=== PATIENT | male | born 1945 | race Caucasian/White ===

== ENCOUNTER 2023-09-15 21:49 | Inpatient (IN) | payer MEDICARE ==
[~2023-09-15] VITALS: Ht 182 cm; Wt 115.2 kg
[~2023-09-15 21:49] MED LIST: AMLO10TA PO; AMOX500C2 PO; BP MED; CEPH500C PO; CHRO1000 PO; LOSA100T7 PO; MTF500T PO; MULT1CAP27 PO; VICODIN 5/325 PO
--- NOTE | 2023-09-15 21:58 | ED General ---
General Stated Complaint: WEAKNESS/VOMITING Source of Information: Patient, Old Records History of Present Illness Date Seen by Provider: Sep 15, 2023 Time Seen by Provider: 21:50 Initial Comments PT ARRIVES VIA EMS FROM HOME--LIVES ALONE WITH HIS DOG C/O GENERALIZED WEAKNESS C/O NAUSEA / VOMITING SYMPTOMS BEGAN FAIRLY SUDDENLY AROUND 1700, WHILE EATING SOUP AT [employer], THEN WENT HOME AND MADE A SALAD AND ATE THAT. HE GOT UP AND HE "FELT DRUNK" AND WAS DIZZY, AND FELT WEAK ALL OVER AND THEN STARTED HAVING NAUSEA/VOMITING--VOMITED X 2 PRIOR TO ARRIVAL HE NO LONGER FEELS "DRUNK" OR DIZZY HE IS STILL NAUSEATED AND STILL FEELS WEAK ALL OVER NO HEADACHE NO VISION CHANGES NO PARESTHESIAS OR MOTOR DEFICITS NO CHEST PAIN NO SHORTNESS OF BREATH NO PALPITATIONS NO PAIN ANYWHERE NO DIARRHEA NO FEVER/SWEATS/CHILLS NO COUGH OR URI SYMPTOMS NO URINARY SYMPTOMS NO HISTORY OF SIMILAR NO KNOWN SICK CONTACTS. PT HAS HAD BILATERAL CATARACT SURGERY IN THE LAST 2 MONTHS. 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 PANIAGUA, BUT QUIT SEEING HER WHEN SHE BECAME A [facility] EARLIER THIS YEAR. HE NOW GOES TO [facility] FOR MEDICAL CARE. Allergies and Home Medications Allergies Coded Allergies: No Known Drug Allergies (Unverified , 03/08/14) Patient Home Medication List Home Medication List Reviewed: Yes Amlodipine Besylate (Amlodipine Besylate) 10 Mg Tablet, 10 MG PO DAILY, (Reported) Entered as Reported by: EDMUND CORBIN on 05/21/14 1056 Amoxicillin (Amoxicillin) 500 Mg Capsule, 1 EACH PO TID Prescribed by: SLAVA MOCK on 01/02/15 0133 Losartan Potassium (Losartan Potassium) 100 Mg Tablet, 100 MG PO DAILY, (Reported) Entered as Reported by: EDMUND CORBIN on 05/21/14 1056 Metformin Hcl (Metformin 500 Mg) 500 Mg Tablet, 500 MG PO BID WITH MEALS, (Reported) Entered as Reported by: EDMUND CORBIN on 05/21/14 1056 Review of Systems Review of Systems Constitutional: see HPI; No chills, No diaphoresis; dizziness; No fever; malaise, weakness EENTM: no symptoms reported Respiratory: no symptoms reported Cardiovascular: no symptoms reported Gastrointestinal: see HPI; No abdominal pain, No diarrhea; nausea Genitourinary: no symptoms reported Musculoskeletal: no symptoms reported Skin: no symptoms reported Psychiatric/Neurological: No Symptoms Reported; Denies Headache, Denies Numbness, Denies Paresthesia, Denies Tingling, Denies Tremors Hematologic/Lymphatic: No Symptoms Reported Immunological/Allergic: no symptoms reported Past Bgbcjeh-Skqpzj-Kteuyh Hx Patient Social History Tobacco Use?: No Smoking Status: Never a Smoker Smokeless Tobacco Frequency: Never a User Use of E-Cig and/or Vaping Ray: Never a User Substance use?: No Alcohol Use?: No Immunizations Up To Date Tetanus Booster (TDap): Less than 5yrs Past Medical History Surgeries: Yes (BILATERAL CATARACTS) Eye Surgery, Prostatectomy Respiratory: No Cardiac: Yes (RBBB) Hypertension Neurological: No Reproductive Disorders: No Sexually Transmitted Disease: No HIV/AIDS: No Genitourinary: Yes (PROSTATE CANCER MANY YEARS AGO) Prostate Problems Gastrointestinal: No Musculoskeletal: No Endocrine: Yes Diabetes, Non-Insulin dep HEENT: Yes Cataract Cancer: Yes Prostate, Skin Did You Recieve Any Treatments: Yes What Type of Treatment Did You: Surgical Intervention Psychosocial: No Integumentary: No Blood Disorders: No Adverse Reaction/Blood Tranf: No Physical Exam Vital Signs Vital Signs - First Documented 09/15/23 21:55 Temp 35.6 Pulse 93 Resp 20 B/P (MAP) 164/92 (116) Pulse Ox 97 O2 Delivery Room Air Capillary Refill : Height, Weight, BMI Height: 5'10" Weight: 302lbs. oz. 136.298889ik; BMI Method: General Appearance: No Apparent Distress, WD/WN HEENT: PERRL/EOMI, Normal ENT Inspection, Other (NO NYSTAGMUS) Neck: Full Range of Motion, Normal Inspection, Non Tender, Supple; No Carotid Bruit, No JVD Respiratory: Normal Breath Sounds, No Accessory Muscle Use, No Respiratory Distress Cardiovascular: Regular Rate, Rhythm, No Edema, No JVD, No Murmur, Normal Peripheral Pulses Gastrointestinal: Normal Bowel Sounds, No Organomegaly, No Pulsatile Mass, Non Tender, Soft Back: No CVA Tenderness Extremity: Normal Capillary Refill, Normal Inspection, Normal Range of Motion, Non Tender, No Calf Tenderness, No Pedal Edema Neurologic/Psychiatric: Alert, Oriented x3, No Motor/Sensory Deficits, 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 II- XII Norm as Tested, Abnormal Cerebellar Tests, Other (UNABLE TO STAND DUE TO SEVERE DIZZINESS WITH NAUSEA/VOMITING) Skin: Normal Color, Warm/Dry Progress/Results/Core Measures Suspected Sepsis SIRS Temperature: Pulse: Respiratory Rate: Laboratory Tests 09/15/23 21:58: White Blood Count 8.5 Blood Pressure / Mean: Laboratory Tests 09/15/23 21:58: Creatinine 1.18, Platelet Count 156, Total Bilirubin 0.9 Results/Orders Lab Results Laboratory Tests Test 09/15/23 21:56 09/15/23 21:58 09/16/23 00:40 09/16/23 00:44 Range/Units Glucometer 246 H 70-110 MG/DL White Blood Count 8.5 4.3-11.0 10^3/uL Red Blood Count 5.09 4.30-5.52 10^6/uL Hemoglobin 15.9 13.3-17.7 g/dL Hematocrit 48 40-54 % Mean Corpuscular Volume 95 80-99 fL Mean Corpuscular Hemoglobin 31 25-34 pg Mean Corpuscular Hemoglobin Concent 33 32-36 g/dL Red Cell Distribution Width 14.0 10.0-14.5 % Platelet Count 156 130-400 10^3/uL Mean Platelet Volume 11.5 9.0-12.2 fL Immature Granulocyte % (Auto) 0 % Neutrophils (%) (Auto) 82 H 42-75 % Lymphocytes (%) (Auto) 9 L 12-44 % Monocytes (%) (Auto) 7 0-12 % Eosinophils (%) (Auto) 2 0-10 % Basophils (%) (Auto) 1 0-10 % Neutrophils # (Auto) 7.0 1.8-7.8 10^3/uL Lymphocytes # (Auto) 0.7 L 1.0-4.0 10^3/uL Monocytes # (Auto) 0.6 0.0-1.0 10^3/uL Eosinophils # (Auto) 0.2 0.0-0.3 10^3/uL Basophils # (Auto) 0.0 0.0-0.1 10^3/uL Immature Granulocyte # (Auto) 0.0 0.0-0.1 10^3/uL Sodium Level 137 135-145 MMOL/L Potassium Level 3.9 3.6-5.0 MMOL/L Chloride Level 102 98-107 MMOL/L Carbon Dioxide Level 17 L 21-32 MMOL/L Anion Gap 18 H 5-14 MMOL/L Blood Urea Nitrogen 17 7-18 MG/DL Creatinine 1.18 0.60-1.30 MG/DL Estimat Glomerular Filtration Rate 64 BUN/Creatinine Ratio 14 Glucose Level 248 H 70-105 MG/DL Calcium Level 9.4 8.5-10.1 MG/DL Corrected Calcium 9.2 8.5-10.1 MG/DL Magnesium Level 1.7 1.6-2.4 MG/DL Total Bilirubin 0.9 0.1-1.0 MG/DL Aspartate Amino Transf (AST/SGOT) 22 5-34 U/L Alanine Aminotransferase (ALT/SGPT) 11 0-55 U/L Alkaline Phosphatase 83 40-136 U/L Troponin I < 0.028 < 0.028 <0.028 NG/ML Total Protein 7.7 6.4-8.2 GM/DL Albumin 4.3 3.2-4.5 GM/DL Amylase Level 57 25-125 U/L Lipase 25 8-78 U/L Influenza Type A (RT-PCR) Not Detected Not Detecte Influenza Type B (RT-PCR) Not Detected Not Detecte SARS-CoV-2 RNA (RT-PCR) Not Detected Not Detecte Urine Color YELLOW Urine Clarity CLEAR Urine pH 6.0 5-9 Urine Specific [place] 1.015 L 1.016-1.022 Urine Protein 1+ H NEGATIVE Urine Glucose (UA) 2+ H NEGATIVE Urine Ketones 1+ H NEGATIVE Urine Nitrite NEGATIVE NEGATIVE Urine Bilirubin NEGATIVE NEGATIVE Urine Urobilinogen 1.0 < = 1.0 MG/DL Urine Leukocyte Esterase NEGATIVE NEGATIVE Urine RBC (Auto) NEGATIVE NEGATIVE Urine RBC RARE /HPF Urine WBC RARE /HPF Urine Crystals NONE /LPF Urine Bacteria NEGATIVE /HPF Urine Casts NONE /LPF Urine Mucus NEGATIVE /LPF Urine Culture Indicated NO My Orders Orders - MARY MENDOZA DO Accucheck Stat ONCE (09/15/23 21:51) Ed Iv/Invasive Line Start (09/15/23 21:51) Ekg Tracing (09/15/23 21:51) O2 (09/15/23 21:51) Monitor-Rhythm Ecg Trace Only (09/15/23 21:51) Amylase (09/15/23 21:51) Cbc And Automated Diff (09/15/23 21:51) Comprehensive Metabolic Panel (09/15/23 21:51) Lipase (09/15/23 21:51) Magnesium (09/15/23 21:51) Ua Culture If Indicated (09/15/23:51) Troponin I Reynolds (09/15/23 21:51) Covid 19 Inhouse Test (09/15/23 21:51) Influenza A And B By Pcr (09/15/23 21:51) Ed Iv/Invasive Line Start (09/15/23 21:56) Lactated Ringers 1,000 Ml (Lactated Ring (09/15/23 22:00) Ondansetron Injection (Ondansetron Inj (09/15/23 22:00) Ct Head Wo-R/O Stroke (09/15/23 22:13) Chest 1 View, Ap/Pa Only (09/15/23 ) Ed Iv/Invasive Line Start (09/15/23 22:17) Ns Iv 1000 Ml (Ns Iv 1000 Ml) (09/15/23 22:30) Ns Iv 1000 Ml (Ns Iv 1000 Ml) (09/15/23 22:18) Ed Iv/Invasive Line Start (09/15/23 23:40) Ns Iv 1000 Ml (Ns Iv 1000 Ml) (09/15/23 23:45) Scopolamine Patch (Scopolamine Patch) (09/16/23 00:00) Meclizine Tablet (Meclizine Tablet) (09/16/23 00:00) Ct Angio Head/Neck (09/16/23 00:01) Hydralazine Injection (Hydralazine Injec (09/16/23 00:00) Ondansetron Injection (Ondansetron Inj (09/16/23 00:30) Ondansetron Injection (Ondansetron Inj (09/16/23 00:20) Iohexol Injection (Omnipaque 350 Mg/Ml 1 (09/16/23 01:15) Received Contrast (Hold Metformin- Contr (09/16/23 01:15) Ns (Ivpb) 100 Ml (Sodium Chloride 0.9% 1 (09/16/23 01:15) Troponin I Maddie (09/16/23 01:06) Aspirin Chewable Tablet (Aspirin Chewabl (09/16/23 01:45) Clopidogrel Tablet (Clopidogrel Tablet) (09/16/23 01:45) Nitroglycerin Ointment (Nitroglycerin (09/16/23 01:45) Medications Given in ED Current Medications Medications Dose Ordered Sig/Senia Route Start Time Stop Time Status Last Admin Dose Admin Aspirin 324 mg ONCE ONCE PO 09/16/23 01:45 09/16/23 01:46 DC 09/16/23 02:10 324 MG Clopidogrel Bisulfate 300 mg ONCE ONCE PO 09/16/23 01:45 09/16/23 01:46 DC 09/16/23 02:10 300 MG Hydralazine HCl 10 mg ONCE ONCE IV 09/16/23 00:00 09/16/23 00:01 DC 09/16/23 00:11 10 MG Iohexol 100 ml ONCE ONCE IV 09/16/23 01:15 09/16/23 01:16 DC 09/16/23 01:04 75 ML Lactated Ringer's 1,000 ml @ 0 mls/hr Q0M ONCE IV 09/15/23 22:00 09/15/23 22:01 DC 09/15/23 22:11 0 MLS/HR Meclizine HCl 50 mg ONCE ONCE PO 09/16/23 00:00 09/16/23 00:01 DC 09/16/23 00:11 50 MG Nitroglycerin 1 inch ONCE ONCE TOP 09/16/23 01:45 09/16/23 01:46 DC 09/16/23 01:48 1 INCH Ondansetron HCl 4 mg ONCE ONCE IVP 09/15/23 22:00 09/15/23 22:01 DC 09/15/23 22:11 4 MG Ondansetron HCl 8 mg ONCE ONCE IVP 09/16/23 00:30 09/16/23 00:31 DC 09/16/23 00:24 8 MG Scopolamine 1.5 mg ONCE ONCE TD 09/16/23 00:00 09/16/23 00:01 DC 09/16/23 00:11 1.5 MG Sodium Chloride 100 ml ONCE ONCE IV 09/16/23 01:15 09/16/23 01:16 DC 09/16/23 01:04 80 ML Vital Signs/I&O 09/15/23 21:55 Temp 35.6 Pulse 93 Resp 20 B/P (MAP) 164/92 (116) Pulse Ox 97 O2 Delivery Room Air 09/16/23 00:00 Intake Total 1100 ml Balance 1100 ml Capillary Refill : Progress Note : Progress Note VITALS ON ARRIVAL: TEMP 35.6, HR 93, RR 20, BP 164/92, O2 SAT 97% ON ROOM AIR GIVEN: -IV FLUIDS -ZOFRAN -SCOPOLAMINE PATCH -ANTIVERT -HYDRALAZINE -ASPIRIN -PLAVIX -REGLAN -NITROPASTE LABS: -CBC NORMAL -CMP GLUCOSE 248, OTHERWISE NORMAL -MG NORMAL -AMYLASE/LIPASE NORMAL -TROPONIN NEGATIVE X 2 -UA WITH 1+ PROTEIN, 2+ GLUCOSE, 1+ KETONES -COVID/FLU NEGATIVE EKG WITH CHRONIC RBBB, UNCHANGED FROM 2013 CXR UNREMARKABLE, PENDING RADIOLOGIST REVIEW CT HEAD UNREMARKABLE, PER RADIOLOGIST REPORT CT ANGIOGRAM HEAD/NECK--RIGHT VERTEBRAL ARTERY OCCLUSION SYMPTOMS RESOLVED SHORTLY AFTER ARRIVAL NO SYMPTOMS OF ANY KIND WHILE LAYING STILL ON ER CART 2345--PT ASSISTED TO STAND AT BEDSIDE TO ATTEMPT TO URINATE, AND PT BECAME VERY DIZZY AND SHAKEY AND NAUSEATED. UNABLE TO VOID AT THIS TIME BP UP TO 214/111 SCOPOLAMINE, ANTIVERT AND HYDRALAZINE ORDERED WILL ALSO OBTAIN CT ANGIOGRAM HEAD/NECK AT THIS TIME 0019--PT IN CT AND IS NOW NAUSEATED AND VOMITING AFTER MOVING ONTO CT TABLE--ADDITIONAL ZOFRAN ORDERED PT HAS NO SYMPTOMS WHILE LAYING STILL HAS SIGNIFICANT DIZZINESS WITH NAUSEA/VOMITING WITH ANY POSITION CHANGES 0145--ATTEMPTING TO GIVE ASPIRIN AND PLAVIX AND PT BEGAN HAVING DIZZINESS AND NAUSEA/VOMITING AGAIN WHEN HE TRIED TO SIT UP TO TAKE MEDICATION. REGLAN ORDERED BP REMAINS ELEVATED 180-190 SYSTOLIC--NITROPASTE ORDERED BP DOWN AT TIME OF ADMIT TO 160'S/90'S DISCUSSED TEST RESULTS, NEED FOR ADMIT AND PT IS AGREEABLE TO PLAN REVIEWED PRIOR RECORDS--2 ER VISITS -2013, 2014, AND OUTPATIENT PROCEDURE IN 2013 ECG Initial ECG Impression Date: Sep 15, 2023 Initial ECG Impression Time: 22:05 Initial ECG Rate: 90 Initial ECG Rhythm: Normal Sinus (RBBB) Initial ECG Intervals [place] 118 QRS 144 QT/QTC 389/437 Initial ECG Comparisson: Unchanged (NO CHANGE FROM 2013) Comment INTERPRETED BY ME Diagnostic Imaging Comments CT HEAD--NO ACUTE PROCESS, CHRONIC WHITE MATTER DISEASE, PER [facility] RADIOLOGIST VIA PHONE AT [phone] And VIA FAX AT [phone] CXR--NO ACUTE PROCESS, PENDING RADIOLOGIST REVIEW CT ANGIOGRAM HEAD/NECK--PER [facility] RADIOLOGIST VIA PHONE AT 0111 AND VIA FAX AT 0115 -RIGHT VERTEBRAL ARTERY OCCLUSION. VESSEL IS SMALL AND NON-DOMINANT VESSEL. Reviewed: Reviewed by Me, Discussed w/Radiologist, Reviewed/Discussed Departure Communication (Admissions) 0120--CALLED [facility]. IMAGES CLOUDED TO [facility]. SPOKE WITH DR. ZHENG, STROKE NEUROLOGIST. THE AREA OF OCCLUSION IS SMALL AND NOT AMENABLE TO ANY INTERVENTION. ADVISES MEDICAL MANAGEMENT WITH ASPIRIN AND PLAVIX, AND ROUTINE STROKE WORK UP. 0127--SPOKE WITH DR. PINO, HOSPITALIST. ACCEPTS PT FOR ADMIT. Impression Primary Impression: Vertebral artery occlusion Additional Impressions: Vertigo due to acute cerebrovascular disease Acute onset of vertigo with vomiting and inability to stand Uncontrolled hypertension UNCONTROLLED NIDDM Disposition: ADMITTED INPATIENT Condition: Stable Admissions Decision to Admit Reason: Admit from ER (General) Decision to Admit/Date: Sep 16, 2023 Time/Decision to Admit Time: 01:30 Departure-Patient Inst. Referrals: SAJI PANIAGUA MD (PCP/Family) Primary Care Physician MARY MENDOZA DO Sep 15, 2023 21:58
[2023-09-15] MEDS ORDERED: ONDANSETRON INJECTION 4 MG/2 ML (SDV) IVP ONE (22:00)
[2023-09-15] MEDS ORDERED: LACTATED RINGERS 1,000 ML 1,000 ML IV ONE (22:00)
[2023-09-15 22:05] LABS: BASOPHILS % (AUTO) 1 % (0-10); EOSINOPHILS # (AUTO) 0.2 10^3/uL (0.0-0.3); EOSINOPHILS % (AUTO) 2 % (0-10); HEMATOCRIT 48 % (40-54); HEMOGLOBIN 15.9 g/dL (13.3-17.7); LYMPHOCYTES # (AUTO) 0.7 10^3/uL (1.0-4.0); LYMPHOCYTES % (AUTO) 9 % (12-44); MEAN CORPUSCULAR HEMOGLOBIN 31 pg (25-34); MEAN CORPUSCULAR HGB CONC 33 g/dL (32-36); MEAN CORPUSCULAR VOLUME 95 fL (80-99); MEAN PLATELET VOLUME 11.5 fL (9.0-12.2); MONOCYTES # (AUTO) 0.6 10^3/uL (0.0-1.0); MONOCYTES % (AUTO) 7 % (0-12); NEUTROPHILS % (AUTO) 82 % (42-75); PLATELET COUNT 156 10^3/uL (130-400); WHITE BLOOD COUNT 8.5 10^3/uL (4.3-11.0)
[2023-09-15] MEDS ORDERED: NS IV 1000 ML 1,000 ML ONE (22:18)
[2023-09-15 22:27] LABS: ALANINE AMINOTRANSFERASE 11 U/L (0-55); ALBUMIN 4.3 GM/DL (3.2-4.5); ALKALINE PHOSPHATASE 83 U/L (40-136); AMYLASE 57 U/L (25-125); BILIRUBIN,TOTAL 0.9 MG/DL (0.1-1.0); BUN/CREATININE RATIO 14; CALCIUM 9.4 MG/DL (8.5-10.1); CARBON DIOXIDE 17 MMOL/L (21-32); CHLORIDE 102 MMOL/L (98-107); CREATININE SERUM 1.18 MG/DL (0.60-1.30); GFR ESTIMATED 64; GLUCOSE 248 MG/DL (70-105); LIPASE 25 U/L (8-78); MAGNESIUM 1.7 MG/DL (1.6-2.4); POTASSIUM 3.9 MMOL/L (3.6-5.0); SODIUM 137 MMOL/L (135-145); TOTAL PROTEIN 7.7 GM/DL (6.4-8.2)
[2023-09-15] MEDS ORDERED: NS IV 1000 ML 1,000 ML IV SCH ×2 (22:30→23:45)
[2023-09-16] VITALS (16 sets, daily range): BP systolic 120–199; BP diastolic 53–99
[2023-09-16] MEDS ORDERED: SCOPOLAMINE 1.5 MG PATCH TD ONE
[2023-09-16] MEDS ORDERED: MECLIZINE 25 MG TABLET PO ONE
[2023-09-16] MEDS ORDERED: hydrALAZINE INJECTION 20 MG/ML VIAL IV ONE
[2023-09-16] MEDS ORDERED: ONDANSETRON INJECTION 4 MG/2 ML (SDV) ONE (00:20)
[2023-09-16] MEDS ORDERED: ONDANSETRON INJECTION 4 MG/2 ML (SDV) IVP ONE (00:30)
[2023-09-16 01:14] LABS: CLARITY,URINE CLEAR; COLOR,URINE YELLOW
[2023-09-16 01:15] LABS: BACTERIA,URINE NEGATIVE /HPF; BILIRUBIN,URINE NEGATIVE (NEGATIVE); GLUCOSE, URINE (UA) 2+ (NEGATIVE); KETONES,URINE 1+ (NEGATIVE); LEUKOCYTE ESTERASE ,URINE NEGATIVE (NEGATIVE); NITRITE,URINE NEGATIVE (NEGATIVE); PROTEIN,URINE 1+ (NEGATIVE); RBC,URINE RARE /HPF; WBC,URINE RARE /HPF
[2023-09-16] MEDS ORDERED: HOLD METFORMIN - RECEIVED CONTRAST 20 ML VIAL IV SCH (01:15)
[2023-09-16] MEDS ORDERED: NS 100 ML (IVPB) BAG IV ONE (01:15)
[2023-09-16] MEDS ORDERED: IOHEXOL 350 MG/ML 100 ML (OMNIPAQUE 350) VIAL IV ONE (01:15)
[2023-09-16] MEDS ORDERED: NITROGLYCERIN 2% OINT 1 GM UNIT DOSE PACKET TOP ONE (01:45)
[2023-09-16] MEDS ORDERED: ASPIRIN 81 MG CHEWABLE TABLET PO ONE (01:45)
[2023-09-16] MEDS ORDERED: CLOPIDOGREL 300 MG TABLET PO ONE (01:45)
[2023-09-16] MEDS ORDERED: METOCLOPRAMIDE INJ 10 MG/2 ML IVP ONE (02:00)
--- NOTE | 2023-09-16 02:32 | Tele-ICU Consult ---
History of Present Illness History of Present Illness Date Seen by Provider: Sep 16, 2023 Time Seen by Provider: 02:26 History of Present Illness 78 yo M came to ED with cc weakness, nausea, vomiting In ED glu 248, AG 18, HCO3 17 Found to have right vertebral artery occlusion, has vertigo with any movement carolyn standing Started on ASA, Plavix PMH HTN, Allergies and Home Medications Allergies Coded Allergies: No Known Drug Allergies (Unverified , 03/08/14) Home Medications Amlodipine Besylate 10 Mg Tablet, 10 MG PO DAILY, (Reported) Amoxicillin 500 Mg Capsule, 1 EACH PO TID Prescribed by: SLAVA MOCK on 01/02/15 0133 Losartan Potassium 100 Mg Tablet, 100 MG PO DAILY, (Reported) Metformin Hcl 500 Mg Tablet, 500 MG PO BID WITH MEALS, (Reported) Past Medical/Social/Family Hx Patient Social History Tobacco Use?: No Smoking Status: Never a Smoker Smokeless Tobacco Frequency: Never a User Use of E-Cig and/or Vaping dev: No E-Cig and/or Vaping Freq: Never a User Substance use?: No Alcohol Use?: No Immunizations Up To Date Date of Pneumonia Vaccine: May 27, 2012 Current Status Communicates: Verbally Primary Language: Mozambican Preferred Spoken Language: Mozambican Review of Systems Constitutional: dizziness, weakness Focused Exam Height, Weight, BMI Height: 5'10" Weight: 302lbs. oz. 136.309515ct; 42.00 BMI Method: Exam Exam Patient acknowledged, consented, and participated in this virtual visit which was conducted using real time audio/video Vital Signs Date Time Temp Pulse Resp B/P (MAP) Pulse Ox O2 Delivery O2 Flow Rate FiO2 09/15/23 21:55 35.6 93 20 164/92 (116) 97 Room Air I & O 09/16/23 07:00 Intake Total 2100 ml Balance 2100 ml Height & Weight Height: 5'10" Weight: 302lbs. oz. 136.659197jo; 42.00 BMI Method: General Appearance: No Apparent Distress, WD/WN HEENT: PERRL/EOMI, Normal ENT Inspection, Other (NO NYSTAGMUS) Neck: Full Range of Motion, Normal Inspection, Non Tender, Supple; No Carotid Bruit, No JVD Respiratory: Normal Breath Sounds, No Accessory Muscle Use, No Respiratory Distress Cardiovascular: Regular Rate, Rhythm, No Edema, No JVD, No Murmur, Normal Peripheral Pulses Capillary Refill: Less Than 3 Seconds Extremity: Normal Capillary Refill, Normal Inspection, Normal Range of Motion, Non Tender, No Calf Tenderness, No Pedal Edema Neurologic/Psychiatric: Alert, Oriented x3, No Motor/Sensory Deficits, 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
[2023-09-16] MEDS ORDERED: NITROGLYCERIN 2% OINT 1 GM UNIT DOSE PACKET TOP PRN (03:15)
[2023-09-16] MEDS ORDERED: MECLIZINE 25 MG TABLET PO PRN (03:30)
[2023-09-16] MEDS ORDERED: ONDANSETRON INJECTION 4 MG/2 ML (SDV) IV PRN (03:30)
[2023-09-16] MEDS: 1/2 NS + KCL 20 MEQ/L 1,000 ML 1,000 ML IV SCH ×2 (03:53→13:28)
[2023-09-16 05:31] LABS: CALCIUM 8.7 MG/DL (8.5-10.1); CREATININE SERUM 0.97 MG/DL (0.60-1.30)
[2023-09-16] MEDS: inSUlin ASPART 1 UNIT/0.01 ML (PER UNIT) SC SCH ×4 (06:06→20:32)
[2023-09-16] MEDS ORDERED: hydrALAZINE INJECTION 20 MG/ML VIAL ONE (06:27)
[2023-09-16] MEDS: hydrALAZINE INJECTION 20 MG/ML VIAL IV PRN ×2 (06:32→13:12)
--- NOTE | 2023-09-16 06:55 | Diagnostic Imaging Report ---
PROCEDURE: CT angiography of the head and CT angiography of the neck with and without contrast. TECHNIQUE: Contiguous noncontrast images were obtained from the skull base through the vertex. After intravenous contrast administration, helical CT angiography of the neck was performed. Source data was reformatted into 3D MIP projections. Delayed post contrast acquisition was also obtained. Auto Exposure Controls were utilized during the CT exam to meet ALARA standards for radiation dose reduction. INDICATION: Dizziness. Nausea and vomiting. Leg weakness. Comparison: CT head performed FINDINGS: CTA Neck: The visualized portions of the aortic arch demonstrate no evidence of aneurysm or dissection. There is conventional branching pattern of the great vessels of the aorta. The brachiocephalic artery is normal in course and caliber. The right and left common carotid origins are unremarkable. The origin of the left subclavian artery is patent. The common carotid arteries and internal carotid arteries demonstrate a normal course. There is calcified atherosclerotic plaque in the bilateral carotid bulbs and proximal internal carotid arteries without flow-limiting stenosis. No evidence of dissection in the carotid systems. The external carotid arteries are patent and unremarkable. The left vertebral artery is dominant. The origin of the right vertebral artery is seen and is unremarkable. The origin of the left vertebral artery is seen and is unremarkable. There is no focal stenosis seen within the neck. There is no dissection. No acute fracture in the cervical spine. The craniocervical junction is intact. Included views through the lung apices demonstrate no focal consolidation. CTA brain: Atherosclerotic plaque is seen in the vela of the bilateral terminal internal carotid arteries without significant stenosis. No stenosis is seen in the bilateral anterior, middle, and posterior cerebral arteries. There is luminal irregularity within the right M1 segment. No evidence of aneurysm the [place] of [place]. There is occlusion of the right vertebral artery at the V3/V4 junction. The left vertebral artery is widely patent. Both the right and left PICA arteries are identified. The basilar artery is normal in course and caliber. The terminal branch vessels including the superior cerebellar arteries unremarkable. IMPRESSION: 1. No stenosis or aneurysm in the [place] of [place]. No large vessel occlusion. 2. 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 This is age-indeterminate. Consider MRI brain to further evaluate. 3. No stenosis in the left vertebral artery and bilateral carotid systems. 4. Luminal irregularity within the right M1 segment, suggestive of intracranial atherosclerotic plaque. Agree with overnight report. Dictated by: Dictated on workstation # [id number]
[2023-09-16] MEDS ORDERED: FLU HIGH DOSE (65+ YOA) 240 MCG/0.7 ML 2023-24 (FLUZONE) IM ONE (07:00)
--- NOTE | 2023-09-16 07:21 | Diagnostic Imaging Report ---
EXAMINATION: CT head without contrast. TECHNIQUE: Multiple contiguous axial images were obtained through the brain without the use of intravenous contrast. All CT scans use one or more of the following dose optimizing techniques: automated exposure control, MA and/or KvP adjustment based on patient size and exam type or iterative reconstruction. HISTORY: Focal neurologic deficit. Dizziness. Leg weakness. COMPARISON: None available. FINDINGS: No large acute territorial ischemia, mass, or hemorrhage. No midline shift or mass effect. Decreased attenuation is seen in the periventricular and subcortical white matter. The ventricles and cortical sulci are prominent. The basilar cisterns are patent and unremarkable. The orbits are normal. Mucosal thickening is seen in the left-sided paranasal sinuses. Mastoid air cells are clear. No soft tissue abnormality is seen. No osseus lesions or fractures are seen. IMPRESSION: 1. No large acute territorial ischemia, mass, or hemorrhage. 2. Chronic microvascular disease. 3. Generalized parenchymal volume loss. Agree with overnight report. Dictated by: Dictated on workstation # [id number]
--- NOTE | 2023-09-16 07:42 | Diagnostic Imaging Report ---
EXAMINATION: Chest 1 view HISTORY: Dizziness. Nausea. COMPARISON: None available. FINDINGS: The lung volumes are normal. No focal consolidation is seen. No large pleural effusion or pneumothorax is seen. The cardiomediastinal silhouette is normal in size and contour. No acute osseous abnormality is seen. IMPRESSION: 1. No acute pleuroparenchymal process. Dictated by: Dictated on workstation # [id number]
[2023-09-16] MEDS: ASPIRIN 81 MG CHEWABLE TABLET PO SCH (08:26)
[2023-09-16] MEDS: CLOPIDOGREL 75 MG TABLET PO SCH (08:26)
[2023-09-16] MEDS ORDERED: LOSARTAN 100 MG TABLET PO ONE (09:15)
[2023-09-16 09:23] LABS: TRIGLYCERIDES 44 MG/DL (<150); VLDL CHOLESTEROL 9 MG/DL (5-40)
[2023-09-16 09:28] LABS: CHOLESTEROL 164 MG/DL (< 200)
[2023-09-16 09:29] LABS: HDL CHOLESTEROL 47 MG/DL (40-60)
--- NOTE | 2023-09-16 13:28 | History & Physical-Hospitalist ---
RAYMOND DANIELITE 09/16/23 1328: History of Present Illness HPI/Chief Complaint Mohsen Rush (Bill) is a 78yo M who presented to the ED yesterday due to weakness, vomiting, dizziness, and reportedly a feeling of drunkenness that began last night. Yesterday he had a heated conversation with a estuardo and ate at [employer]. When he came home he lost his appetite and started vomiting and having diarrhea. Denies blood in stool. This morning he was complaining of double vision, which seems to be worse on his R side and fullness in his stomach. He denied SOB and CP. Onesimo has a history of prostate cancer, DM, HTN, RBBB. NKDA. He lives alone with his dog, Bernardino, who is currently locked in the bathroom. Nurse is contacting friend, pawel, who is supposed to check on him. He was hypertensive upon admission and has been continuing to run high. He has hyperglycemia, UA and other blood work otherwise unremarkable. Imaging showed: CXR: No acute pleuroparenchymal process. CT Head: 1. No large acute territorial ischemia, mass, or hemorrhage. 2. Chronic microvascular disease. 3. Generalized parenchymal volume loss. CTA: 1. No stenosis or aneurysm in the [place]. No large vessel occlusion. 2. 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 This is age-indeterminate. Consider MRI brain to further evaluate. 3. No stenosis in the left vertebral artery and bilateral carotid systems. 4. Luminal irregularity within the right M1 segment, suggestive of intracranial atherosclerotic plaque. Dr. Jaffe, stroke neurologist at , was notified and recommended conservative medical management with plavix and aspirin and stroke work up. Source: RN/MD Date Seen 09/16/23 Time Seen by a Provider: 09:45 Attending Physician Radha Antonio MD PCP Admitting Physician: Nir Pino MD Attending Physician: Nir Pino MD Referring Physician Date of Admission Home Medications & Allergies Home Medications Reviewed patient Home Medication Reconciliation performed by pharmacy medication reconciliations light technician and/or nursing. Patients Allergies have been reviewed. Allergies Allergies Coded Allergies No Known Drug Allergies (Unverified03/08/14) Past Tmsblew-Syqlhs-Rbwxrj Hx Patient Social History Marrital Status: single Tobacco Use?: No Smoking Status: Never a Smoker Smokeless Tobacco Frequency: Never a User Use of E-Cig and/or Vaping dev: No Use of E-Cig and/or Vaping Ray: Never a User Substance use?: No Alcohol Use?: No Immunizations Up To Date Date of Pneumonia Vaccine: May 27, 2012 Current Status Communicates: Verbally Primary Language: Indian Preferred Spoken Language: Indian Past Medical History Surgeries: Eye Surgery, Prostatectomy Hypertension Sexually Transmitted Disease: No HIV/AIDS: No Prostate Problems Diabetes, Non-Insulin dep Cataract Prostate, Skin Did You Recieve Any Treatments: Yes What Type of Treatment Did You: Surgical Intervention Blood Disorders: No Adverse Reaction/Blood Tranf: No Review of Systems Constitutional: No chills, No diaphoresis; dizziness; No fever; weakness EENTM: double vision (R eye); No ear discharge, No hearing loss, No tearing, No hoarseness Respiratory: No cough, No short of breath Cardiovascular: No edema, No palpitations Gastrointestinal: No abdominal pain; diarrhea; No dysphagia, No hematemesis; loss of appetite, nausea, vomiting, other (excessive eructation) Genitourinary: No dysuria, No hematuria Musculoskeletal: No back pain, No joint pain Skin: No change in color, No change in hair/nails Psychiatric/Neurological: Denies Headache, Denies Numbness, Denies Paresthesia Physical Exam Physical Exam Vital Signs Vital Signs - First Documented 09/15/23 21:55 Temp 35.6 Pulse 93 Resp 20 B/P (MAP) 164/92 (116) Pulse Ox 97 O2 Delivery Room Air Capillary Refill : Less Than 3 Seconds Height, Weight, BMI Height: 5'10" Weight: 302lbs. oz. [id number]; 42.26 BMI Method: General Appearance: No Apparent Distress, WD/WN Eyes: Right Eye Other (diplopia) HEENT: No Photophobia, No Scleral Icterus (L), No Scleral Icterus (R) Neck: Non Tender, Supple; No Carotid Bruit, No JVD Respiratory: No Accessory Muscle Use, No Respiratory Distress Cardiovascular: Regular Rate, Rhythm, No Edema Gastrointestinal: Non Tender, Soft; No Distended, No Guarding, No Hepatomegaly Rectal: Deferred Back: No CVA Tenderness, No Vertebral Tenderness Extremity: Non Tender, No Calf Tenderness, No Pedal Edema Neurologic/Psychiatric: Alert, Oriented x3, Abnormal Cerebellar Tests (intact BL, tested via rapid pronation, heel to diaz test, and finger to nose test), Abnormal shot bagger II-XII (delay in opening R eye, diplopia of R eye); No Depressed Affect; EOM Palsy (R eye diplopia); No Facial Droop, No Sensory Deficit; Other (UE strength to elbow extension, flexion 5/5 BL, LE stregth to knee flexion, extension 5/5 BL) Skin: Warm/Dry; No Cyanosis, No Diaphoresis, No Ecchymosis, No Erythema, No Pallor Lymphatic: No Adenopathy Results Results/Procedures Labs Laboratory Tests 09/15/23 21:58 09/16/23 04:53 Patient resulted labs reviewed. Assessment/Plan Admission Diagnosis RVA Occlusion Admission Status: Inpatient Order (span 2 midnights) Reason for Inpatient Admission: Further workup, HTN, uncontrolled diabetes Assessment and Plan 1. RVA Occlusion Aspirin, plavix, Losartan, Hydralazine MRI head and neck Echo US of carotid arteries PT/OT for recovery of function 3. Hypertension Losartan conservative management 4. DM Hgb A1C Sliding scale insulin Hold meformin for imaging repeat glucometer 5. RBBB Amlodipine, Diltizem 6. Nausea/Vomitting Meclizine, Scopalamine 7. Obesity Diagnosis/Problems Diagnosis/Problems (1) Diabetes mellitus Status: Chronic (2) Vertebral artery occlusion Status: Acute (3) Uncontrolled hypertension Status: Acute (4) Acute onset of vertigo with vomiting and inability to stand Status: Acute (5) Vertigo due to acute cerebrovascular disease Status: Acute NIR PINO MD 09/16/23 7711: History of Present Illness Source: patient Exam Limitations: no limitations Time Seen by a Provider: 12:30 Past Cjkdlkb-Nujtrm-Iuvkkj Hx Patient Social History Tobacco Use?: No Substance use?: No Alcohol Use?: No Family Medical History No Pertinent Family Hx Physical Exam Physical Exam General Appearance: No Apparent Distress, Obese HEENT: Pharynx Normal, Other (PERRL, horizontal and vertical nystagmus present, right sided diplopia) Neck: Normal Inspection, Supple Respiratory: Lungs Clear, No Respiratory Distress Cardiovascular: Regular Rate, Rhythm, No Edema, No Murmur Gastrointestinal: Normal Bowel Sounds, Non Tender, Soft Extremity: Normal Inspection, No Pedal Edema Neurologic/Psychiatric: Alert, Oriented x3, No Motor/Sensory Deficits, Abnormal Cerebellar Tests (intact BL, tested via rapid pronation, heel to diaz test, and finger to nose test), Abnormal shot bagger II-XII (delay in opening R eye, diplopia of R eye) Skin: Normal Color, Warm/Dry Results Results/Procedures Imaging: Reviewed Imaging Report Assessment/Plan Admission Diagnosis Admission Status: Inpatient Order (span 2 midnights) Reason for Inpatient Admission: Stroke Assessment and Plan Admitted with right verterbral artery occlusion, not amenable to intervention. Started on ASA, Plavix, Lipitor. Further stroke workup ordered. Also with uncontrolled hypertension. Critical Care Critically Ill Patient Diagnosis/Problems Diagnosis/Problems (1) Vertebral artery occlusion Status: Acute (2) Cerebellar stroke Status: Acute (3) Diabetes mellitus Status: Chronic (4) Uncontrolled hypertension Status: Acute (5) Acute onset of vertigo with vomiting and inability to stand Status: Acute (6) Vertigo due to acute cerebrovascular disease Status: Acute (7) Hypertensive emergency Status: Acute Supervisory-Addendum Brief Verification & Attestation Participated in pt care: history, MDM, physical Personally performed: exam, history, MDM, supervision of care Care discussed with: Medical Student Procedures: n/a A medical student performed and documented this service in my presence. I reviewed and verified all information documented by the medical student and made modifications to such information, when appropriate. I personally performed the physical exam and medical decision making. CONRAD DANIEL Sep 16, 2023 13:28 NIR PINO MD Sep 16, 2023 17:44
[2023-09-16] MEDS ORDERED: amLODIPine 10 MG TABLET PO ONE (13:30)
--- NOTE | 2023-09-16 14:54 | Consultation-Cardiology ---
HPI-Cardiology Cardiology Consultation: Date of Consultation 09/16/23 Date of Admission Attending Physician Radha Antonio MD Admitting Physician Admitting Physician: Zuri Maier MD Attending Physician: Zuri Maier MD Consulting Physician Cody GUZMÁN MD HPI: Time Seen by a Provider: 14:00 Chief Complaint: Acute stroke This is a 78-year-old gentleman who presented yesterday to the ER for complaints of dizziness, weakness and vomiting. He also complained of ataxia and double vision. He has history of high blood pressure, diabetes and right bundle branch block. CT scan showed acute vertebral occlusion resulting in the above symptoms. Stroke neurologist at is on board and helping with management. No other cardiac symptoms. Imaging showed: CXR: No acute pleuroparenchymal process. CT Head: 1. No large acute territorial ischemia, mass, or hemorrhage. 2. Chronic microvascular disease. 3. Generalized parenchymal volume loss. CTA: 1. No stenosis or aneurysm in the [place]. No large vessel occlusion. 2. 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 This is age-indeterminate. Consider MRI brain to further evaluate. 3. No stenosis in the left vertebral artery and bilateral carotid systems. 4. Luminal irregularity within the right M1 segment, suggestive of intracranial atherosclerotic plaque Review of Systems-Cardiology Review of Systems Constitutional: lightheadedness Eyes: other (Double vision) Ears/Nose/Throat: no symptoms reported Respiratory: no symptoms reported Cardiovascular: lightheadedness Gastrointestinal: vomiting, nausea/vomiting/diarrhea Genitourinary: no symptoms reported Musculoskeletal: no symptoms reported Skin: no symptoms reported Psychiatric/Neurological: no symptoms reported Hematologic: no symptoms reported MKP-Rotewb-Accley Hx Patient Social History Marrital Status: single Smoking Status: Never a Smoker Alcohol Use?: No Immunizations Up To Date Tetanus Booster (TDap): Less than 5yrs Date of Pneumonia Vaccine: May 27, 2012 Past Medical History PMH As described under Assessment. Allergies and Home Medications Allergies Coded Allergies: No Known Drug Allergies (Unverified , 03/08/14) Patient Home Medication List Home Medication List Reviewed: Yes Amlodipine Besylate (Amlodipine Besylate) 10 Mg Tablet, 10 MG PO DAILY, (Reported) Entered as Reported by: EDMUND CORBIN on 05/21/14 8360 Last Action: Continued Losartan Potassium (Losartan Potassium) 100 Mg Tablet, 100 MG PO DAILY, (Reported) Entered as Reported by: EDMUND CORBIN on 05/21/14 1056 Last Action: Reviewed Metformin Hcl (Metformin 500 Mg) 500 Mg Tablet, 500 MG PO BID WITH MEALS, (Reported) Entered as Reported by: EDMUND CORBIN on 05/21/14 1056 Last Action: Reviewed Discontinued Medications Amoxicillin (Amoxicillin) 500 Mg Capsule, 1 EACH PO TID Discontinued Reason: No Longer Taking Prescribed by: SLAVA MOCK on 01/02/15 0133 Last Action: Discontinued Exam Vital Signs Vital Signs Date Time Temp Pulse Resp B/P (MAP) Pulse Ox O2 Delivery O2 Flow Rate FiO2 09/16/23 12:26 74 09/16/23 12:07 36.4 18 158/86 (110) 93 Room Air Physical Exam Constitutional: Alert, no respiratory distress. Chest: Clear to auscultation bilaterally. CVS: Regular rhythm. No significant murmur, rub or gallop. Psychiatry: No depression or anxiety. Neuro: Alert, oriented. Labs Laboratory Tests Test 09/15/23 21:56 09/15/23 21:58 09/16/23 00:40 09/16/23 00:44 Range/Units Glucometer 246 H 70-110 MG/DL White Blood Count 8.5 4.3-11.0 10^3/uL Red Blood Count 5.09 4.30-5.52 10^6/uL Hemoglobin 15.9 13.3-17.7 g/dL Hematocrit 48 40-54 % Mean Corpuscular Volume 95 80-99 fL Mean Corpuscular Hemoglobin 31 25-34 pg Mean Corpuscular Hemoglobin Concent 33 32-36 g/dL Red Cell Distribution Width 14.0 10.0-14.5 % Platelet Count 156 130-400 10^3/uL Mean Platelet Volume 11.5 9.0-12.2 fL Immature Granulocyte % (Auto) 0 % Neutrophils (%) (Auto) 82 H 42-75 % Lymphocytes (%) (Auto) 9 L 12-44 % Monocytes (%) (Auto) 7 0-12 % Eosinophils (%) (Auto) 2 0-10 % Basophils (%) (Auto) 1 0-10 % Neutrophils # (Auto) 7.0 1.8-7.8 10^3/uL Lymphocytes # (Auto) 0.7 L 1.0-4.0 10^3/uL Monocytes # (Auto) 0.6 0.0-1.0 10^3/uL Eosinophils # (Auto) 0.2 0.0-0.3 10^3/uL Basophils # (Auto) 0.0 0.0-0.1 10^3/uL Immature Granulocyte # (Auto) 0.0 0.0-0.1 10^3/uL Sodium Level 137 135-145 MMOL/L Potassium Level 3.9 3.6-5.0 MMOL/L Chloride Level 102 98-107 MMOL/L Carbon Dioxide Level 17 L 21-32 MMOL/L Anion Gap 18 H 5-14 MMOL/L Blood Urea Nitrogen 17 7-18 MG/DL Creatinine 1.18 0.60-1.30 MG/DL Estimat Glomerular Filtration Rate 64 BUN/Creatinine Ratio 14 Glucose Level 248 H 70-105 MG/DL Calcium Level 9.4 8.5-10.1 MG/DL Corrected Calcium 9.2 8.5-10.1 MG/DL Magnesium Level 1.7 1.6-2.4 MG/DL Total Bilirubin 0.9 0.1-1.0 MG/DL Aspartate Amino Transf (AST/SGOT) 22 5-34 U/L Alanine Aminotransferase (ALT/SGPT) 11 0-55 U/L Alkaline Phosphatase 83 40-136 U/L Troponin I < 0.028 < 0.028 <0.028 NG/ML Total Protein 7.7 6.4-8.2 GM/DL Albumin 4.3 3.2-4.5 GM/DL Amylase Level 57 25-125 U/L Lipase 25 8-78 U/L Influenza Type A (RT-PCR) Not Detected Not Detecte Influenza Type B (RT-PCR) Not Detected Not Detecte SARS-CoV-2 RNA (RT-PCR) Not Detected Not Detecte Urine Color YELLOW Urine Clarity CLEAR Urine pH 6.0 5-9 Urine Specific [place] 1.015 L 1.016-1.022 Urine Protein 1+ H NEGATIVE Urine Glucose (UA) 2+ H NEGATIVE Urine Ketones 1+ H NEGATIVE Urine Nitrite NEGATIVE NEGATIVE Urine Bilirubin NEGATIVE NEGATIVE Urine Urobilinogen 1.0 < = 1.0 MG/DL Urine Leukocyte Esterase NEGATIVE NEGATIVE Urine RBC (Auto) NEGATIVE NEGATIVE Urine RBC RARE /HPF Urine WBC RARE /HPF Urine Crystals NONE /LPF Urine Bacteria NEGATIVE /HPF Urine Casts NONE /LPF Urine Mucus NEGATIVE /LPF Urine Culture Indicated NO Test 09/16/23 04:53 09/16/23 09:12 09/16/23 09:14 09/16/23 10:44 Range/Units Sodium Level 135 135-145 MMOL/L Potassium Level 5.0 3.6-5.0 MMOL/L Chloride Level 103 98-107 MMOL/L Carbon Dioxide Level 19 L 21-32 MMOL/L Anion Gap 13 5-14 MMOL/L Blood Urea Nitrogen 13 7-18 MG/DL Creatinine 0.97 0.60-1.30 MG/DL Estimat Glomerular Filtration Rate 80 BUN/Creatinine Ratio 13 Glucose Level 169 H 70-105 MG/DL Calcium Level 8.7 8.5-10.1 MG/DL Triglycerides Level 44 <150 MG/DL Cholesterol Level 164 < 200 MG/DL LDL Cholesterol Direct 121 1-129 MG/DL VLDL Cholesterol 9 5-40 MG/DL HDL Cholesterol 47 40-60 MG/DL Glucometer 123 H 70-110 MG/DL ECG Impression ECG Initial ECG Rhythm: Normal Sinus A/P-Cardiology Assessment/Admission Diagnosis Acute stroke, vertebral occlusion, Hypertension, Diabetes, Plan Echocardiogram showed normal LV function with no wall motion abnormalities. Will recommend a bubble study with limited echo tomorrow to rule out int racardiac shunting. Continue antiplatelet agents as per stroke neurology. No current evidence for atrial fibrillation, however patient may need cardiac rhythm monitoring on discharge, if no other etiology for stroke is identified. Hypertension however will let blood pressure stay around 160 mmHg systolic. Discussed with the RN. Cody GUZMÁN MD Sep 16, 2023 14:54
[2023-09-17] VITALS (9 sets, daily range): BP systolic 118–146; BP diastolic 55–83
[2023-09-17 05:38] LABS: CALCIUM 8.8 MG/DL (8.5-10.1); CREATININE SERUM 1.01 MG/DL (0.60-1.30); POTASSIUM 4.5 MMOL/L (3.6-5.0)
[2023-09-17] MEDS: inSUlin ASPART 1 UNIT/0.01 ML (PER UNIT) SC SCH ×4 (05:40→20:31)
[2023-09-17] MEDS: ASPIRIN 81 MG CHEWABLE TABLET PO SCH (08:46)
[2023-09-17] MEDS: CLOPIDOGREL 75 MG TABLET PO SCH (08:46)
[2023-09-17] MEDS: LOSARTAN 100 MG TABLET PO SCH (08:46)
[2023-09-17] MEDS: amLODIPine 10 MG TABLET PO SCH (08:47)
--- NOTE | 2023-09-17 09:44 | Cardiology Progress Note ---
Subjective Date Seen by Provider: Sep 17, 2023 Time Seen by Provider: 09:40 Subjective/Events-last exam Patient was seen at bedside, still complaining of double vision. Otherwise he is feeling well. Events from the weekend reviewed Review of Systems General: No Chills, No Night Sweats, No Fatigue, No Malaise, No Appetite, No Other HEENT: No Head Aches; Visual Changes; No Eye Pain, No Ear Pain, No Dysphasia, No Sinus Congestion, No Post Nasal Drip, No Sore Throat, No Other Pulmonary: No Dyspnea, No Cough, No Pleuritic Chest Pain, No Other Cardiovascular: No: Chest Pain, Palpitations, Orthopnea, Paroxysmal Noc. Dyspn ea, Edema, Lt Headedness, Other Objective-Cardiology Exam Last Set of Vital Signs Vital Signs 09/17/23 09/17/23 07:30 08:00 Temp 36.1 Pulse 68 Resp 24 B/P (MAP) 123/73 (90) Pulse Ox 95 O2 Delivery Room Air I&O Intake and Output 09/17/23 00:00 Intake Total 2600 ml Output Total 1500 ml Balance 1100 ml Intake Oral 600 ml IV Total 2000 ml Output Urine Total 1500 ml General: Alert, Oriented X3, Cooperative HEENT: Atraumatic, PERRLA Neck: Supple, No JVD, No Thyromegaly Lungs: Clear to Auscultation, Normal Air Movement Heart: Regular Rate, Normal S1, Normal S2, No Murmurs Abdomen: Normal Bowel Sounds, Soft, No Tenderness, No Hepatosplenomegaly, No Masses Extremities: No Clubbing, No Cyanosis, No Edema, Normal Pulses, No Tenderness/Swelling Skin: No Rashes, No Breakdown, No Significant Lesion Neuro: Normal Gait, Normal Speech, Strength at 5/5 X4 Ext, Normal Tone, Sensation Intact Psych/Mental Status: Mental Status NL, Mood NL Results Lab Laboratory Tests 09/17/23 04:50 A/P-Cardiology Assessment/Plan Acute CVA, acute occlusion of the right vertebral artery Still having double vision Maintained on aspirin and Plavix We will evaluate 2D echo with bubble to evaluate for any shunt Abnormal baseline EKG with right bundle branch block. 2D echo was reported by Dr. Davis on September 16, 2023 with normal LV size, ejection fraction 70 to 75%, grade 1 diastolic dysfunction, PA pressure 35 mmHg Hypertension, monitor Try to maintain blood pressure over 150 Hyperlipidemia, monitor lipids Diabetes mellitus, managed by primary care physician SANGITA JC MD Sep 17, 2023 09:44
--- NOTE | 2023-09-17 09:50 | Physical Therapy Evaluation ---
PT Evaluation-General Medical Diagnosis Admission Date Sep 16, 2023 at 01:45 Medical Diagnosis: vertebral atery occlusion/vertigo, HTN, ischemic CVA Onset Date: Sep 16, 2023 Therapy Diagnosis Therapy Diagnosis: impaired mobility/severe balance deficit Height/Weight Height (Feet): 5 Height (Inches): 10 Weight (Pounds): 302 Precautions Precautions/Isolations: Standard Precautions Referral Physician: Darrion Reason for Referral: Evaluation/Treatment Medical History Pertinent Medical History: DM, HTN Current History EMS secondary to N&V and weakness Reviewed History: Yes Social History Home: Apartment Current Living Status: Alone Entry Into Home: Level Entry Prior Prior Level of Function SCALE: Activities may be completed with or without assistive devices. 4-Jnbinvqajt-ydtlmxx completes the activity by him/herself with no assistance from a helper. 5-Set-up or Clean-up Assistance-helper sets up or cleans up; patient completes activity. [place] assists only prior to or following the activity. 4-Supervision or Touching Assistance-helper provides verbal cues and/or touching/steadying and/or contact guard assistance as patient completes activity. Assistance may be provided throughout the activity or intermittently. 3-Partial/Moderate Assistance-helper does LESS THAN HALF the effort. [place] lifts, holds or supports trunk or limbs, but provides less than half the effort. 2-Substantial/Maximal Assistance-helper does MORE THAN HALF the effort. [place] lifts or holds trunk or limbs and provides more than half the effort. 4-Pdvfivlpw-sugrwv does ALL the effort. Patient does none of the effort to complete the activity. Or, the assistance of 2 or more helpers is required for the patient to complete the activity. If activity was not attempted, code reason: 7-Patient Refused. 9-Not Applicable-not attempted and the patient did not perform the activity before the current illness, exacerbation or injury. 10-Not Attempted due to Environmental Limitations-(lack of equipment, weather restraints, etc.). 88-Not Attempted due to Medical Conditions or Safety Concerns. Bed Mobility: 6 Transfers (B,C,W/C): 6 Gait: 6 Indoor Mobility (Ambulation): Independent Stairs: Independent Prior Devices Use: None PT Evaluation-Current Subjective Patient agrees to therapy. Objective Patient Orientation: Normal For Age ROM/Strength ROM Lower Extremities bilateral LE WFL Strength Lower Extremities 4/5 grossly bilateral LE all planes Integumentary/Posture Bowel Incontinence: No Bladder Incontinence: No Posture WFL Neuromuscular (Tone, Coordination, Reflexes) diminished coordination/ataxic due to balance deficit Sensory Vision: double vis Hearing: Functional Transfers Sit to Lying (QC): 4 Lying to Sitting/Side of Bed(Q: 4 Sit to Stand (QC): 2 Gait Mode of Locomotion: Walk Anticipated Mode of Locomotion: Walk Walk 10 feet (QC): 1 Walk 50 ft with 2 Turns(QC): 1 Walk 150 ft (QC): 1 Distance: 170' x 2 Gait Assistive Device: FWW Comments/Gait Description assist of 2 due to balance deficit/very unsteady Balance Sitting Static: Fair Sitting Dynamic: Fair Standing Static: Poor Standing Dynamic: Poor Assessment/Needs Patient will benefit from skilled PT to address functional strength, mobility and balance to improve current LOF. Patient balance deficit currently prevents patient from safely returning to home independently and would benefit from ARU/post acute PT. Rehab Potential: Fair PT Hat Lining Blocker Goals Correction Goals PT Hat Lining Blocker Goals Time Frame: Oct 06, 2023 Roll Left & Right (QC): 6 Sit to Lying (QC): 6 Lying-Sitting on Side/Bed(QC): 6 Sit to Stand (QC): 6 Chair/Lqu-wl-Lzrgp Xfer(QC): 6 Toilet Transfer (QC): 6 Walk 10 feet (QC): 6 Walk 50ft with 2 Turns (QC): 6 Walk 150 ft (QC): 6 PT Plan Problem List Problem List: Activity Tolerance, Functional Strength, Safety, Balance, Gait, Transfer, Bed Mobility Treatment/Plan Treatment Plan: Continue Plan of Care Treatment Plan: Bed Mobility, Education, Functional Activity Joey, Functional Strength, Gait, Safety, Therapeutic Exercise, Transfers Treatment Duration: Oct 06, 2023 Frequency: 6 times per week Estimated Hrs Per Day: .25 hour per day Patient and/or Family Agrees t: Yes Discharge Recommendations Therapy Discharge Recommendati: Post Acute PT Time Time In: 918 Time Out: 937 DATE: Sep 17, 2023 Total Billed Treatment Time: 19 [facility] Sep 17, 2023 09:50
--- NOTE | 2023-09-17 10:20 | Occupational Therapy Eval ---
OT Evaluation-General/PLF Medical Diagnosis Admission Date Sep 16, 2023 at 01:45 Medical Diagnosis: vertebral atery occlusion/vertigo, HTN, ischemic CVA Onset Date: Sep 16, 2023 Therapy Diagnosis Therapy Diagnosis: weakness, dizziness, diplopia Height/Weight Height (Feet): 5 Height (Inches): 10 Weight (Pounds): 302 Precautions Precautions/Isolations: Fall Prevention, Standard Precautions Weight Bear Status Weight Bearing Restriction: Full Weight Bearing Referral Physician: Darrion Referral Reason: Self Care, Evaluation/Treatment Medical History Pertinent Medical History: DM, HTN Current History 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 Reviewed History: Yes Social History Home: Apartment Current Living Status: Alone Entry Into Home: Level Entry ADL-Prior Level of Function SCALE: Activities may be completed with or without assistive devices. 2-Bcgzdfaclz-yphhquc completes the activity by him/herself with no assistance from a helper. 5-Set-up or Clean-up Assistance-helper sets up or cleans up; patient completes activity. [place] assists only prior to or following the activity. 4-Supervision or Touching Assistance-helper provides verbal cues and/or touching/steadying and/or contact guard assistance as patient completes activity. Assistance may be provided throughout the activity or intermittently. 3-Partial/Moderate Assistance-helper does LESS THAN HALF the effort. [place] lift s, holds or supports trunk or limbs, but provides less than half the effort. 2-Substantial/Maximal Assistance-helper does MORE THAN HALF the effort. [place] lifts or holds trunk or limbs and provides more than half the effort. 7-Woxaezsjn-vjazdi does ALL the effort. Patient does none of the effort to complete the activity. Or, the assistance of 2 or more helpers is required for the patient to complete the activity. If activity was not attempted, code reason: 7-Patient Refused. 9-Not Applicable-not attempted and the patient did not perform the activity before the current illness, exacerbation or injury. 10-Not Attempted due to Environmental Limitations-(lack of equipment, weather restraints, etc.). 88-Not Attempted due to Medical Conditions or Safety Concerns. Self Care: Independent Functional Cognition: Independent Drive Self: No OT Current Status Subjective Feel a little dizzy, impulsive. Worried about dog, BENTLY Mental Status/Objective Patient Orientation: Person, Place, Time, Situation Attachments: SCD's, Telemetry Current Glasses/Contacts: Yes Hand Dominance: Right Upper Extremity ROM BUE ROM WFLS Upper Extremity Coordination FAIR + Upper Extremity Strength 4/5 grossly ADL-Treatment ADL-Current Additional hospital gown used as robe, required assist to wrap around back and snap. Patietn placed socks on when handed while sitting. no undergarments Eating (QC): 5 Oral Hygiene (QC): 5 Shower/Bathe Self (QC): 7 Upper Body Dressing (QC): 4 Lower Body Dressing (QC): 7 On/Off Footwear (QC): 5 Toileting Hygiene (QC): 4 Education OT Patient Education: Correct positioning, Exercise program, Modified ADL techniques, Progress toward Goal/Update tx plan, Purpose of tx/functional activities, Reviewed precautions, Rehab process, Safety issues, Transfer techniques Teaching Recipient: Patient Teaching Methods: Demonstration Response to Teaching: Reinforcement Needed OT [facility] Goals Locomotive Oiler Goals Eating (QC): 6 Oral Hygiene (QC): 6 Toileting Hygiene (QC): 6 Shower/Bathe Self (QC): 6 Upper Body Dressing (QC): 6 Lower Body Dressing (QC): 6 On/Off Footwear (QC): 6 1=Demonstrate adherence to instructed precautions during ADL tasks. 2=Patient will verbalize/demonstrate understanding of assistive devices/modifications for ADL. 3=Patient will improve strength/tolerance for activity to enable patient to perform ADL's. OT Education/Plan Problem List/Assessment Assessment: Decreased Activ Tolerance, Decreased Safety Aware, Decreased UE Strength, Impaired Cognition, Impaired Coordination, Impaired Funct Balance, Impaired Self-Care Skills Discharge Recommendations Plan/Recommendations: Continue POC Therapy Discharge Recommendati: Post Acute OT Treatment Plan/Plan of Care Treatment,Training & Education: Yes Patient would benefit from OT for education, treatment and training to promote independence in ADL's, mobility, safety and/or upper extremity function for ADL's. Plan of Care: ADL Retraining, Functional Mobility, Group Exercise/Act as Ind, UE Funct Exercise/Act Treatment Duration: Sep 21, 2023 Frequency: 3 times per week (3-5 times weekly) Estimated Hrs Per Day: .25 hour per day Agreement: Yes Rehab Potential: Fair Time Start Time: 09:18 Stop Time: 09:37 DATE: Sep 17, 2023 Total Time Billed (hr/min): 11 Billed Treatment Time EVM 11 min AKBAR GOVEA OT Sep 17, 2023 10:20
--- NOTE | 2023-09-17 11:56 | Progress Note - Hospitalist ---
Subjective HPI/CC On Admission Mohsen Rush (Bill) is a 78yo M who presented to the ED yesterday due to weakness, vomiting, dizziness, and reportedly a feeling of drunkenness that began last night. Yesterday he had a heated conversation with a estuardo and ate at [place]. When he came home he lost his appetite and started vomiting and having diarrhea. Denies blood in stool. This morning he was complaining of double vision, which seems to be worse on his R side and fullness in his stomach. He denied SOB and CP. [place] has a history of prostate cancer, DM, HTN, RBBB. NKDA. He lives alone with his dog, Bernardino, who is currently locked in the bathroom. Nurse is contacting friend, pawel, who is supposed to check on him. He was hypertensive upon admission and has been continuing to run high. He has hyperglycemia, UA and other blood work otherwise unremarkable. Dr. Jaffe, stroke neurologist at , was notified and recommended conservative medical management with plavix and aspirin and stroke work up. Objective Exam Vital Signs Vital Signs Date Time Temp Pulse Resp B/P (MAP) Pulse Ox O2 Delivery O2 Flow Rate FiO2 09/18/23 09:00 98 Room Air 09/18/23 08:00 90 26 139/93 (108) 09/17/23 19:23 36.3 Capillary Refill : Less Than 3 Seconds General Appearance: No Apparent Distress, Obese Respiratory: Lungs Clear, No Respiratory Distress Cardiovascular: Regular Rate, Rhythm, No Murmur Neurologic/Psychiatric: Alert, Oriented x3 Results/Procedures Lab Laboratory Tests 09/18/23 04:30 Patient resulted labs reviewed. Imaging: Reviewed Imaging Report Assessment/Plan Assessment and Plan Assess & Plan/Chief Complaint RVA Occlusion [facility] reports not amenable to intervention Aspirin, plavix, Losartan, Hydralazine MRI head and neck PT/OT IRF eval Echo with no identifiable shunt Hypertension Losartan, Amlodipine, Cardizem Well controlled DM Hgb A1C- pending Sliding scale insulin Hold meformin for imaging Nausea/Vomitting Meclizine, Scopalamine Obesity Critical Care Critically Ill Patient KOKO AMADOR MD Sep 17, 2023 11:56
[2023-09-17] MEDS: SCOPOLAMINE 1.5 MG PATCH TD SCH (13:42)
--- NOTE | 2023-09-17 14:58 | Diagnostic Imaging Report ---
PROCEDURE: US carotid duplex, bilateral. TECHNIQUE: Multiple real-time grayscale images were obtained over the carotid arteries in various projections, bilaterally. Additional spectral analysis and color Doppler duplex images were also obtained. INDICATION: Vertebral arterial occlusion. Normal arterial waveforms are seen bilaterally in the common carotid arteries. There is mural thickening and atherosclerosis in the carotid bulbs bilaterally however no occlusion is seen. There is no evidence of focal velocity elevation. Normal arterial waveforms are also present within the internal carotid arteries bilaterally. There is antegrade flow within both vertebral arteries with low arterial velocity. IMPRESSION: Atherosclerotic disease most pronounced in the carotid bulbs without evidence of hemodynamically significant stenosis or occlusion. Antegrade flow is confirmed within both vertebral arteries. Parameters based on the consensus panel Godfrey-Scale and Doppler ultrasound criteria published September 2003, Radiology, Volume 229. DOPPLER (peak systolic velocity M/S Right Left CCA 121 134 ICA Proximal 51 57 ICA Mid 61 51 ICA Distal 46 61 RATIO 63 50 ECA 120 153 VERT 134 39 Dictated by: Dictated on workstation # [id number]
[2023-09-18] VITALS (8 sets, daily range): BP systolic 112–171; BP diastolic 62–93
[2023-09-18 04:51] LABS: HEMATOCRIT 47 % (40-54); HEMOGLOBIN 15.4 g/dL (13.3-17.7); MEAN CORPUSCULAR HEMOGLOBIN 31 pg (25-34); MEAN CORPUSCULAR HGB CONC 33 g/dL (32-36); MEAN CORPUSCULAR VOLUME 95 fL (80-99); MEAN PLATELET VOLUME 11.5 fL (9.0-12.2); PLATELET COUNT 150 10^3/uL (130-400)
[2023-09-18 05:12] LABS: CALCIUM 8.8 MG/DL (8.5-10.1); CREATININE SERUM 1.19 MG/DL (0.60-1.30); POTASSIUM 4.1 MMOL/L (3.6-5.0)
[2023-09-18] MEDS: inSUlin ASPART 1 UNIT/0.01 ML (PER UNIT) SC SCH ×5 (08:35→19:42)
--- NOTE | 2023-09-18 08:42 | Cardiology Progress Note ---
Subjective Date Seen by Provider: Sep 18, 2023 Time Seen by Provider: 08:41 Subjective/Events-last exam Patient was seen at bedside laying down comfortably, still complaining of double vision Objective-Cardiology Exam Last Set of Vital Signs Vital Signs 09/17/23 09/18/23 09/18/23 19:23 04:00 07:00 Temp 36.3 Pulse 71 Resp 28 B/P (MAP) 141/74 (93) Pulse Ox 93 O2 Delivery Room Air I&O Intake and Output 09/18/23 00:00 Intake Total 1255 ml Output Total 1800 ml Balance -545 ml Intake Oral 1255 ml Output Urine Total 1800 ml # Bowel Movements 1 General: Alert, Oriented X3, Cooperative HEENT: Atraumatic, PERRLA Neck: Supple, No JVD, No Thyromegaly Lungs: Clear to Auscultation, Normal Air Movement Heart: Regular Rate, Normal S1, Normal S2, No Murmurs Abdomen: Normal Bowel Sounds, Soft, No Tenderness, No Hepatosplenomegaly, No Masses Extremities: No Clubbing, No Cyanosis, No Edema, Normal Pulses, No Tenderness/Swelling Skin: No Rashes, No Breakdown, No Significant Lesion Neuro: Normal Gait, Normal Speech, Strength at 5/5 X4 Ext, Normal Tone, Sensati on Intact Psych/Mental Status: Mental Status NL, Mood NL Results Lab Laboratory Tests 09/18/23 04:30 A/P-Cardiology Admission Diagnosis CVA Double vision Hypertension Hyperlipidemia Assessment/Plan Acute CVA, acute occlusion of the right vertebral artery Still having double vision Maintained on aspirin and Plavix 2D echo with bubble study did not show any shunt Planning to proceed with a loop monitor Abnormal baseline EKG with right bundle branch block. 2D echo was reported by Dr. Davis on September 16, 2023 with normal LV size, ejection fraction 70 to 75%, grade 1 diastolic dysfunction, PA pressure 35 mmHg Hypertension, monitor Try to maintain blood pressure over 150 Hyperlipidemia, monitor lipids Diabetes mellitus, managed by primary care physician SANGITA JC MD Sep 18, 2023 08:41
[2023-09-18] MEDS: amLODIPine 10 MG TABLET PO SCH (09:39)
[2023-09-18] MEDS: ASPIRIN 81 MG CHEWABLE TABLET PO SCH (09:39)
[2023-09-18] MEDS: LOSARTAN 100 MG TABLET PO SCH (09:39)
[2023-09-18] MEDS: CLOPIDOGREL 75 MG TABLET PO SCH (09:40)
--- NOTE | 2023-09-18 10:44 | Progress Note - Hospitalist ---
Subjective HPI/CC On Admission Date Seen by Provider: Sep 18, 2023 Mohsen Rush (Bill) is a 78yo M who presented to the ED yesterday due to weakness, vomiting, dizziness, and reportedly a feeling of drunkenness that began last night. Yesterday he had a heated conversation with a estuardo and ate at mall [employer]. When he came home he lost his appetite and started vomiting and having diarrhea. Denies blood in stool. This morning he was complaining of double vision, which seems to be worse on his R side and fullness in his stomach. He denied SOB and CP. [place] has a history of prostate cancer, DM, HTN, RBBB. NKDA. He lives alone with his dog, Bernardino, who is currently locked in the bathroom. Nurse is contacting friend, pawel, who is supposed to check on him. He was hypertensive upon admission and has been continuing to run high. He has hyperglycemia, UA and other blood work otherwise unremarkable. Imaging showed: CXR: No acute pleuroparenchymal process. CT Head: 1. No large acute territorial ischemia, mass, or hemorrhage. 2. Chronic microvascular disease. 3. Generalized parenchymal volume loss. CTA: 1. No stenosis or aneurysm in the [place]. No large vessel occlusion. 2. 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 This is age-indeterminate. Consider MRI brain to further evaluate. 3. No stenosis in the left vertebral artery and bilateral carotid systems. 4. Luminal irregularity within the right M1 segment, suggestive of intracranial atherosclerotic plaque. Dr. Jaffe, stroke neurologist at , was notified and recommended conservative medical management with plavix and aspirin and stroke work up. Subjective/Events-last exam Pt reports doing better today. Vision improving. NO complaints. Hopeful his dog can come visit. Objective Exam Vital Signs Vital Signs Date Time Temp Pulse Resp B/P (MAP) Pulse Ox O2 Delivery O2 Flow Rate FiO2 09/18/23 09:00 98 Room Air 09/18/23 08:00 90 26 139/93 (108) 09/17/23 19:23 36.3 Capillary Refill : Less Than 3 Seconds General Appearance: No Apparent Distress, Obese Respiratory: Lungs Clear, No Respiratory Distress Cardiovascular: Regular Rate, Rhythm Gastrointestinal: Normal Bowel Sounds, Soft Neurologic/Psychiatric: Alert, Oriented x3 Results/Procedures Lab Laboratory Tests 09/18/23 04:30 Patient resulted labs reviewed. Imaging: Reviewed Imaging Report Assessment/Plan Assessment and Plan Assess & Plan/Chief Complaint RVA Occlusion [facility] reports not amenable to intervention Aspirin, plavix, Losartan, Hydralazine MRI head and neck unable to be obtained due to body habitus PT/OT IRF eval- accepted pending insurance authorization Echo with no identifiable shunt Hypertension Losartan, Amlodipine, Cardizem Well controlled DM Hgb A1C- 5.3 Sliding scale insulin Fasting BS is 101 Nausea/Vomitting Meclizine, Scopalamine Obesity Critical Care Critically Ill Patient KOKO AMADOR MD Sep 18, 2023 10:44
[2023-09-18] MEDS ORDERED: AMLO-251 PO (11:18)
[2023-09-18] MEDS ORDERED: METF-397 PO (11:18)
[2023-09-18] MEDS ORDERED: PRED5DRO17 OP (11:18)
[2023-09-18] MEDS ORDERED: LOSA100T58 PO (11:18)
[2023-09-18] MEDS ORDERED: ACET-2267 PO (11:18)
[2023-09-18] MEDS ORDERED: DULA0.75 IJ (11:18)
[2023-09-18] MEDS ORDERED: LIDOCAINE 1% INJ 20 ML VIAL ONE (11:51)
--- NOTE | 2023-09-18 12:14 | Implantation of Loop Monitor ---
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 Therefore implantable loop recorder was discussed and agreed with the patient. Informed consent was taken. All risks and complications were discussed at length. The patient was draped and prepped in the usual sterile fashion. Local anesthesia was lidocaine, which was given in the substernal area close to the 4th intercostal space. Loop monitor [employer] with serial number [id number] was implanted according to the protocol. Steri-Strips were placed at the end of the procedure. There were no complications and the patient tolerated the procedure well. ANESTHESIA: Local anesthesia with lidocaine. COMPLICATIONS: None CONTRAST/FLUOROSCOPY: None CONCLUSION: Successful implantation of loop monitor with no complications SANGITA JC MD Sep 18, 2023 12:13
--- NOTE | 2023-09-18 14:35 | Occupational Ther Daily Note ---
OT Current Status-Daily Note Subjective transfer to med/surg floor rm [id number] following cardiac procedure Mental Status/Objective Patient Orientation: Person, Place ([place]) ADL-Treatment On arrival patient is slightly confused, continues w/ diplopia and impaired coordination. Saturated linens. Friend in room is present and changing of gown and lines done discretely . Follow linen and gown change OT assisted 25% of workload to transfer to recliner from bed w/ height elevated and use of FWW/ gait belt Therapy Code Descriptions/Definitions Functional [place] Measure: 0=Not Assessed/NA 4=Minimal Assistance 1=Total Assistance 5=Supervision or Setup 2=Maximal Assistance 6=Modified [place] 3=Moderate Assistance 7=Complete IndependenceSCALE: Activities may be completed with or without assistive devices. 0-Tvqcrskrap-nucrzim completes the activity by him/herself with no assistance from a helper. 5-Set-up or Clean-up Assistance-helper sets up or cleans up; patient completes activity. [place] assists only prior to or following the activity. 4-Supervision or Touching Assistance-helper provides verbal cues and/or touching/steadying and/or contact guard assistance as patient completes activity. Assistance may be provided throughout the activity or intermittently. 3-Partial/Moderate Assistance-helper does LESS THAN HALF the effort. [place] lifts, holds or supports trunk or limbs, but provides less than half the effort. 2-Substantial/Maximal Assistance-helper does MORE THAN HALF the effort. [place] lifts or holds trunk or limbs and provides more than half the effort. 1-Aymssbhhe-vgtjwq does ALL the effort. Patient does none of the effort to complete the activity. Or, the assistance of 2 or more helpers is required for the patient to complete the activity. If activity was not attempted, code reason: 7-Patient Refused. 9-Not Applicable-not attempted and the patient did not perform the activity before the current illness, exacerbation or injury. 10-Not Attempted due to Environmental Limitations-(lack of equipment, weather restraints, etc.). 88-Not Attempted due to Medical Conditions or Safety Concerns. Eating (QC): 5 (visual impairment require set up assitance) Oral Hygiene (QC): 5 Shower/Bathe Self (QC): 7 Upper Body Dressing (QC): 3 Lower Body Dressing (QC): 3 On/Off Footwear: 1 Toileting Hygiene (QC): 3 Toilet Transfer (QC): 3 Education OT Patient Education: Correct positioning, Modified ADL techniques, Progress toward Goal/Update tx plan, Purpose of tx/functional activities, Reviewed precautions, Rehab process, Safety issues, Transfer techniques Teaching Recipient: Patient Teaching Methods: Demonstration, Discussion Response to Teaching: Reinforcement Needed OT [employer] Goals [employer] Goals Eating (QC): 6 Oral Hygiene (QC): 6 Toileting Hygiene (QC): 6 Shower/Bathe Self (QC): 6 Upper Body Dressing (QC): 6 Lower Body Dressing (QC): 6 On/Off Footwear (QC): 6 1=Demonstrate adherence to instructed precautions during ADL tasks. 2=Patient will verbalize/demonstrate understanding of assistive devices/modifications for ADL. 3=Patient will improve strength/tolerance for activity to enable patient to perform ADL's. OT Education/Plan Problem List/Assessment Assessment: Decreased Activ Tolerance, Decreased Safety Aware, Decreased UE Strength, Impaired Cognition, Impaired Coordination, Impaired Funct Balance, Impaired Self-Care Skills Discharge Recommendations Plan/Recommendations: Continue POC Treatment Plan/Plan of Care Treatment,Training & Education: Yes Patient would benefit from OT for education, treatment and training to promote independence in ADL's, mobility, safety and/or upper extremity function for ADL's. Plan of Care: ADL Retraining, Functional Mobility, Group Exercise/Act as Ind, UE Funct Exercise/Act Treatment Duration: Sep 21, 2023 Frequency: 3 times per week (3-5 times weekly) Estimated Hrs Per Day: .25 hour per day Agreement: Yes Rehab Potential: Fair Time Start Time: 13:30 Stop Time: 13:48 DATE: Sep 18, 2023 Total Time Billed (hr/min): 18 Billed Treatment Time ADL 18 min AKBAR GOVEA OT Sep 18, 2023 14:35
[2023-09-18] MEDS: prednisoLONE 1% Ophthalmic Suspension 5 ML BTL OP SCH ×2 (17:20→19:42)
[2023-09-18] MEDS ORDERED: inSUlin DETERMIR 1 UNIT/0.01 ML (CHARGE PER UNIT) SQ ONE (20:26)
[2023-09-18] MEDS ORDERED: HALOPERIDOL INJECTION 5 MG/ML VIAL ONE (23:18)
[2023-09-18] MEDS ORDERED: DexMEDEtomidine 1,000mcg/250ml 250 ML IV ONE (23:56)
[2023-09-19] MEDS: HALOPERIDOL INJECTION 5 MG/ML VIAL IM PRN
[2023-09-19] MEDS: DexMEDEtomidine 1,000mcg/250ml 250 ML IV SCH ×2 (00:27→04:29)
[2023-09-19] MEDS ORDERED: DexMEDEtomidine 1,000mcg/250ml 250 ML IV SCH (00:30)
[2023-09-19] MEDS ORDERED: NS IV 500 ML 500 ML IV PRN (01:15)
[2023-09-19] MEDS ORDERED: NS IV 500 ML 500 ML IV SCH ×2 (02:30→03:45)
--- NOTE | 2023-09-19 02:30 | Tele-ICU Progress Note ---
Progress Note 78M initially admitted 09/15 with R vertebral artery occlusion. Tonight transferred back to ICU for hyperactive delirium. Has been agitated and combative with staff. Given haldol and ativan without improvement. Transferred to ICU for initiation of precedex. When started, BP initially dropped from 144/94 to 92/55. Maintained in the 90s for an hour on q15m BP checks, then dropped into the 70s. Precedex held, BP has recovered to 89/51. - hypotension: BP goal on higher side with vert occlusion. NS 500 cc bolus. - hyperactive delirium: holding precedex. Avoid ativan, benadryl and other deliriogenic rx. Scopolamine patch removed on arrival to ICU. Currently sedated. - vertigo: secondary to vert occlusion. Increase BP as above. Patient assessed via real time audiovisual communication device CCT 13 min Focused Exam Height, Weight, BMI Height: 5'10" Weight: 302lbs. oz. 136.092494ex; 34.77 BMI Method: SANDRA CLAIRE MD Sep 19, 2023 02:30
[2023-09-19 04:47] LABS: BASOPHILS % (AUTO) 1 % (0-10); NEUTROPHILS % (AUTO) 70 % (42-75)
[2023-09-19 04:49] LABS: EOSINOPHILS # (AUTO) 0.1 10^3/uL (0.0-0.3); EOSINOPHILS % (AUTO) 2 % (0-10); HEMATOCRIT 41 % (40-54); HEMOGLOBIN 13.4 g/dL (13.3-17.7); LYMPHOCYTES # (AUTO) 0.9 10^3/uL (1.0-4.0); LYMPHOCYTES % (AUTO) 14 % (12-44); MEAN CORPUSCULAR HEMOGLOBIN 31 pg (25-34); MEAN CORPUSCULAR HGB CONC 33 g/dL (32-36); MEAN CORPUSCULAR VOLUME 94 fL (80-99); MEAN PLATELET VOLUME 11.2 fL (9.0-12.2); MONOCYTES # (AUTO) 0.8 10^3/uL (0.0-1.0); MONOCYTES % (AUTO) 13 % (0-12); NEUTROPHILS # (AUTO) 4.4 10^3/uL (1.8-7.8); PLATELET COUNT 142 10^3/uL (130-400); WHITE BLOOD COUNT 6.3 10^3/uL (4.3-11.0)
[2023-09-19 05:12] LABS: ALBUMIN 3.1 GM/DL (3.2-4.5); BILIRUBIN,TOTAL 1.1 MG/DL (0.1-1.0); CALCIUM 8.3 MG/DL (8.5-10.1); MAGNESIUM 1.6 MG/DL (1.6-2.4); PHOSPHORUS 2.7 MG/DL (2.3-4.7); POTASSIUM 3.8 MMOL/L (3.6-5.0); TOTAL PROTEIN 5.2 GM/DL (6.4-8.2)
[2023-09-19] MEDS: POTASSIUM CHLORIDE 20 MEQ TABLET PO SCH (05:29)
[2023-09-19] MEDS: inSUlin ASPART 1 UNIT/0.01 ML (PER UNIT) SC SCH ×4 (05:29→21:27)
[2023-09-19] MEDS: POTASSIUM CL 10MEQ/50ML IVPB 50 ML IV SCH ×3 (05:29→06:00)
[2023-09-19] MEDS: MAGNESIUM 1 GM/100 ML IVPB 100 ML IV SCH ×4 (05:29→07:42)
--- NOTE | 2023-09-19 09:24 | Cardiology Progress Note ---
Subjective Date Seen by Provider: Sep 19, 2023 Time Seen by Provider: 09:22 Subjective/Events-last exam Patient became agitated and combative last night. Transferred to ICU This morning patient is sedated, sleeping comfortably. Objective-Cardiology Exam Last Set of Vital Signs Vital Signs 09/19/23 09/19/23 06:00 08:04 Temp 36.5 Pulse 62 Resp 12 B/P (MAP) 115/64 (81) Pulse Ox 93 O2 Delivery Nasal Cannula O2 Flow Rate 2.00 I&O Intake and Output 09/19/23 00:00 Intake Total 350 ml Balance 350 ml Intake Oral 350 ml # Voids 2 # Urine Diapers 1 General: Other (Sleeping) HEENT: Atraumatic, PERRLA Neck: Supple, No JVD, No Thyromegaly Lungs: Clear to Auscultation, Normal Air Movement Heart: Regular Rate, Normal S1, Normal S2, No Murmurs Abdomen: Normal Bowel Sounds, Soft, No Tenderness, No Hepatosplenomegaly, No Masses Extremities: No Clubbing, No Cyanosis, No Edema, Normal Pulses, No Tenderness/Swelling Skin: No Rashes, No Breakdown, No Significant Lesion Neuro: Normal Tone, Sensation Intact Psych/Mental Status: Other (Sleeping) Results Lab Laboratory Tests 09/19/23 04:09 A/P-Cardiology Admission Diagnosis CVA Double vision Hypertension Hyperlipidemia Assessment/Plan Acute CVA, 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 Continue to monitor Acute change in mental status with confusion and patient become combative and agitated. Acute delirium Transfer to ICU, currently sedated Managed by medical team Abnormal baseline EKG with right bundle branch block. 2D echo was reported by Dr. Davis on September 16, 2023 with normal LV size, ejection fraction 70 to 75%, grade 1 diastolic dysfunction, PA pressure 35 mmHg Hypertension, monitor Try to maintain blood pressure over 150 Hyperlipidemia, monitor lipids Diabetes mellitus, managed by primary care physician SANGITA JC MD Sep 19, 2023 09:24
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
--- NOTE | 2023-09-19 11:51 | Physical Therapy Progress Note ---
Therapy Progress Note Attempted to see pt for PT evaluation since transfer to ICU. Nurse requested hold at this time. Will attempt to perform PT evaluation this afternoon as time permits. SKYE MACIAS PT Sep 19, 2023 11:51
[2023-09-19] MEDS: ASPIRIN 81 MG CHEWABLE TABLET PO SCH (12:56)
[2023-09-19] MEDS: prednisoLONE 1% Ophthalmic Suspension 5 ML BTL OP SCH ×4 (12:56→21:28)
[2023-09-19] MEDS: amLODIPine 10 MG TABLET PO SCH (12:56)
[2023-09-19] MEDS: LOSARTAN 100 MG TABLET PO SCH (12:57)
[2023-09-19] MEDS: CLOPIDOGREL 75 MG TABLET PO SCH (12:57)
--- NOTE | 2023-09-19 14:53 | Physical Therapy Evaluation ---
PT Evaluation-General Medical Diagnosis Admission Date Sep 16, 2023 at 01:45 Medical Diagnosis: vertebral atery occlusion/vertigo, HTN, ischemic CVA Onset Date: Sep 16, 2023 Therapy Diagnosis Therapy Diagnosis: Decreased functional mobility, Weakness, Balance deficit Height/Weight Height (Feet): 5 Height (Inches): 10 Weight (Pounds): 302 Precautions Precautions/Isolations: Fall Prevention, Standard Precautions Weight Bear Status Right Lower Extremity: Right Full Weight Bearing Left Lower Extremity: Left Full Weight Bearing Referral Physician: Lise Reason for Referral: Evaluation/Treatment Medical History Pertinent Medical History: DM, HTN Current History EMS secondary to N&V and weakness; ICU for aggravation Reviewed History: Yes Social History Home: Apartment Current Living Status: Alone Entry Into Home: Level Entry Prior Prior Level of Function SCALE: Activities may be completed with or without assistive devices. 2-Fugpecazqk-sxoogdg completes the activity by him/herself with no assistance from a helper. 5-Set-up or Clean-up Assistance-helper sets up or cleans up; patient completes activity. [place] assists only prior to or following the activity. 4-Supervision or Touching Assistance-helper provides verbal cues and/or touching/steadying and/or contact guard assistance as patient completes activity. Assistance may be provided throughout the activity or intermittently. 3-Partial/Moderate Assistance-helper does LESS THAN HALF the effort. [place] lifts, holds or supports trunk or limbs, but provides less than half the effort. 2-Substantial/Maximal Assistance-helper does MORE THAN HALF the effort. [place] lifts or holds trunk or limbs and provides more than half the effort. 6-Zrmqtrnhc-dwhizr does ALL the effort. Patient does none of the effort to complete the activity. Or, the assistance of 2 or more helpers is required for the patient to complete the activity. If activity was not attempted, code reason: 7-Patient Refused. 9-Not Applicable-not attempted and the patient did not perform the activity before the current illness, exacerbation or injury. 10-Not Attempted due to Environmental Limitations-(lack of equipment, weather restraints, etc.). 88-Not Attempted due to Medical Conditions or Safety Concerns. Bed Mobility: 6 Transfers (B,C,W/C): 6 Gait: 6 Stairs: 6 Wheelchair Mobility: 9 Indoor Mobility (Ambulation): Independent Stairs: Independent Prior Devices Use: None PT Evaluation-Current Subjective Pt is agreeable to PT. Denies pain Pain Numeric Pain Scale: 0-No Pain Location: No Pain Reported Objective Patient Orientation: Normal For Age ROM/Strength ROM Lower Extremities WFL Strength Lower Extremities B LE MMT = 3+/5 grossly Integumentary/Posture Bowel Incontinence: No Bladder Incontinence: No Sensory Vision: double vis Hearing: Functional Hand Dominance: Right Transfers Roll Left to Right (QC): 3 Sit to Lying (QC): 3 Lying to Sitting/Side of Bed(Q: 3 Sit to Stand (QC): 3 Gait Does the Patient Walk?: Yes Distance: Several small steps forward and sideways with Mod A Balance Sitting Static: Fair Sitting Dynamic: Fair Standing Static: Poor Standing Dynamic: Poor Assessment/Needs Pt would benefit from skilled PT to address functional strength, mobility and balance to improve current LOF. Pts balance deficit currently prevents patient from safely returning to home independently and would benefit from ARU/post acute PT. Rehab Potential: Fair PT Senior Care Goals Corporate Receptionist Goals PT Corporate Receptionist Goals Time Frame: Oct 06, 2023 Roll Left & Right (QC): 6 Sit to Lying (QC): 6 Lying-Sitting on Side/Bed(QC): 6 Sit to Stand (QC): 6 Chair/Psj-vf-Xwtls Xfer(QC): 6 Toilet Transfer (QC): 6 Walk 10 feet (QC): 6 Walk 50ft with 2 Turns (QC): 6 Walk 150 ft (QC): 6 PT Plan Problem List Problem List: Activity Tolerance, Functional Strength, Safety, Balance, Gait, Transfer, Bed Mobility, ROM Treatment/Plan Treatment Plan: Continue Plan of Care Treatment Plan: Bed Mobility, Education, Functional Activity Joey, Functional Strength, Gait, Safety, Therapeutic Exercise, Transfers Treatment Duration: Oct 06, 2023 Frequency: 5 times per week Estimated Hrs Per Day: .25 hour per day Patient and/or Family Agrees t: Yes Safety Risks/Education Patient Education: Gait Training, Transfer Techniques, Correct Positioning, Safety Issues Teaching Recipient: Patient Teaching Methods: Demonstration, Discussion Response to Teaching: Reinforcement Needed Discharge Recommendations Therapy Discharge Recommendati: Post Acute PT Equpiment Recommendations-D/C: None Time Time In: 1426 Time Out: 1445 DATE: Sep 19, 2023 Total Billed Treatment Time: 19 Total Billed Treatment 19 min KEL BEDOYA PT Sep 19, 2023 14:53
--- NOTE | 2023-09-19 15:11 | Occupational Therapy Eval ---
OT Evaluation-General/PLF Medical Diagnosis Admission Date Sep 16, 2023 at 01:45 Medical Diagnosis: vertebral atery occlusion/vertigo, HTN, ischemic CVA Onset Date: Sep 16, 2023 Therapy Diagnosis Therapy Diagnosis: weakness, confusion Height/Weight Height (Feet): 5 Height (Inches): 10 Weight (Pounds): 302 Precautions Precautions/Isolations: Fall Prevention, Standard Precautions Weight Bear Status Weight Bearing Restriction: Full Weight Bearing Referral Physician: Lise Referral Reason: Self Care, Evaluation/Treatment Medical History Pertinent Medical History: DM, HTN Social History Home: Apartment Current Living Status: Alone Entry Into Home: Level Entry ADL-Prior Level of Function SCALE: Activities may be completed with or without assistive devices. 4-Saadakpjjd-oehaeus completes the activity by him/herself with no assistance from a helper. 5-Set-up or Clean-up Assistance-helper sets up or cleans up; patient completes activity. [place] assists only prior to or following the activity. 4-Supervision or Touching Assistance-helper provides verbal cues and/or touching/steadying and/or contact guard assistance as patient completes activity. Assistance may be provided throughout the activity or intermittently. 3-Partial/Moderate Assistance-helper does LESS THAN HALF the effort. [place] lifts, holds or supports trunk or limbs, but provides less than half the effort. 2-Substantial/Maximal Assistance-helper does MORE THAN HALF the effort. [place] lifts or holds trunk or limbs and provides more than half the effort. 6-Hphuqwwct-ekoldg does ALL the effort. Patient does none of the effort to complete the activity. Or, the assistance of 2 or more helpers is required for the patient to complete the activity. If activity was not attempted, code reason: 7-Patient Refused. 9-Not Applicable-not attempted and the patient did not perform the activity before the current illness, exacerbation or injury. 10-Not Attempted due to Environmental Limitations-(lack of equipment, weather restraints, etc.). 88-Not Attempted due to Medical Conditions or Safety Concerns. Self Care: Independent Functional Cognition: Independent OT Current Status Subjective Became agitated and transferred from medical/surgical floor, daughter and significant other present in room for eval Mental Status/Objective Patient Orientation: Person, Confused, Eyes Open (intermittently), Mumbles (then corrects) Attachments: Pringle Catheter, IV, Oxygen, SCD's Current Glasses/Contacts: Yes Hand Dominance: Right Upper Extremity ROM BUE ROM WFLS Upper Extremity Coordination FAIR Upper Extremity Strength +3/5 grossly ADL-Treatment Eating (QC): 5 Oral Hygiene (QC): 5 Shower/Bathe Self (QC): 7 Upper Body Dressing (QC): 4 Lower Body Dressing (QC): 3 (transfer min assist) On/Off Footwear (QC): 1 Toileting Hygiene (QC): 3 some directional confusion noted Education OT Patient Education: Correct positioning, Modified ADL techniques, Progress toward Goal/Update tx plan, Purpose of tx/functional activities, Reviewed precautions, Rehab process, Safety issues, Transfer techniques Teaching Recipient: Patient, Family Teaching Methods: Demonstration, Discussion Response to Teaching: Reinforcement Needed OT General Education Instructor Goals Correction Goals Eating (QC): 6 Oral Hygiene (QC): 6 Toileting Hygiene (QC): 6 Shower/Bathe Self (QC): 6 Upper Body Dressing (QC): 6 Lower Body Dressing (QC): 6 On/Off Footwear (QC): 6 1=Demonstrate adherence to instructed precautions during ADL tasks. 2=Patient will verbalize/demonstrate understanding of assistive devices/modifications for ADL. 3=Patient will improve strength/tolerance for activity to enable patient to perform ADL's. OT Education/Plan Problem List/Assessment Assessment: Decreased Activ Tolerance, Decreased Safety Aware, Decreased UE Strength, Impaired Bed Mobility, Impaired Cognition, Impaired Coordination, Impaired Funct Balance, Impaired Self-Care Skills Discharge Recommendations Plan/Recommendations: Continue POC Therapy Discharge Recommendati: Post Acute OT Treatment Plan/Plan of Care Treatment,Training & Education: Yes Patient would benefit from OT for education, treatment and training to promote independence in ADL's, mobility, safety and/or upper extremity function for ADL's. Plan of Care: ADL Retraining, Functional Mobility, Group Exercise/Act as Ind, UE Funct Exercise/Act Treatment Duration: Sep 28, 2023 Frequency: 3 times per week (3-5 times weekly) Estimated Hrs Per Day: .25 hour per day Agreement: Yes Rehab Potential: Fair Time Start Time: 14:30 Stop Time: 14:45 DATE: Sep 19, 2023 Total Time Billed (hr/min): 15 Billed Treatment Time EVM 15 min AKBAR GOVEA OT Sep 19, 2023 15:11
[2023-09-19] MEDS ORDERED: SCOPOLAMINE 1.5 MG PATCH TD SCH (21:00)
[2023-09-20 04:11] LABS: BASOPHILS % (AUTO) 0 % (0-10); EOSINOPHILS # (AUTO) 0.3 10^3/uL (0.0-0.3); EOSINOPHILS % (AUTO) 3 % (0-10); HEMATOCRIT 46 % (40-54); HEMOGLOBIN 15.3 g/dL (13.3-17.7); LYMPHOCYTES # (AUTO) 0.9 10^3/uL (1.0-4.0); LYMPHOCYTES % (AUTO) 11 % (12-44); MEAN CORPUSCULAR HEMOGLOBIN 31 pg (25-34); MEAN CORPUSCULAR HGB CONC 34 g/dL (32-36); MEAN CORPUSCULAR VOLUME 93 fL (80-99); MEAN PLATELET VOLUME 11.6 fL (9.0-12.2); MONOCYTES # (AUTO) 1.1 10^3/uL (0.0-1.0); MONOCYTES % (AUTO) 14 % (0-12); NEUTROPHILS # (AUTO) 5.8 10^3/uL (1.8-7.8); NEUTROPHILS % (AUTO) 72 % (42-75); PLATELET COUNT 165 10^3/uL (130-400); WHITE BLOOD COUNT 8.1 10^3/uL (4.3-11.0)
[2023-09-20 04:32] LABS: ALBUMIN 3.6 GM/DL (3.2-4.5); BILIRUBIN,TOTAL 1.6 MG/DL (0.1-1.0); CALCIUM 9.3 MG/DL (8.5-10.1); CREATININE SERUM 0.94 MG/DL (0.60-1.30); MAGNESIUM 1.7 MG/DL (1.6-2.4); PHOSPHORUS 2.5 MG/DL (2.3-4.7); POTASSIUM 3.9 MMOL/L (3.6-5.0); TOTAL PROTEIN 6.4 GM/DL (6.4-8.2)
[2023-09-20] MEDS: MAGNESIUM 1 GM/100 ML IVPB 100 ML IV SCH ×5 (05:05→09:51)
[2023-09-20] MEDS: POTASSIUM CL 10MEQ/50ML IVPB 50 ML IV SCH ×4 (05:05→06:08)
[2023-09-20] MEDS: inSUlin ASPART 1 UNIT/0.01 ML (PER UNIT) SC SCH ×4 (05:14→19:56)
[2023-09-20] MEDS: POTASSIUM CHLORIDE 20 MEQ TABLET PO SCH (05:15)
--- NOTE | 2023-09-20 07:57 | Cardiology Progress Note ---
Subjective Date Seen by Provider: Sep 20, 2023 Time Seen by Provider: 07:56 Subjective/Events-last exam Patient was seen at bedside, he was sleeping, I visited in length with his daughter Slightly better last night, still having some hallucination and confusion at night Objective-Cardiology Exam Last Set of Vital Signs Vital Signs 09/20/23 09/20/23 00:00 03:45 Temp 36.6 O2 Flow Rate 2.00 I&O Intake and Output 09/20/23 00:00 Intake Total 2250 ml Output Total 1350 ml Balance 900 ml Intake Oral 950 ml IV Total 1300 ml Output Urine Total 1350 ml General: Other (Sleeping) HEENT: Atraumatic, PERRLA Neck: Supple, No JVD, No Thyromegaly Lungs: Clear to Auscultation, Normal Air Movement Heart: Regular Rate, Normal S1, Normal S2, No Murmurs Abdomen: Normal Bowel Sounds, Soft, No Tenderness, No Hepatosplenomegaly, No Masses Extremities: No Clubbing, No Cyanosis, No Edema, Normal Pulses, No Tenderness/Swelling Skin: No Rashes, No Breakdown, No Significant Lesion Neuro: Normal Tone, Sensation Intact Psych/Mental Status: Other (Sleeping) Results Lab Laboratory Tests 09/20/23 03:57 A/P-Cardiology Admission Diagnosis CVA Double vision Hypertension Hyperlipidemia Assessment/Plan Acute CVA, 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 Continue to monitor Acute change in mental status with confusion and patient become combative and agitated. Acute delirium Still having some hallucination and confusion, slightly better last night Managed by medical team, continue to monitor Abnormal baseline EKG with right bundle branch block. 2D echo was reported by Dr. Davis on September 16, 2023 with normal LV size, ejection fraction 70 to 75%, grade 1 diastolic dysfunction, PA pressure 35 mmHg Hypertension, monitor Try to maintain blood pressure over 150 Hyperlipidemia, monitor lipids Diabetes mellitus, managed by primary care physician SANGITA JC MD Sep 20, 2023 07:57
--- NOTE | 2023-09-20 09:14 | Tele-ICU Progress Note ---
Subjective Date Seen by a Provider: Sep 20, 2023 Time Seen by a Provider: 09:13 Subjective/Events-last exam Orgninally admitted for vertebral artery occlusion, transferred back to ICU for delirium, started on IV Precedex, also got Ativan, still confused, Has not had Haldol today Still has vertigo, still has diplopia No CP or SOB BP has been ok Still on ASA, Plavix Sepsis Event Evaluation Height, Weight, BMI Height: 5'10" Weight: 302lbs. oz. 136.722177cq; 34.77 BMI Method: Exam Exam Patient acknowledged, consented, and participated in this virtual visit which was conducted using real time audio/video Vital Signs Date Time Temp Pulse Resp B/P (MAP) Pulse Ox O2 Delivery O2 Flow Rate FiO2 09/20/23 09:00 93 18 123/94 (104) 96 Room Air 09/20/23 08:00 90 37 158/103 (121) 97 Room Air 09/20/23 07:00 82 15 136/92 (107) 93 Room Air 09/20/23 07:00 83 09/20/23 06:00 87 20 129/84 (99) 91 Room Air 09/20/23 05:00 90 15 128/73 (91) 93 Room Air 09/20/23 04:00 98 23 160/90 (113) 93 Room Air 09/20/23 04:00 92 Room Air 09/20/23 03:45 36.6 Room Air 09/20/23 03:00 99 24 151/87 (108) 96 Room Air 09/20/23 02:00 93 27 162/106 (124) 96 Room Air 09/20/23 01:00 92 145/62 (89) 94 Room Air 09/20/23 01:00 95 09/20/23 00:05 37.1 Room Air 09/20/23 00:00 92 Room Air 09/20/23 00:00 93 19 140/92 (108) 95 Nasal Cannula 2.00 09/19/23 23:00 85 14 150/92 (111) 95 Nasal Cannula 2.00 09/19/23 22:00 88 22 130/79 (96) 93 Nasal Cannula 2.00 09/19/23 21:00 84 17 90/77 (81) 95 Nasal Cannula 2.00 09/19/23 20:00 95 Room Air 09/19/23 20:00 80 20 145/87 (106) 99 Nasal Cannula 2.00 09/19/23 19:54 36.1 09/19/23 19:40 Nasal Cannula 2.00 09/19/23 19:00 80 26 144/103 (117) 98 Nasal Cannula 2.00 09/19/23 19:00 86 09/19/23 18:00 81 35 127/91 (103) 99 Nasal Cannula 2.00 09/19/23 17:00 72 24 130/77 (94) 92 Nasal Cannula 2.00 09/19/23 16:00 73 35 124/83 (97) 92 Nasal Cannula 2.00 09/19/23 16:00 36.0 09/19/23 16:00 92 Room Air 09/19/23 15:00 71 17 134/93 (107) 99 Nasal Cannula 2.00 09/19/23 14:00 70 11 129/73 (91) 100 Nasal Cannula 2.00 09/19/23 13:02 70 09/19/23 13:00 67 13 133/70 (91) 100 Nasal Cannula 2.00 09/19/23 12:00 67 12 148/80 (102) 98 Nasal Cannula 2.00 09/19/23 12:00 92 Room Air 09/19/23 11:45 36.5 09/19/23 11:00 61 12 113/62 (79) 97 Nasal Cannula 2.00 09/19/23 10:00 60 12 110/64 (79) 90 Nasal Cannula 2.00 09/19/23 09:33 16 09/19/23 09:30 12 09/19/23 09:15 12 I & O 09/20/23 07:00 Intake Total 1550 ml Output Total 3100 ml Balance -1550 ml Height & Weight Height: 5'10" Weight: 302lbs. oz. 136.291573pe; 34.77 BMI Method: General Appearance: No Apparent Distress, Other (sleeping soundly) HEENT: PERRL/EOMI, Pharynx Normal, Other (PERRL, horizontal and vertical nystagmus present, right sided diplopia) Neck: Normal Inspection, Supple Respiratory: Lungs Clear, No Respiratory Distress Cardiovascular: Regular Rate, Rhythm, No Murmur Capillary Refill: Less Than 3 Seconds Gastrointestinal: normal bowel sounds, non tender, soft Extremity: Normal Inspection, No Pedal Edema Neurologic/Psychiatric: Alert (oriented to person, sometimes place), No Motor/Sensory Deficits, Other (able to stand but too dizzy to walk) Skin: Normal Color, Warm/Dry Lymphatic: No Adenopathy Results Lab Laboratory Tests 09/19/23 04:09 09/20/23 03:57 Assessment/Plan Assessment/Plan Delirium a little better, still has diplopia and dizziness, continue fall precautions continue ASA.Plavix Critical Care: Critically Ill Patient Time spent with patient (mins): 25 MODESTO MAK MD Sep 20, 2023 09:14
[2023-09-20] MEDS: LOSARTAN 100 MG TABLET PO SCH (09:47)
[2023-09-20] MEDS: ASPIRIN 81 MG CHEWABLE TABLET PO SCH (09:47)
[2023-09-20] MEDS: amLODIPine 10 MG TABLET PO SCH (09:47)
[2023-09-20] MEDS: CLOPIDOGREL 75 MG TABLET PO SCH (09:47)
[2023-09-20] MEDS: prednisoLONE 1% Ophthalmic Suspension 5 ML BTL OP SCH ×3 (09:52→19:56)
--- NOTE | 2023-09-20 09:57 | Occupational Ther Daily Note ---
OT Current Status-Daily Note Mental Status/Objective Originally admitted for vertebral artery occlusion. Progressed well and transferred from ICU to medical floor. Status post loop monitor implantation on September 18, 2023. Acute change in mental status with confusion and patient become combative and agitated. Acute delirium. Transfer to ICU. Still having some hallucination and confusion, slightly better last night ADL-Treatment Therapy Code Descriptions/Definitions Functional [place] Measure: 0=Not Assessed/NA 4=Minimal Assistance 1=Total Assistance 5=Supervision or Setup 2=Maximal Assistance 6=Modified [place] 3=Moderate Assistance 7=Complete IndependenceSCALE: Activities may be completed with or without assistive devices. 8-Vazmznoxiq-racdfvo completes the activity by him/herself with no assistance from a helper. 5-Set-up or Clean-up Assistance-helper sets up or cleans up; patient completes activity. [place] assists only prior to or following the activity. 4-Supervision or Touching Assistance-helper provides verbal cues and/or touching/steadying and/or contact guard assistance as patient completes ac tivity. Assistance may be provided throughout the activity or intermittently. 3-Partial/Moderate Assistance-helper does LESS THAN HALF the effort. [place] lifts, holds or supports trunk or limbs, but provides less than half the effort. 2-Substantial/Maximal Assistance-helper does MORE THAN HALF the effort. [place] lifts or holds trunk or limbs and provides more than half the effort. 2-Bsygfekdy-kfgnxl does ALL the effort. Patient does none of the effort to complete the activity. Or, the assistance of 2 or more helpers is required for the patient to complete the activity. If activity was not attempted, code reason: 7-Patient Refused. 9-Not Applicable-not attempted and the patient did not perform the activity before the current illness, exacerbation or injury. 10-Not Attempted due to Environmental Limitations-(lack of equipment, weather restraints, etc.). 88-Not Attempted due to Medical Conditions or Safety Concerns. OT Fdc Goals Fdc Goals Eating (QC): 6 Oral Hygiene (QC): 6 Toileting Hygiene (QC): 6 Shower/Bathe Self (QC): 6 Upper Body Dressing (QC): 6 Lower Body Dressing (QC): 6 On/Off Footwear (QC): 6 1=Demonstrate adherence to instructed precautions during ADL tasks. 2=Patient will verbalize/demonstrate understanding of assistive devices/modifications for ADL. 3=Patient will improve strength/tolerance for activity to enable patient to perform ADL's. OT Education/Plan Treatment Plan/Plan of Care Patient would benefit from OT for education, treatment and training to promote independence in ADL's, mobility, safety and/or upper extremity function for ADL's. Plan of Care: ADL Retraining, Functional Mobility, Group Exercise/Act as Ind, UE Funct Exercise/Act Treatment Duration: Sep 28, 2023 Frequency: 3 times per week (3-5 times weekly) Estimated Hrs Per Day: .25 hour per day Agreement: Yes Rehab Potential: Fair AKBAR GOVEA OT Sep 20, 2023 09:57
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
--- NOTE | 2023-09-20 14:24 | Physical Therapy Daily Note ---
PT Daily Note-Current Subjective Patient lying supine in bed upon PT arrival, sitting next to patient, both agreeable to treatment. Patient reports his hands hurt, but does not give a rating. Pain Section J - Health Conditions 1. Rarely or not at all 2. Occasionally 3. Frequently 4. Almost constantly 8. Unable to answer Pain Effect on Sleep: 88 Pain Interference with Therapy: 88 Pain Interference w/Day-to-Day: 88 Transfers SCALE: Activities may be completed with or without assistive devices. 5-Dobpyszvac-rfkxabx completes the activity by him/herself with no assistance from a helper. 5-Set-up or Clean-up Assistance-helper sets up or cleans up; patient completes activity. [place] assists only prior to or following the activity. 4-Supervision or Touching Assistance-helper provides verbal cues and/or touching/steadying and/or contact guard assistance as patient completes activity. Assistance may be provided throughout the activity or intermittently. 3-Partial/Moderate Assistance-helper does LESS THAN HALF the effort. [place] lifts, holds or supports trunk or limbs, but provides less than half the effort. 2-Substantial/Maximal Assistance-helper does MORE THAN HALF the effort. [place] lifts or holds trunk or limbs and provides more than half the effort. 9-Rpxhzgmbi-nrywqj does ALL the effort. Patient does none of the effort to complete the activity. Or, the assistance of 2 or more helpers is required for the patient to complete the activity. If activity was not attempted, code reason: 7-Patient Refused. 9-Not Applicable-not attempted and the patient did not perform the activity before the current illness, exacerbation or injury. 10-Not Attempted due to Environmental Limitations-(lack of equipment, weather restraints, etc.). 88-Not Attempted due to Medical Conditions or Safety Concerns. Roll Left & Right (QC): 3 Sit to Lying (QC): 3 Lying to Sitting/Side of Bed(Q: 3 Sit to Stand (QC): 3 Weight Bearing Right Lower Extremity: Right Full Weight Bearing Left Lower Extremity: Left Full Weight Bearing Gait Training Does the Patient Walk?: No and Walking Goal IS indicated Assessment Current Status: Poor Progress Patient performs all bed mobility and transfers with mod A. Patient able to stand for ~30 seconds and take 3 sidesteps to the right with mod/max A. Patient fatigues quickly and requests to lie down. Patient in bed post treatment with all needs met, nursing notified, call light in hand and bed alarm activated. PT Legal Contracts Specialist Goals Legal Contracts Specialist Goals PT Longterm Goals Time Frame: Oct 06, 2023 Roll Left & Right (QC): 6 Sit to Lying (QC): 6 Lying-Sitting on Side/Bed(QC): 6 Sit to Stand (QC): 6 Chair/Ttn-sv-Vwutl Xfer(QC): 6 Toilet Transfer (QC): 6 Walk 10 feet (QC): 6 Walk 50ft with 2 Turns (QC): 6 Walk 150 ft (QC): 6 PT Plan Treatment/Plan Treatment Plan: Continue Plan of Care Treatment Plan: Bed Mobility, Education, Functional Activity Joey, Functional Strength, Gait, Safety, Therapeutic Exercise, Transfers Treatment Duration: Oct 06, 2023 Frequency: 5 times per week Estimated Hrs Per Day: .25 hour per day Patient and/or Family Agrees t: Yes Safety Risks/Education Patient Education: Transfer Techniques Teaching Recipient: Patient Teaching Methods: Demonstration, Discussion Response to Teaching: Reinforcement Needed Time Time In: 1107 Time Out: 1125 DATE: Sep 20, 2023 Total Billed Treatment Time: 18 Total Billed Treatment Visit, SKYE LOGAN PT Sep 20, 2023 14:24
--- NOTE | 2023-09-20 14:44 | Occupational Ther Daily Note ---
OT Current Status-Daily Note Subjective AGREEABLE TO PARTICIPATE, DAUGHTER IS PRESENT Pain Numeric Pain Scale: 4 Location: Right Location Body Site: Hand (THUMB) Mental Status/Objective Patient Orientation: Person ADL-Treatment VISION ASSESSMENT FOR PERIPHERAL AND DEPTH PERCEPTION OF EACH EYE. GENNA IS ABLE TO DETERMINE DEPTH PERCEPTION/PERIPHERAL OF EACH EYE W/ ONE COVERED AT A DISTANCE OF 3 FEET Therapy Code Descriptions/Definitions Functional Artemas Measure: 0=Not Assessed/NA 4=Minimal Assistance 1=Total Assistance 5=Supervision or Setup 2=Maximal Assistance 6=Modified Artemas 3=Moderate Assistance 7=Complete IndependenceSCALE: Activities may be completed with or without assistive devices. 6-Fvsbjpyxic-qkgqdzq completes the activity by him/herself with no assistance from a helper. 5-Set-up or Clean-up Assistance-helper sets up or cleans up; patient completes activity. [place] assists only prior to or following the activity. 4-Supervision or Touching Assistance-helper provides verbal cues and/or touching/steadying and/or contact guard assistance as patient completes activity. Assistance may be provided throughout the activity or intermittently. 3-Partial/Moderate Assistance-helper does LESS THAN HALF the effort. [place] lifts, holds or supports trunk or limbs, but provides less than half the effort. 2-Substantial/Maximal Assistance-helper does MORE THAN HALF the effort. [place] lifts or holds trunk or limbs and provides more than half the effort. 9-Hxzcfqzsp-xtlynh does ALL the effort. Patient does none of the effort to complete the activity. Or, the assistance of 2 or more helpers is required for the patient to complete the activity. If activity was not attempted, code reason: 7-Patient Refused. 9-Not Applicable-not attempted and the patient did not perform the activity before the current illness, exacerbation or injury. 10-Not Attempted due to Environmental Limitations-(lack of equipment, weather restraints, etc.). 88-Not Attempted due to Medical Conditions or Safety Concerns. Eating (QC): 5 Oral Hygiene (QC): 5 Other Treatment DYNAMIC STANDING BALANCE ACTIVITY, IMPROVEMENT IN RIGHT/LEFT DIRECTIONAL DISCRIMINATION Education OT Patient Education: Correct positioning, Exercise program, Progress toward Goal/Update tx plan, Purpose of tx/functional activities, Reviewed precautions, Rehab process, Safety issues, Transfer techniques Teaching Recipient: Patient, Family Teaching Methods: Demonstration, Discussion Response to Teaching: Verbalize Understanding, Reinforcement Needed OT Continuous Improvement Analyst Goals Half-Way Goals Eating (QC): 6 Oral Hygiene (QC): 6 Toileting Hygiene (QC): 6 Shower/Bathe Self (QC): 6 Upper Body Dressing (QC): 6 Lower Body Dressing (QC): 6 On/Off Footwear (QC): 6 1=Demonstrate adherence to instructed precautions during ADL tasks. 2=Patient will verbalize/demonstrate understanding of assistive devices/modifications for ADL. 3=Patient will improve strength/tolerance for activity to enable patient to perform ADL's. OT Education/Plan Problem List/Assessment Assessment: Decreased Activ Tolerance, Decreased Safety Aware, Decreased UE Strength, Impaired Cognition, Impaired Coordination, Impaired Funct Balance, Impaired Self-Care Skills Discharge Recommendations Plan/Recommendations: Continue POC Treatment Plan/Plan of Care Treatment,Training & Education: Yes Patient would benefit from OT for education, treatment and training to promote independence in ADL's, mobility, safety and/or upper extremity function for ADL's. Plan of Care: ADL Retraining, Functional Mobility, Group Exercise/Act as Ind, UE Funct Exercise/Act Treatment Duration: Sep 28, 2023 Frequency: 3 times per week (3-5 times weekly) Estimated Hrs Per Day: .25 hour per day Agreement: Yes Rehab Potential: Fair Time Start Time: 14:00 Stop Time: 14:20 DATE: Sep 20, 2023 Total Time Billed (hr/min): 20 Billed Treatment Time FA 20 min AKBAR GOVEA OT Sep 20, 2023 14:44
[2023-09-20] MEDS: [UNRECOGNIZED DRUG - REMARK] TP SCH (15:27)
[2023-09-20] MEDS: SCOPOLAMINE 1.5 MG PATCH TD SCH (15:27)
[2023-09-20] MEDS: risperiDONE 0.25 MG TABLET PO SCH (19:56)
[2023-09-21] MEDS: HALOPERIDOL INJECTION 5 MG/ML VIAL IM PRN (02:56)
[2023-09-21] MEDS: DexMEDEtomidine 1,000mcg/250ml 250 ML IV SCH (03:12)
[2023-09-21] MEDS: MAGNESIUM 1 GM/100 ML IVPB 100 ML IV SCH (06:56)
[2023-09-21] MEDS: POTASSIUM CHLORIDE 20 MEQ TABLET PO SCH (06:56)
[2023-09-21] MEDS: inSUlin ASPART 1 UNIT/0.01 ML (PER UNIT) SC SCH ×4 (06:56→21:00)
[2023-09-21] MEDS: POTASSIUM CL 10MEQ/50ML IVPB 50 ML IV SCH (06:56)
[2023-09-21 07:11] LABS: BASOPHILS % (AUTO) 1 % (0-10); EOSINOPHILS # (AUTO) 0.2 10^3/uL (0.0-0.3); EOSINOPHILS % (AUTO) 2 % (0-10); HEMATOCRIT 43 % (40-54); HEMOGLOBIN 14.7 g/dL (13.3-17.7); LYMPHOCYTES # (AUTO) 1.1 10^3/uL (1.0-4.0); LYMPHOCYTES % (AUTO) 13 % (12-44); MEAN CORPUSCULAR HEMOGLOBIN 31 pg (25-34); MEAN CORPUSCULAR HGB CONC 34 g/dL (32-36); MEAN CORPUSCULAR VOLUME 92 fL (80-99); MEAN PLATELET VOLUME 11.4 fL (9.0-12.2); MONOCYTES # (AUTO) 1.2 10^3/uL (0.0-1.0); MONOCYTES % (AUTO) 15 % (0-12); NEUTROPHILS # (AUTO) 5.6 10^3/uL (1.8-7.8); NEUTROPHILS % (AUTO) 69 % (42-75); PLATELET COUNT 148 10^3/uL (130-400); WHITE BLOOD COUNT 8.1 10^3/uL (4.3-11.0)
[2023-09-21 07:20] LABS: ALBUMIN 3.3 GM/DL (3.2-4.5); POTASSIUM 4.4 MMOL/L (3.6-5.0)
[2023-09-21 07:21] LABS: CALCIUM 8.8 MG/DL (8.5-10.1)
[2023-09-21 07:22] LABS: TOTAL PROTEIN 6.2 GM/DL (6.4-8.2)
[2023-09-21 07:24] LABS: BILIRUBIN,TOTAL 1.7 MG/DL (0.1-1.0)
[2023-09-21 07:25] LABS: PHOSPHORUS 2.9 MG/DL (2.3-4.7)
[2023-09-21 07:26] LABS: CREATININE SERUM 1.01 MG/DL (0.60-1.30)
[2023-09-21 07:28] LABS: MAGNESIUM 1.9 MG/DL (1.6-2.4)
[2023-09-21 08:47] LABS: BACTERIA,URINE NEGATIVE /HPF; BILIRUBIN,URINE NEGATIVE (NEGATIVE); CLARITY,URINE CLEAR; COLOR,URINE YELLOW; GLUCOSE, URINE (UA) NEGATIVE (NEGATIVE); KETONES,URINE 1+ (NEGATIVE); LEUKOCYTE ESTERASE ,URINE NEGATIVE (NEGATIVE); NITRITE,URINE NEGATIVE (NEGATIVE); PROTEIN,URINE NEGATIVE (NEGATIVE); RBC,URINE 0-2 /HPF; SQUAMOUS EPITHELIAL CELL,UR 0-2 /HPF; WBC,URINE 0-2 /HPF
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
--- NOTE | 2023-09-21 10:17 | Cardiology Progress Note ---
Subjective Date Seen by Provider: Sep 21, 2023 Time Seen by Provider: 10:16 Subjective/Events-last exam Patient is sedated, sleeping, I visited with his daughter today. Objective-Cardiology Exam Last Set of Vital Signs Vital Signs 09/20/23 09/21/23 09/21/23 16:00 08:00 08:18 Temp 36.2 Pulse 62 Resp 16 B/P (MAP) 123/70 (88) Pulse Ox 96 O2 Delivery Room Air O2 Flow Rate 2.00 I&O Intake and Output 09/21/23 00:00 Intake Total 1900 ml Output Total 4075 ml Balance -2175 ml Intake Oral 1600 ml IV Total 300 ml Output Urine Total 4075 ml General: Other (Sleeping) HEENT: Atraumatic Neck: No JVD, No Thyromegaly Lungs: Normal Air Movement Heart: Regular Rate, Normal S1, Normal S2, No Murmurs Abdomen: Normal Bowel Sounds, Soft, No Tenderness, No Hepatosplenomegaly, No Masses Extremities: No Clubbing, No Cyanosis, No Edema, Normal Pulses, No Tenderness/Swelling Skin: No Rashes, No Breakdown, No Significant Lesion Neuro: Normal Tone, Sensation Intact Psych/Mental Status: Other (Sleeping) Results Lab Laboratory Tests 09/21/23 07:03 A/P-Cardiology Admission Diagnosis CVA Double vision Hypertension Hyperlipidemia Assessment/Plan Acute CVA, 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 Continue to monitor Acute change in mental status with confusion and patient become combative and agitated. Acute delirium Still having some hallucination and confusion, had agitation and confusion last night Currently sedated Abnormal baseline EKG with right bundle branch block. 2D echo was reported by Dr. Davis on September 16, 2023 with normal LV size, ejection fraction 70 to 75%, grade 1 diastolic dysfunction, PA pressure 35 mmHg Hypertension, monitor Try to maintain blood pressure over 150 Hyperlipidemia, monitor lipids Diabetes mellitus, managed by primary care physician SANGITA JC MD Sep 21, 2023 10:17
[2023-09-21] MEDS: amLODIPine 10 MG TABLET PO SCH ×2 (11:32→15:44)
[2023-09-21] MEDS: CLOPIDOGREL 75 MG TABLET PO SCH ×2 (11:32→15:46)
[2023-09-21] MEDS: LOSARTAN 100 MG TABLET PO SCH ×2 (11:32→15:46)
[2023-09-21] MEDS: ASPIRIN 81 MG CHEWABLE TABLET PO SCH ×2 (11:32→15:46)
[2023-09-21] MEDS: risperiDONE 0.25 MG TABLET PO SCH ×2 (11:33→20:25)
[2023-09-21] MEDS: ENOXAPARIN 40 MG/0.4 ML SYRINGE SQ SCH (11:33)
[2023-09-21] MEDS: prednisoLONE 1% Ophthalmic Suspension 5 ML BTL OP SCH ×4 (11:34→20:25)
--- NOTE | 2023-09-21 15:27 | Physical Therapy Progress Note ---
Therapy Progress Note Attempted to see pt x 2 (1 in AM, 1 in PM). RN requested to hold until PM. Attempted in PM and pt was unable to be aroused. Will cont PT at next available opportunity. KEL HAWTHORNE PT Sep 21, 2023 15:27
--- NOTE | 2023-09-21 15:37 | Occ Therapy Progress Note ---
Therapy Progress Note OT attempted x3. Third attempt patient is mildly aroused and with family, family request this time to visit as daughter is leaving for [place] soon AKBAR GOVEA OT Sep 21, 2023 15:37
[2023-09-22] MEDS: DexMEDEtomidine 1,000mcg/250ml 250 ML IV SCH ×2 (01:34→07:20)
[2023-09-22 04:56] LABS: BASOPHILS # (AUTO) 0.1 10^3/uL (0.0-0.1); BASOPHILS % (AUTO) 1 % (0-10); EOSINOPHILS # (AUTO) 0.2 10^3/uL (0.0-0.3); EOSINOPHILS % (AUTO) 2 % (0-10); HEMATOCRIT 47 % (40-54); HEMOGLOBIN 16.1 g/dL (13.3-17.7); LYMPHOCYTES # (AUTO) 0.7 10^3/uL (1.0-4.0); LYMPHOCYTES % (AUTO) 8 % (12-44); MEAN CORPUSCULAR HEMOGLOBIN 31 pg (25-34); MEAN CORPUSCULAR HGB CONC 34 g/dL (32-36); MEAN CORPUSCULAR VOLUME 92 fL (80-99); MEAN PLATELET VOLUME 11.6 fL (9.0-12.2); MONOCYTES # (AUTO) 1.1 10^3/uL (0.0-1.0); MONOCYTES % (AUTO) 12 % (0-12); NEUTROPHILS % (AUTO) 77 % (42-75); PLATELET COUNT 161 10^3/uL (130-400); WHITE BLOOD COUNT 9.1 10^3/uL (4.3-11.0)
[2023-09-22 05:08] LABS: ALBUMIN 3.5 GM/DL (3.2-4.5); POTASSIUM 4.5 MMOL/L (3.6-5.0)
[2023-09-22 05:10] LABS: CALCIUM 9.3 MG/DL (8.5-10.1)
[2023-09-22 05:13] LABS: BILIRUBIN,TOTAL 1.8 MG/DL (0.1-1.0)
[2023-09-22 05:14] LABS: PHOSPHORUS 2.7 MG/DL (2.3-4.7)
[2023-09-22 05:15] LABS: CREATININE SERUM 0.91 MG/DL (0.60-1.30)
[2023-09-22 05:17] LABS: MAGNESIUM 1.6 MG/DL (1.6-2.4)
[2023-09-22 05:45] LABS: BAND NEUTROPHILS 2 %; EOSINOPHILS % (MANUAL) 3 %; LYMPHOCYTES % (MANUAL) 8 %; MONOCYTES % (MANUAL) 12 %; NEUTROPHILS % (MANUAL) 75 %
[2023-09-22] MEDS: POTASSIUM CL 10MEQ/50ML IVPB 50 ML IV SCH (06:02)
[2023-09-22] MEDS: MAGNESIUM 1 GM/100 ML IVPB 100 ML IV SCH ×4 (06:02→08:01)
[2023-09-22] MEDS: inSUlin ASPART 1 UNIT/0.01 ML (PER UNIT) SC SCH ×4 (06:02→22:30)
[2023-09-22] MEDS: POTASSIUM CHLORIDE 20 MEQ TABLET PO SCH (06:03)
[2023-09-22] MEDS: prednisoLONE 1% Ophthalmic Suspension 5 ML BTL OP SCH ×4 (09:00→21:30)
[2023-09-22] MEDS: risperiDONE 0.25 MG TABLET PO SCH ×2 (09:00→22:26)
[2023-09-22] MEDS: ENOXAPARIN 40 MG/0.4 ML SYRINGE SQ SCH (10:06)
[2023-09-22 11:25] VITALS: BP 112/52
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
--- NOTE | 2023-09-22 12:45 | Tele-ICU Progress Note ---
Subjective Date Seen by a Provider: Sep 22, 2023 Time Seen by a Provider: 12:44 Subjective/Events-last exam (Tele-ICU Physician , Progress Note ) Service provided via interactive audio and video telecommunications [employer] s te to a patient admitted to ICU bed in [facility]. Patient is seen today due to persistent need of ICU care Available chart/ vitals / labs / Images reviewed Video assessment done using teleICU camera, rest of exam as per RN He is a 78-year-old male with past medical history of hypertension diabetes mellitus presented to the emergency room on 09/16/2023 with a complaint of generalized weakness nausea dizziness and he felt as if his drank alcohol but did not drink. He had a double vision. 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 Also showed luminal irregularities within the right M1 segment. He is started on aspirin Plavix and admitted to the intensive care unit. Prior to admission discussed by the ER physician with the stroke neurologist and apparently told him that the area of occlusion is too small and not amenable to any intervention and suggested medical management with aspirin Plavix and routine stroke work-up. He is also started on physical therapy. He is has altered mental status and agitation on and off but now improving with Precedex with which he is up to sleepy. Discussed with Dr. Santiago and agree with minimization of sedation. Impression 1. Nausea vomiting and dizziness most likely due to vertebral artery occlusion on the right side Accelerated hypertension 3. Type 2 diabetes mellitus uncontrolled. Recommendation 1. Continue aspirin and Plavix 2. Minimize sedation 3. Physical therapy 4. Control of blood pressure and hypertension per primary care physician. 5. DVT prophylaxis with Lovenox. Coordination of care with primary care physician and bedside consultants. I am remotely monitoring this patient from Tele icu station in [place]. I am unable to do the bedside exam, and history/physical and pertinent information is taken from other notes in the computer and bedside staff. Certain portions of this document may have been dictated utilizing voice recognition technology such as [employer]. Inherent to this technology, typographical and grammatical errors may exist. As much as I am diligent to identify and correct to these mistakes, some errors may remain in the document. Critical care time devoted to this patient today is approximately is--20 minutes. Sepsis Event Evaluation Height, Weight, BMI Height: 5'10" Weight: 302lbs. oz. 136.087658ac; 34.77 BMI Method: Exam Exam Patient acknowledged, consented, and participated in this virtual visit which was conducted using real time audio/video Vital Signs Date Time Temp Pulse Resp B/P (MAP) Pulse Ox O2 Delivery O2 Flow Rate FiO2 09/22/23 12:43 62 09/22/23 12:00 92 Room Air 09/22/23 12:00 35.9 09/22/23 12:00 61 23 99/53 (69) 91 Room Air 09/22/23 11:25 60 112/52 09/22/23 11:00 61 23 112/52 (80) 91 Room Air 09/22/23 10:00 60 22 105/53 (70) 91 Room Air 09/22/23 09:00 61 22 111/58 (72) 89 Room Air 09/22/23 08:00 82 19 137/68 (90) 91 Room Air 09/22/23 08:00 91 Room Air 09/22/23 08:00 36.1 09/22/23 07:20 81 152/80 09/22/23 07:00 83 09/22/23 07:00 85 26 152/80 (109) 90 Room Air 09/22/23 06:00 67 26 173/92 (119) 93 Room Air 09/22/23 05:34 84 173/92 09/22/23 05:00 78 27 178/94 (122) 92 Room Air 09/22/23 04:00 92 Room Air 09/22/23 04:00 84 24 179/93 (121) 91 Room Air 09/22/23 03:00 67 25 180/90 (120) 92 Room Air 09/22/23 02:00 66 20 176/87 (116) 90 Room Air 09/22/23 01:34 65 168/82 09/22/23 01:00 70 09/22/23 01:00 65 18 179/86 (117) 91 Room Air 09/22/23 00:00 94 Room Air 09/22/23 00:00 65 17 168/82 (110) 90 Room Air 09/21/23 23:00 67 18 149/76 (100) 91 Room Air 09/21/23 22:00 96 16 145/82 (103) 94 Room Air 09/21/23 21:00 78 22 143/77 (99) 94 Room Air 09/21/23 20:00 93 Room Air 09/21/23 20:00 69 20 113/55 (74) 96 Room Air 09/21/23 19:57 35.9 09/21/23 19:00 73 09/21/23 19:00 73 21 124/74 (91) 95 Room Air 09/21/23 18:00 67 18 124/67 (90) 98 Room Air 09/21/23 17:00 68 17 118/64 (87) 96 Room Air 09/21/23 16:04 35.8 09/21/23 16:00 63 17 124/61 (85) 92 Room Air 09/21/23 16:00 96 Room Air 09/21/23 15:00 57 18 107/64 (74) 93 Room Air 09/21/23 14:00 57 17 91/52 (67) 90 Room Air 09/21/23 13:00 58 15 92/51 (66) Room Air 09/21/23 12:49 57 I & O 09/22/23 07:00 Intake Total 500 ml Output Total 1475 ml Balance -975 ml Height & Weight Height: 5'10" Weight: 302lbs. oz. 136.887551un; 34.77 BMI Method: General Appearance: No Apparent Distress, Other (sleeping soundly) HEENT: PERRL/EOMI, Pharynx Normal, Other (PERRL, horizontal and vertical nystagmus present, right sided diplopia) Neck: Normal Inspection, Supple Respiratory: Lungs Clear Cardiovascular: Regular Rate, Rhythm, No Murmur Capillary Refill: Less Than 3 Seconds Gastrointestinal: normal bowel sounds, non tender, soft Extremity: Normal Inspection, No Pedal Edema Neurologic/Psychiatric: Other (sleeping, did open eyes breiefly when I spoke loudly to him) Skin: Normal Color, Warm/Dry Lymphatic: No Adenopathy Results Lab Laboratory Tests 09/21/23 07:03 09/22/23 04:35 Assessment/Plan Assessment/Plan as above Critical Care: Critically Ill Patient Time spent with patient (mins): 20 YENY AUSTIN MD Sep 22, 2023 12:45
[2023-09-22] MEDS ORDERED: NS IV 1000 ML 1,000 ML IV ONE (14:00)
--- NOTE | 2023-09-22 14:15 | Physical Therapy Progress Note ---
Therapy Progress Note RN requested PT hold on treatment today. Will reattempt. SAUL BHAT PT Sep 22, 2023 14:15
--- NOTE | 2023-09-22 15:01 | Progress Note - Cardiology ---
Cardiology SOAP Progress Note Subjective: Not verbally responsive at the time of my exam. Apparently, had received sedation for marked agitation is still not recovered from sedation Objective: I&O/Vital Signs 09/22/23 09/22/23 09/22/23 09/22/23 03:00 04:00 04:00 05:00 Pulse 67 84 78 Resp 25 24 27 B/P (MAP) 180/90 (120) 179/93 (121) 178/94 (122) Pulse Ox 92 91 92 92 O2 Delivery Room Air Room Air Room Air Room Air 09/22/23 09/22/23 09/22/23 09/22/23 05:34 06:00 07:00 07:00 Pulse 84 67 85 83 Resp 26 26 B/P (MAP) 173/92 173/92 (119) 152/80 (109) Pulse Ox 93 90 O2 Delivery Room Air Room Air 09/22/23 09/22/23 09/22/23 09/22/23 07:20 08:00 08:00 08:00 Temp 36.1 Pulse 81 82 Resp 19 B/P (MAP) 152/80 137/68 (90) Pulse Ox 91 91 O2 Delivery Room Air Room Air 09/22/23 09/22/23 09/22/23 09/22/23 09:00 10:00 11:00 11:25 Pulse 61 60 61 60 Resp 22 22 23 B/P (MAP) 111/58 (72) 105/53 (70) 112/52 (80) 112/52 Pulse Ox 89 91 91 O2 Delivery Room Air Room Air Room Air 09/22/23 09/22/23 09/22/23 09/22/23 12:00 12:00 12:00 12:43 Temp 35.9 Pulse 61 62 Resp 23 B/P (MAP) 99/53 (69) Pulse Ox 91 92 O2 Delivery Room Air Room Air 09/22/23 09/22/23 13:00 14:00 Pulse 61 63 Resp 22 20 B/P (MAP) 93/53 (68) 92/55 (68) Pulse Ox 91 93 O2 Delivery Room Air Room Air 09/22/23 00:00 Intake Total 300 ml Output Total 350 ml Balance -50 ml Weight (Pounds): 302 Weight (Calculated Kilograms): 136.347823 Constitutional: other (Not verbally responsive at the time of my exam. Apparently, had received sedation for marked agitation is still not recovered from sedation) Respiratory: No accessory muscle use; chest expansion is symmetric, chest is bilaterally symmetric, other (fair to good, bilat air entry) Cardiovascular: regular rate-rhythm, S1 and S2, systolic murmur (soft OLEGARIO at card base) Gastrointestional: No tender; soft; No guarding, No rebound; audible bowel sounds Extremities: No clubbing, No cyanosis, No significant edema Neurologic/Psychiatric: No oriented x 3; other (unable to cooperate with any neuro exam) Skin: normal color, warm/dry; No cyanosis, No cool, No diaphoresis Results/Procedures: Labs Laboratory Tests 09/21/23 15:41: Glucometer 121H 09/21/23 20:24: Glucometer 153H 09/22/23 04:35: White Blood Count 9.1, Red Blood Count 5.12, Hemoglobin 16.1, Hematocrit 47, Mean Corpuscular Volume 92, Mean Corpuscular Hemoglobin 31, Mean Corpuscular Hemoglobin Concent 34, Red Cell Distribution Width 13.5, Platelet Count 161, Mean Platelet Volume 11.6, Immature Granulocyte % (Auto) 0, Neutrophils (%) (Auto) 77H, Lymphocytes (%) (Auto) 8L, Monocytes (%) (Auto) 12, Eosinophils (%) (Auto) 2, Basophils (%) (Auto) 1, Neutrophils # (Auto) 7.0, Lymphocytes # (Auto) 0.7L, Monocytes # (Auto) 1.1H, Eosinophils # (Auto) 0.2, Basophils # (Auto) 0.1, Immature Granulocyte # (Auto) 0.0, Neutrophils % (Manual) 75, Lymphocytes % (Manual) 8, Monocytes % (Manual) 12, Eosinophils % (Manual) 3, Band Neutrophils 2, Sodium Level 130L, Potassium Level 4.5, Chloride Level 98, Carbon Dioxide Level 20L, Anion Gap 12, Blood Urea Nitrogen 19H, Creatinine 0.91, Estimat Glomerular Filtration Rate 87, BUN/Creatinine Ratio 21, Glucose Level 242H, Calcium Level 9.3, Corrected Calcium 9.7, Phosphorus Level 2.7, Magnesium Level 1.6, Total Bilirubin 1.8H, Aspartate Amino Transf (AST/SGOT) 12, Alanine Aminotransferase (ALT/SGPT) 7, Alkaline Phosphatase 84, Total Protein 7.0, Albumin 3.5 09/22/23 10:16: Glucometer 222H Microbiology 09/19/23 MRSA Screen - Final, Complete MRSA not isolated Laboratory Tests 09/21/23 07:03 09/22/23 04:35 A/P: Assessment: Acute CVA, 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 Acute delirium - managed by the primary care team Abnormal baseline EKG with right bundle branch block. 2D echo was reported by Dr. Davis on September 16, 2023 with normal LV size, ejection fraction 70 to 75%, grade 1 diastolic dysfunction, PA pressure 35 mmHg Hypertension Hyperlipidemia Diabetes mellitus II Plan: * Continue DAPT * Continue to monitor rhythm * Monitor labs and correct any abnormalities KATERYNA LUTHER MD FACP [facility] Sep 22, 2023 15:01
[2023-09-22] MEDS: ASPIRIN 81 MG CHEWABLE TABLET PO SCH (18:10)
[2023-09-23 04:18] LABS: BASOPHILS # (AUTO) 0.1 10^3/uL (0.0-0.1); BASOPHILS % (AUTO) 1 % (0-10); EOSINOPHILS # (AUTO) 0.3 10^3/uL (0.0-0.3); EOSINOPHILS % (AUTO) 3 % (0-10); HEMATOCRIT 44 % (40-54); HEMOGLOBIN 14.6 g/dL (13.3-17.7); LYMPHOCYTES # (AUTO) 0.9 10^3/uL (1.0-4.0); LYMPHOCYTES % (AUTO) 11 % (12-44); MEAN CORPUSCULAR HEMOGLOBIN 31 pg (25-34); MEAN CORPUSCULAR HGB CONC 33 g/dL (32-36); MEAN CORPUSCULAR VOLUME 93 fL (80-99); MEAN PLATELET VOLUME 11.4 fL (9.0-12.2); MONOCYTES # (AUTO) 1.1 10^3/uL (0.0-1.0); MONOCYTES % (AUTO) 13 % (0-12); NEUTROPHILS # (AUTO) 6.1 10^3/uL (1.8-7.8); NEUTROPHILS % (AUTO) 72 % (42-75); PLATELET COUNT 166 10^3/uL (130-400); WHITE BLOOD COUNT 8.4 10^3/uL (4.3-11.0)
[2023-09-23 04:36] LABS: ALBUMIN 3.1 GM/DL (3.2-4.5); POTASSIUM 4.2 MMOL/L (3.6-5.0)
[2023-09-23 04:40] LABS: BILIRUBIN,TOTAL 1.4 MG/DL (0.1-1.0)
[2023-09-23 04:42] LABS: CREATININE SERUM 1.2 MG/DL (0.60-1.30)
[2023-09-23 04:45] LABS: MAGNESIUM 2.2 MG/DL (1.6-2.4)
[2023-09-23] MEDS: MAGNESIUM 1 GM/100 ML IVPB 100 ML IV SCH (05:50)
[2023-09-23] MEDS: POTASSIUM CL 10MEQ/50ML IVPB 50 ML IV SCH (05:50)
[2023-09-23] MEDS: inSUlin ASPART 1 UNIT/0.01 ML (PER UNIT) SC SCH ×4 (05:51→21:56)
[2023-09-23] MEDS: POTASSIUM CHLORIDE 20 MEQ TABLET PO SCH (05:51)
--- NOTE | 2023-09-23 06:47 | Progress Note - Hospitalist ---
Subjective HPI/CC On Admission Date Seen by Provider: Sep 23, 2023 Mohsen Rush (Bill) is a 78yo M who presented to the ED yesterday due to weakness, vomiting, dizziness, and reportedly a feeling of drunkenness that began last night. Yesterday he had a heated conversation with a estuardo and ate at mall [employer]. When he came home he lost his appetite and started vomiting and having diarrhea. Denies blood in stool. This morning he was complaining of double vision, which seems to be worse on his R side and fullness in his stomach. He denied SOB and CP. Onesimo has a history of prostate cancer, DM, HTN, RBBB. NKDA. He lives alone with his dog, Bernardino, who is currently locked in the bathroom. Nurse is contacting friend, pawel, who is supposed to check on him. He was hypertensive upon admission and has been continuing to run high. He has hyperglycemia, UA and other blood work otherwise unremarkable. Dr. Jaffe, stroke neurologist at , was notified and recommended conservative medical management with plavix and aspirin and stroke work up. Subjective/Events-last exam Pt more laert today. Denies complaints. When asked if he needs anything just asks about eventually getting home. Mentation much better than yesterday. RN r epors some confusion overnight but did not require any precedex or medicine for agitation. Objective Exam Vital Signs Vital Signs Date Time Temp Pulse Resp B/P (MAP) Pulse Ox O2 Delivery O2 Flow Rate FiO2 09/23/23 06:00 87 92 Room Air 09/23/23 05:00 18 09/22/23 20:00 35.9 09/20/23 16:00 2.00 Capillary Refill : Less Than 3 Seconds General Appearance: No Apparent Distress, WD/WN, Obese Respiratory: Lungs Clear Cardiovascular: Regular Rate, Rhythm, No Murmur Gastrointestinal: Normal Bowel Sounds, Soft Neurologic/Psychiatric: Alert, Other (oriented to person and place) Results/Procedures Lab Laboratory Tests 09/23/23 04:08 Patient resulted labs reviewed. Imaging: Reviewed Imaging Report Assessment/Plan Assessment and Plan Assess & Plan/Chief Complaint RVA Occlusion [facility] reports not amenable to intervention Aspirin, plavix, Losartan, Hydralazine MRI head and neck unable to be obtained due to body habitus PT/OT IRF eval- accepted pending insurance authorization- insurance denied, attempting appeal Patient lives at home and prior to stroke was functionally independent, he is now needing moderate assist for ADLs. Would benefit significantly from intensive therapies to assist with return to home safely and for continued management of sundowning. No agitation overnight and doing much better. RN to get to chair today and continue PT/OT tomorrow. Echo with no identifiable shunt Agitation- resolved Likely psychosis from hospitalization combind with sundowning as he does very well during the day No haldol or Precedex overnight, did well Continue Risperdal UA without evidence of infection Hypertension Losartan, Amlodipine, Cardizem Well controlled DM Hgb A1C- 5.3 Sliding scale insulin Fasting BS is 165 Obesity No acute needs Critical Care Critically Ill Patient KOKO AMADOR MD Sep 23, 2023 06:47
[2023-09-23] MEDS: LOSARTAN 100 MG TABLET PO SCH (08:03)
[2023-09-23] MEDS: risperiDONE 0.25 MG TABLET PO SCH ×2 (08:03→21:55)
[2023-09-23] MEDS: CLOPIDOGREL 75 MG TABLET PO SCH (08:03)
[2023-09-23] MEDS: amLODIPine 10 MG TABLET PO SCH (08:03)
[2023-09-23] MEDS: ASPIRIN 81 MG CHEWABLE TABLET PO SCH (08:03)
[2023-09-23] MEDS: prednisoLONE 1% Ophthalmic Suspension 5 ML BTL OP SCH ×4 (08:04→21:56)
--- NOTE | 2023-09-23 09:00 | Tele-ICU Progress Note ---
Subjective Date Seen by a Provider: Sep 23, 2023 Subjective/Events-last exam This virtual visit was conducted using real time audio/video. Thank you for asking us to see this patient for critical care services due to delirium. Admitted with RVA occlusion Recent events: Precedex continues to beheld. Intermittent confusion. PE: VSS. O2 sat 92% on RA. HEENT: No obvious masses, adenopathy or JVD. Chest: clear to auscultation. CV: RRR S1 S2 No murmur or added sounds. Abd: Non-tender. Bowel sounds Y. : Unremarkable. Pringle Y. SLATE HANDLER/psychiatric: Grossly intact. No obvious focal findings. Extremities: No edema. Capillary refill < 3 seconds. Skin: unremarkable. Results: Elevated BG 165. Decreased Na 131. Available chart/ vitals / labs / images reviewed. Video assessment done using teleICU camera, rest of exam as per RN. A/P: Critical Care: critically ill patient. Precedex held. Cont.to monitor. Discussed with MEGAN Elder. Asked RN to reach out to eICU if any questions or concerns later. Time spent with patient/coordination of care with other health professionals (mins): 18 Sepsis Event Evaluation Height, Weight, BMI Height: 5'10" Weight: 302lbs. oz. 136.511559rh; 34.77 BMI Method: Exam Exam Patient acknowledged, consented, and participated in this virtual visit which was conducted using real time audio/video Vital Signs Date Time Temp Pulse Resp B/P (MAP) Pulse Ox O2 Delivery O2 Flow Rate FiO2 09/23/23 08:00 36.1 09/23/23 08:00 78 141/91 (104) 95 Room Air 09/23/23 07:00 73 120/64 (78) 95 Room Air 09/23/23 07:00 75 09/23/23 06:00 87 92 Room Air 09/23/23 05:00 70 18 122/78 (93) 95 Room Air 09/23/23 04:00 93 Room Air 09/23/23 04:00 77 17 126/72 (90) 95 Room Air 09/23/23 03:00 74 17 101/56 (71) 92 Room Air 09/23/23 02:00 59 17 101/55 (70) 94 Room Air 09/23/23 01:00 78 26 106/58 (74) 94 Room Air 09/23/23 00:15 61 27 114/62 (79) 90 Room Air 09/23/23 00:08 62 09/23/23 00:00 94 Room Air 09/23/23 00:00 80 19 93 Room Air 09/22/23 23:00 80 29 106/71 (83) 93 Room Air 09/22/23 20:00 92 Room Air 09/22/23 20:00 35.9 62 20 100/55 (70) 93 Room Air 09/22/23 18:59 62 09/22/23 18:00 63 23 90/55 (67) 90 Room Air 09/22/23 17:00 63 25 91 Room Air 09/22/23 16:00 63 19 92 Room Air 09/22/23 16:00 92 Room Air 09/22/23 16:00 35.9 09/22/23 15:00 63 11 103/59 (74) 92 Room Air 09/22/23 14:00 63 20 92/55 (68) 93 Room Air 09/22/23 13:00 61 22 93/53 (68) 91 Room Air 09/22/23 12:43 62 09/22/23 12:00 92 Room Air 09/22/23 12:00 35.9 09/22/23 12:00 61 23 99/53 (69) 91 Room Air 09/22/23 11:25 60 112/52 09/22/23 11:00 61 23 112/52 (80) 91 Room Air 09/22/23 10:00 60 22 105/53 (70) 91 Room Air 09/22/23 09:00 61 22 111/58 (72) 89 Room Air I & O 09/23/23 07:00 Intake Total 2200 ml Output Total 725 ml Balance 1475 ml Height & Weight Height: 5'10" Weight: 302lbs. oz. 136.232201mn; 34.77 BMI Method: General Appearance: No Apparent Distress, WD/WN, Obese HEENT: PERRL/EOMI, Pharynx Normal, Other (PERRL, horizontal and vertical nystagmus present, right sided diplopia) Neck: Normal Inspection, Supple Respiratory: Lungs Clear Cardiovascular: Regular Rate, Rhythm, No Murmur Capillary Refill: Less Than 3 Seconds Gastrointestinal: normal bowel sounds, non tender, soft Extremity: Normal Inspection, No Pedal Edema Neurologic/Psychiatric: Alert, Other (oriented to person and place) Skin: Normal Color, Warm/Dry Lymphatic: No Adenopathy Results Lab Laboratory Tests 09/22/23 04:35 09/23/23 04:08 Assessment/Plan Assessment/Plan See free text Critical Care: Critically Ill Patient TANIA IRVIN MD Sep 23, 2023 09:00
[2023-09-23] MEDS: ENOXAPARIN 40 MG/0.4 ML SYRINGE SQ SCH (09:34)
[2023-09-23] MEDS: [UNRECOGNIZED DRUG - REMARK] TP SCH (13:29)
[2023-09-23] MEDS: SCOPOLAMINE 1.5 MG PATCH TD SCH (14:27)
--- NOTE | 2023-09-23 15:30 | Progress Note - Cardiology ---
Cardiology SOAP Progress Note Subjective: No cp or palp or syncope No n/v/d Reports gen weakness but does not report focal weakness No shortness of breath at rest Objective: I&O/Vital Signs 09/23/23 09/23/23 09/23/23 09/23/23 04:00 04:00 05:00 06:00 Pulse 77 70 87 Resp 17 18 B/P (MAP) 126/72 (90) 122/78 (93) Pulse Ox 95 93 95 92 O2 Delivery Room Air Room Air Room Air Room Air 09/23/23 09/23/23 09/23/23 09/23/23 07:00 07:00 08:00 08:00 Pulse 75 73 78 B/P (MAP) 120/64 (78) 141/91 (104) Pulse Ox 95 95 95 O2 Delivery Room Air Room Air Room Air 09/23/23 09/23/23 09/23/23 09/23/23 08:00 09:00 10:00 11:00 Temp 36.1 Pulse 104 84 70 Resp 19 24 B/P (MAP) 130/71 (88) 117/68 (86) 121/79 (96) Pulse Ox 97 96 95 O2 Delivery Room Air Room Air Room Air 09/23/23 09/23/23 09/23/23 09/23/23 12:00 12:00 12:43 13:00 Pulse 73 77 76 Resp 24 12 B/P (MAP) 127/69 (95) 130/78 (96) Pulse Ox 93 95 94 O2 Delivery Room Air Room Air Room Air 09/23/23 09/23/23 09/23/23 14:00 14:36 15:00 Temp 36.0 Pulse 87 98 Resp 13 15 B/P (MAP) 119/75 (99) 116/72 (85) O2 Delivery Room Air Room Air 09/23/23 00:00 Intake Total 1150 ml Output Total 250 ml Balance 900 ml Weight (Pounds): 302 Weight (Calculated Kilograms): 136.453936 Constitutional: AAO x 3 Respiratory: No accessory muscle use; chest expansion is symmetric, chest is bilaterally symmetric, other (fair to good, bilat air entry) Cardiovascular: regular rate-rhythm, S1 and S2, systolic murmur (soft OLEGARIO at card base) Gastrointestional: No tender; soft; No guarding, No rebound; audible bowel sounds Extremities: No clubbing, No cyanosis, No significant edema Neurologic/Psychiatric: oriented x 3, other (appears to able to move all limbs) Skin: normal color, warm/dry; No cyanosis, No cool, No diaphoresis Results/Procedures: Labs Laboratory Tests 09/22/23 15:52: Glucometer 182H 09/22/23 22:10: Glucometer 169H 09/23/23 04:08: White Blood Count 8.4, Red Blood Count 4.71, Hemoglobin 14.6, Hematocrit 44, Mean Corpuscular Volume 93, Mean Corpuscular Hemoglobin 31, Mean Corpuscular Hemoglobin Concent 33, Red Cell Distribution Width 14.0, Platelet Count 166, M chema Platelet Volume 11.4, Immature Granulocyte % (Auto) 1, Neutrophils (%) (Auto) 72, Lymphocytes (%) (Auto) 11L, Monocytes (%) (Auto) 13H, Eosinophils (%) (Auto) 3, Basophils (%) (Auto) 1, Neutrophils # (Auto) 6.1, Lymphocytes # (Auto) 0.9L, Monocytes # (Auto) 1.1H, Eosinophils # (Auto) 0.3, Basophils # (Auto) 0.1, Immature Granulocyte # (Auto) 0.0, Sodium Level 131L, Potassium Level 4.2, Ch [place]or[place] Level 101, Carbon Dioxide Level 17L, Anion Gap 13, Blood Urea Nitrogen 30H, Creatinine 1.20, Estimat Glomerular Filtration Rate 62, BUN/Creatinine Rati o 25, Glucose Level 165H, Calcium Level 9.0, Corrected Calcium 9.7, Phosphorus Level 4.0, Magnesium Level 2.2, Total Bilirubin 1.4H, Aspartate Amino Transf (A ST/SGOT) 15, Alanine Aminotransferase (ALT/SGPT) 8, Alkaline Phosphatase 70, Total Protein 6.0L, Albumin 3.1L 09/23/23 10:29: Glucometer 201H Microbiology 09/19/23 MRSA Screen - Final, Complete MRSA not isolated Laboratory Tests 09/22/23 04:35 09/23/23 04:08 A/P: Assessment: Acute CVA, 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 Acute delirium - managed by the primary care team Abnormal baseline EKG with right bundle branch block. 2D echo was reported by Dr. Davis on September 16, 2023 with normal LV size, ejection fraction 70 to 75%, grade 1 diastolic dysfunction, PA pressure 35 mmHg Hypertension Hyperlipidemia Diabetes mellitus II Plan: * Continue DAPT * Continue to monitor rhythm * Monitor labs and correct any abnormalities KATERYNA LUTHER MD [facility] Sep 23, 2023 15:30
[2023-09-23] MEDS ORDERED: MICONAZOLE 2% POWDER 90 GM TOP SCH (16:15)
[2023-09-23] MEDS ORDERED: NYSTATIN OINTMENT 30 GM TUBE TOP SCH (16:15)
[2023-09-23] MEDS: MICONAZOLE 2% POWDER 90 GM TOP SCH ×2 (17:24→21:56)
[2023-09-24 04:58] LABS: BASOPHILS % (AUTO) 1 % (0-10); EOSINOPHILS # (AUTO) 0.2 10^3/uL (0.0-0.3); EOSINOPHILS % (AUTO) 2 % (0-10); HEMATOCRIT 44 % (40-54); HEMOGLOBIN 14.9 g/dL (13.3-17.7); LYMPHOCYTES # (AUTO) 0.8 10^3/uL (1.0-4.0); LYMPHOCYTES % (AUTO) 10 % (12-44); MEAN CORPUSCULAR HEMOGLOBIN 32 pg (25-34); MEAN CORPUSCULAR HGB CONC 34 g/dL (32-36); MEAN CORPUSCULAR VOLUME 93 fL (80-99); MEAN PLATELET VOLUME 11.5 fL (9.0-12.2); MONOCYTES # (AUTO) 1.1 10^3/uL (0.0-1.0); MONOCYTES % (AUTO) 14 % (0-12); NEUTROPHILS % (AUTO) 73 % (42-75); PLATELET COUNT 192 10^3/uL (130-400); WHITE BLOOD COUNT 8.2 10^3/uL (4.3-11.0)
[2023-09-24 05:33] LABS: ALBUMIN 3.1 GM/DL (3.2-4.5); POTASSIUM 3.8 MMOL/L (3.6-5.0)
[2023-09-24 05:36] LABS: TOTAL PROTEIN 6.5 GM/DL (6.4-8.2)
[2023-09-24 05:37] LABS: BILIRUBIN,TOTAL 1.3 MG/DL (0.1-1.0)
[2023-09-24 05:39] LABS: PHOSPHORUS 3.4 MG/DL (2.3-4.7)
[2023-09-24 05:40] LABS: CREATININE SERUM 1.01 MG/DL (0.60-1.30)
[2023-09-24 05:42] LABS: MAGNESIUM 1.8 MG/DL (1.6-2.4)
[2023-09-24] MEDS: inSUlin ASPART 1 UNIT/0.01 ML (PER UNIT) SC SCH ×2 (06:43→11:19)
[2023-09-24] MEDS: POTASSIUM CL 10MEQ/50ML IVPB 50 ML IV SCH (06:44)
[2023-09-24] MEDS: MAGNESIUM 1 GM/100 ML IVPB 100 ML IV SCH ×3 (06:51→06:52)
[2023-09-24] MEDS: POTASSIUM CHLORIDE 20 MEQ TABLET PO SCH (06:51)
[2023-09-24] MEDS: prednisoLONE 1% Ophthalmic Suspension 5 ML BTL OP SCH (08:51)
[2023-09-24] MEDS: LOSARTAN 100 MG TABLET PO SCH (08:51)
[2023-09-24] MEDS: risperiDONE 0.25 MG TABLET PO SCH (08:51)
[2023-09-24] MEDS: amLODIPine 10 MG TABLET PO SCH (08:51)
[2023-09-24] MEDS: ASPIRIN 81 MG CHEWABLE TABLET PO SCH (08:51)
[2023-09-24] MEDS: CLOPIDOGREL 75 MG TABLET PO SCH (08:51)
[2023-09-24] MEDS: MICONAZOLE 2% POWDER 90 GM TOP SCH (08:52)
--- NOTE | 2023-09-24 09:03 | Tele-ICU Progress Note ---
Subjective Date Seen by a Provider: Sep 24, 2023 Time Seen by a Provider: 09:02 Subjective/Events-last exam (Tele-ICU Physician , Progress Note ) Service provided via interactive audio and video telecommunications [employer] s te to a patient admitted to ICU bed in [facility]. Patient is seen today due to persistent need of ICU care Available chart/ vitals / labs / Images reviewed Video assessment done using teleICU camera, rest of exam as per RN He is a 78-year-old male with past medical history of hypertension diabetes mellitus presented to the emergency room on 09/16/2023 with a complaint of generalized weakness nausea dizziness and he felt as if his drank alcohol but did not drink. He had a double vision. 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 Also showed luminal irregularities within the right M1 segment. He is started on aspirin Plavix and admitted to the intensive care unit. Prior to admission discussed by the ER physician with the stroke neurologist and apparently told him that the area of occlusion is too small and not amenable to any intervention and suggested medical management with aspirin Plavix and routine stroke work-up. He is also started on physical therapy. He is has altered mental status and agitation on and off but now improving with Precedex with which he is up to sleepy. Discussed with Dr. Santiago and agree with minimization of sedation. 09/24/2023.neuro deficits and dizzines improved. bp stable. still confused at times Impression 1. Nausea vomiting and dizziness most likely due to vertebral artery occlusion on the right side 2. Accelerated hypertension 3. Type 2 diabetes mellitus uncontrolled. Recommendation 1. Continue aspirin and Plavix 2. Minimize sedation 3. Physical therapy 4. Control of blood pressure and hypertension per primary care physician. 5. DVT prophylaxis with Lovenox. 6. ok to transfer to rehab Coordination of care with primary care physician and bedside consultants. I am remotely monitoring this patient from Tele icu station in [place]. I am unable to do the bedside exam, and history/physical and pertinent information is taken from other notes in the computer and bedside staff. Certain portions of this document may have been dictated utilizing voice recognition technology such as [employer]. Inherent to this technology, typographical and grammatical errors may exist. As much as I am diligent to identify and correct to these mistakes, some errors may remain in the document. Critical care time devoted to this patient today is approximately is--15 minutes. Sepsis Event Evaluation Height, Weight, BMI Height: 5'10" Weight: 302lbs. oz. [id number]; 34.77 BMI Method: Exam Exam Patient acknowledged, consented, and participated in this virtual visit which was conducted using real time audio/video Vital Signs Date Time Temp Pulse Resp B/P (MAP) Pulse Ox O2 Delivery O2 Flow Rate FiO2 09/24/23 08:00 99 10 142/71 (94) 96 Room Air 09/24/23 08:00 36.7 09/24/23 07:30 105 09/24/23 07:00 99 14 172/88 (116) 94 Room Air 09/24/23 06:00 95 19 130/58 (69) 94 Room Air 09/24/23 05:00 95 19 148/71 (93) 96 Room Air 09/24/23 04:00 95 Room Air 09/24/23 04:00 98 16 131/70 (89) 95 Room Air 09/24/23 03:00 92 20 135/68 (83) 97 Room Air 09/24/23 02:00 95 20 142/64 (88) 96 Room Air 09/24/23 01:00 98 20 133/63 (85) 95 Room Air 09/24/23 01:00 98 09/24/23 00:00 95 Room Air 09/24/23 00:00 87 20 132/59 (82) 94 Room Air 09/23/23 23:03 98 15 133/72 (86) 93 Room Air 09/23/23 23:00 98 18 160/59 (84) 94 Room Air 09/23/23 22:00 89 15 140/67 (82) 96 Room Air 09/23/23 21:00 83 19 121/57 (77) 94 Room Air 09/23/23 20:00 90 20 110/48 (69) 96 Room Air 09/23/23 20:00 94 Room Air 09/23/23 19:00 92 09/23/23 19:00 92 22 123/68 (84) 96 Room Air 09/23/23 18:00 90 21 113/61 (73) 95 Room Air 09/23/23 17:00 92 7 102/56 (71) 95 Room Air 09/23/23 16:00 89 7 112/46 (67) 94 Room Air 09/23/23 16:00 95 Room Air 09/23/23 15:00 98 15 116/72 (85) Room Air 09/23/23 14:36 36.0 09/23/23 14:00 87 13 119/75 (99) Room Air 09/23/23 13:00 76 12 130/78 (96) 94 Room Air 09/23/23 12:43 77 09/23/23 12:00 95 Room Air 09/23/23 12:00 73 24 127/69 (95) 93 Room Air 09/23/23 11:00 70 24 121/79 (96) 95 Room Air 09/23/23 10:00 84 19 117/68 (86) 96 Room Air I & O 09/24/23 07:00 Intake Total 750 ml Output Total 1500 ml Balance -750 ml Height & Weight Height: 5'10" Weight: 302lbs. oz. 136.610947fb; 34.77 BMI Method: General Appearance: No Apparent Distress, WD/WN, Obese HEENT: PERRL/EOMI, Pharynx Normal, Other (PERRL, horizontal and vertical nystagmus present, right sided diplopia) Neck: Normal Inspection, Supple Respiratory: Lungs Clear Cardiovascular: Regular Rate, Rhythm, No Murmur Capillary Refill: Less Than 3 Seconds Gastrointestinal: normal bowel sounds, non tender, soft Extremity: Normal Inspection, No Pedal Edema Neurologic/Psychiatric: Alert, Other (oriented to person and place) Skin: Normal Color, Warm/Dry Lymphatic: No Adenopathy Results Lab Laboratory Tests 09/23/23 04:08 09/24/23 04:24 Assessment/Plan Assessment/Plan as above Critical Care: Critically Ill Patient Time spent with patient (mins): 15 YENY AUSTIN MD Sep 24, 2023 09:03
--- NOTE | 2023-09-24 09:04 | Cardiology Progress Note ---
Subjective Date Seen by Provider: Sep 24, 2023 Time Seen by Provider: 09:03 Subjective/Events-last exam Patient was seen at bedside, still having some confusion, unable to move his leg. Having pain in his knee and there is more weakness on the left side compared to the right side Objective-Cardiology Exam Last Set of Vital Signs Vital Signs 09/20/23 09/24/23 16:00 08:00 Temp 36.7 Pulse 99 Resp 10 B/P (MAP) 142/71 (94) Pulse Ox 96 O2 Delivery Room Air O2 Flow Rate 2.00 I&O Intake and Output 09/24/23 00:00 Intake Total 1000 ml Output Total 725 ml Balance 275 ml Intake Oral 1000 ml Output Urine Total 725 ml General: Alert, Cooperative, No Acute Distress HEENT: Atraumatic Neck: No JVD, No Thyromegaly Lungs: Normal Air Movement Heart: Regular Rate, Normal S1, Normal S2, No Murmurs Abdomen: Normal Bowel Sounds, Soft, No Tenderness, No Hepatosplenomegaly, No Masses Extremities: No Clubbing, No Cyanosis, No Edema, Normal Pulses, No Tenderness/Swelling Skin: No Rashes, No Breakdown, No Significant Lesion Neuro: Normal Speech, Normal Tone, Sensation Intact, Other (Slightly slurred speech) Psych/Mental Status: Mood NL Results Lab Laboratory Tests 09/24/23 04:24 A/P-Cardiology Admission Diagnosis CVA Double vision Hypertension Hyperlipidemia Assessment/Plan Acute CVA, acute occlusion of the right vertebral artery Still having double vision, having delirium and weakness on the left side Maintained on aspirin and Plavix 2D echo with bubble study did not show any shunt Status post loop monitor implantation on September 18, 2023. Continue to monitor Acute change in mental status with confusion and patient become combative and agitated. Acute delirium Still having some hallucination and confusion, had agitation and confusion last night Managed by medical team Abnormal baseline EKG with right bundle branch block. 2D echo was reported by Dr. Davis on September 16, 2023 with normal LV size, ejection fraction 70 to 75%, grade 1 diastolic dysfunction, PA pressure 35 mmHg Hypertension, monitor Try to maintain blood pressure over 150 Hyperlipidemia, monitor lipids Diabetes mellitus, managed by primary care physician SANGITA JC MD Sep 24, 2023 09:04
[2023-09-24] MEDS: ENOXAPARIN 40 MG/0.4 ML SYRINGE SQ SCH (09:47)
--- NOTE | 2023-09-24 10:50 | Physical Therapy Daily Note ---
PT Daily Note-Current Subjective RN reports pt is ready for PT. Pt found lying supine in bed /c family present upon entry. Agreed to PT. Pt reports anterior pain at LLE and at bottom of foot. States that the pain is sudden and sharp. He does not know what causes it. Pain Section J - Health Conditions 1. Rarely or not at all 2. Occasionally 3. Frequently 4. Almost constantly 8. Unable to answer Pain Effect on Sleep: 88 Pain Interference with Therapy: 88 Pain Interference w/Day-to-Day: 88 Mental Status Patient Orientation: Person Attachments: Pringle Catheter Transfers SCALE: Activities may be completed with or without assistive devices. 0-Gnrjlprbol-bkcyhac completes the activity by him/herself with no assistance from a helper. 5-Set-up or Clean-up Assistance-helper sets up or cleans up; patient completes activity. [place] assists only prior to or following the activity. 4-Supervision or Touching Assistance-helper provides verbal cues and/or touching/steadying and/or contact guard assistance as patient completes activity. Assistance may be provided throughout the activity or intermittently. 3-Partial/Moderate Assistance-helper does LESS THAN HALF the effort. [place] lift s, holds or supports trunk or limbs, but provides less than half the effort. 2-Substantial/Maximal Assistance-helper does MORE THAN HALF the effort. [place] lifts or holds trunk or limbs and provides more than half the effort. 8-Buenlonie-nyvhfz does ALL the effort. Patient does none of the effort to complete the activity. Or, the assistance of 2 or more helpers is required for the patient to complete the activity. If activity was not attempted, code reason: 7-Patient Refused. 9-Not Applicable-not attempted and the patient did not perform the activity before the current illness, exacerbation or injury. 10-Not Attempted due to Environmental Limitations-(lack of equipment, weather restraints, etc.). 88-Not Attempted due to Medical Conditions or Safety Concerns. Sit to Lying (QC): 2 Lying to Sitting/Side of Bed(Q: 2 Weight Bearing Right Lower Extremity: Right Full Weight Bearing Left Lower Extremity: Left Full Weight Bearing Gait Training Does the Patient Walk?: No and Walking Goal IS indicated Assessment Current Status: Poor Progress Pt performed lying to sitting transfer /c MAX assist from helper to lower LEs and lift trunk. Transfer performed very slowly due to pt's report of LLE pain. Pt displays very limited movement of BLEs and was able to partially pull trunk up /c use of bed railing while helper lifted at shoulders. Pt sat approximately three minutes on the edge of bed before requesting to lay back down. MAX assist required to lift LEs back into bed. Pt able to lower trunk in bed but required assistance to straighten shoulders. Pt left supine in bed /c call light in place, all needs met, and family present post-treatment. Continue to progress pt per POC. PT Floor Layer Helper Goals Floor Layer Helper Goals PT Snf Goals Time Frame: Oct 06, 2023 Roll Left & Right (QC): 6 Sit to Lying (QC): 6 Lying-Sitting on Side/Bed(QC): 6 Sit to Stand (QC): 6 Chair/Ikh-fw-Qklhx Xfer(QC): 6 Toilet Transfer (QC): 6 Walk 10 feet (QC): 6 Walk 50ft with 2 Turns (QC): 6 Walk 150 ft (QC): 6 PT Plan Treatment/Plan Treatment Plan: Continue Plan of Care Treatment Plan: Bed Mobility, Education, Functional Activity Joey, Functional Strength, Gait, Safety, Therapeutic Exercise, Transfers Treatment Duration: Oct 06, 2023 Frequency: 5 times per week Estimated Hrs Per Day: .25 hour per day Patient and/or Family Agrees t: Yes Time Time In: 828 Time Out: 845 DATE: Sep 24, 2023 Total Billed Treatment Time: 17 Total Billed Treatment 1 visit FA x 1 JERAD AGUILLON LUMBER PRESS OPERATOR Sep 24, 2023 10:50
== END 2023-09-24 11:55 | DRG 41 ==
LOC: EDUNIT# 21:49 → ER 21:52 → ICU 09-16 01:45 → CSD 09-16 18:12 → 4TH 09-18 13:45 → CSD 09-18 14:27 → 4TH 09-18 16:04 → ICU 09-18 23:49
PROVIDERS: ADMIT Internal Medicine; ATTEND Internal Medicine
PROC: 0JH602Z Insertion of Monitoring Device into Chest Subcutaneous Tissue and Fascia, Open Approach (ICD-10-PCS; principal; 2023-09-18)
DX: I63.211 Cerebral infarction due to unspecified occlusion or stenosis of right vertebral artery (principal); I16.1 Hypertensive emergency; Z68.41 Body mass index [BMI] 40.0-44.9, adult; Z60.2 Problems related to living alone; Z79.84 Long term (current) use of oral hypoglycemic drugs; Z79.899 Other long term (current) drug therapy; I10 Essential (primary) hypertension; Z11.52 Encounter for screening for COVID-19; E11.65 Type 2 diabetes mellitus with hyperglycemia; I45.10 Unspecified right bundle-branch block; R11.2 Nausea with vomiting, unspecified; E66.9 Obesity, unspecified; R41.0 Disorientation, unspecified; H53.2 Diplopia; E78.5 Hyperlipidemia, unspecified; R29.704 NIHSS score 4; R29.722 NIHSS score 22
CPT/HCPCS: 33285; 36415; 70450; 70496; 70498; 71045; 80048; 80053; 80061; 81000; 82150; 82947; 83036; 83690; 83735; 84100; 84484; 85007; 85025; 85027; 87081; 87636; 93005; 93041; 93306; 93308; 93880; 96361; 96374; 96375; 96376

== ENCOUNTER 2023-09-24 10:35 | Inpatient (IN) | payer MEDICARE ==
[~2023-09-24] VITALS: Ht 177.8 cm; Wt 116.1 kg
[~2023-09-24 10:35] MED LIST changes: +ACET-2267 PO; +AMLO-251 PO; +DULA0.75 IJ; +LOSA100T58 PO; +METF-397 PO; +PRED5DRO17 OP
[2023-09-24] MEDS ORDERED: CALCIUM CARBONATE 500 MG CHEW TABLET PO PRN (12:00)
[2023-09-24] MEDS ORDERED: ONDANSETRON 4 MG ORAL DISSOLVE TABLET PO PRN (12:00)
[2023-09-24] MEDS ORDERED: Sodium Phosphate/Sodium Biphosphate ADULT enema PR PRN (12:00)
[2023-09-24] MEDS ORDERED: DOCUSATE SODIUM 100 MG CAPSULE PO PRN (12:00)
[2023-09-24] MEDS ORDERED: BISACODYL 10 MG SUPPOSITORY PR PRN (12:00)
[2023-09-24] MEDS ORDERED: ALPRAZolam 0.25 MG TABLET PO PRN (12:00)
[2023-09-24] MEDS ORDERED: guaiFENesin/CODEINE 10ML UDC PO PRN (12:00)
[2023-09-24] MEDS ORDERED: LOPERAMIDE 2 MG CAPSULE PO PRN (12:00)
[2023-09-24] MEDS ORDERED: diphenhydrAMINE 25 MG TABLET PO PRN (12:00)
[2023-09-24] MEDS ORDERED: MELATONIN 3 MG TABLET PO PRN (12:00)
--- NOTE | 2023-09-24 12:04 | PM&R Post Admission Assessment ---
PM&R HP Date of Visit: Sep 24, 2023 Time of Visit: 11:30 History of Present Illness CC: s/p acute CVA HPI: This is a 78yoWM clinic patient of Urgent Care/Dr Martinez who presents to ARU following an acute CVA with left generalized weakness with confusion and recent delirium with agitation requiring Precedex and lengthy ICU course. Currently he is more awake and alert and is ready to participate in therapy. W/U revealed right vertebral artery occlusion. Loop recorder placed 09/18/23 and remains on CVA protocol meds. CC: Confusion and Dizziness HPI: On 09/15 the pt presented to the ED for dizziness, lightheaded, and vomiting episodes. He denies any trauma to the head, LOC, loss of balance. Pt lives by himself. History was gathered from the pt and his daughter. PMH: Hyperlipidemia; HTN; DMII. Prostate CA (10-15 years ago). Denies h/o previous stroke or IA. PSH: Some prostate removed 10-15 yrs ago (daughter is unsure what was performed). Cataract b/l (both performed within past 6 weeks). ALL: NKDA; NKFA MEDS: pt is unsure what he is taking; daughter will provide list of medications. SH: Tobacco smoker for 1 pack year. No alcohol. 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 FH: Paternal: heart attack. Maternal: reports no chronic issues ( at age 92) ROS: General: Denies fatigue or weakness Neuro: No GRIFFIN. Some dizziness. MSK: No pain. No calf tenderness. HENT: Double vision. Denies eye pain. Cardio: No chest pain. no palpitations. Resp: No SOB. No NOYOLA. GI: No abdominal pain. Constipation and diarrhea episodes are common. : No blood in urine. No incontinence. Endocrine: No low blood sugar sx of fatigue, no abnormally cold skin. Psych: No anxiety or depression. Hematologic: No bleeding or clotting disorders. Exam General: Pt is not in distress. Neuro: Pt is alert and oriented by person. He was unable to tell me day of week, year, location, or reason. He was able to count by 5s to 25. He was able to tell me the president of the [employer]. natural resources faculty member II-XII intact with no abnormalities. Gross sensation intact for UE + LE b/l. Special sensation intact for UE + LE b/l. Strength 5/5 b/l for UE + LE. Cardio: Normal rate and rhythm. No murmurs. No JVD. Posterior tibialis 2/4 b/l. Radial 2/4 b/l. Resp: No wheezing, crackles, or rales b/l. No rib abnormalities. GI: normal bowel sounds. No tenderness, rebound, rigidity, or guarding. Labs/Imaging: Head CT 09/15 IMPRESSION: 1. No large acute territorial ischemia, mass, or hemorrhage. 2. Chronic microvascular disease. 3. Generalized parenchymal volume loss. Head CTA 09/16 IMPRESSION: 1. No stenosis or aneurysm in the [place] of [place]. No large vessel occlusion. 2. 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 This is age-indeterminate. Consider MRI brain to further evaluate. 3. No stenosis in the left vertebral artery and bilateral carotid systems. 4. Luminal irregularity within the right M1 segment, suggestive of intracranial atherosclerotic plaque. Carotid Artery US b/l IMPRESSION: Atherosclerotic disease most pronounced in the carotid bulbs without evidence of hemodynamically significant stenosis or occlusion. Antegrade flow is confirmed within both vertebral arteries. Assessment: Cerebellar Stroke Vertebral Artery Occlusion HTN Diabetes Mellitus Plan: Cerebellar Stroke -Pt is to continue rehab and will monitor status Vertebral Artery Occlusion -Pt is to continue rehab and will monitor status HTN -Discuss medications to determine tx plan Diabetes Mellitus -Continue current tx CHANTELLELALA BAXTER Sep 24, 2023 13:11 Past Fjzwsor-Qaznso-Cbzymd Hx Past Med/Social Hx: Reviewed Nursing Past Med/Soc Hx, Reviewed and Corrections made Patient Social History Marrital Status: Employed/Student: retired Alcohol Use: Denies Use Smoking Status: Never a Smoker Immunizations Up To Date Tetanus Booster (TDap): Less than 5yrs Date of Pneumonia Vaccine: May 27, 2012 Past Medical History Surgeries: Eye Surgery, Prostatectomy Cardiac: Hypertension Neurological: Stroke Reproductive: No Sexually Transmitted Disease: No HIV/AIDS: No Genitourinary: Prostate Problems Endocrine: Diabetes, Non-Insulin dep HEENT: Cataract Cancer: Prostate, Skin Did You Recieve Any Treatments: Yes What Type of Treatment Did You: Surgical Intervention History of Blood Disorders: No Adverse Reaction to Blood Rae: No Family History No Pertinent Family Hx PM&R Allergy/Meds/Data Review Allergies Coded Allergies: No Known Drug Allergies (Unverified , 03/08/14) Home Medications Scheduled Amlodipine Besylate (Amlodipine Besylate), 10 MG PO DAILY, (Reported) Dulaglutide (Trulicity), 0.75 MG IJ SUN, (Reported) Losartan Potassium (Losartan Potassium), 100 MG PO DAILY, (Reported) Metformin HCl (Metformin HCl), 1,000 MG PO DAILY, (Reported) Prednisolone Acetate (Prednisolone Acetate), 1 DROP OP QID, (Reported) Scheduled PRN Acetaminophen (Tylenol Extra Strength), 500-1,000 MG PO Q8H PRN for PAIN-MILD (1-4), (Reported) Discontinued Medications Amlodipine Besylate (Amlodipine Besylate), 10 MG PO DAILY, (Reported) Discontinued Reason: No Longer Taking Losartan Potassium (Losartan Potassium), 100 MG PO DAILY, (Reported) Discontinued Reason: No Longer Taking Metformin Hcl (Metformin 500 Mg), 500 MG PO BID WITH MEALS, (Reported) Discontinued Reason: No Longer Taking Current Medications Current Medications Reviewed Review of Systems Constitutional: see HPI, dizziness, malaise, weakness EENTM: no symptoms reported Respiratory: no symptoms reported Cardiovascular: no symptoms reported Gastrointestinal: constipation Genitourinary: no symptoms reported Musculoskeletal: back pain, joint pain Skin: no symptoms reported Psychiatric/Neurological: Anxiety, Depressed, Numbness, Weakness All Other Systems Reviewed Negative Unless Noted: Yes Physical Exam Physical Exam Vital Signs Capillary Refill : Height, Weight, BMI Height: 5'10" Weight: 302lbs. oz. [id number]; 34.77 BMI Method: General Appearance: No Apparent Distress, WD/WN, Chronically ill, Obese, Other (lethargic) Eyes: Bilateral Eye Normal Inspection, Bilateral Eye PERRL HEENT: PERRL/EOMI, Normal ENT Inspection, Pharynx Normal Neck: Full Range of Motion, Normal Inspection, Non Tender, Supple, Carotid Bruit Respiratory: Chest Non Tender, Lungs Clear, Normal Breath Sounds, No Accessory Muscle Use, No Respiratory Distress Cardiovascular: Regular Rate, Rhythm, No Edema, No Gallop, No JVD, No Murmur, Normal Peripheral Pulses Gastrointestinal: Normal Bowel Sounds, No Organomegaly, No Pulsatile Mass, Non Tender, Soft Back: Normal Inspection, No CVA Tenderness, No Vertebral Tenderness Extremity: Normal Capillary Refill, Normal Inspection, Normal Range of Motion, Non Tender, No Calf Tenderness, No Pedal Edema Neurologic/Psychiatric: Alert, natural resources faculty member II-XII Norm as Tested, Abnormal Gait, Depressed Affect, Disoriented (subtle confusion), Motor Weakness (generalized) Skin: Normal Color, Warm/Dry Lymphatic: No Adenopathy PM&R Medical Assessment & Plan REHAB/MEDICAL ASSESSMENT AND PLAN: REHAB IMPAIRMENT GROUP: Left body involvement (Right Brain) ETIOLOGIC DIAGNOSIS: Acute CVA due to acute occlusion of right verterbral artery The comorbidities that impact the patients function and/or functional outcome by: residual confusion, DM, HTN, poor balance, fall risk REHAB PLAN: The patient is being admitted to our comprehensive inpatient rehabilitation facility and can tolerate the intensity of service consisting of at least: 180 minutes of therapy a day, 5 out of 7 days a week Rehab treatment will consist of: PT OT will focus on regaining function with the use of AD in order to work on stamina and ambulation along with fall risk prevention so he can return to independence The patient/family has a good understanding of our discharge process and will benefit from an interdisciplinary inpatient rehabilitation program. The patient has potential to make improvement and is in need of at least two of the following multidisciplinary therapies including but not limited to physical, occupational, speech, and prosthetics and orthotics. Additionally the patient will need services from respiratory, nutritional services, wound care, psychology, etc. (Customize this to each patient). Given the patients complex condition and risk of further medical complications, rehabilitation services cannot be safely or effectively provided at a lower level of care such as a chcf facility. BARRIERS TO DISCHARGE: Severe CVA residual ESTIMATED LOS: 14 days DISPOSITION: Home RELEVANT CHANGES SINCE PREADMISSION SCREENING: I have compared the patients medical and functional status at the time of the preadmission screening and there are: no changes PROGNOSIS: Good REHABILITATION GOALS: 1. PT OT will focus on regaining function with the use of AD in order to work on stamina and ambulation along with fall risk prevention so he can return to independence All the above goals were reviewed with the patient and he/she is in agreement. By signing this document, I acknowledge that I have personally performed a full physical examination on this patient within 24 hours of admission to this inpatient rehabilitation facility and have determined the patient to be able to tolerate the above course of treatment at an intensive level for a reasonable period of time. I will be completing a detailed individualized Plan of Care for this patient by day #4 of the patients stay based upon the Preadmission Screen, the Post-Admission Evaluation, and the therapy evaluations. Admission Dx/Comorbidities: (1) Cerebellar stroke Status: Acute ICD Codes: I63.9 - Cerebral infarction, unspecified Assessment/Plan Assessment and Plan Assess & Plan/Chief Complaint Assessment: s/p cerebellar CVA HTN DM Obesity Recent severe delirium requiring Precedex in ICU s/p loop recorder Plan: BP control DM management PT OT SALEEM KING DO Sep 24, 2023 12:04
--- OUTSIDE RECORDS SUMMARY | 2023-09-24 12:21 | XMS REPORT | Clinical Summary ---
Author Author [facility] Organization [facility] Address Unknown Phone Unavailable Care Team Providers Care Skiver Counter Name Role Phone Cecilia DAVIDSON PA-C, James R Unavailable + [phone] Radha Antonio MD PCP [phone] Sulema Tony MD Unavailable Unavaila ble Source Comments Some departments are not documenting in the electronic medical record. If you do not see the information that you expected, contact Release of Information in the Health Information Management department at [phone] for further assistance in locating additional records.[facility] Allergies No known active allergies Medications Medication Sig Dispensed Refills Start Date End Date Status losartan (COZAAR) 50 mg tablet Take 100 mg by mouth daily. 0 Active oxyCODONE/acetamin ophen (PERCOCET; ENDOCET; ROXICET) 5/325 mg tablet Take 1-2 Tabs by mouth every 4 hours as needed for Pain. Max 12 tabs/day 40 Tab 0 11/03/2011 Active hyoscyamine (LEVSIN) 0.[address] 1 Tab under tongue every 4 hours as needed. 30 Tab 3 11/03/2011 Active senna/docusate (SENOKOT-S) 8.6/50 mg tablet Take 1 Tab by mouth twice daily. 60 Tab 3 11/03/2011 Active Naproxen Sodium (ALEVE) 220 mg Tab Take 220 Tabs by mouth as Needed. Please stop taking this medication. You may resume taking this medication in 7 days 0 11/03/2011 Active PNV w/o Calcium-Iron Fum-FA (M-VIT) 27-1 mg Tab Take by mouth. Please stop taking this medication. You may resume taking this medication in 7 days 0 11/03/2011 Active polymyxin/bacitrac in/parker/HC (CORTISPORIN) 1 % topical ointment Apply to affected area three times daily. Place around the head of the penis and the catheter for lubrication TID or as needed 1 Container 1 11/03/2011 Active oxybutynin XL (DITROPAN XL) 10 mg tablet Take 1 Tab by mouth daily as needed. 15 Tab 0 11/03/2011 Active amLODIPine (NORVASC) 5 mg tablet Take 5 mg by mouth daily. 0 Active Active Problems Problem Noted Date Diagnosed Date Prostate cancer 08/04/2011 Encounters Date Type Department Care Team Description 09/16/2023 11:32 AM CDT - 09/16/2023 11:59 PM CDT Hospital Encounter Imaging: [address] [address], [address] [place] [address] Discharge Disposition: Home or Self Care 09/15/2023 12:05 AM CDT - 09/15/2023 11:59 PM CDT Hospital Encounter Imaging: [address] [address], [address] [place] [address] Discharge Disposition: Home or Self Care 09/15/2023 - 09/15/2023 12:04 AM CDT Hospital Encounter Imaging: [address] [address], [address] [place] [address] Discharge Disposition: Home or Self Care from Last 3 Months Surgical History Surgery Date Site/Laterality Comments AK ROBOTIC SURGICAL SYSTEM 11/02/2011 AK LAPS PROSTECT RETROPUBIC RAD W/NRV SPARING ROBOT 11/02/2011 AK LAPS SURG BILATERAL TOTAL PELVIC LMPHADECTOMY 11/02 Medical History Medical History Date Comments Prostate cancer (HCC) 08/04/2011 Family History Medical History Relation Name Comments Heart Attack Father Diabetes Other Relation Name Status Comments Father MA Mother Old Age Other Social History Tobacco Use Types Packs/Day Years Used Date Smoking Tobacco: Former Cigarettes 1 2 Smokeless Tobacco: Never Alcohol Use Standard Drinks/Week Comments No 0 (1 standard drink = 0.6 oz pur e alcohol) Alcohol Use Answer Date Recorded Alcohol Use No 09/16/2023 Male: 9+ ounces (15+ Standard Drinks) per week T hreshold 0 09/16/2023 Female: 4.8+ ounces (8+ Standard Drinks) per wee k Threshold Not on file 09/16/2023 Sex and Gender Information Value Date Recorded Sex Assigned at Not on file Gender Identity Not on file Sexual Orientation Not on file Obstetrics History Last Filed Vital Signs Vital Sign Reading Time Taken Comments Blood Pressure 144/78 11/03/2011 1:00 PM HOG GRADER Pulse 93 11/03/2011 1:00 PM [employer]OG GR[employer]ER Temperature 37.4 C (99.3 F) 11/03/2011 1:[address] Respiratory Rate - - Oxygen Saturation 97% 11/03/2011 1:00 PM HOG GR[employer]ER Inhaled Oxygen Concentration - - Weight 99.1 kg (218 lb 7.6 oz) 11/02/2011 6:02 AM HOG GRADER Height 177.8 cm (5' 10") 11/02/2011 6:02 AM HOG GRADER Body Mass Index 31.35 11/02/2011 6:02 AM HOG GRADER Plan of Treatment Health Maintenance Due Date Last Done Comments DTAP/TDAP VACCINES (1 - Tdap) 1963 HEPATITIS C SCREENING 1963 PHYSICAL (COMPREHENSIVE) EXAM 1964 PNEUMOCOCCAL VACCINE 65+ YRS (2 - PCV) 2011 09/13/1998 SHINGLES RECOMBINANT VACCINE (2 of 3) 07/26/2012 05/31/2012 DEPRESSION SCREENING 11/19/2022 COVID-19 VACCINE (6 - 2022-2 4 season) 2023 08/22/2022, 03/02/2022, 09/22/2021, Additional history exists INFLUENZA VACCINE Completed 08/07/2023, , 08/18/2021, Additional history exists Procedures Procedure Name Priority Date/Time Associated Diagnosis Comments CTA HEAD EXTERNAL IMAGING Routine 09/16/2023 11:32 AM CDT GENERAL RAD CHEST EXTERNAL IMAGING Routine 09/15/2023 12:[address] HEAD EXTERNAL IMAGING Routine 09/15/2023 12:00 AM CDT from Last 3 Months Results * CTA HEAD EXTERNAL IMAGING (09/16/2023 11:32 AM CDT) Narrative Scheduling, Silent - 09/16/2023 11:32 AM CDT This order has been auto finalized and does not contain a result. Radiologist Outpatient RADIOLOGY EXTERNA L ORDERABLES * GENERAL RAD CHEST EXTERNAL IMAGING (09/15/2023 12:05 AM CDT) Narrative Scheduling, Silent - 09/16/2023 11:33 AM CDT This order has been auto finalized and does not contain a result. Radiologist Outpatient RADIOLOGY EXTERNA L ORDERABLES * CT HEAD EXTERNAL IMAGING (09/15/2023 12:00 AM CDT) Narrative Scheduling, Silent - 09/16/2023 11:33 AM CDT This order has been auto finalized and does not contain a result. Radiologist Outpatient RADIOLOGY EXTERNA L ORDERABLES from Last 3 Months Advance Directives Latest Code Status on File Code Status Date Activated Date Inactivated Comments Full Code 11/02/2011 12:52 PM 11/03/2011 7:19 PM f ull Question Answer Comments Provider has discussed Code Status w/Patient or Family? Yes Care Teams Skiver Counter Relationship Specialty Start Date End Date Radha Antonio MD [address] [place] [id number] PCP - General 10/06/11 Nahum Brooks III, PA-C [address] [facility] [address] [place] [address] Urology 10/06/11 Sulema Tony MD Forwarding Address Unknown Left [facility] 04/18/2019 Urology 11/02/11
--- OUTSIDE RECORDS SUMMARY | 2023-09-24 12:21 | XMS REPORT | Encounter Summary ---
Author Author [facility] Organization [facility] Address Unknown Phone Unavailable Care Team Providers Care Mechanical Manufacturing Technician Name Role Phone Cecilia DAVIDSON PA-C, Nahum Sweeney Unavailable + [phone] Radha Antonio MD PCP [phone] Sulema Tony MD Unavailable Unavaila ble Encounter Details Date Type Department Care Team Description 09/15/2023 - 09/15/2023 12:04 AM CDT Hospital Encounter Imaging: [facility] [place] [address], [address] [place] [address] Discharge Disposition: Home or Self Care Social History Tobacco Use Types Packs/Day Years [...] on file Sexual Orientation Not on file documented as of this encounter Medications at Time of Discharge Medication Sig Dispensed Refills Start Date End Date amLODIPine (NORVASC) 5 mg tablet Take 5 mg by mouth daily. 0 hyoscyamine (LEVSIN) 0.[address] 1 Tab under tongue every 4 hours as needed. 30 Tab 3 11/03/2011 losartan (COZAAR) 50 mg tablet Take 100 mg by mouth daily. 0 Naproxen Sodium (ALEVE) 220 mg Tab Take 220 Tabs by mouth as Needed. Please stop taking this medication. You may resume taking this medication in 7 days 0 11/03/2011 oxybutynin XL (DITROPAN XL) 10 mg tablet Take 1 Tab by mouth daily as needed. 15 Tab 0 11/03/2011 oxyCODONE/acetaminoph en (PERCOCET; ENDOCET; ROXICET) 5/325 mg tablet Take 1-2 Tabs by mouth every 4 hours as needed for Pain. Max 12 tabs/day 40 Tab 0 11/03/2011 PNV w/o Calcium-Iron Fum-FA (M-VIT) 27-1 mg Tab Take by mouth. Please stop taking this medication. You may resume taking this medication in 7 days 0 11/03/2011 polymyxin/bacitracin/ parker/HC (CORTISPORIN) 1 % topical ointment Apply to affected area three times daily. Place around the head of the penis and the catheter for lubrication TID or as needed 1 Container 1 11/03/2011 senna/docusate (SENOKOT-S) 8.6/50 mg tablet Take 1 Tab by mouth twice daily. 60 Tab 3 11/03/2011 documented as of this encounter Discharge Disposition Disposition Code Departure Means Destination Home or Self Long Term documented in this encounter Plan of Treatment Not on file documented as of this encounter Procedures Procedure Name Priority Date/Time Associated Diagnosis Comments CT HEAD EXTERNAL IMAGING Routine 09/15/2023 12:00 AM CDT documented in this encounter Results * CT HEAD EXTERNAL IMAGING (09/15/2023 12:00 AM CDT) Narrative Scheduling, Silent - 09/16/2023 11:33 AM CDT This order has been auto finalized and does not contain a result. Radiologist Outpatient RADIOLOGY EXTERNA L ORDERABLES documented in this encounter Visit Diagnoses Not on filedocumented in this encounter Care Teams Mechanical Manufacturing Technician Relationship Specialty Start Date End Date Radha Antonio MD [address] [place] [id number] PCP - General 10/06/11 Nahum Brooks III, PA-C [address] [facility] [address] [place] [address] Urology 10/06/11 Sulema Tony MD Forwarding Address Unknown Left [facility] 04/18/2019 Urology 11/02/11 documented as of this encounter
--- OUTSIDE RECORDS SUMMARY | 2023-09-24 12:21 | XMS REPORT ---
Author Author [facility] [place] Address Unknown Phone Unavailable Care Team Providers Care Assistant Produce Manager Name Role Phone TONYA HA Unavailable ENCOUNTERS from 1945 to 2023-09-18 Encounter Location Date Provider Diagnosis [facility] [address] [id number] [place] [address] Sep, TONYA HA Encounter for immunization Z23 IMMUNIZATIONS Vaccine Route Administration Date Status PRIVATE HIGH DOSE FLU 23-24 (FLUZONE HD) AGE 65YRS AND UP IM Intramuscular Aug 07, 2023 Administer ed 1st Booster MODERNA Bivalent , COVID-19, 0.5mL IM Intramuscular Aug 22, 2022 Administered Booster HRSA MODERNA, COVID- 19, 0.25mL IM Intramuscular Sep 22, 2021 Administered SOCIAL HISTORY Sex Assigned At : Social History Observation Description Sex Assigned At Unknown REASON FOR REFERRAL No Information REASON FOR VISIT COVID-19 Booster MENTAL STATUS No Information ASSESSMENTS Encounter Date Diagnosis Assessment Notes Treatment Notes Treatment Clinical Notes Sep, Encounter for immunization (ICD-10 - Z23) PLAN OF TREATMENT No Information Insurance Providers Payer Name Payer Address Payer Phone Insured Name Patient Relationship to Insured Coverage Start Date Coverage End Date Subscriber Number Group Number [employer] MEDICARE [place] PLAN [address] [facility] [address] Daisha Rush Self - patient is the insured 0 [id number] [place] MEDICARE Part A FI [address] [place] [id number] Daisha Rush Self - patient is the insured [id number]
--- OUTSIDE RECORDS SUMMARY | 2023-09-24 12:21 | XMS REPORT | Encounter Summary ---
Author Author [facility] Organization [facility] Address Unknown Phone Unavailable Care Team Providers Care Automation Test Engineer Name Role Phone Cecilia DAVIDSON PA-C, James R Unavailable + [phone] Radha Antonio MD PCP [phone] Sulema Tony MD Unavailable Unavaila ble Encounter Details Date Type Department Care Team Description 09/15/2023 12:05 AM CDT - 09/15/2023 11:59 PM CDT Hospital Encounter Imaging: [facility] [address], [address] [place] [address] Discharge Disposition: Home or Self [...] Code Departure Means Destination Home or Self Long-Term documented in this encounter Plan of Treatment Not on file documented as of this encounter Procedures Procedure Name Priority Date/Time Associated Diagnosis Comments GENERAL RAD CHEST EXTERNAL IMAGING Routine 09/15/2023 12:05 AM CDT documented in this encounter Results * GENERAL RAD CHEST EXTERNAL IMAGING (09/15/2023 12:05 AM CDT) Narrative Scheduling, Silent - 09/16/2023 11:33 AM CDT This order has been auto finalized and does not contain a result. Radiologist Outpatient RADIOLOGY EXTERNA L ORDERABLES documented in this encounter Visit Diagnoses Not on filedocumented in this encounter Care Teams Automation Test Engineer Relationship Specialty Start Date End Date Radha Antonio MD [address] [place] [address] PCP - General 10/06/11 Nahum Brooks III, KARIEC [address] [facility] [address] [place] [address] Urology 10/06/11 Sulema Tony MD Forwarding Address Unknown Left [facility] 04/18/2019 Urology 11/02/11 documented as of this encounter
--- OUTSIDE RECORDS SUMMARY | 2023-09-24 12:21 | XMS REPORT | Encounter Summary ---
Author Author [facility] Organization [facility] Address Unknown Phone Unavailable Care Team Providers Care Software Development Leader Name Role Phone Cecilia DAVIDSON PA-C, James R Unavailable + [phone] Radha Antonio MD PCP [phone] Sulema Tony MD Unavailable Unavaila ble Encounter Details Date Type Department Care Team Description 09/16/2023 11:32 AM CDT - 09/16/2023 11:59 PM CDT Hospital Encounter Imaging: [facility] [address], [address] [place] [address] Discharge Disposition: Home or Self [...] Code Departure Means Destination Home or Self Halfway documented in this encounter Plan of Treatment Not on file documented as of this encounter Procedures Procedure Name Priority Date/Time Associated Diagnosis Comments CTA HEAD EXTERNAL IMAGING Routine 09/16/2023 11:32 AM CDT documented in this encounter Results * CTA HEAD EXTERNAL IMAGING (09/16/2023 11:32 AM CDT) Narrative Scheduling, Silent - 09/16/2023 11:32 AM CDT This order has been auto finalized and does not contain a result. Radiologist Outpatient RADIOLOGY EXTERNA L ORDERABLES documented in this encounter Visit Diagnoses Not on filedocumented in this encounter Care Teams Software Development Leader Relationship Specialty Start Date End Date Radha Antonio MD [address] [place] [address] PCP - General 10/06/11 Nahum Brooks III, PA-C [address] [facility] [address] [place] [address] Urology 10/06/11 Sulema Tony MD Forwarding Address Unknown Left [facility] 04/18/2019 Urology 11/02/11 documented as of this encounter
--- NOTE | 2023-09-24 12:33 | Physical Therapy Evaluation ---
PT Evaluation-General Medical Diagnosis Admission Date Sep 24, 2023 Medical Diagnosis: CVA (occlusion of (R) vertebral artery) Onset Date: Sep 16, 2023 Therapy Diagnosis Therapy Diagnosis: severe mobility impairment, difficulty initiating tasks, fall risk, weaknes Height/Weight Height (Feet): 5 Height (Inches): 10 Weight (Pounds): 302 Precautions Precautions/Isolations: Fall Prevention Referral Physician: Donavon Reason for Referral: Evaluation/Treatment Medical History Pertinent Medical History: DM, HTN Social History Home: Apartment (per screen) Current Living Status: Alone PT Steps Into Home: 1 (screen states level entry, patient stated "a few", unable to clarify further) Evaluation initiated on ICU 11 at 11:10 am. Prior Prior Level of Function SCALE: Activities may be completed with or without assistive devices. 5-Abwtkbgzdz-qsghghh completes the activity by him/herself with no assistance from a helper. 5-Set-up or Clean-up Assistance-helper sets up or cleans up; patient completes activity. Thorp assists only prior to or following the activity. 4-Supervision or Touching Assistance-helper provides verbal cues and/or touching/steadying and/or contact guard assistance as patient completes ac tivity. Assistance may be provided throughout the activity or intermittently. 3-Partial/Moderate Assistance-helper does LESS THAN HALF the effort. Thorp lifts, holds or supports trunk or limbs, but provides less than half the effort. 2-Substantial/Maximal Assistance-helper does MORE THAN HALF the effort. Thorp lifts or holds trunk or limbs and provides more than half the effort. 0-Yejkxbads-jtssxw does ALL the effort. Patient does none of the effort to complete the activity. Or, the assistance of 2 or more helpers is required for the patient to complete the activity. If activity was not attempted, code reason: 7-Patient Refused. 9-Not Applicable-not attempted and the patient did not perform the activity before the current illness, exacerbation or injury. 10-Not Attempted due to Environmental Limitations-(lack of equipment, weather restraints, etc.). 88-Not Attempted due to Medical Conditions or Safety Concerns. Bed Mobility: 6 (friend verifies that patient sleeps in a regular bed at home.) Transfers (B,C,W/C): 6 Gait: 6 Stairs: 6 Wheelchair Mobility: 9 Indoor Mobility (Ambulation): Independent Prior Devices Use: None Per screen - patient was (I) /s device. PT Evaluation-Current Subjective Friendly and talkative. Greeted therapist when room was entered and shook hands. Patient able to give name and birthdate. Required cues for city. Unable to give information re. living situation - referred me to his friend in the room whom he called his "manager intelligence". Pain Section J - Health Conditions 1. Rarely or not at all 2. Occasionally 3. Frequently 4. Almost constantly 8. Unable to answer Pain Effect on Sleep: 1 Pain Interference with Therapy: 1 Pain Interference w/Day-to-Day: 1 Pt/Family Goals To regain as much function as possible. Objective Patient Orientation: Person, Confused Attachments: Pringle Catheter Pad underneath patient in ICU had been saturated with urine when patient was moved to a sitting position on EOB. Nursing notified of possible catheter leak. ROM/Strength ROM Upper Extremities deferred to OT ROM Lower Extremities (B) ankle DF and knee ext WFL for use of standing lift. Active and AA hip flexion limited by abdominal pannus. Strength Upper Extremities deferred to OT Strength Lower Extremities Unable to follow commands for formal MMT. Grossly 2/5 with attempted bed mobility. Integumentary/Posture Bladder Incontinence: Pringle Cath Neuromuscular (Tone, Coordination, Reflexes) Significantly impaired motor coordination/initiation of tasks. Sensory Vision: Wears Glasses Hearing: Functional Transfers Roll Left & Right (QC): 1 Sit to Lying (QC): 1 Lying to Sitting/Side of Bed(Q: 1 Sit to Stand (QC): 1 (unable from EOB /c (A) of 2. Sit>stand lift required.) Chair/Sgs-tr-Eeeac Xfer(QC): 1 (/c mechanical lift) Toilet Transfer (QC): 1 (Pringle cath. Will need bed pain or mechanical lift to toilet for BM.) Car Transfer (QC): 88 Gait Does the Patient Walk?: No and Walking Goal IS indicated Mode of Locomotion: Wheelchair Anticipated Mode of Locomotion: Both Walk 10 feet (QC): 88 Walk 50 ft with 2 Turns(QC): 88 Walk 150 ft (QC): 88 Walking 10ft/uneven surface-QC: 88 Wheelchair Training Does the Pt Use a Wheelchair?: Yes Distance: 3' Wheel 50 ft with 2 turns (QC): 88 (unable to attain distance) Wheel 150 ft (QC): 88 Type of Wheelchair: Manual max t.c. and v.c. 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 Signficant difficulty with initiation of any mobility task. Unable to lift buttocks off of bed even with max (A) of 2 persons. Mechanical lift utilized for safe transfers bed<>w/c. Unable to formally test MMT due to initiation issues/apraxia however no lateralizing symptoms noted /c eval tasks. Rehab Potential: Fair Post Rehab Potential-Barriers: severity of apraxia Equipment Needs mechanical lift, w/c at this time PT Longterm Goals Director Of Gift Planning Goals PT Director Of Gift Planning Goals Time Frame: Oct 22, 2023 Roll Left to Right (QC): 4 ( /c bed rail) Sit to Lying (QC): 4 (/c bed rail) Lying-Sitting on Side/Bed(QC): 4 (/c bed rail) Sit to Stand (QC): 3 (/c FWW) Chair/Ilh-ld-Uompd Xfer(QC): 3 (/c FWW) Toilet/Commode Transfer (QC): 3 (/c FWW) Car Transfer (QC): 3 (/c FWW) Walk 10 feet (QC): 3 (/c FWW) Walk 10ft-Uneven Surface(QC): 3 (/c FWW) Walk 50ft with 2 Turns (QC): 3 (/c FWW) Walk 150 ft (QC): 3 (/c FWW) Does the Pt use WC or Scooter?: Yes Wheel 50 feet with 2 turns (QC: 6 Type: Manual Wheel 150 feet: 6 Type: Manual 1 Step (curb) (QC): 3 4 Steps (QC): 3 12 Steps (QC): 3 Picking up an Object (QC): 3 PT Plan Problem List Problem List: Activity Tolerance, Functional Strength, Safety, Balance, Gait, Transfer, Bed Mobility, ROM Treatment/Plan Treatment Plan: Continue Plan of Care Treatment Plan: Bed Mobility, Education, Functional Activity Joey, Functional Strength, Group Therapy, Gait, Safety, Therapeutic Exercise, Transfers, Other (Co-treatments necessary due to severity of impairment) Treatment Duration: Oct 22, 2023 Frequency: At least 5 of 7 days/Wk (IRF) Estimated Hrs Per Day: Other (75' per day) Discharge Recommendations Equpiment Recommendations-D/C: Wheelchair Cushion, Front Wheeled Walker, Wheelchair Ramp, Manual Wheelchair, Other, Please Explain (possible mechanical lift depending on progress) Time Time In: 1110 Time Out: 1210 DATE: Sep 24, 2023 Total Billed Treatment Time: 60 Total Billed Treatment 1, [facility] 60' Karyn Ryan PT Sep 24, 2023 12:33
--- NOTE | 2023-09-24 13:11 | Progress Note ---
LALA CALDERON 09/24/23 1311: Progress Note CC: Confusion and Dizziness due to a CVA. HPI: On 09/15 the pt presented to the ED for dizziness, lightheaded, and vomiting episodes. He denies any trauma to the head, LOC, loss of balance. Pt lives by himself. History was gathered from the pt and his daughter. PMH: Hyperlipidemia; HTN; DMII. Prostate CA (10-15 years ago). Denies h/o previous stroke or [place]. PSH: Some prostate removed 10-15 yrs ago (daughter is unsure what was pe rformed). Cataract b/l (both performed within past 6 weeks). ALL: NKDA; NKFA MEDS: pt is unsure what he is taking; daughter will provide list of medications. SH: Tobacco smoker for 1 pack year. No alcohol. 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 FH: Paternal: heart attack. Maternal: reports no chronic issues ( at age 92) ROS: General: Denies fatigue or weakness Neuro: No GRIFFIN. Some dizziness. MSK: No pain. No calf tenderness. HENT: Double vision. Denies eye pain. Cardio: No chest pain. no palpitations. Resp: No SOB. No NOYOLA. GI: No abdominal pain. Constipation and diarrhea episodes are common. : No blood in urine. No incontinence. Endocrine: No low blood sugar sx of fatigue, no abnormally cold skin. Psych: No anxiety or depression. Hematologic: No bleeding or clotting disorders. Exam General: Pt is not in distress. Neuro: Pt is alert and oriented by person. He was unable to tell me day of week, year, location, or reason. He was able to count by 5s to 25. He was able to tell me the president of the [employer]. 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 Gross sensation intact for UE + LE b/l. Special sensation intact for UE + LE b/l. Strength 5/5 b/l for UE + LE. Cardio: Normal rate and rhythm. No murmurs. No JVD. Posterior tibialis 2/4 b/l. Radial 2/4 b/l. Resp: No wheezing, crackles, or rales b/l. No rib abnormalities. GI: normal bowel sounds. No tenderness, rebound, rigidity, or guarding. Labs/Imaging: Head CT 09/15 IMPRESSION: 1. No large acute territorial ischemia, mass, or hemorrhage. 2. Chronic microvascular disease. 3. Generalized parenchymal volume loss. Head CTA 09/16 IMPRESSION: 1. No stenosis or aneurysm in the [place]. No large vessel occlusion. 2. 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 This is age-indeterminate. Consider MRI brain to further evaluate. 3. No stenosis in the left vertebral artery and bilateral carotid systems. 4. Luminal irregularity within the right M1 segment, suggestive of intracranial atherosclerotic plaque. Carotid Artery US b/l IMPRESSION: Atherosclerotic disease most pronounced in the carotid bulbs without evidence of hemodynamically significant stenosis or occlusion. Antegrade flow is confirmed within both vertebral arteries. Assessment: Cerebellar Stroke Vertebral Artery Occlusion HTN Diabetes Mellitus Plan: Cerebellar Stroke -Pt is to continue rehab and will monitor status Vertebral Artery Occlusion -Pt is to continue rehab and will monitor status HTN -Discuss medications to determine tx plan Diabetes Mellitus -Continue current tx TIFFANY KING DO 09/25/23 2100: Supervisory-Addendum Brief Verification & Attestation Participated in pt care: history, MDM, physical Personally performed: exam, history, MDM, supervision of care Care discussed with: Medical Student Procedures: n/a Results interpretation: Verified all documentation Verification and Attestation of Medical Student E/M Service A medical student performed and documented this service in my presence. I reviewed and verified all information documented by the medical student and made modifications to such information, when appropriate. I personally performed the physical exam and medical decision making. Tiffany King Sep 25, 2023,21:00 LALA CALDERON Sep 24, 2023 13:11 TIFFANY KING DO Sep 25, 2023 21:00
--- NOTE | 2023-09-24 13:54 | Occupational Therapy Eval ---
OT Evaluation-General/PLF Medical Diagnosis Admission Date Sep 24, 2023 at 11:15 Medical Diagnosis: CVA Onset Date: Sep 15, 2023 Therapy Diagnosis Therapy Diagnosis: decreased ADL status, weakness Height/Weight Height (Feet): 5 Height (Inches): 10 Weight (Pounds): 302 Precautions Precautions/Isolations: Fall Prevention, Standard Precautions, Pressure Ulcer Referral Physician: Don[place]on Referral Reason: Evaluation/Treatment Medical History Pertinent Medical History: DM, HTN Additional Medical History prostate cancer, DM, HTN Current History ED with weakness, vomiting and dizziness, CTA showed occlusion of R vertebral artery. Pt admitted to ARU 09/24/23 Social History Home: Apartment ([place]) Current Living Status: Alone Entry Into Home: Level Entry ADL-Prior Level of Function SCALE: Activities may be completed with or without assistive devices. 8-Kzbwbhphye-lznzdvn completes the activity by him/herself with no assistance from a helper. 5-Set-up or Clean-up Assistance-helper sets up or cleans up; patient completes activity. [place] assists only prior to or following the activity. 4-Supervision or Touching Assistance-helper provides verbal cues and/or touching/steadying and/or contact guard assistance as patient completes activity. Assistance may be provided throughout the activity or intermittently. 3-Partial/Moderate Assistance-helper does LESS THAN HALF the effort. [place] lifts, holds or supports trunk or limbs, but provides less than half the effort. 2-Substantial/Maximal Assistance-helper does MORE THAN HALF the effort. [place] lifts or holds trunk or limbs and provides more than half the effort. 3-Zmyngnnpt-noyfgl does ALL the effort. Patient does none of the effort to complete the activity. Or, the assistance of 2 or more helpers is required for the patient to complete the activity. If activity was not attempted, code reason: 7-Patient Refused. 9-Not Applicable-not attempted and the patient did not perform the activity before the current illness, exacerbation or injury. 10-Not Attempted due to Environmental Limitations-(lack of equipment, weather restraints, etc.). 88-Not Attempted due to Medical Conditions or Safety Concerns. ADL PLOF Comments Pt reports IND with ADLs and functional mobility at [facility], on AD. He lives in an apartment, alone, with his dog. He has a tub/shower with SC. No tub transfer bench. Self Care: Independent Functional Cognition: Independent DME/Equipment: Tub/Shower OT Current Status Subjective Pt agreeable to OT evaluation Mental Status/Objective Patient Orientation: Person, Confused Attachments: Pringle Catheter Current Glasses/Contacts: Yes Hearing Aids: No Dentures/Partials: Yes Hand Dominance: Left Upper Extremity ROM WFL,. BUE shoulder flexion to approx 150 degrees Upper Extremity Coordination WFL Upper Extremity Sensation WFL per pt report Upper Extremity Strength grossly 4/5 ADL-Treatment Eating (QC): 4 (cue to use spoon after he opened ice cream.) Oral Hygiene (QC): 3 (Pt able to place/remove dentures from mouth. Assist to clean fixodent from dentures. Pt able to squeeze fixodent onto dentures and place into mouth with cues.) Shower/Bathe Self (QC): 1 (assist x2 and use of sit to stand lift to wash buttocks.) Upper Body Dressing (QC): 3 (Min A with LUE) Lower Body Dressing (QC): 1 (use of sit to stand lift required) On/Off Footwear (QC): 1 Toileting Hygiene (QC): 1 (assist all parts and use of sit to stand lift required per RN.) Other Treatments OT evaluation complete. Pt and daughter provided information about PLOF and home set up. Pt participated in UE screen. Pt finished lunch, assistance required to open container, then VC to use spoon to eat ice cream. Pt changed UB clothing, then completed oral care. Post tx, pt in bed, call light in reach and all needs met. Education OT Patient Education: Correct positioning, Energy conservation, Modified ADL techniques, Progress toward Goal/Update tx plan, Purpose of tx/functional activities, Rehab process Teaching Recipient: Patient Teaching Methods: Discussion Response to Teaching: Verbalize Understanding BIMS CAM BIMS Expression of Ideas and Wants: Without Difficulty Understanding Verbal Content: Understands Brief Interview/Mental Status: Yes IRF BLAYNE BIMS: IRF BLAYNE BIMS Response (Comments) Value Repitition of Three Words Three 3 Recalls Socks No, Could Not Recall 0 Recalls Blue No, Could Not Recall 0 Recalls Bed No, Could Not Recall 0 Year Correct 3 Month Missed by 1 Mo/No Answer 0 Day Incorrect or No Answer 0 Total 6 Patient Normally Able to Recal: Current Session Should Staff Asses. Mental St.: No Memory/Recall Ability: Current Season CAM Mental Status Change/Baseline: 1 Inattention: 1 Disorganized thinkin Altered level of consciousness: 0 OT Senior Care Goals Bisque Kiln Placer Goals Time Frame: Oct 19, 2023 Eating (QC): 6 Oral Hygiene (QC): 6 Toileting Hygiene (QC): 6 Shower/Bathe Self (QC): 6 Upper Body Dressing (QC): 6 Lower Body Dressing (QC): 6 On/Off Footwear (QC): 6 Additional Goals: 1-Demonstrate ADL Tasks, 2-Verbalize Understanding, 3- ImproveStrength/Joey 1=Demonstrate adherence to instructed precautions during ADL tasks. 2=Patient will verbalize/demonstrate understanding of assistive devices/modifications for ADL. 3=Patient will improve strength/tolerance for activity to enable patient to perform ADL's. OT Education/Plan Problem List/Assessment Assessment: Decreased Activ Tolerance, Decreased Safety Aware, Decreased UE Strength, Impaired Cognition, Impaired Funct Balance, Impaired I ADL's, Impaired Self-Care Skills Discharge Recommendations Plan/Recommendations: Continue POC Treatment Plan/Plan of Care Patient would benefit from OT for education, treatment and training to promote independence in ADL's, mobility, safety and/or upper extremity function for ADL's. Plan of Care: ADL Retraining, Functional Mobility, Group Exercise/Act as Ind, UE Funct Exercise/Act, UE Neuromus Re-Ed/Coord Treatment Duration: Oct 19, 2023 Frequency: At least 5 of 7 days/Wk (IRF) Estimated Hrs Per Day: Other (75 mins per day) Agreement: Yes Rehab Potential: Good Time Start Time: 12:45 Stop Time: 13:45 DATE: Sep 24, 2023 Total Time Billed (hr/min): 60 Billed Treatment Time 1, EVM (30'), ADL 2 (30') LIN MORENO OT Sep 24, 2023 13:54
--- NOTE | 2023-09-24 13:56 | ST Dysphagia Evaluation ---
Speech Evaluation-General Medical Diagnosis R Vertebral Artery Occlusion Onset Date: Sep 16, 2023 Therapy Diagnosis Therapy Diagnosis: Mental Status Change Precautions Precautions: Fall Precautions/Isolations: Standard Precautions Referral Referring Physician: Dr. Raphael Reason for Referral: Evaluation/Treatment Medical History Pertinent Medical History: DM, HTN Prostate cancer, RBBB, Cataract surgery within last month Current History Pt admitted to [facility] 09/16/23 with nausea, vomiting, double vision. CTA showed R. vertebral artery occlusion. Social History Home: Single Level Current Living Status: Alone Speech PLF/Current-Dysphagia Prior Level of Function Independent with IADLs. Subjective Pt was mildly drowsy at YARD ATTENDANT arrival, alerted sufficiently as assessment progressed. Cognitive Status Patient Orientation: Confused Oral Motor Skills Denture Type: Full- Upper & Lower Current Food Consistancy: Dysphagia Soft Ability to Follow Directions: Fair Oral Expression Ability: Mild Impairment Voice Voice Phonatory-Based Quality: Normal Voice Pitch: Normal Voice Loudness: Normal Face Facial Symmetry: Symmetrical Dysphagia Evaluation Consistencies Presented: Thin Liquid, Mechanical Soft, Pureed Prolonged mastication of soft solids, oral clearance appeared to be normal. Pharyngeal phase was WFL. The pt had timely swallow initiation, with rapid and full laryngeal excursion, and no s/s penetration or aspiration. No symptoms Liquid Recommendations: Thin Pt is currently on SB6 (soft, bite sized solids), recommend continuing current diet recommendations. Plan to advance diet as cognition improves. Pt will require assistance with tray set up and intermittent supervision with meals. Dysphagia Evaluation Summary Pt presented with safe and functional oral and pharyngeal swallow function, will require some assistance during meals due to decreased cognition. Speech-Plan Treatment Plan Speech Therapy Treatment Plan: Modify Plan, See Comments (Cog/ling treatment) Frequency: At least 5 of 7 days/Wk (IRF) Estimated Hrs Per Day: Other (45 min cog/ling tx) Rehab Potential: Good Safety Risks/Education Teaching Recipient: Family Teaching Methods: Discussion Response to Teaching: Verbalize Understanding Education Topics Provided: Current diet recommendations and rationale Time Speech Therapy Time In: 12:10 Speech Therapy Time Out: 12:40 DATE: Sep 24, 2023 Total Billed Time: 30 Billed Treatment Time 1 TANNER (30 min) SALLY PACHECO Sep 24, 2023 13:56
--- NOTE | 2023-09-24 15:46 | ST Cognitive Linguistic Eval ---
Speech Evaluation-General Medical Diagnosis R Vertebral Artery Occlusion Onset Date: Sep 16, 2023 Therapy Diagnosis Therapy Diagnosis: Mental status change Precautions Precautions: Fall Precautions/Isolations: Standard Precautions Referral Referring Physician: Dr. Raphael Reason for Referral: Evaluation/Treatment Medical History Pertinent Medical History: DM, HTN Prostate cancer, RBBB, Cataract surgery within last month Current History Pt admitted to [facility] 09/16/23 with nausea, vomiting, double vision. CTA showed R. vertebral artery occlusion. Social History Home: Single Level Current Living Status: Alone Speech PLF-Current Status Prior Level of Function Independent with IADL's Subjective The pt was somnolent at MANAGER BABY arrival. He alerted easily but could not maintain alertness for longer than 30-60 seconds. Objective Formal/Standardized Tests MMSE Results The MMSE was administered, portions omitted due to poor patient arousal and attention to task. The pt was oriented to place (city), and self, otherwise poor orientation to time and situation. The pt demonstrated perseverative responses to questions and commands, frequently repeating oral movements from beginning of session without appropriate following of current task command. The pt was able to name 1/3 objects when given physical object, recall of objects was 1/3. He followed 2/3 commands for 3-step command. Oral Motor/Speech Production Facial and lingual movement was symmetrical, with decreased ROM and ability to follow commands. Impression Moderate to severe cognitive linguistic impairment, fluctuating mental status observed as compared to swallow assessment completed at 1210 (during which the pt was awake and alert). Speech Impregnator Helper Goals Impregnator Helper Goals 1. The pt will be oriented to self, place, time and situation independently with 100% accuracy. 2. The pt will complete simple problem solving and safety awareness for daily tasks of living with 90% accuracy. 3. The pt will demonstrate immediate, short-term and long-term recall of functional information with 80% accuracy. Speech-Plan Patient/Family Goals Patient/Family Goals: Daughter at bedside, wants her father to resume maximum functional ability Treatment Plan Speech Therapy Treatment Plan: Continue Plan of Care Frequency: At least 5 of 7 days/Wk (IRF) Estimated Hrs Per Day: Other (45 minute/day) Rehab Potential: Good Barriers to Learning: Decreased arousal level, fluctuating mental status Pt/Family Agrees to Plan: Yes Time Speech Therapy Time In: 15:05 Speech Therapy Time Out: 15:35 DATE: Sep 24, 2023 Total Billed Time: 30 Billed Treatment Time 1 SPSNDCOMP (30 min) SALLY PACHECO Sep 24, 2023 15:46
[2023-09-24] MEDS ORDERED: ONDANSETRON INJECTION 4 MG/2 ML (SDV) IV PRN (17:15)
[2023-09-24] MEDS ORDERED: MECLIZINE 25 MG TABLET PO PRN (17:15)
[2023-09-24] MEDS ORDERED: NITROGLYCERIN 2% OINT 1 GM UNIT DOSE PACKET TOP PRN (17:15)
[2023-09-24] MEDS ORDERED: hydrALAZINE INJECTION 20 MG/ML VIAL IV PRN (17:15)
[2023-09-24 20:05] VITALS: BP 135/60
[2023-09-24] MEDS: inSUlin ASPART 1 UNIT/0.01 ML (PER UNIT) SC SCH (21:30)
[2023-09-24] MEDS: risperiDONE 0.25 MG TABLET PO SCH (22:11)
[2023-09-24] MEDS: SENNA W/DOCUSATE TABLET PO SCH (22:11)
[2023-09-24] MEDS: DOCUSATE SODIUM 100 MG CAPSULE PO SCH (22:12)
[2023-09-24] MEDS: prednisoLONE 1% Ophthalmic Suspension 5 ML BTL OP SCH (22:16)
[2023-09-24] MEDS: MICONAZOLE 2% POWDER 90 GM TOP SCH (22:20)
[2023-09-25 05:47] LABS: BASOPHILS # (AUTO) 0.1 10^3/uL (0.0-0.1); BASOPHILS % (AUTO) 1 % (0-10); EOSINOPHILS # (AUTO) 0.3 10^3/uL (0.0-0.3); EOSINOPHILS % (AUTO) 4 % (0-10); HEMATOCRIT 42 % (40-54); HEMOGLOBIN 14.2 g/dL (13.3-17.7); LYMPHOCYTES # (AUTO) 0.8 10^3/uL (1.0-4.0); LYMPHOCYTES % (AUTO) 11 % (12-44); MEAN CORPUSCULAR HEMOGLOBIN 32 pg (25-34); MEAN CORPUSCULAR HGB CONC 34 g/dL (32-36); MEAN CORPUSCULAR VOLUME 93 fL (80-99); MEAN PLATELET VOLUME 10.8 fL (9.0-12.2); MONOCYTES # (AUTO) 1.1 10^3/uL (0.0-1.0); MONOCYTES % (AUTO) 15 % (0-12); NEUTROPHILS % (AUTO) 68 % (42-75); PLATELET COUNT 225 10^3/uL (130-400); WHITE BLOOD COUNT 7.3 10^3/uL (4.3-11.0)
[2023-09-25 06:03] LABS: POTASSIUM 3.9 MMOL/L (3.6-5.0)
[2023-09-25 06:04] LABS: CALCIUM 9.1 MG/DL (8.5-10.1)
[2023-09-25 06:05] LABS: TOTAL PROTEIN 6.3 GM/DL (6.4-8.2)
[2023-09-25 06:07] LABS: BILIRUBIN,TOTAL 1.2 MG/DL (0.1-1.0)
[2023-09-25 06:09] LABS: CREATININE SERUM 1.11 MG/DL (0.60-1.30)
[2023-09-25] MEDS: inSUlin ASPART 1 UNIT/0.01 ML (PER UNIT) SC SCH ×4 (06:36→21:10)
[2023-09-25 07:29] VITALS: BP 157/70
[2023-09-25] MEDS: ASPIRIN 81 MG CHEWABLE TABLET PO SCH (08:00)
[2023-09-25] MEDS: LOSARTAN 100 MG TABLET PO SCH (08:00)
[2023-09-25] MEDS: risperiDONE 0.25 MG TABLET PO SCH ×2 (08:00→21:10)
[2023-09-25] MEDS: CLOPIDOGREL 75 MG TABLET PO SCH (08:00)
[2023-09-25] MEDS: DOCUSATE SODIUM 100 MG CAPSULE PO SCH ×2 (08:00→21:10)
[2023-09-25] MEDS: SENNA W/DOCUSATE TABLET PO SCH ×2 (08:00→21:10)
[2023-09-25] MEDS: amLODIPine 10 MG TABLET PO SCH (08:00)
[2023-09-25] MEDS: prednisoLONE 1% Ophthalmic Suspension 5 ML BTL OP SCH ×4 (08:01→21:10)
[2023-09-25] MEDS: MICONAZOLE 2% POWDER 90 GM TOP SCH ×2 (08:01→21:10)
--- NOTE | 2023-09-25 08:58 | Progress Note ---
LALA CALDERON 09/25/23 0858: Progress Note Pt is doing well today. An episode of confusion occurred last night where pt wanted to leave the hospital and started taking off his leads. The nurse states that he was given some Xanax. Later he went to sleep and woke up today without the same confusion problems as the previous episode. Nurse stated that it took him awhile to wake up this morning. Pt was able to report his name, where he is at, and what year it is. This is an improvement from yesterday since he was only able to report his name. On 09/24 the pt had transfer scorings of 1. The goals of the pt are in the 3-4 range. Pt normally using a WC and was working with rehab on that. On 09/25 the pt had ADLs scorings of mostly 1s. The pt needed help doing the activities but he was in a pleasant mood and willing to cooperate. His daughter and his friend are visiting this morning and motivating him during his therapy routine. Pt has no complaints today and reports not being in any pain. The pt understands that we have goals of improving the ADLs, gait, and transfer scores before we consider discharge. We will continue to monitor the pt's status during therapy. TIFFANY KING DO 09/25/237: Supervisory-Addendum Brief Verification & Attestation Participated in pt care: history, MDM, physical Personally performed: exam, history, MDM, supervision of care Care discussed with: Medical Student Procedures: n/a Results interpretation: Verified all documentation Verification and Attestation of Medical Student E/M Service A medical student performed and documented this service in my presence. I reviewed and verified all information documented by the medical student and made modifications to such information, when appropriate. I personally performed the physical exam and medical decision making. Tiffany King, Sep 25, 2023,21:06 LALA CALDERON Sep 25, 2023 08:58 TIFFANY KING DO Sep 25, 2023 21:07
--- NOTE | 2023-09-25 10:49 | Speech Therapy Daily Note ---
Speech Daily Progress Note Subjective Date Seen by Provider: Sep 25, 2023 Time Seen by Provider: 10:00 The pt was awake and alert, seated in bedside chair. He was interactive throughout session, with good use of humor. Objective The MMSE was repeated, the pt earned 15/30. Orientation to time was 1/5, to place was 2/5. With prompts and cues, the pt had improved orientation to place. The pt had 3/3 registration, and 0/3 recall. Command following was at 2/3. The pt was able to view and read menu to determine food options for the current day with mod assist needed. Frequent loss of set to menu day and items was noted. Retention of food choices was less than 5 seconds in duration. A simple sorting task was utilized for target of task maintenance to 2 rule sets. The pt required max assist for initial period of task, with inability to maintain set to 2 rules. As task progressed, the pt was able to demonstrate improved attention to task and maintain set for both task elements with good accuracy. [id number]: Diet level upgrade was assessed with lunch meal tray of current diet of soft and bite sized. The pt is able to manage solids and piecemeal foods with good ability. Family present reported that the pt has progressively fatigued through the morning. Plan to continue current diet due to endurance/fatigue co ncerns at this time. Assessment Assessment Current Status: Fair Progress Treatment Plan Continue Plan of Care Speech Slitter Creaser Slotter Helper Goals Slitter Creaser Slotter Helper Goals 1. The pt will be oriented to self, place, time and situation independently with 100% accuracy. 2. The pt will complete simple problem solving and safety awareness for daily tasks of living with 90% accuracy. 3. The pt will demonstrate immediate, short-term and long-term recall of functional information with 80% accuracy. Speech-Plan Treatment Plan Speech Therapy Treatment Plan: Continue Plan of Care Frequency: At least 5 of 7 days/Wk (IRF) Estimated Hrs Per Day: Other (45 min cog/ling tx) Rehab Potential: Good Safety Risks/Education Teaching Recipient: Patient, Family Teaching Methods: Discussion Response to Teaching: Verbalize Understanding Education Topics Provided: Diet level recommendation Time Speech Therapy Time In: 10:00 Speech Therapy Time Out: 10:40 DATE: Sep 25, 2023 Total Billed Time: 45 Billed Treatment Time 1 SLTS ([id number]- 40 min; [id number]- 5 min) SALLY PACHECO Sep 25, 2023 10:49
--- NOTE | 2023-09-25 10:50 | Individualized Plan of Care ---
Individualized Plan of Care Rehab Nursing IPOC Order Admission Date Sep 24, 2023 at 11:15 Current Orders Orders Admission Order(Inpt,Obs,Sdc) (09/24/23 12:00) Vital Signs: Per Unit Policy ( 08,16,00 (09/24/23 12:00) Shawn Harris (09/24/23 12:00) Sequential Compression Device [id number] (09/24/23 12:00) Magician/Illusionist-Inpt Rehab Con (09/24/23 12:00) Rehab Nursing Orders-Ipoc (09/24/23 12:00) Physical Therapy Rehab Orders (09/24/23 12:00) Occupational Therapy Rehab Ord (09/24/23 12:00) Speech Therapy Rehab Orders (09/24/23 12:00) Cbc And Automated Diff (09/25/23 06:00) Comprehensive Metabolic Panel (09/25/23 06:00) Precautions (Aru) (09/24/23 12:00) Rehab-Intensity Of Therapy (09/24/23 12:00) Initiate Admission Nursing Pro .admission (09/24/23 12:00) Alprazolam Tablet (Alprazolam Tablet) (09/24/23 12:00) Calcium Carbonate Chew Tablet (Calcium C (09/24/23 12:00) Diphenhydramine Tablet (Diphenhydramine (09/24/23 12:00) Docusate Sodium Capsule (Docusate Sodium (09/24/23 21:00) Docusate Sodium Capsule (Docusate Sodium (09/24/23 12:00) Bisacodyl Suppository (Bisacodyl Supposi (09/24/23 12:00) Lactulose Oral Solution (Enulose Oral So (09/24/23 12:00) Na Phos/Na Biphos Adult Enema (Na Phos/N (09/24/23 12:00) Guaifenesin/Codeine Syrup (Guaifenesin/C (09/24/23 12:00) Loperamide Capsule (Loperamide Capsule) (09/24/23 12:00) Melatonin Tablet (Melatonin Tablet) (09/24/23 12:00) Polyethylene Glycol Powder (Polyethylen (09/24/23 21:00) Ondansetron Oral Dissolve Tab (Ondanset (09/24/23 12:00) Senna W/Docusate Tablet (Senna W/Docusat (09/24/23 21:00) Acetaminophen Tablet (Acetaminophen Ta (09/24/23 12:00) Telemetry (09/24/23 12:00) Telemetry Nursing Assessment ( (09/24/23 12:00) Admission Arrival Bed Request (09/24/23 11:58) Patient Visit (09/24/23 ) Pt Eval High Complexity (09/24/23 ) Patient Visit (09/24/23 ) Dysphagia Evaluation Std (09/24/23 ) Code/Resuscitation (09/24/23 17:06) Accucheck Achs ACHS (09/24/23 17:06) Cho 60g/M 0snack (16-2000 Raman) (09/24/23 Dinner) Aspirin Chewable Tablet (Aspirin Chewabl (09/25/23 09:00) Clopidogrel Tablet (Clopidogrel Tablet) (09/25/23 09:00) Enoxaparin Injection (Enoxaparin Injecti (09/25/23 10:00) Losartan Tablet (Losartan Tablet) (09/25/23 09:00) Meclizine Tablet (Meclizine Tablet) (09/24/23 17:15) Miconazole 2% Powder (Miconazole 2% Powd (09/24/23 21:00) Nitroglycerin Ointment (Nitroglycerin (09/24/23 17:15) Ondansetron Injection (Ondansetron Inj (09/24/23 17:15) Amlodipine Tablet (Amlodipine Tablet) (09/25/23 09:00) Insulin Aspart (Per Unit) (Insulin Aspar (09/24/23 21:00) Prednisolone 1% Ophth Susp (Prednisolone (09/24/23 21:00) Risperidone Tablet (Risperidone Tablet) (09/24/23 21:00) Consult Cardiology (09/24/23 17:06) Hydralazine Injection (Hydralazine Injec (09/24/23 17:15) Scopolamine Patch (Scopolamine Patch) (09/26/23 14:00) Patch Removal (Patch Removal) (09/26/23 13:59) Hydralazine Tablet (Hydralazine Tablet (09/25/23 12:15) Catheter(Urinary) Discontinue (09/26/23 07:00) Glucerna (09/25/23 13:21) Rehab Nursing Orders: Ongoing Assess. of Cognitive Status, Ongoing Assess. of Function Status, Bladder Management, Bladder Scan, Bladder Training, Bowel Management, Bowel Training, Disease Management & Educaiton, DVT Prophylaxis, Fall Prevention, Fluid/Electrolyte/Nutrition Mgmt, Infection Prevention, Medic ation Management & Education, Management of Risks & Complications, Management of Skin Intergrity, Nutrition Management, Pain Management, Patient/Family Support, Safety Management Intensity of Therapy to be met Patient to be seen: Min.3h per day/5 of 7d PT IPOC Problem List: Activity Tolerance, Functional Strength, Safety, Balance, Gait, Transfer, ROM Treatment Plan: Continue Plan of Care Functional Activity Joey, Functional Strength, Gait, Safety, Transfers Treatment Duration: Sep 25, 2023 Frequency: 5 times per week Estimated Hrs Per Day: 1 hour per day OT IPOC Problems: Decreased Activ Tolerance, Decreased Safety Aware, Decreased UE Strength, Impaired Cognition, Impaired Funct Balance, Impaired I ADL's, Impaired Self-Care Skills OT Treatment, Training and Edu: Yes Plan of Care: ADL Retraining, Functional Mobility, Group Exercise/Act as Ind, UE Funct Exercise/Act, UE Neuromus Re-Ed/Coord Treatment Duration: Oct 19, 2023 Frequency: At least 5 of 7 days/Wk (IRF) Estimated Hrs Per Day: Other (75 mins per day) IPOC Speech Therapy Treatment Plan: Continue Plan of Care Treatment Duration: Sep 25, 2023 Frequency: At least 5 of 7 days/Wk (IRF) Estimated Hrs Per Day: Other (45 min cog/ling tx) Magician/Illusionist/Case Mgmt Magician/Illusionist/Case Managemen: Discharge Planning Dietitian/Smelting Engineer Dietitian/Smelting Engineer to monitor nutritional status and make changes and/or recommendations as needed and work with speech pathology on dietary upgrades as the occur. Physician IPOC Medical Issues being managed closely and that require the 24 hour availability of a physician: Recent CVA with severe residual delirium requiring Precedex in ICU for 4 days will require close monitoring and high risk for decompensation Medical Issues: Bowel/Bladder Function, DVT Prophylaxis, Falls Precautions, Fluid/Electrolyte/Nutrition Balance, Infection Protection, Pain Management Brief Synthesis of Preadmission Screen, Post-Admission Evaluation, and Therapy Evaluations: PT and OT will focus on regaining function with use of assistive devices in order to clear delirium and prevent falls in order to return back to independence Medical Prognosis: Good Anticipated Length of Stay: 14 days SALEEM KING DO Sep 25, 2023 10:50
--- NOTE | 2023-09-25 10:50 | PM&R Progress Note ---
Subjective HPI/CC On Admission Date Seen by Provider: Sep 25, 2023 Time Seen by Provider: 12:00 Subjective/Events-last exam 09/25/2023: Patient had confusion last night Much more alert today Family at bedside Eating lunch Pringle catheter will be discontinued tomorrow Pain is controlled Review of Systems General: Fatigue, Malaise Neurological: Weakness, Incoordination Objective Exam Vital Signs Vital Signs Date Time Temp Pulse Resp B/P (MAP) Pulse Ox O2 Delivery O2 Flow Rate FiO2 09/25/23 19:00 107 09/25/23 10:31 Room Air 09/25/23 07:29 36.4 20 157/70 (99) 95 Capillary Refill : General Appearance: No Apparent Distress, WD/WN, Chronically ill, Obese, Other (lethargic) HEENT: PERRL/EOMI, Normal ENT Inspection, Pharynx Normal Neck: Full Range of Motion, Normal Inspection, Non Tender, Supple, Carotid B ruit Respiratory: Chest Non Tender, Lungs Clear, Normal Breath Sounds, No Accessory Muscle Use, No Respiratory Distress Cardiovascular: Regular Rate, Rhythm, No Edema, No Gallop, No JVD, No Murmur, Normal Peripheral Pulses Gastrointestinal: Normal Bowel Sounds, No Organomegaly, No Pulsatile Mass, Non Tender, Soft Back: Normal Inspection, No CVA Tenderness, No Vertebral Tenderness Extremity: Normal Capillary Refill, Normal Inspection, Normal Range of Motion, Non Tender, No Calf Tenderness, No Pedal Edema Neurologic/Psychiatric: Alert, chief crna II-XII Norm as Tested, Abnormal Gait, Depressed Affect, Disoriented (subtle confusion), Motor Weakness (generalized) Skin: Normal Color, Warm/Dry Lymphatic: No Adenopathy Results/Procedures Lab Laboratory Tests 09/25/23 05:35 Patient resulted labs reviewed. FIM Transfers Therapy Code Descriptions/Definitions Functional [place] Measure: 0=Not Assessed/NA 4=Minimal Assistance 1=Total Assistance 5=Supervision or Setup 2=Maximal Assistance 6=Modified [place] 3=Moderate Assistance 7=Complete IndependenceSCALE: Activities may be completed with or without assistive devices. 9-Rlhgfqiamn-pxzsogw completes the activity by him/herself with no assistance from a helper. 5-Set-up or Clean-up Assistance-helper sets up or cleans up; patient completes activity. [place] assists only prior to or following the activity. 4-Supervision or Touching Assistance-helper provides verbal cues and/or touching/steadying and/or contact guard assistance as patient completes activity. Assistance may be provided throughout the activity or intermittently. 3-Partial/Moderate Assistance-helper does LESS THAN HALF the effort. [place] lifts, holds or supports trunk or limbs, but provides less than half the effort. 2-Substantial/Maximal Assistance-helper does MORE THAN HALF the effort. [place] lifts or holds trunk or limbs and provides more than half the effort. 7-Adcdakazr-wglfuj does ALL the effort. Patient does none of the effort to complete the activity. Or, the assistance of 2 or more helpers is required for the patient to complete the activity. If activity was not attempted, code reason: 7-Patient Refused. 9-Not Applicable-not attempted and the patient did not perform the activity before the current illness, exacerbation or injury. 10-Not Attempted due to Environmental Limitations-(lack of equipment, weather restraints, etc.). 88-Not Attempted due to Medical Conditions or Safety Concerns. ADL-Treatment Eating (QC): 4 (cue to use spoon after he opened ice cream.) Oral Hygiene (QC): 3 (Pt able to place/remove dentures from mouth. Assist to clean fixodent from dentures. Pt able to squeeze fixodent onto dentures and place into mouth with cues.) Shower/Bathe Self (QC): 1 (assist x2 and use of sit to stand lift to wash buttocks.) Upper Body Dressing (QC): 3 (Min A with LUE) Lower Body Dressing (QC): 1 (use of sit to stand lift required) On/Off Footwear (QC): 1 Toileting Hygiene (QC): 1 (assist all parts and use of sit to stand lift required per RN.) Assessment/Plan Assessment and Plan Assess & Plan/Chief Complaint Assessment: s/p cerebellar CVA HTN DM Obesity Recent severe delirium requiring Precedex in ICU s/p loop recorder Plan: BP control DM management PT OT 09/25/2023: Supportive care Monitor confusion (1) Cerebellar stroke Status: Acute SALEEM KING DO Sep 25, 2023 10:50
[2023-09-25] MEDS: ENOXAPARIN 40 MG/0.4 ML SYRINGE SQ SCH (11:00)
--- NOTE | 2023-09-25 11:24 | Occupational Ther Daily Note ---
OT Current Status-Daily Note Subjective Pt recieved lying sitting on BSC with BONE DRIER and RN at bedside. Pt very pleasant and willing to participate in therapy. Pain Numeric Pain Scale: 3 Location: Left Location Body Site: Knee Pain Description: Dull Mental Status/Objective Patient Orientation: Person, Place, Situation Attachments: Pringle Catheter, IV ADL-Treatment Therapy Code Descriptions/Definitions Functional [place] Measure: 0=Not Assessed/NA 4=Minimal Assistance 1=Total Assistance 5=Supervision or Setup 2=Maximal Assistance 6=Modified [place] 3=Moderate Assistance 7=Complete IndependenceSCALE: Activities may be completed with or without assistive devices. 8-Zdqagjndyx-xqggpws completes the activity by him/herself with no assistance from a helper. 5-Set-up or Clean-up Assistance-helper sets up or cleans up; patient completes activity. [place] assists only prior to or following the activity. 4-Supervision or Touching Assistance-helper provides verbal cues and/or touching/steadying and/or contact guard assistance as patient completes activity. Assistance may be provided throughout the activity or intermittently. 3-Partial/Moderate Assistance-helper does LESS THAN HALF the effort. [place] lifts, holds or supports trunk or limbs, but provides less than half the effort. 2-Substantial/Maximal Assistance-helper does MORE THAN HALF the effort. [place] lifts or holds trunk or limbs and provides more than half the effort. 2-Cbgjqujuj-rdwlyq does ALL the effort. Patient does none of the effort to complete the activity. Or, the assistance of 2 or more helpers is required for the patient to complete the activity. If activity was not attempted, code reason: 7-Patient Refused. 9-Not Applicable-not attempted and the patient did not perform the activity before the current illness, exacerbation or injury. 10-Not Attempted due to Environmental Limitations-(lack of equipment, weather restraints, etc.). 88-Not Attempted due to Medical Conditions or Safety Concerns. Upper Body Dressing (QC): 3 (to don/doff shirt) Lower Body Dressing (QC): 1 (to don/doff pants) On/Off Footwear: 1 (to don/doff socks) Toileting Hygiene (QC): 1 (to complete toilet hygiene in standing utilizing sit to stand ) Toilet Transfer (QC): 1 (Utilized sit to it software engineer order to transfer) Other Treatment PT/OT co-treated due to the need for two skilled therapists for pt's need for higher level of care and to increase pt's safety during high level activities. OT focused on UE strength, cognition, functional mobility and activity tolerance. PT focused on LE strength, mobility and balance. Please refer to PT note for more in depth description of their role in this therapy session. Pt self-propelled WC ~30ftx2 with min A and max cueing for wheelchair safety, environmental navigation and wheelchair training. Pt completed UE strengthening HEP to increase functional strength in order to increase independence with functional mobility. Pt completed cognition activity to increase independence with multiple step tasks and sequencing activities. Pt completed sequencing activity for up to three steps with ~80% accuracy. Education OT Patient Education: Correct positioning, Energy conservation, Home exercise program, Instructions to caregiver, Modified ADL techniques, Progress toward Goal/Update tx plan, Purpose of tx/functional activities, Rehab process, Safety issues, Use of adapted equipment, W/C management Teaching Recipient: Patient, Family (daughter), Friend Teaching Methods: Demonstration, Discussion Response to Teaching: Verbalize Understanding, Return Demonstration, Reinforcement Needed Pt having difficulty following directions for more complex exercises and often requiring cueing throughout activity for proper form or execution of movement. OT Commercial Relationship Manager Goals Commercial Relationship Manager Goals Time Frame: Oct 19, 2023 Acute change in mental status: 1 Inattention: 1 Disorganized thinkin Altered level of consciousness: 0 Eating (QC): 6 Oral Hygiene (QC): 6 Toileting Hygiene (QC): 6 Shower/Bathe Self (QC): 6 Upper Body Dressing (QC): 6 Lower Body Dressing (QC): 6 On/Off Footwear (QC): 6 Additional Goals: 1-Demonstrate ADL Tasks, 2-Verbalize Understanding, 3- ImproveStrength/Joey 1=Demonstrate adherence to instructed precautions during ADL tasks. 2=Patient will verbalize/demonstrate understanding of assistive devices/modifications for ADL. 3=Patient will improve strength/tolerance for activity to enable patient to perform ADL's. OT Education/Plan Problem List/Assessment Assessment: Decreased Activ Tolerance, Decreased Safety Aware, Decreased UE Strength, Dependent Transfers, Impaired Bed Mobility, Impaired Cognition, Impaired Funct Balance, Impaired I ADL's, Impaired Self-Care Skills Discharge Recommendations Plan/Recommendations: Continue POC Treatment Plan/Plan of Care Treatment,Training & Education: Yes Patient would benefit from OT for education, treatment and training to promote independence in ADL's, mobility, safety and/or upper extremity function for ADL's. Plan of Care: ADL Retraining, Functional Mobility, Group Exercise/Act as Ind, UE Funct Exercise/Act, UE Neuromus Re-Ed/Coord Treatment Duration: Oct 19, 2023 Frequency: At least 5 of 7 days/Wk (IRF) Estimated Hrs Per Day: Other (75 mins per day) Agreement: Yes Rehab Potential: Good Time Start Time: 08:00 Stop Time: 09:15 DATE: Sep 25, 2023 Total Time Billed (hr/min): 75 Billed Treatment Time 1, FA 2, EX 2, ADL 1 Trang [place] OTR/L Sep 25, 2023 11:24
[2023-09-25] MEDS ORDERED: hydrALAZINE 25 MG TABLET PO PRN (12:15)
--- NOTE | 2023-09-25 12:46 | Physical Therapy Daily Note ---
PT Daily Note-Current Subjective Pt sitting on BSC with Nurse & TOP BOTTOM ATTACHING MACHINE OPERATOR present. Pt agrees to PT/OT co-treat. Pain Location: Left Location Body Site: Foot Comment: Reports but doesn't rate Section J - Health Conditions 1. Rarely or not at all 2. Occasionally 3. Frequently 4. Almost constantly 8. Unable to answer Pain Effect on Sleep: 1 Pain Interference with Therapy: 1 Pain Interference w/Day-to-Day: 1 Mental Status Patient Orientation: Person, Place Attachments: Pringle Catheter, IV Transfers SCALE: Activities may be completed with or without assistive devices. 0-Qazwrdidqv-njswmji completes the activity by him/herself with no assistance from a helper. 5-Set-up or Clean-up Assistance-helper sets up or cleans up; patient completes a ctivity. [place] assists only prior to or following the activity. 4-Supervision or Touching Assistance-helper provides verbal cues and/or touching/steadying and/or contact guard assistance as patient completes activity. Assistance may be provided throughout the activity or intermittently. 3-Partial/Moderate Assistance-helper does LESS THAN HALF the effort. [place] lifts, holds or supports trunk or limbs, but provides less than half the effort. 2-Substantial/Maximal Assistance-helper does MORE THAN HALF the effort. [place] lifts or holds trunk or limbs and provides more than half the effort. 5-Mfsvmokqn-dchjcq does ALL the effort. Patient does none of the effort to complete the activity. Or, the assistance of 2 or more helpers is required for the patient to complete the activity. If activity was not attempted, code reason: 7-Patient Refused. 9-Not Applicable-not attempted and the patient did not perform the activity before the current illness, exacerbation or injury. 10-Not Attempted due to Environmental Limitations-(lack of equipment, weather restraints, etc.). 88-Not Attempted due to Medical Conditions or Safety Concerns. Sit to Stand (QC): 1 Wheelchair Training Does the Pt Use a Wheelchair?: Yes Type of Wheelchair: Manual Treatments PT/OT co-treated due to the need for two skilled therapists for pt's need for higher level of care and to increase pt's safety during high level activities. OT focused on UE strength, cognition, functional mobility and activity tolerance. PT focused on LE strength, mobility and balance. Please refer to PT note for more in depth description of their role in this therapy session. Pt self-propelled WC ~30ftx2 with min A and max cueing for wheelchair safety, environmental navigation and wheelchair training. Pt completed UE strengthening HEP to increase functional strength in order to increase independence with functional mobility. Pt completed cognition activity to increase independence with multiple step tasks and sequencing activities. PT Mcfp Goals Purchasing Associate Goals PT Purchasing Associate Goals Time Frame: Oct 22, 2023 Roll Left & Right (QC): 4 Sit to Lying (QC): 4 Lying-Sitting on Side/Bed(QC): 4 Sit to Stand (QC): 3 Chair/Wyg-dx-Kgkad Xfer(QC): 3 Toilet Transfer (QC): 3 Car Transfer (QC): 3 Does the Patient Walk: Yes Walk 10 feet (QC): 3 Walk 50ft with 2 Turns (QC): 3 Walk 150 ft (QC): 3 Walking 10ft on Uneven Surface: 3 1 Step (curb) (QC): 3 4 Steps (QC): 3 12 Steps (QC): 3 Picking up an Object (QC): 3 Does the Pt use WC or Scooter?: Yes Wheel 50 feet with 2 turns (QC: 6 Type: Manual Wheel 150 feet: 6 Type: Manual PT Plan Problem List Problem List: Activity Tolerance, Functional Strength, Safety, Balance, Gait, Transfer Treatment/Plan Treatment Plan: Continue Plan of Care Treatment Duration: Oct 22, 2023 Frequency: At least 5 of 7 days/Wk (IRF) Estimated Hrs Per Day: Other (75' per day) Patient and/or Family Agrees t: Yes Safety Risks/Education Patient Education: Transfer Techniques, Correct Positioning, W/C Management, Safety Issues Teaching Recipient: Patient Teaching Methods: Discussion Response to Teaching: Verbalize Understanding Time Time In: 0800 Time Out: 0915 DATE: Sep 25, 2023 Total Billed Treatment Time: 75 Total Billed Treatment 1, [facility] (20m), FA x2 (25m) & EX x2 (30m) SANDRA BIGGS TAXICAB DISPATCHER Sep 25, 2023 12:45
[2023-09-25 20:00] VITALS: BP 129/61
[2023-09-26] MEDS: inSUlin ASPART 1 UNIT/0.01 ML (PER UNIT) SC SCH ×4 (05:30→21:10)
[2023-09-26 07:56] VITALS: BP 142/74
[2023-09-26] MEDS: SENNA W/DOCUSATE TABLET PO SCH ×2 (09:31→21:11)
[2023-09-26] MEDS: risperiDONE 0.25 MG TABLET PO SCH ×2 (09:31→21:11)
[2023-09-26] MEDS: amLODIPine 10 MG TABLET PO SCH (09:31)
[2023-09-26] MEDS: ASPIRIN 81 MG CHEWABLE TABLET PO SCH (09:31)
[2023-09-26] MEDS: CLOPIDOGREL 75 MG TABLET PO SCH (09:31)
[2023-09-26] MEDS: LOSARTAN 100 MG TABLET PO SCH (09:31)
[2023-09-26] MEDS: ENOXAPARIN 40 MG/0.4 ML SYRINGE SQ SCH (09:32)
[2023-09-26] MEDS: LACTULOSE SYRUP 10GM/15ML 30ML UDC PO PRN (09:32)
[2023-09-26] MEDS: prednisoLONE 1% Ophthalmic Suspension 5 ML BTL OP SCH ×4 (09:34→21:11)
[2023-09-26] MEDS: DOCUSATE SODIUM 100 MG CAPSULE PO SCH ×2 (09:34→21:11)
[2023-09-26] MEDS: MICONAZOLE 2% POWDER 90 GM TOP SCH ×2 (09:35→21:11)
--- NOTE | 2023-09-26 11:41 | PM&R Progress Note ---
Subjective HPI/CC On Admission Date Seen by Provider: Sep 26, 2023 Time Seen by Provider: 15:00 Subjective/Events-last exam 09/26/2023: No major issues No pain reported Improved confusion Family at bedside Family concerned about ability to manage at home alone 09/25/2023: Patient had confusion last night Much more alert today Family at bedside Eating lunch Pringle catheter will be discontinued tomorrow Pain is controlled Review of Systems General: Fatigue, Malaise Neurological: Incoordination, Confusion Objective Exam Vital Signs Vital Signs Date Time Temp Pulse Resp B/P (MAP) Pulse Ox O2 Delivery O2 Flow Rate FiO2 09/26/23 12:13 97 09/26/23 10:01 Room Air 09/26/23 07:56 36.2 20 142/74 (96) 97 Capillary Refill : General Appearance: No Apparent Distress, WD/WN, Chronically ill, Obese, Other (lethargic) HEENT: PERRL/EOMI, Normal ENT Inspection, Pharynx Normal Neck: Full Range of Motion, Normal Inspection, Non Tender, Supple, Carotid Bruit Respiratory: Chest Non Tender, Lungs Clear, Normal Breath Sounds, No Accessory Muscle Use, No Respiratory Distress Cardiovascular: Regular Rate, Rhythm, No Edema, No Gallop, No JVD, No Murmur, Normal Peripheral Pulses Gastrointestinal: Normal Bowel Sounds, No Organomegaly, No Pulsatile Mass, Non Tender, Soft Back: Normal Inspection, No CVA Tenderness, No Vertebral Tenderness Extremity: Normal Capillary Refill, Normal Inspection, Normal Range of Motion, Non Tender, No Calf Tenderness, No Pedal Edema Neurologic/Psychiatric: Alert, 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 FIM Transfers Therapy Code Descriptions/Definitions Functional [place] Measure: 0=Not Assessed/NA 4=Minimal Assistance 1=Total Assistance 5=Supervision or Setup 2=Maximal Assistance 6=Modified [place] 3=Moderate Assistance 7=Complete IndependenceSCALE: Activities may be completed with or without assistive devices. 7-Kktwmhzlbg-fqtjpbt completes the activity by him/herself with no assistance from a helper. 5-Set-up or Clean-up Assistance-helper sets up or cleans up; patient completes activity. [place] assists only prior to or following the activity. 4-Supervision or Touching Assistance-helper provides verbal cues and/or touching/steadying and/or contact guard assistance as patient completes activity. Assistance may be provided throughout the activity or intermittently. 3-Partial/Moderate Assistance-helper does LESS THAN HALF the effort. [place] lifts, holds or supports trunk or limbs, but provides less than half the effort. 2-Substantial/Maximal Assistance-helper does MORE THAN HALF the effort. [place] lifts or holds trunk or limbs and provides more than half the effort. 0-Rwklnfdsv-botklj does ALL the effort. Patient does none of the effort to complete the activity. Or, the assistance of 2 or more helpers is required for the patient to complete the activity. If activity was not attempted, code reason: 7-Patient Refused. 9-Not Applicable-not attempted and the patient did not perform the activity before the current illness, exacerbation or injury. 10-Not Attempted due to Environmental Limitations-(lack of equipment, weather restraints, etc.). 88-Not Attempted due to Medical Conditions or Safety Concerns. Roll Left to Right (QC): 1 Sit to Lying (QC): 1 Sit to Stand (QC): 1 (unable from EOB /c (A) of 2. Sit>stand lift required.) Chair/Jjd-nj-Vjwzy Xfer(QC): 1 (/c mechanical lift) Car Transfer (QC): 88 Gait Training Does the Patient Walk?: No and Walking Goal IS indicated Walk 10 feet (QC): 88 Walk 50 ft with 2 Turns(QC): 88 Walk 150 ft (QC): 88 Walking 10ft/uneven surface-QC: 88 Wheelchair Training Does the Pt Use a Wheelchair?: Yes Distance: 3' Wheel 50 ft with 2 turns (QC): 88 (unable to attain distance) Wheel 150 ft (QC): 88 Type of Wheelchair: Manual Stair Training #of Steps: 3 1 Step (curb) (QC): 88 4 Steps (QC): 88 12 Steps (QC): 88 Balance Picking up an Object (QC): 88 ADL-Treatment Eating (QC): 4 (cue to use spoon after he opened ice cream.) Oral Hygiene (QC): 3 (Pt able to place/remove dentures from mouth. Assist to clean fixodent from dentures. Pt able to squeeze fixodent onto dentures and place into mouth with cues.) Shower/Bathe Self (QC): 1 (assist x2 and use of sit to stand lift to wash buttocks.) Upper Body Dressing (QC): 3 (to don/doff shirt) Lower Body Dressing (QC): 1 (to don/doff pants) On/Off Footwear (QC): 1 (to don/doff socks) Toileting Hygiene (QC): 1 (to complete toilet hygiene in standing utilizing sit to stand ) Toilet Transfer (QC): 1 (Utilized sit to drawing in machine tender helper order to transfer) Assessment/Plan Assessment and Plan Assess & Plan/Chief Complaint Assessment: s/p cerebellar CVA HTN DM Obesity Recent severe delirium requiring Precedex in ICU s/p loop recorder Plan: BP control DM management PT OT 09/25/2023: Supportive care Monitor confusion 09/26/2023: Continue supportive care Catheter DC and voiding well (1) Cerebellar stroke Status: Acute SALEEM KING DO Sep 26, 2023 11:41
--- NOTE | 2023-09-26 13:55 | Progress Note ---
LALA CALDERON 09/26/23 1355: Progress Note Pt is very positive and full of energy today. He was working with OT/PT this morning. His daughter and friend were present and helped motivate. Pt was able to report his name, where he is at, and what year it is. This is what he as able to report yesterday. On 09/24 the pt had transfer scorings of 1. The goals of the pt are in the 3-4 range. Pt normally using a WC and was working with rehab on that. On 09/25 the pt had ADLs scorings of mostly 1s. The pt needed help doing the activities but he was in a pleasant mood and willing to cooperate. Today, 09/26, the pt had some minor complaints of left foot and knee pain, rated 3/10. His ADLs were still in the 1 range and had one rated a 3. Pt's sit to stand was rated a one. 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 The pt still understands the purpose and goals of his therapy. We will continue to monitor the pt's status during therapy. TIFFANY KING DO 09/26/23 1911: Supervisory-Addendum Brief Verification & Attestation Participated in pt care: history, MDM, physical Personally performed: exam, history, MDM, supervision of care Care discussed with: Medical Student Procedures: n/a Results interpretation: Verified all documentation Verification and Attestation of Medical Student E/M Service A medical student performed and documented this service in my presence. I reviewed and verified all information documented by the medical student and made modifications to such information, when appropriate. I personally performed the physical exam and medical decision making. Tiffany King, Sep 26, 2023,19:11 LALA CALDERON Sep 26, 2023 13:55 TIFFANY KING DO Sep 26, 2023 19:11
[2023-09-26] MEDS: SCOPOLAMINE PATCH REMOVAL TP SCH (14:05)
[2023-09-26] MEDS: SCOPOLAMINE 1.5 MG PATCH TD SCH (14:06)
[2023-09-26] MEDS ORDERED: PATIENT MAY USE OWN MED,SINGLE MED PO SCH (15:00)
--- NOTE | 2023-09-26 15:18 | Speech Therapy Daily Note ---
Speech Daily Progress Note Subjective Date Seen by Provider: Sep 26, 2023 Time Seen by Provider: 10:00 Pt was sitting in bedside chair upon SUPPORT REPRESENTATIVE arrival. Pt's daughter and friend were present in the room and observed tx. Objective Pt attempts sorting task and is unable to complete without assistance from SUPPORT REPRESENTATIVE. During this sorting task, pt would forget instructions given to him and was unable to complete what was asked of him. Pt appears to be unable to hold onto information for more than a few seconds at a time. Pt attempts a short-term recall task and completes with <25% accuracy, SUPPORT REPRESENTATIVE decides to stop this activity due to comments pt was stating. Pt completes an orientation tasks and scores 13/19. Assessment Assessment Current Status: Good Progress Treatment Plan Continue Plan of Care Speech Assisted Goals Assisted Goals 1. The pt will be oriented to self, place, time and situation independently with 100% accuracy. 2. The pt will complete simple problem solving and safety awareness for daily tasks of living with 90% accuracy. 3. The pt will demonstrate immediate, short-term and long-term recall of functional information with 80% accuracy. Speech-Plan Treatment Plan Speech Therapy Treatment Plan: Continue Plan of Care Treatment Duration: Sep 25, 2023 Frequency: At least 5 of 7 days/Wk (IRF) Estimated Hrs Per Day: Other (45 min cog/ling tx) Rehab Potential: Fair Time Speech Therapy Time In: 10:00 Speech Therapy Time Out: 10:45 DATE: Sep 26, 2023 Total Billed Time: 45 Billed Treatment Time 1 SLTS 45 min Anayeli Rowan Sep 26, 2023 15:18
--- NOTE | 2023-09-26 15:30 | Occupational Ther Daily Note ---
OT Current Status-Daily Note Subjective Pt was received sitting in recliner. Pt very pleasant and agreeable to therapy. Pain Numeric Pain Scale: 3 Location: No Pain Reported, Left Location Body Site: Elbow Pain Description: Ache Mental Status/Objective Patient Orientation: Person, Place, Situation Attachments: IV ADL-Treatment Therapy Code Descriptions/Definitions Functional [place] Measure: 0=Not Assessed/NA 4=Minimal Assistance 1=Total Assistance 5=Supervision or Setup 2=Maximal Assistance 6=Modified [place] 3=Moderate Assistance 7=Complete IndependenceSCALE: Activities may be completed with or without assistive devices. 3-Ofjifzzgbf-zymiwht completes the activity by him/herself with no assistance from a helper. 5-Set-up or Clean-up Assistance-helper sets up or cleans up; patient completes activity. [place] assists only prior to or following the activity. 4-Supervision or Touching Assistance-helper provides verbal cues and/or touching/steadying and/or contact guard assistance as patient completes activity. Assistance may be provided throughout the activity or intermittently. 3-Partial/Moderate Assistance-helper does LESS THAN HALF the effort. [place] lifts, holds or supports trunk or limbs, but provides less than half the effort. 2-Substantial/Maximal Assistance-helper does MORE THAN HALF the effort. [place] lifts or holds trunk or limbs and provides more than half the effort. 7-Lpyrlahar-mennsg does ALL the effort. Patient does none of the effort to complete the activity. Or, the assistance of 2 or more helpers is required for the patient to complete the activity. If activity was not attempted, code reason: 7-Patient Refused. 9-Not Applicable-not attempted and the patient did not perform the activity before the current illness, exacerbation or injury. 10-Not Attempted due to Environmental Limitations-(lack of equipment, weather restraints, etc.). 88-Not Attempted due to Medical Conditions or Safety Concerns. Oral Hygiene (QC): 4 (in supported sitting ) Upper Body Dressing (QC): 3 (to don/doff long sleeved shirt in sitting ) On/Off Footwear: 1 (to don/doff socks) Other Treatment PT/OT co-treated due to the need for two skilled therapists for pt's need for higher level of care and to increase pt's safety during high level activities. OT focused on UE strength, cognition, functional mobility and activity tolerance. PT focused on LE strength, mobility and balance. Please refer to PT note for more in depth description of their role in this therapy session. Grooming, including oral care, face hygiene and white care, was completed with supervision in supported sitting and min cues for thoroughness. Used sit to stand lift in order to transfer from recliner to wheelchair. Pt self-propelled WC ~50ftx2 with min A and min cueing for wheelchair safety, environmental navigation and wheelchair training. Pt completed UE strengthening HEP to increase functional strength in order to increase independence with functional mobility. Completed two functional sit to stands with parallel bars requiring max A x2 to stand, though was standing only requiring mod A x1 for balance. Pt demonstrating improved memory and cognition this session, though is still foggy and requires cueing for multi-step activities. Pt c/o diplopia throughout ses sarah and daughter reports he has had trouble with his vision since his hospitalization, RN notified. Education OT Patient Education: Correct positioning, Energy conservation, Home exercise program, Instructions to caregiver, Modified ADL techniques, Progress toward Goal/Update tx plan, Purpose of tx/functional activities, Rehab process, Safety issues, Transfer techniques, W/C management Teaching Recipient: Patient, Family Teaching Methods: Demonstration, Discussion Response to Teaching: Verbalize Understanding, Return Demonstration, R einforcement Needed OT Glove Maker Goals Senior Care Goals Time Frame: Oct 19, 2023 Acute change in mental status: 1 Inattention: 1 Disorganized thinkin Altered level of consciousness: 0 Eating (QC): 6 Oral Hygiene (QC): 6 Toileting Hygiene (QC): 6 Shower/Bathe Self (QC): 6 Upper Body Dressing (QC): 6 Lower Body Dressing (QC): 6 On/Off Footwear (QC): 6 Additional Goals: 1-Demonstrate ADL Tasks, 2-Verbalize Understanding, 3- ImproveStrength/Joey 1=Demonstrate adherence to instructed precautions during ADL tasks. 2=Patient will verbalize/demonstrate understanding of assistive device s/modifications for ADL. 3=Patient will improve strength/tolerance for activity to enable patient to perform ADL's. OT Education/Plan Problem List/Assessment Assessment: Decreased Activ Tolerance, Decreased Safety Aware, Decreased UE Strength, Dependent Transfers, Impaired Bed Mobility, Impaired Cognition, Impaired Coordination, Impaired Funct Balance, Impaired I ADL's, Impaired Self- Care Skills, Visual-Perceptual Deficit Discharge Recommendations Plan/Recommendations: Continue POC Treatment Plan/Plan of Care Treatment,Training & Education: Yes Patient would benefit from OT for education, treatment and training to promote independence in ADL's, mobility, safety and/or upper extremity function for ADL's. Plan of Care: ADL Retraining, Functional Mobility, Group Exercise/Act as Ind, UE Funct Exercise/Act, UE Neuromus Re-Ed/Coord Treatment Duration: Oct 19, 2023 Frequency: At least 5 of 7 days/Wk (IRF) Estimated Hrs Per Day: Other (75 mins per day) Agreement: Yes Rehab Potential: Fair Time Start Time: 08:00 (Co-treat with PT [id number]) Stop Time: 09:15 DATE: Sep 26, 2023 Total Time Billed (hr/min): 75 Billed Treatment Time 1, ADL 2, FA 2, EX 1 Trang [place] OTR/L Sep 26, 2023 15:30
--- NOTE | 2023-09-26 15:49 | Physical Therapy Daily Note ---
PT Daily Note-Current Subjective Pt sitting in recliner working w/OT upon arrival. Pt agrees to PT/OT co-treat. Pain Location: No Pain Reported Section J - Health Conditions 1. Rarely or not at all 2. Occasionally 3. Frequently 4. Almost constantly 8. Unable to answer Pain Effect on Sleep: 1 Pain Interference with Therapy: 1 Pain Interference w/Day-to-Day: 1 Mental Status Patient Orientation: Person, Place, Situation Transfers SCALE: Activities may be completed with or without assistive devices. 1-Vqhnktokjy-qhikcht completes the activity by him/herself with no assistance from a helper. 5-Set-up or Clean-up Assistance-helper sets up or cleans up; patient completes activity. [place] assists only prior to or following the activity. 4-Supervision or Touching Assistance-helper provides verbal cues and/or touching/steadying and/or contact guard assistance as patient completes activity. Assistance may be provided throughout the activity or intermittently. 3-Partial/Moderate Assistance-helper does LESS THAN HALF the effort. [place] lifts, holds or supports trunk or limbs, but provides less than half the effort. 2-Substantial/Maximal Assistance-helper does MORE THAN HALF the effort. [place] lifts or holds trunk or limbs and provides more than half the effort. 9-Qipyjrawg-drxvtd does ALL the effort. Patient does none of the effort to complete the activity. Or, the assistance of 2 or more helpers is required for the patient to complete the activity. If activity was not attempted, code reason: 7-Patient Refused. 9-Not Applicable-not attempted and the patient did not perform the activity before the current illness, exacerbation or injury. 10-Not Attempted due to Environmental Limitations-(lack of equipment, weather restraints, etc.). 88-Not Attempted due to Medical Conditions or Safety Concerns. Sit to Stand (QC): 1 (Max A x2 or Max A & Mod A depending on fatigue) Weight Bearing Full Weight Bearing Full Weight Bearing Wheelchair Training Does the Pt Use a Wheelchair?: Yes Wheel 50 ft with 2 turns (QC): 4 Wheel 150 ft (QC): 4 Type of Wheelchair: Manual Exercises Seated Therapy Exercises: Ankle pumps, Long arc quads, Hip flexion, Hip abd/add, Glut set Seated Reps: 15 Treatments PT/OT co-treated due to the need for two skilled therapists for pt's need for higher level of care and to increase pt's safety during high level activities. OT focused on UE strength, cognition, functional mobility and activity tolerance. PT focused on LE strength, mobility and balance. Grooming, including oral care, face hygiene and white care, was completed with supervision in supported sitting and min cues for thoroughness. Used sit to stand lift in order to transfer from recliner to wheelchair. Pt self-propelled WC ~50ftx2 with min A and min cueing for wheelchair safety, environmental navigation and wheelchair training. Pt completed UE strengthening HEP to increase functional strength in order to increase independence with functional mobility. Alternated between LE & UE Seated EX. Completed two functional sit to stands with parallel bars requiring max A x2 to stand, though was standing only requiring mod A x1 for balance. Pt demonstrating improved memory and cognition this session, though is still foggy and requires cueing for multi-step activities. Pt c/o diplopia throughout session and daughter reports he has had trouble with his vision since his hospitalization, RN notified. Assessment Current Status: Good Progress Pt demonstrates difficulty w/initiation of tasks as well as needing VC for sequencing and retention is not demonstrated. PT Intermediate Goals Pain Medicine Physician Goals PT Intermediate Goals Time Frame: Oct 22, 2023 Roll Left & Right (QC): 4 Sit to Lying (QC): 4 Lying-Sitting on Side/Bed(QC): 4 Sit to Stand (QC): 3 Chair/Lhy-sv-Sztnc Xfer(QC): 3 Toilet Transfer (QC): 3 Car Transfer (QC): 3 Does the Patient Walk: Yes Walk 10 feet (QC): 3 Walk 50ft with 2 Turns (QC): 3 Walk 150 ft (QC): 3 Walking 10ft on Uneven Surface: 3 1 Step (curb) (QC): 3 4 Steps (QC): 3 12 Steps (QC): 3 Picking up an Object (QC): 3 Does the Pt use WC or Scooter?: Yes Wheel 50 feet with 2 turns (QC: 6 Type: Manual Wheel 150 feet: 6 Type: Manual PT Plan Problem List Problem List: Functional Strength, Transfer Treatment/Plan Treatment Plan: Continue Plan of Care Treatment Plan: Functional Activity Joey, Functional Strength, Gait, Safety, Transfers Treatment Duration: Sep 25, 2023 Frequency: 5 times per week Estimated Hrs Per Day: 1 hour per day Patient and/or Family Agrees t: Yes Safety Risks/Education Patient Education: Transfer Techniques, Correct Positioning, Safety Issues Teaching Recipient: Patient Teaching Methods: Discussion Response to Teaching: Verbalize Understanding Time Time In: 0800 Time Out: 0915 DATE: Sep 26, 2023 Total Billed Treatment Time: 75 Total Billed Treatment Co-treat w/OT for 75m 1, [facility] (15m), EX x2 (30m) FA x2 (30m) SANDRA BIGGS MOLDER FITTING Sep 26, 2023 15:49
[2023-09-26] MEDS: TRULICITY 0.75 MG/0.5 ML PO SCH (16:31)
[2023-09-26 19:10] VITALS: BP 126/70
[2023-09-26] MEDS: ACETAMINOPHEN 325 MG TABLET PO PRN (21:10)
--- NOTE | 2023-09-27 05:04 | PM&R Progress Note ---
Subjective HPI/CC On Admission Date Seen by Provider: Sep 27, 2023 Time Seen by Provider: 12:00 Subjective/Events-last exam 09/27/2023: Patient doing a lot better Denies any new issues Walking 200 feet today Family at bedside 09/26/2023: No major issues No pain reported Improved confusion Family at bedside Family concerned about ability to manage at home alone 09/25/2023: Patient had confusion last night Much more alert today Family at bedside Eating lunch Pringle catheter will be discontinued tomorrow Pain is controlled Review of Systems General: Fatigue, Malaise Objective Exam Vital Signs Vital Signs Date Time Temp Pulse Resp B/P (MAP) Pulse Ox O2 Delivery O2 Flow Rate FiO2 09/27/23 21:32 85 130/57 (81) 09/27/23 20:35 35.6 16 96 Room Air Capillary Refill : General Appearance: No Apparent Distress, WD/WN, Chronically ill, Obese, Other (lethargic) HEENT: PERRL/EOMI, Normal ENT Inspection, Pharynx Normal Neck: Full Range of Motion, Normal Inspection, Non Tender, Supple, Carotid Bruit Respiratory: Chest Non Tender, Lungs Clear, Normal Breath Sounds, No Accessory Muscle Use, No Respiratory Distress Cardiovascular: Regular Rate, Rhythm, No Edema, No Gallop, No JVD, No Murmur, Normal Peripheral Pulses Gastrointestinal: Normal Bowel Sounds, No Organomegaly, No Pulsatile Mass, Non Tender, Soft Back: Normal Inspection, No CVA Tenderness, No Vertebral Tenderness Extremity: Normal Capillary Refill, Normal Inspection, Normal Range of Motion, Non Tender, No Calf Tenderness, No Pedal Edema Neurologic/Psychiatric: Alert, lan analyst II-XII Norm as Tested, Abnormal Gait, Depressed Affect, Disoriented (subtle confusion), Motor Weakness (generalized) Skin: Normal Color, Warm/Dry Lymphatic: No Adenopathy Results/Procedures Lab Patient resulted labs reviewed. FIM Transfers Therapy Code Descriptions/Definitions Functional [place] Measure: 0=Not Assessed/NA 4=Minimal Assistance 1=Total Assistance 5=Supervision or Setup 2=Maximal Assistance 6=Modified [place] 3=Moderate Assistance 7=Complete IndependenceSCALE: Activities may be completed with or without assistive devices. 2-Hegprbcuey-gbpvmpf completes the activity by him/herself with no assistance from a helper. 5-Set-up or Clean-up Assistance-helper sets up or cleans up; patient completes activity. [place] assists only prior to or following the activity. 4-Supervision or Touching Assistance-helper provides verbal cues and/or touching/steadying and/or contact guard assistance as patient completes activity. Assistance may be provided throughout the activity or intermittently. 3-Partial/Moderate Assistance-helper does LESS THAN HALF the effort. [place] lifts, holds or supports trunk or limbs, but provides less than half the effort. 2-Substantial/Maximal Assistance-helper does MORE THAN HALF the effort. [place] lifts or holds trunk or limbs and provides more than half the effort. 8-Diqfbwjhm-lpzcxl does ALL the effort. Patient does none of the effort to complete the activity. Or, the assistance of 2 or more helpers is required for the patient to complete the activity. If activity was not attempted, code reason: 7-Patient Refused. 9-Not Applicable-not attempted and the patient did not perform the activity before the current illness, exacerbation or injury. 10-Not Attempted due to Environmental Limitations-(lack of equipment, weather restraints, etc.). 88-Not Attempted due to Medical Conditions or Safety Concerns. Roll Left to Right (QC): 1 Sit to Lying (QC): 1 Sit to Stand (QC): 1 (Max A x2 or Max A & Mod A depending on fatigue) Chair/Tud-px-Imsnt Xfer(QC): 1 (/c mechanical lift) Car Transfer (QC): 88 Gait Training Does the Patient Walk?: No and Walking Goal IS indicated Walk 10 feet (QC): 88 Walk 50 ft with 2 Turns(QC): 88 Walk 150 ft (QC): 88 Walking 10ft/uneven surface-QC: 88 Wheelchair Training Does the Pt Use a Wheelchair?: Yes Distance: 3' Wheel 50 ft with 2 turns (QC): 4 Wheel 150 ft (QC): 4 Type of Wheelchair: Manual Stair Training #of Steps: 3 1 Step (curb) (QC): 88 4 Steps (QC): 88 12 Steps (QC): 88 Balance Picking up an Object (QC): 88 ADL-Treatment Eating (QC): 4 (cue to use spoon after he opened ice cream.) Oral Hygiene (QC): 4 (in supported sitting ) Shower/Bathe Self (QC): 1 (assist x2 and use of sit to stand lift to wash buttocks.) Upper Body Dressing (QC): 3 (to don/doff long sleeved shirt in sitting ) Lower Body Dressing (QC): 1 (to don/doff pants) On/Off Footwear (QC): 1 (to don/doff socks) Toileting Hygiene (QC): 1 (to complete toilet hygiene in standing utilizing sit to stand ) Toilet Transfer (QC): 1 (Utilized sit to sports medicine coordinator order to transfer) Assessment/Plan Assessment and Plan Assess & Plan/Chief Complaint Assessment: s/p cerebellar CVA HTN DM Obesity Recent severe delirium requiring Precedex in ICU s/p loop recorder Plan: BP control DM management PT OT 09/25/2023: Supportive care Monitor confusion 09/26/2023: Continue supportive care Catheter DC and voiding well 09/27/2023: Monitor closely Dramatic improvement (1) Cerebellar stroke Status: Acute SALEEM KING DO Sep 27, 2023 05:04
[2023-09-27] MEDS: inSUlin ASPART 1 UNIT/0.01 ML (PER UNIT) SC SCH ×4 (05:52→20:30)
[2023-09-27 07:51] VITALS: BP 116/72
[2023-09-27] MEDS: CLOPIDOGREL 75 MG TABLET PO SCH (07:53)
[2023-09-27] MEDS: SENNA W/DOCUSATE TABLET PO SCH ×2 (07:53→20:21)
[2023-09-27] MEDS: risperiDONE 0.25 MG TABLET PO SCH ×2 (07:53→20:21)
[2023-09-27] MEDS: ASPIRIN 81 MG CHEWABLE TABLET PO SCH (07:54)
[2023-09-27] MEDS: prednisoLONE 1% Ophthalmic Suspension 5 ML BTL OP SCH ×4 (07:54→20:20)
[2023-09-27] MEDS: amLODIPine 10 MG TABLET PO SCH (07:54)
[2023-09-27] MEDS: LOSARTAN 100 MG TABLET PO SCH (07:54)
[2023-09-27] MEDS: DOCUSATE SODIUM 100 MG CAPSULE PO SCH ×2 (07:54→20:21)
[2023-09-27] MEDS: MICONAZOLE 2% POWDER 90 GM TOP SCH ×2 (07:55→20:21)
[2023-09-27] MEDS: ENOXAPARIN 40 MG/0.4 ML SYRINGE SQ SCH (10:19)
--- NOTE | 2023-09-27 10:36 | Occupational Ther Daily Note ---
OT Current Status-Daily Note Subjective Pt agreeable to OT tx. Mental Status/Objective Patient Orientation: Person, Confused ADL-Treatment Therapy Code Descriptions/Definitions Functional [place] Measure: 0=Not Assessed/NA 4=Minimal Assistance 1=Total Assistance 5=Supervision or Setup 2=Maximal Assistance 6=Modified [place] 3=Moderate Assistance 7=Complete IndependenceSCALE: Activities may be completed with or without assistive devices. 1-Dnxkcefhoj-yfyabil completes the activity by him/herself with no assistance from a helper. 5-Set-up or Clean-up Assistance-helper sets up or cleans up; patient completes activity. [place] assists only prior to or following the activity. 4-Supervision or Touching Assistance-helper provides verbal cues and/or touching/steadying and/or contact guard assistance as patient completes activi ty. Assistance may be provided throughout the activity or intermittently. 3-Partial/Moderate Assistance-helper does LESS THAN HALF the effort. [place] lifts, holds or supports trunk or limbs, but provides less than half the effort. 2-Substantial/Maximal Assistance-helper does MORE THAN HALF the effort. [place] lifts or holds trunk or limbs and provides more than half the effort. 7-Stqprgwzs-gpveoa does ALL the effort. Patient does none of the effort to complete the activity. Or, the assistance of 2 or more helpers is required for the patient to complete the activity. If activity was not attempted, code reason: 7-Patient Refused. 9-Not Applicable-not attempted and the patient did not perform the activity before the current illness, exacerbation or injury. 10-Not Attempted due to Environmental Limitations-(lack of equipment, weather restraints, etc.). 88-Not Attempted due to Medical Conditions or Safety Concerns. Lower Body Dressing (QC): 2 Toileting Hygiene (QC): 3 (Pt required mod A standing during pant hike, and assistance with pant hike as he fatigued. ) Other Treatment Pt in recliner, sit to stand lift utilized to transfer from recliner to w/c. Pt propelled w/c from room to therapy gym, VCs for direction/sequencing, min A with turning and through doorways. Pt completed 5/5 UE exercises using moderate resistance theraband, 10 reps each, skilled VCS for technique. OT/PT cotreat due to skill of 2 clinicians required which a workplace rehabilitation officer could not perform in order to coordinate UE/LEs, decrease fall risk, and due to pt's limitations in strength, activity tolerance, mobility and transfers. OT focused on UE placement, cues for sequencing and safety and ADLs, PT focused on LE placement, gross overall movement, transfers and mobility. Pt stood in parallel bars, mod-max A x2. Pt CGA in research investigator // bars, performed functional mobility along length of bars, 6', CGA with w/c follow. Pt sat in w/c, taken to hallway. Pt stood from w/c with min-mod A x2, VCs and hand over hand assist for UE placement. CGA with functional mobility using FWW, w/c follow, 200' into his bathroom. Pt completed toileting, mod A overall with hygiene, mod A with standing as pt fatigued during pant hike. Mod A transfer to w/c using FWW. Post tx, tp in w/c, call light in reach and all needs met, PT present. Education OT Patient Education: Correct positioning, Energy conservation, Modified ADL techniques, Progress toward Goal/Update tx plan, Purpose of tx/functional activities, Rehab process Teaching Recipient: Patient Teaching Methods: Discussion Response to Teaching: Unable to Return Demonstration OT Airplane Gastank Liner Assembler Goals Assisted Goals Time Frame: Oct 19, 2023 Acute change in mental status: 1 Inattention: 1 Disorganized thinkin Altered level of consciousness: 0 Eating (QC): 6 Oral Hygiene (QC): 6 Toileting Hygiene (QC): 6 Shower/Bathe Self (QC): 6 Upper Body Dressing (QC): 6 Lower Body Dressing (QC): 6 On/Off Footwear (QC): 6 Additional Goals: 1-Demonstrate ADL Tasks, 2-Verbalize Understanding, 3- ImproveStrength/Joey 1=Demonstrate adherence to instructed precautions during ADL tasks. 2=Patient will verbalize/demonstrate understanding of assistive devices/modifications for ADL. 3=Patient will improve strength/tolerance for activity to enable patient to perform ADL's. OT Education/Plan Problem List/Assessment Assessment: Decreased Activ Tolerance, Decreased UE Strength, Impaired Funct Balance, Impaired I ADL's, Impaired Self-Care Skills Discharge Recommendations Plan/Recommendations: Continue POC Treatment Plan/Plan of Care Patient would benefit from OT for education, treatment and training to promote independence in ADL's, mobility, safety and/or upper extremity function for ADL's. Plan of Care: ADL Retraining, Functional Mobility, Group Exercise/Act as Ind, UE Funct Exercise/Act, UE Neuromus Re-Ed/Coord Treatment Duration: Oct 19, 2023 Frequency: At least 5 of 7 days/Wk (IRF) Estimated Hrs Per Day: Other (75 mins per day) Agreement: Yes Rehab Potential: Fair Time Start Time: 08:45 Stop Time: 10:00 DATE: Sep 27, 2023 Total Time Billed (hr/min): 75 Billed Treatment Time Cotreat x45' 1, FA 3 (45'), EX (15'), ADL (15') LIN MORENO OT Sep 27, 2023 10:36
--- NOTE | 2023-09-27 11:40 | Speech Therapy Daily Note ---
Speech Daily Progress Note Subjective Date Seen by Provider: Sep 27, 2023 Time Seen by Provider: 10:35 Pt was sitting in bedside chair upon RESPIRATORY SERVICES MANAGER arrival. Pt participated in all tasks. Objective Pt participated in targeting immediate memory retention and manipulation of information. Pt demonstrates difficulty changing set between elements in a task with perseveration of old information and rapid loss of new information. Pt demonstrates ability to retain 3 units over one minute of time, completes with 40% accuracy and requires mod to max verbal cues. Simple mathematical computations are intact. Pt has difficulty demonstrating sustained attention to a rule set and difficulty switching to a new rule set in a task. Assessment Assessment Current Status: Good Progress Treatment Plan Continue Plan of Care Speech Linoleum Installer Goals Care Home Goals 1. The pt will be oriented to self, place, time and situation independently with 100% accuracy. 2. The pt will complete simple problem solving and safety awareness for daily tasks of living with 90% accuracy. 3. The pt will demonstrate immediate, short-term and long-term recall of functional information with 80% accuracy. Speech-Plan Treatment Plan Speech Therapy Treatment Plan: Continue Plan of Care Treatment Duration: Sep 25, 2023 Frequency: At least 5 of 7 days/Wk (IRF) Estimated Hrs Per Day: Other (45 min cog/ling tx) Rehab Potential: Fair Time Speech Therapy Time In: 10:35 Speech Therapy Time Out: 11:20 DATE: Sep 27, 2023 Total Billed Time: 45 Billed Treatment Time 1 SLTS 45 min Anayeli Rowan Sep 27, 2023 11:40
--- NOTE | 2023-09-27 11:57 | Progress Note ---
LALA CALDERON 09/27/23 1157: Progress Note Mohsen is in great spirits today. Very happy for printed pictures of his family, grandkids, and his dog. PT states that he is having good progress but has difficulty with initiation of tasks. Sit to stand is still rated as a 1 due to being dependent on helper. Catheter has been removed and is voiding fine. Still complains of double vision that has been present since his stroke. Pt walked 200' today and is improving. Orders to take out pt's cardiac telemetry. TIFFANY KING DO 09/28/23 0506: Supervisory-Addendum Brief Verification & Attestation Participated in pt care: history, MDM, physical Personally performed: exam, history, MDM, supervision of care Care discussed with: Medical Student Procedures: n/a Results interpretation: Verified all documentation Verification and Attestation of Medical Student E/M Service A medical student performed and documented this service in my presence. I reviewed and verified all information documented by the medical student and made modifications to such information, when appropriate. I personally performed the physical exam and medical decision making. Tiffany King, Sep 28, 2023,05:06 LALA CALDERON Sep 27, 2023 11:57 TIFFANY KING DO Sep 28, 2023 05:06
--- NOTE | 2023-09-27 15:40 | Physical Therapy Daily Note ---
PT Daily Note-Current Subjective Pt sitting in w/c in Therapy Gym upon arrival. Pt agrees to PT/OT co-treat. Pain Location: No Pain Reported Section J - Health Conditions 1. Rarely or not at all 2. Occasionally 3. Frequently 4. Almost constantly 8. Unable to answer Pain Effect on Sleep: 1 Pain Interference with Therapy: 1 Pain Interference w/Day-to-Day: 1 Mental Status Patient Orientation: Person, Place, Situation Transfers SCALE: Activities may be completed with or without assistive devices. 1-Jwcjmcmuud-yurqcup completes the activity by him/herself with no assistance from a helper. 5-Set-up or Clean-up Assistance-helper sets up or cleans up; patient completes activity. [place] assists only prior to or following the activity. 4-Supervision or Touching Assistance-helper provides verbal cues and/or touching/steadying and/or contact guard assistance as patient completes activity. Assistance may be provided throughout the activity or intermittently. 3-Partial/Moderate Assistance-helper does LESS THAN HALF the effort. [place] lifts, holds or supports trunk or limbs, but provides less than half the effort. 2-Substantial/Maximal Assistance-helper does MORE THAN HALF the effort. [place] lifts or holds trunk or limbs and provides more than half the effort. 9-Doupseyji-nbhvgk does ALL the effort. Patient does none of the effort to complete the activity. Or, the assistance of 2 or more helpers is required for the patient to complete the activity. If activity was not attempted, code reason: 7-Patient Refused. 9-Not Applicable-not attempted and the patient did not perform the activity before the current illness, exacerbation or injury. 10-Not Attempted due to Environmental Limitations-(lack of equipment, weather restraints, etc.). 88-Not Attempted due to Medical Conditions or Safety Concerns. Sit to Lying (QC): 3 (Min A) Lying to Sitting/Side of Bed(Q: 3 (Min A) Toilet Transfer (QC): 3 (Min A) Weight Bearing Full Weight Bearing Full Weight Bearing Gait Training Does the Patient Walk?: Yes Distance: 200' Walk 10 feet (QC): 4 (CGA) Walk 50 ft with 2 Turns(QC): 4 (CGA) Walk 150 ft (QC): 4 (CGA) Gait Assistive Device: FWW Treatments OT/PT cotreat due to skill of 2 clinicians required which a rehab trainer could not perform in order to coordinate UE/LEs, decrease fall risk, and due to pt's limitations in strength, activity tolerance, mobility and transfers. OT focused on UE placement, cues for sequencing and safety and ADLs, PT focused on LE placement, gross overall movement, transfers and mobility. Pt stood in parallel bars, mod-max A x2. Pt CGA in dining room attendant // bars, performed functional mobility along length of bars, 6', CGA with w/c follow. Pt sat in w/c, taken to hallway. Pt stood from w/c with min-mod A x2, VCs and hand over hand assist for UE placement. CGA with functional mobility using FWW, w/c follow, 200' into his bathroom. Pt completed toileting, mod A overall with hygiene, mod A with standing as pt fatigued during pant hike. Mod A transfer to w/c using FWW. OT departs at this time and PT continues tx. Pt resting in w/c then TF from w/c to EOB using FWW at Min A for VC and Min A. Pt is able to lift B LE into & out of bed if given additional time & cuing for task. Pt TF from EOB to Standing then to recliner to rest at end of tx. All needs met, call light in hand. Assessment Current Status: Excellent Progress Pt needs VC for safety and sequencing as pt doesn't always retend the information. Pt greatly improved w/independence of transfers and mobility. PT Usp Goals Silk Screen Printer Goals PT Silk Screen Printer Goals Time Frame: Oct 22, 2023 Roll Left & Right (QC): 4 Sit to Lying (QC): 4 Lying-Sitting on Side/Bed(QC): 4 Sit to Stand (QC): 3 Chair/Lrs-tf-Yuirp Xfer(QC): 3 Toilet Transfer (QC): 3 Car Transfer (QC): 3 Does the Patient Walk: Yes Walk 10 feet (QC): 3 Walk 50ft with 2 Turns (QC): 3 Walk 150 ft (QC): 3 Walking 10ft on Uneven Surface: 3 1 Step (curb) (QC): 3 4 Steps (QC): 3 12 Steps (QC): 3 Picking up an Object (QC): 3 Does the Pt use WC or Scooter?: Yes Wheel 50 feet with 2 turns (QC: 6 Type: Manual Wheel 150 feet: 6 Type: Manual PT Plan Problem List Problem List: Activity Tolerance, Transfer Treatment/Plan Treatment Plan: Continue Plan of Care Treatment Plan: Functional Activity Joey, Functional Strength, Gait, Safety, Transfers Treatment Duration: Sep 25, 2023 Frequency: 5 times per week Estimated Hrs Per Day: 1 hour per day Patient and/or Family Agrees t: Yes Safety Risks/Education Patient Education: Transfer Techniques, Correct Positioning, Safety Issues Teaching Recipient: Patient Teaching Methods: Discussion Response to Teaching: Reinforcement Needed Time Time In: 914 Time Out: 1030 DATE: Sep 27, 2023 Total Billed Treatment Time: 75 Total Billed Treatment Co-treat w/OT for 45m ([id number]) 1, GT x2 (30m) & FA x3 (45m) SANDRA BIGGS WOOD BORER Sep 27, 2023 15:40
[2023-09-27 20:35] VITALS: BP 90/60
[2023-09-27 21:32] VITALS: BP 130/57
[2023-09-28] MEDS: inSUlin ASPART 1 UNIT/0.01 ML (PER UNIT) SC SCH ×4 (06:09→21:02)
[2023-09-28 07:38] VITALS: BP 136/57
--- NOTE | 2023-09-28 08:24 | Progress Note ---
LALA CALDERON 09/28/23 0824: Progress Note PT + OT Beverlyal on 09/24: dx: severe mobility impairment, difficulty initiating tasks, fall risk, weakness, decreased ADL status. Prior level of function for bed mobility, transfers, gait, and stairs were rated as a 6. Transfers were rated a 1. Balance was poor. PT buttermaker continuous churn goals for transfers and gait are rated at 3 and 4. During ADLs the pt needed a helper throughout most tasks, rated 1 through 3. OT buttermaker continuous churn goals for ADLs are rated at 6. 09/25: OT rated ADLs as one 3 and the rest 1s. Pt reported some minor left foot pain as his only complaint for the day. Pt practiced WC mobility for part of the training. Pt was oriented to person and place. 09/26: Pt had some minor complaints of left foot and knee pain, rated 3/10. His ADLs were still in the 1 range and had one rated a 3. Pt's sit to stand was rated 1. 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 Pt was oriented to name, place, and location. 09/27: Mohsen was in great spirits today. PT states that he is having good progress but has difficulty with initiation of tasks. Sit to stand is still rat ed as a 1 due to being dependent on helper. Still complains of double vision that has been present since his stroke. Pt walked 200' today and is improving. OT rated lower body dressing a 2 and toileting hygiene a 3. 09/28: Pt was in a good mood today. His only complaint was that his legs felt a little weak while exercising using the walker. The plan is to have the pt try oral laxatives and if no BM this afternoon then a suppository will be performed. TIFFANY KING DO 09/29/23 0830: Supervisory-Addendum Brief Verification & Attestation Participated in pt care: history, MDM, physical Personally performed: exam, history, MDM, supervision of care Care discussed with: Medical Student Procedures: n/a Results interpretation: Verified all documentation Verification and Attestation of Medical Student E/M Service A medical student performed and documented this service in my presence. I reviewed and verified all information documented by the medical student and made modifications to such information, when appropriate. I personally performed the physical exam and medical decision making. Tiffany King, Sep 29, 2023,06:29 LALA CALDERON Sep 28, 2023 08:24 TIFFANY KING DO Sep 29, 2023 06:30
[2023-09-28] MEDS: LACTULOSE SYRUP 10GM/15ML 30ML UDC PO PRN (08:40)
[2023-09-28] MEDS: CLOPIDOGREL 75 MG TABLET PO SCH (08:41)
[2023-09-28] MEDS: SENNA W/DOCUSATE TABLET PO SCH ×2 (08:41→21:02)
[2023-09-28] MEDS: ASPIRIN 81 MG CHEWABLE TABLET PO SCH (08:41)
[2023-09-28] MEDS: DOCUSATE SODIUM 100 MG CAPSULE PO SCH ×2 (08:41→21:02)
[2023-09-28] MEDS: metFORMIN 500 MG TABLET PO SCH (08:41)
[2023-09-28] MEDS: amLODIPine 10 MG TABLET PO SCH (08:41)
[2023-09-28] MEDS: LOSARTAN 100 MG TABLET PO SCH (08:41)
[2023-09-28] MEDS: risperiDONE 0.25 MG TABLET PO SCH ×2 (08:41→21:05)
[2023-09-28] MEDS: prednisoLONE 1% Ophthalmic Suspension 5 ML BTL OP SCH ×4 (08:42→21:05)
[2023-09-28] MEDS: MICONAZOLE 2% POWDER 90 GM TOP SCH ×2 (08:42→21:05)
[2023-09-28] MEDS: ENOXAPARIN 40 MG/0.4 ML SYRINGE SQ SCH (10:28)
--- NOTE | 2023-09-28 11:26 | Speech Therapy Daily Note ---
Speech Daily Progress Note Subjective Date Seen by Provider: Sep 28, 2023 Time Seen by Provider: 10:30 Pt was sitting in bedside chair upon TELEVISION SCHEDULE COORDINATOR arrival. Pt was pleasant and cooperative. Objective Pt completes mental manipulation tasks with 3 numbers, pt demonstrates good immediate recall of number sets, however, with the slightest distraction pt is unable to recall number set. Pt demonstrates good accuracy with simple m athematical calculations. Pt is asked to complete a task given orally after pt is distracted for 10 seconds, pt completes with 40% accuracy due to poor attention to task and ability to recall information after a few seconds. Pt did demonstrate good insight into deficits this date, with explanation of using humor to distract from him not recalling the information given to him. Speech General Forecaster Goals General Forecaster Goals 1. The pt will be oriented to self, place, time and situation independently with 100% accuracy. 2. The pt will complete simple problem solving and safety awareness for daily tasks of living with 90% accuracy. 3. The pt will demonstrate immediate, short-term and long-term recall of functional information with 80% accuracy. Speech-Plan Treatment Plan Speech Therapy Treatment Plan: Continue Plan of Care Treatment Duration: Sep 25, 2023 Frequency: At least 5 of 7 days/Wk (IRF) Estimated Hrs Per Day: Other (45 min cog/ling tx) Rehab Potential: Fair Time Speech Therapy Time In: 10:30 Speech Therapy Time Out: 11:15 DATE: Sep 28, 2023 Total Billed Time: 45 Billed Treatment Time 1 SLSIVA 45 min Anayeli Rowan Sep 28, 2023 11:26
--- NOTE | 2023-09-28 12:01 | Occupational Ther Daily Note ---
OT Current Status-Daily Note Subjective Pt agreeable to therapy tx ADL-Treatment Therapy Code Descriptions/Definitions Functional [place] Measure: 0=Not Assessed/NA 4=Minimal Assistance 1=Total Assistance 5=Supervision or Setup 2=Maximal Assistance 6=Modified [place] 3=Moderate Assistance 7=Complete IndependenceSCALE: Activities may be completed with or without assistive devices. 4-Wkspzhpwwh-ybwatvn completes the activity by him/herself with no assistance from a helper. 5-Set-up or Clean-up Assistance-helper sets up or cleans up; patient completes activity. [place] assists only prior to or following the activity. 4-Supervision or Touching Assistance-helper provides verbal cues and/or touching/steadying and/or contact guard assistance as patient completes activity. Assistance may be provided throughout the activity or intermittently. 3-Partial/Moderate Assistance-helper does LESS THAN HALF the effort. [place] lifts, holds or supports trunk or limbs, but provides less than half the effort. 2-Substantial/Maximal Assistance-helper does MORE THAN HALF the effort. [place] lifts or holds trunk or limbs and provides more than half the effort. 8-Ayzpsgkwt-nqoncr does ALL the effort. Patient does none of the effort to complete the activity. Or, the assistance of 2 or more helpers is required for the patient to complete the activity. If activity was not attempted, code reason: 7-Patient Refused. 9-Not Applicable-not attempted and the patient did not perform the activity before the current illness, exacerbation or injury. 10-Not Attempted due to Environmental Limitations-(lack of equipment, weather restraints, etc.). 88-Not Attempted due to Medical Conditions or Safety Concerns. Oral Hygiene (QC): 4 (SBA seated at sink, min VCs for sequencing) Lower Body Dressing (QC): 3 (Mod A overall.) Toileting Hygiene (QC): 3 (Min-Mod assist standing balance, pt able to complete all parts.) Toilet Transfer (QC): 3 (CGA-min A) Other Treatment OT/PT cotreat x45' due to skill of 2 clinicians required which a vision rehabilitation therapist could not perform in order to coordinate UE/LEs, decrease fall risk, and due to pt's limitations in strength, activity tolerance, mobility and transfers. OT focused on UE placement, cues for sequencing and safety and ADLs, PT focused on LE placement, gross overall movement, transfers and mobility. Pt declined toileting/ADLS at this time. Pt stood from recliner and used FWW to perform functional mobility around [facility] common area/2nd floor. Pt took 1 seated rest break, then completed mobility using FWW back towards therapy gym, on the way, pt indicates need to toilet. Pt returned to his room using FWW, transferring onto toilet. Pt completed toileting, changed LB clothing, then attempted to stand at sink for grooming tasks. Pt had difficulty standing upright, stating his legs were tired, so he sat in chair for grooming tasks. Pt shaved after set up assist (assistance turning on electric razor). OT tx x15': pt sat at sink to complete oral care, SBA with min VCs for sequencing. Pt completed x15 reps BUE shoulder flexion and horizontal abduction using moderate resistance theraband. Cotreat x15'. Pt performed functional mobility to therapy gym using FWW. Pt stood at FWW to complete BUE reaching task across midline, 1 seated rest break. Post tx, pt in gym with PT, all needs met. CGA-min A sit to/from stand, CGA-min A 192'x2 with FWW Education OT Patient Education: Correct positioning, Energy conservation, Modified ADL techniques, Progress toward Goal/Update tx plan, Purpose of tx/functional activities, Rehab process Teaching Recipient: Patient Teaching Methods: Discussion Response to Teaching: Verbalize Understanding OT Retirement Goals Retirement Goals Time Frame: Oct 19, 2023 Acute change in mental status: 1 Inattention: 1 Disorganized thinkin Altered level of consciousness: 0 Eating (QC): 6 Oral Hygiene (QC): 6 Toileting Hygiene (QC): 6 Shower/Bathe Self (QC): 6 Upper Body Dressing (QC): 6 Lower Body Dressing (QC): 6 On/Off Footwear (QC): 6 Additional Goals: 1-Demonstrate ADL Tasks, 2-Verbalize Understanding, 3- ImproveStrength/Joey 1=Demonstrate adherence to instructed precautions during ADL tasks. 2=Patient will verbalize/demonstrate understanding of assistive devices/modifications for ADL. 3=Patient will improve strength/tolerance for activity to enable patient to perform ADL's. OT Education/Plan Problem List/Assessment Assessment: Decreased Activ Tolerance, Decreased Safety Aware, Decreased UE Strength, Impaired Funct Balance, Impaired I ADL's, Impaired Self-Care Skills, Visual-Perceptual Deficit Discharge Recommendations Plan/Recommendations: Continue POC Treatment Plan/Plan of Care Patient would benefit from OT for education, treatment and training to promote independence in ADL's, mobility, safety and/or upper extremity function for ADL's. Plan of Care: ADL Retraining, Functional Mobility, Group Exercise/Act as Ind, UE Funct Exercise/Act, UE Neuromus Re-Ed/Coord Treatment Duration: Oct 19, 2023 Frequency: At least 5 of 7 days/Wk (IRF) Estimated Hrs Per Day: Other (75 mins per day) Agreement: Yes Rehab Potential: Fair Time Start Time: 08:45 Stop Time: 10:00 DATE: Sep 28, 2023 Total Time Billed (hr/min): 75 Billed Treatment Time cotreat x45' & 15'; OT tx x15' 1, FA 3 (45'), ADL 2 (30') LIN MORENO OT Sep 28, 2023 12:01
--- NOTE | 2023-09-28 12:34 | Physical Therapy Daily Note ---
PT Daily Note-Current Subjective Co-treatment with OT for a portion of today's treatment due to upright balance deficits 8:45-9:30 and 9:45-1000. Patient conversational and willing to work with PT. When discussing pictures on his bedside table, discussed his dog, a picture of himself with his "niece and nephew" (who are in fact his grandchildren) and a picture of his daughter's family. Perseverated x 3 on a work situation when he worked for [employer]. Pain Section J - Health Conditions 1. Rarely or not at all 2. Occasionally 3. Frequently 4. Almost constantly 8. Unable to answer Pain Effect on Sleep: 1 Pain Interference with Therapy: 1 Pain Interference w/Day-to-Day: 1 Transfers SCALE: Activities may be completed with or without assistive devices. 1-Yjwsewlavx-tmxhlgp completes the activity by him/herself with no assistance from a helper. 5-Set-up or Clean-up Assistance-helper sets up or cleans up; patient completes activity. [place] assists only prior to or following the activity. 4-Supervision or Touching Assistance-helper provides verbal cues and/or touching/steadying and/or contact guard assistance as patient completes activity. Assistance may be provided throughout the activity or intermittently. 3-Partial/Moderate Assistance-helper does LESS THAN HALF the effort. [place] lifts, holds or supports trunk or limbs, but provides less than half the effort. 2-Substantial/Maximal Assistance-helper does MORE THAN HALF the effort. [place] lifts or holds trunk or limbs and provides more than half the effort. 6-Ewtyuyuot-kluiru does ALL the effort. Patient does none of the effort to complete the activity. Or, the assistance of 2 or more helpers is required for the patient to complete the activity. If activity was not attempted, code reason: 7-Patient Refused. 9-Not Applicable-not attempted and the patient did not perform the activity before the current illness, exacerbation or injury. 10-Not Attempted due to Environmental Limitations-(lack of equipment, weather restraints, etc.). 88-Not Attempted due to Medical Conditions or Safety Concerns. Sit to Stand (QC): 3 (CGA-min (A) /c v.c. for hand placement with each rep) Chair/Iav-eh-Umusy Xfer(QC): 3 (CGA-min (A) /c FWW.) Toilet Transfer (QC): 3 (CGA-mn (A) /c FWW) Weight Bearing Full Weight Bearing Full Weight Bearing Gait Training Distance: 192' x 2, 60' x 2 Walk 10 feet (QC): 4 (CGA) Walk 50 ft with 2 Turns(QC): 4 (CGA /c FWW) Walk 150 ft (QC): 3 (CGA-min (A). 192'x2 with 2 episodes requiring min (A) - once while shaking walker in response to nurse, and 1 when legs started to fatigue at end of 2nd round of gait) Gait Assistive Device: FWW Exercises Seated exercise: Red Tband for (B) LE ham curls x 20, (B) hip flexion x 10, (B) hip abduction x 10, (B) DF x 10. Ball adductor squeeze with LAQ x 10 x :05 (B) -- required max cues for this combination exercise. HEP created and given to patient for weekend exercise. Neuromuscular Standing balance ex with reaching task with OT mabelt, 10 cones varying heights and distances from patient requiring that he move out of his normal TERI to acquire -- min (A) x 2 with (R) hand, min (A) x 2 with (L) hand. Standing balance weight shift exercise with OT cotreat, standing taps ups to 4" curb with FWW, alternating feet x 15 (B), min (A). Standing balance activity with eyes closed x 10 sec with (R) hand on walker only, then repeated with (L) hand on walker only. Mild sway - min (A) Treatments Co-treat with OT for balance/endurance while OT focused on ADLs. Assessment Current Status: Good Progress Good progress with mobility, however requires continual cues for transfer safety. Safety concern re. returning home alone. Can follow simple 1 step commands, but cannot follow multi-step commands-states it is because "I'm a man". Perseverating on his work life with [employer] today. PT Commission Specialist Goals Commission Specialist Goals PT Commission Specialist Goals Time Frame: Oct 22, 2023 Roll Left & Right (QC): 4 Sit to Lying (QC): 4 Lying-Sitting on Side/Bed(QC): 4 Sit to Stand (QC): 3 Chair/San-kv-Cyfzo Xfer(QC): 3 Toilet Transfer (QC): 3 Car Transfer (QC): 3 Does the Patient Walk: Yes Walk 10 feet (QC): 3 Walk 50ft with 2 Turns (QC): 3 Walk 150 ft (QC): 3 Walking 10ft on Uneven Surface: 3 1 Step (curb) (QC): 3 4 Steps (QC): 3 12 Steps (QC): 3 Picking up an Object (QC): 3 Does the Pt use WC or Scooter?: Yes Wheel 50 feet with 2 turns (QC: 6 Type: Manual Wheel 150 feet: 6 Type: Manual PT Plan Treatment/Plan Treatment Plan: Continue Plan of Care Treatment Plan: Functional Activity Joey, Functional Strength, Gait, Safety, Transfers Treatment Duration: Sep 25, 2023 Frequency: 5 times per week Estimated Hrs Per Day: 1 hour per day Patient and/or Family Agrees t: Yes Time Time In: 845 (0774) Time Out: 930 (7185) DATE: Sep 28, 2023 Total Billed Treatment Time: 75 Total Billed Treatment 45'- cotreat 8:45-9:30 = 2GT, 1 FA. 15' cotreat 9:45-10:00 = 1 NM. 15' individual treatment = 1 Ex. Karyn Ryan PT Sep 28, 2023 12:34
--- NOTE | 2023-09-28 12:47 | PM&R Progress Note ---
Subjective HPI/CC On Admission Date Seen by Provider: Sep 28, 2023 Time Seen by Provider: 12:00 Subjective/Events-last exam 09/28/2023: Doing very well Improving every day No falls Pain controlled BM regimen maintained for constipation 09/27/2023: Patient doing a lot better Denies any new issues Walking 200 feet today Family at bedside 09/26/2023: No major issues No pain reported Improved confusion Family at bedside Family concerned about ability to manage at home alone 09/25/2023: Patient had confusion last night Much more alert today Family at bedside Eating lunch Pringle catheter will be discontinued tomorrow Pain is controlled Review of Systems General: Fatigue, Malaise Objective Exam Vital Signs Vital Signs Date Time Temp Pulse Resp B/P (MAP) Pulse Ox O2 Delivery O2 Flow Rate FiO2 09/28/23 20:30 Room Air 09/28/23 19:29 36.0 93 16 123/56 (78) 97 Capillary Refill : General Appearance: No Apparent Distress, WD/WN, Chronically ill, Obese, Other (lethargic) HEENT: PERRL/EOMI, Normal ENT Inspection, Pharynx Normal Neck: Full Range of Motion, Normal Inspection, Non Tender, Supple, Carotid Bruit Respiratory: Chest Non Tender, Lungs Clear, Normal Breath Sounds, No Accessory Muscle Use, No Respiratory Distress Cardiovascular: Regular Rate, Rhythm, No Edema, No Gallop, No JVD, No Murmur, Normal Peripheral Pulses Gastrointestinal: Normal Bowel Sounds, No Organomegaly, No Pulsatile Mass, Non Tender, Soft Back: Normal Inspection, No CVA Tenderness, No Vertebral Tenderness Extremity: Normal Capillary Refill, Normal Inspection, Normal Range of Motion, Non Tender, No Calf Tenderness, No Pedal Edema Neurologic/Psychiatric: Alert, environmental laboratory technician II-XII Norm as Tested, Abnormal Gait, Depressed Affect, Disoriented (subtle confusion), Motor Weakness (generalized) Skin: Normal Color, Warm/Dry Lymphatic: No Adenopathy Results/Procedures Lab Patient resulted labs reviewed. FIM Transfers Therapy Code Descriptions/Definitions Functional [place] Measure: 0=Not Assessed/NA 4=Minimal Assistance 1=Total Assistance 5=Supervision or Setup 2=Maximal Assistance 6=Modified [place] 3=Moderate Assistance 7=Complete IndependenceSCALE: Activities may be completed with or without assistive devices. 6-Whjgzuxzrj-swvhqkc completes the activity by him/herself with no assistance from a helper. 5-Set-up or Clean-up Assistance-helper sets up or cleans up; patient completes activity. [place] assists only prior to or following the activity. 4-Supervision or Touching Assistance-helper provides verbal cues and/or touching/steadying and/or contact guard assistance as patient completes activity. Assistance may be provided throughout the activity or intermittently. 3-Partial/Moderate Assistance-helper does LESS THAN HALF the effort. [place] lifts, holds or supports trunk or limbs, but provides less than half the effort. 2-Substantial/Maximal Assistance-helper does MORE THAN HALF the effort. [place] lifts or holds trunk or limbs and provides more than half the effort. 3-Amivuiwtd-ggyhvx does ALL the effort. Patient does none of the effort to complete the activity. Or, the assistance of 2 or more helpers is required for the patient to complete the activity. If activity was not attempted, code reason: 7-Patient Refused. 9-Not Applicable-not attempted and the patient did not perform the activity before the current illness, exacerbation or injury. 10-Not Attempted due to Environmental Limitations-(lack of equipment, weather restraints, etc.). 88-Not Attempted due to Medical Conditions or Safety Concerns. Roll Left to Right (QC): 1 Sit to Lying (QC): 3 (Min A) Sit to Stand (QC): 3 (CGA-min (A) /c v.c. for hand placement with each rep) Chair/Efu-kx-Jbswb Xfer(QC): 3 (CGA-min (A) /c FWW.) Car Transfer (QC): 88 Gait Training Does the Patient Walk?: Yes Distance: 192' x 2, 60' x 2 Walk 10 feet (QC): 4 (CGA) Walk 50 ft with 2 Turns(QC): 4 (CGA /c FWW) Walk 150 ft (QC): 3 (CGA-min (A). 192'x2 with 2 episodes requiring min (A) - once while shaking walker in response to nurse, and 1 when legs started to fatigue at end of 2nd round of gait) Walking 10ft/uneven surface-QC: 88 Gait Assistive Device: FWW Wheelchair Training Does the Pt Use a Wheelchair?: Yes Distance: 3' Wheel 50 ft with 2 turns (QC): 4 Wheel 150 ft (QC): 4 Type of Wheelchair: Manual Stair Training #of Steps: 3 1 Step (curb) (QC): 88 4 Steps (QC): 88 12 Steps (QC): 88 Balance Picking up an Object (QC): 88 ADL-Treatment Eating (QC): 4 (cue to use spoon after he opened ice cream.) Oral Hygiene (QC): 4 (SBA seated at sink, min VCs for sequencing) Shower/Bathe Self (QC): 1 (assist x2 and use of sit to stand lift to wash buttocks.) Upper Body Dressing (QC): 3 (to don/doff long sleeved shirt in sitting ) Lower Body Dressing (QC): 3 (Mod A overall.) On/Off Footwear (QC): 1 (to don/doff socks) Toileting Hygiene (QC): 3 (Min-Mod assist standing balance, pt able to complete all parts.) Toilet Transfer (QC): 4 (CGA) Assessment/Plan Assessment and Plan Assess & Plan/Chief Complaint Assessment: s/p cerebellar CVA HTN DM Obesity Recent severe delirium requiring Precedex in ICU s/p loop recorder Plan: BP control DM management PT OT 09/25/2023: Supportive care Monitor confusion 09/26/2023: Continue supportive care Catheter DC and voiding well 09/27/2023: Monitor closely Dramatic improvement 09/28/2023: BM regimen Monitor progress (1) Cerebellar stroke Status: Acute SALEEM KING DO Sep 28, 2023 12:47
[2023-09-28 19:29] VITALS: BP 123/56
[2023-09-29] MEDS: inSUlin ASPART 1 UNIT/0.01 ML (PER UNIT) SC SCH ×4 (05:35→21:30)
[2023-09-29 08:00] VITALS: BP 146/76
[2023-09-29] MEDS: risperiDONE 0.25 MG TABLET PO SCH ×2 (08:43→21:48)
[2023-09-29] MEDS: metFORMIN 500 MG TABLET PO SCH (08:43)
[2023-09-29] MEDS: ASPIRIN 81 MG CHEWABLE TABLET PO SCH (08:43)
[2023-09-29] MEDS: DOCUSATE SODIUM 100 MG CAPSULE PO SCH ×2 (08:43→21:30)
[2023-09-29] MEDS: amLODIPine 10 MG TABLET PO SCH (08:44)
[2023-09-29] MEDS: CLOPIDOGREL 75 MG TABLET PO SCH (08:44)
[2023-09-29] MEDS: MICONAZOLE 2% POWDER 90 GM TOP SCH ×2 (08:45→21:49)
[2023-09-29] MEDS: prednisoLONE 1% Ophthalmic Suspension 5 ML BTL OP SCH ×4 (08:45→21:30)
[2023-09-29] MEDS: LOSARTAN 100 MG TABLET PO SCH (08:45)
[2023-09-29] MEDS: SENNA W/DOCUSATE TABLET PO SCH ×2 (08:49→21:30)
[2023-09-29] MEDS: ENOXAPARIN 40 MG/0.4 ML SYRINGE SQ SCH (09:30)
--- NOTE | 2023-09-29 11:37 | PM&R Progress Note ---
Subjective HPI/CC On Admission Date Seen by Provider: Sep 29, 2023 Time Seen by Provider: 11:45 Subjective/Events-last exam 09/29/2023: Dramatic improvement Family visiting No falls Improved ambulation 09/28/2023: Doing very well Improving every day No falls Pain controlled BM regimen maintained for constipation 09/27/2023: Patient doing a lot better Denies any new issues Walking 200 feet today Family at bedside 09/26/2023: No major issues No pain reported Improved confusion Family at bedside Family concerned about ability to manage at home alone 09/25/2023: Patient had confusion last night Much more alert today Family at bedside Eating lunch Pringle catheter will be discontinued tomorrow Pain is controlled Review of Systems General: Fatigue, Malaise Objective Exam Vital Signs Vital Signs Date Time Temp Pulse Resp B/P (MAP) Pulse Ox O2 Delivery O2 Flow Rate FiO2 09/29/23 08:00 36.0 90 18 146/76 (99) 96 Room Air Capillary Refill : General Appearance: No Apparent Distress, WD/WN, Chronically ill, Obese, Other (lethargic) HEENT: PERRL/EOMI, Normal ENT Inspection, Pharynx Normal Neck: Full Range of Motion, Normal Inspection, Non Tender, Supple, Carotid Bruit Respiratory: Chest Non Tender, Lungs Clear, Normal Breath Sounds, No Accessory Muscle Use, No Respiratory Distress Cardiovascular: Regular Rate, Rhythm, No Edema, No Gallop, No JVD, No Murmur, Normal Peripheral Pulses Gastrointestinal: Normal Bowel Sounds, No Organomegaly, No Pulsatile Mass, Non Tender, Soft Back: Normal Inspection, No CVA Tenderness, No Vertebral Tenderness Extremity: Normal Capillary Refill, Normal Inspection, Normal Range of Motion, Non Tender, No Calf Tenderness, No Pedal Edema Neurologic/Psychiatric: Alert, director workforce management II-XII Norm as Tested, Abnormal Gait, Depressed Affect, Disoriented (subtle confusion), Motor Weakness (generalized) Skin: Normal Color, Warm/Dry Lymphatic: No Adenopathy Results/Procedures Lab Patient resulted labs reviewed. FIM Transfers Therapy Code Descriptions/Definitions Functional [place] Measure: 0=Not Assessed/NA 4=Minimal Assistance 1=Total Assistance 5=Supervision or Setup 2=Maximal Assistance 6=Modified [place] 3=Moderate Assistance 7=Complete IndependenceSCALE: Activities may be completed with or without assistive devices. 4-Dobdofoqwd-sxgxmtv completes the activity by him/herself with no assistance from a helper. 5-Set-up or Clean-up Assistance-helper sets up or cleans up; patient completes activity. [place] assists only prior to or following the activity. 4-Supervision or Touching Assistance-helper provides verbal cues and/or touching/steadying and/or contact guard assistance as patient completes activity. Assistance may be provided throughout the activity or intermittently. 3-Partial/Moderate Assistance-helper does LESS THAN HALF the effort. [place] lifts, holds or supports trunk or limbs, but provides less than half the effort. 2-Substantial/Maximal Assistance-helper does MORE THAN HALF the effort. [place] lifts or holds trunk or limbs and provides more than half the effort. 5-Hdelbrycw-tnpftz does ALL the effort. Patient does none of the effort to complete the activity. Or, the assistance of 2 or more helpers is required for the patient to complete the activity. If activity was not attempted, code reason: 7-Patient Refused. 9-Not Applicable-not attempted and the patient did not perform the activity before the current illness, exacerbation or injury. 10-Not Attempted due to Environmental Limitations-(lack of equipment, weather restraints, etc.). 88-Not Attempted due to Medical Conditions or Safety Concerns. Roll Left to Right (QC): 1 Sit to Lying (QC): 3 (Min A) Sit to Stand (QC): 3 (CGA-min (A) /c v.c. for hand placement with each rep) Chair/Vro-xm-Nganp Xfer(QC): 3 (CGA-min (A) /c FWW.) Car Transfer (QC): 88 Gait Training Does the Patient Walk?: Yes Distance: 192' x 2, 60' x 2 Walk 10 feet (QC): 4 (CGA) Walk 50 ft with 2 Turns(QC): 4 (CGA /c FWW) Walk 150 ft (QC): 3 (CGA-min (A). 192'x2 with 2 episodes requiring min (A) - once while shaking walker in response to nurse, and 1 when legs started to fatigue at end of 2nd round of gait) Walking 10ft/uneven surface-QC: 88 Gait Assistive Device: FWW Wheelchair Training Does the Pt Use a Wheelchair?: Yes Distance: 3' Wheel 50 ft with 2 turns (QC): 4 Wheel 150 ft (QC): 4 Type of Wheelchair: Manual Stair Training #of Steps: 3 1 Step (curb) (QC): 88 4 Steps (QC): 88 12 Steps (QC): 88 Balance Picking up an Object (QC): 88 ADL-Treatment Eating (QC): 4 (cue to use spoon after he opened ice cream.) Oral Hygiene (QC): 4 (SBA seated at sink, min VCs for sequencing) Shower/Bathe Self (QC): 1 (assist x2 and use of sit to stand lift to wash but tocks.) Upper Body Dressing (QC): 3 (to don/doff long sleeved shirt in sitting ) Lower Body Dressing (QC): 3 (Mod A overall.) On/Off Footwear (QC): 1 (to don/doff socks) Toileting Hygiene (QC): 3 (Min-Mod assist standing balance, pt able to complete all parts.) Toilet Transfer (QC): 3 (CGA-min A) Assessment/Plan Assessment and Plan Assess & Plan/Chief Complaint Assessment: s/p cerebellar CVA HTN DM Obesity Recent severe delirium requiring Precedex in ICU s/p loop recorder Plan: BP control DM management PT OT 09/25/2023: Supportive care Monitor confusion 09/26/2023: Continue supportive care Catheter DC and voiding well 09/27/2023: Monitor closely Dramatic improvement 09/28/2023: BM regimen Monitor progress 09/29/2023: No changes Dramatic improvement (1) Cerebellar stroke Status: Acute SALEEM KING DO Sep 29, 2023 11:37
[2023-09-29] MEDS: SCOPOLAMINE PATCH REMOVAL TP SCH (13:28)
[2023-09-29] MEDS: SCOPOLAMINE 1.5 MG PATCH TD SCH (13:28)
[2023-09-29 19:27] VITALS: BP 138/69
[2023-09-30] MEDS: inSUlin ASPART 1 UNIT/0.01 ML (PER UNIT) SC SCH ×4 (06:11→21:00)
[2023-09-30] MEDS: prednisoLONE 1% Ophthalmic Suspension 5 ML BTL OP SCH ×4 (07:29→21:31)
[2023-09-30] MEDS: amLODIPine 10 MG TABLET PO SCH (07:29)
[2023-09-30] MEDS: SENNA W/DOCUSATE TABLET PO SCH ×2 (07:29→21:00)
[2023-09-30] MEDS: metFORMIN 500 MG TABLET PO SCH (07:29)
[2023-09-30] MEDS: CLOPIDOGREL 75 MG TABLET PO SCH (07:29)
[2023-09-30] MEDS: risperiDONE 0.25 MG TABLET PO SCH ×2 (07:29→21:30)
[2023-09-30] MEDS: DOCUSATE SODIUM 100 MG CAPSULE PO SCH ×2 (07:30→21:30)
[2023-09-30] MEDS: ASPIRIN 81 MG CHEWABLE TABLET PO SCH (07:30)
[2023-09-30] MEDS: MICONAZOLE 2% POWDER 90 GM TOP SCH ×2 (07:30→21:31)
[2023-09-30] MEDS: LOSARTAN 100 MG TABLET PO SCH (07:30)
[2023-09-30 07:41] VITALS: BP 140/66
--- NOTE | 2023-09-30 08:15 | PM&R Progress Note ---
Subjective HPI/CC On Admission Date Seen by Provider: Sep 30, 2023 Time Seen by Provider: 12:00 Subjective/Events-last exam 09/30/2023: Doing well Multiple visitors every day No pain reported Confusion resolved 09/29/2023: Dramatic improvement Family visiting No falls Improved ambulation 09/28/2023: Doing very well Improving every day No falls Pain controlled BM regimen maintained for constipation 09/27/2023: Patient doing a lot better Denies any new issues Walking 200 feet today Family at bedside 09/26/2023: No major issues No pain reported Improved confusion Family at bedside Family concerned about ability to manage at home alone 09/25/2023: Patient had confusion last night Much more alert today Family at bedside Eating lunch Pringle catheter will be discontinued tomorrow Pain is controlled Review of Systems General: Fatigue, Malaise Objective Exam Vital Signs Vital Signs Date Time Temp Pulse Resp B/P (MAP) Pulse Ox O2 Delivery O2 Flow Rate FiO2 09/30/23 07:41 36.4 77 16 140/66 (90) 95 Room Air Capillary Refill : General Appearance: No Apparent Distress, WD/WN, Chronically ill, Obese, Other (lethargic) HEENT: PERRL/EOMI, Normal ENT Inspection, Pharynx Normal Neck: Full Range of Motion, Normal Inspection, Non Tender, Supple, Carotid Bruit Respiratory: Chest Non Tender, Lungs Clear, Normal Breath Sounds, No Accessory Muscle Use, No Respiratory Distress Cardiovascular: Regular Rate, Rhythm, No Edema, No Gallop, No JVD, No Murmur, Normal Peripheral Pulses Gastrointestinal: Normal Bowel Sounds, No Organomegaly, No Pulsatile Mass, Non Tender, Soft Back: Normal Inspection, No CVA Tenderness, No Vertebral Tenderness Extremity: Normal Capillary Refill, Normal Inspection, Normal Range of Motion, Non Tender, No Calf Tenderness, No Pedal Edema Neurologic/Psychiatric: Alert, supervisor residential II-XII Norm as Tested, Abnormal Gait, Depressed Affect, Disoriented (subtle confusion), Motor Weakness (generalized) Skin: Normal Color, Warm/Dry Lymphatic: No Adenopathy Results/Procedures Lab Patient resulted labs reviewed. FIM Transfers Therapy Code Descriptions/Definitions Functional [place] Measure: 0=Not Assessed/NA 4=Minimal Assistance 1=Total Assistance 5=Supervision or Setup 2=Maximal Assistance 6=Modified [place] 3=Moderate Assistance 7=Complete IndependenceSCALE: Activities may be completed with or without assistive devices. 3-Skzufjbvad-bouupbp completes the activity by him/herself with no assistance from a helper. 5-Set-up or Clean-up Assistance-helper sets up or cleans up; patient completes activity. [place] assists only prior to or following the activity. 4-Supervision or Touching Assistance-helper provides verbal cues and/or touching/steadying and/or contact guard assistance as patient completes activity. Assistance may be provided throughout the activity or intermittently. 3-Partial/Moderate Assistance-helper does LESS THAN HALF the effort. [place] lifts, holds or supports trunk or limbs, but provides less than half the effort. 2-Substantial/Maximal Assistance-helper does MORE THAN HALF the effort. [place] lifts or holds trunk or limbs and provides more than half the effort. 7-Mkoqhbfpb-otzkxf does ALL the effort. Patient does none of the effort to complete the activity. Or, the assistance of 2 or more helpers is required for the patient to complete the activity. If activity was not attempted, code reason: 7-Patient Refused. 9-Not Applicable-not attempted and the patient did not perform the activity before the current illness, exacerbation or injury. 10-Not Attempted due to Environmental Limitations-(lack of equipment, weather restraints, etc.). 88-Not Attempted due to Medical Conditions or Safety Concerns. Roll Left to Right (QC): 1 Sit to Lying (QC): 3 (Min A) Sit to Stand (QC): 3 (CGA-min (A) /c v.c. for hand placement with each rep) Chair/Obo-ez-Vcwdj Xfer(QC): 3 (CGA-min (A) /c FWW.) Car Transfer (QC): 88 Gait Training Does the Patient Walk?: Yes Distance: 192' x 2, 60' x 2 Walk 10 feet (QC): 4 (CGA) Walk 50 ft with 2 Turns(QC): 4 (CGA /c FWW) Walk 150 ft (QC): 3 (CGA-min (A). 192'x2 with 2 episodes requiring min (A) - once while shaking walker in response to nurse, and 1 when legs started to fatigue at end of 2nd round of gait) Walking 10ft/uneven surface-QC: 88 Gait Assistive Device: FWW Wheelchair Training Does the Pt Use a Wheelchair?: Yes Distance: 3' Wheel 50 ft with 2 turns (QC): 4 Wheel 150 ft (QC): 4 Type of Wheelchair: Manual Stair Training #of Steps: 3 1 Step (curb) (QC): 88 4 Steps (QC): 88 12 Steps (QC): 88 Balance Picking up an Object (QC): 88 ADL-Treatment Eating (QC): 4 (cue to use spoon after he opened ice cream.) Oral Hygiene (QC): 4 (SBA seated at sink, min VCs for sequencing) Shower/Bathe Self (QC): 1 (assist x2 and use of sit to stand lift to wash buttocks.) Upper Body Dressing (QC): 3 (to don/doff long sleeved shirt in sitting ) Lower Body Dressing (QC): 3 (Mod A overall.) On/Off Footwear (QC): 1 (to don/doff socks) Toileting Hygiene (QC): 3 (Min-Mod assist standing balance, pt able to complete all parts.) Toilet Transfer (QC): 3 (CGA-min A) Assessment/Plan Assessment and Plan Assess & Plan/Chief Complaint Assessment: s/p cerebellar CVA HTN DM Obesity Recent severe delirium requiring Precedex in ICU s/p loop recorder Plan: BP control DM management PT OT 09/25/2023: Supportive care Monitor confusion 09/26/2023: Continue supportive care Catheter DC and voiding well 09/27/2023: Monitor closely Dramatic improvement 09/28/2023: BM regimen Monitor progress 09/29/2023: No changes Dramatic improvement 09/30/2023: Monitor closely (1) Cerebellar stroke Status: Acute SALEEM KING DO Sep 30, 2023 08:15
[2023-09-30] MEDS: ENOXAPARIN 40 MG/0.4 ML SYRINGE SQ SCH (09:42)
[2023-09-30 19:36] VITALS: BP 145/66
--- NOTE | 2023-10-01 05:04 | PM&R Progress Note ---
Subjective HPI/CC On Admission Date Seen by Provider: Oct 01, 2023 Time Seen by Provider: 08:30 Subjective/Events-last exam 10/01/2023: Doing well Had some confusion this morning but has cleared No falls No pain 09/30/2023: Doing well Multiple visitors every day No pain reported Confusion resolved 09/29/2023: Dramatic improvement Family visiting No falls Improved ambulation 09/28/2023: Doing very well Improving every day No falls Pain controlled BM regimen maintained for constipation 09/27/2023: Patient doing a lot better Denies any new issues Walking 200 feet today Family at bedside 09/26/2023: No major issues No pain reported Improved confusion Family at bedside Family concerned about ability to manage at home alone 09/25/2023: Patient had confusion last night Much more alert today Family at bedside Eating lunch Pringle catheter will be discontinued tomorrow Pain is controlled Review of Systems General: Fatigue, Malaise Objective Exam Vital Signs Vital Signs Date Time Temp Pulse Resp B/P (MAP) Pulse Ox O2 Delivery O2 Flow Rate FiO2 10/01/23 09:43 Room Air 10/01/23 08:24 36.0 78 18 131/62 (85) 97 Capillary Refill : General Appearance: No Apparent Distress, WD/WN, Chronically ill, Obese, Other (lethargic) HEENT: PERRL/EOMI, Normal ENT Inspection, Pharynx Normal Neck: Full Range of Motion, Normal Inspection, Non Tender, Supple, Carotid Bruit Respiratory: Chest Non Tender, Lungs Clear, Normal Breath Sounds, No Accessory Muscle Use, No Respiratory Distress Cardiovascular: Regular Rate, Rhythm, No Edema, No Gallop, No JVD, No Murmur, Normal Peripheral Pulses Gastrointestinal: Normal Bowel Sounds, No Organomegaly, No Pulsatile Mass, Non Tender, Soft Back: Normal Inspection, No CVA Tenderness, No Vertebral Tenderness Extremity: Normal Capillary Refill, Normal Inspection, Normal Range of Motion, Non Tender, No Calf Tenderness, No Pedal Edema Neurologic/Psychiatric: Alert, obedience trainer II-XII Norm as Tested, Abnormal Gait, Depressed Affect, Disoriented (subtle confusion), Motor Weakness (generalized) Skin: Normal Color, Warm/Dry Lymphatic: No Adenopathy Results/Procedures Lab Laboratory Tests 10/01/23 05:13 Patient resulted labs reviewed. FIM Transfers Therapy Code Descriptions/Definitions Functional [place] Measure: 0=Not Assessed/NA 4=Minimal Assistance 1=Total Assistance 5=Supervision or Setup 2=Maximal Assistance 6=Modified [place] 3=Moderate Assistance 7=Complete IndependenceSCALE: Activities may be completed with or without assistive devices. 6-Lxualmpbpm-ctpkdkb completes the activity by him/herself with no assistance from a helper. 5-Set-up or Clean-up Assistance-helper sets up or cleans up; patient completes activity. [place] assists only prior to or following the activity. 4-Supervision or Touching Assistance-helper provides verbal cues and/or touching/steadying and/or contact guard assistance as patient completes activ ity. Assistance may be provided throughout the activity or intermittently. 3-Partial/Moderate Assistance-helper does LESS THAN HALF the effort. [place] lifts, holds or supports trunk or limbs, but provides less than half the effort. 2-Substantial/Maximal Assistance-helper does MORE THAN HALF the effort. [place] lifts or holds trunk or limbs and provides more than half the effort. 7-Iymklcuoe-dquqwd does ALL the effort. Patient does none of the effort to complete the activity. Or, the assistance of 2 or more helpers is required for the patient to complete the activity. If activity was not attempted, code reason: 7-Patient Refused. 9-Not Applicable-not attempted and the patient did not perform the activity before the current illness, exacerbation or injury. 10-Not Attempted due to Environmental Limitations-(lack of equipment, weather restraints, etc.). 88-Not Attempted due to Medical Conditions or Safety Concerns. Roll Left to Right (QC): 1 Sit to Lying (QC): 3 (Min A) Sit to Stand (QC): 3 (CGA-min (A) /c v.c. for hand placement with each rep) Chair/Hff-yq-Lmfei Xfer(QC): 3 (CGA-min (A) /c FWW.) Car Transfer (QC): 88 Gait Training Does the Patient Walk?: Yes Distance: 192' x 2, 60' x 2 Walk 10 feet (QC): 4 (CGA) Walk 50 ft with 2 Turns(QC): 4 (CGA /c FWW) Walk 150 ft (QC): 3 (CGA-min (A). 192'x2 with 2 episodes requiring min (A) - once while shaking walker in response to nurse, and 1 when legs started to fatigue at end of 2nd round of gait) Walking 10ft/uneven surface-QC: 88 Gait Assistive Device: FWW Wheelchair Training Does the Pt Use a Wheelchair?: Yes Distance: 3' Wheel 50 ft with 2 turns (QC): 4 Wheel 150 ft (QC): 4 Type of Wheelchair: Manual Stair Training #of Steps: 3 1 Step (curb) (QC): 88 4 Steps (QC): 88 12 Steps (QC): 88 Balance Picking up an Object (QC): 88 ADL-Treatment Eating (QC): 4 (cue to use spoon after he opened ice cream.) Oral Hygiene (QC): 4 (SBA seated at sink, min VCs for sequencing) Shower/Bathe Self (QC): 1 (assist x2 and use of sit to stand lift to wash buttocks.) Upper Body Dressing (QC): 3 (to don/doff long sleeved shirt in sitting ) Lower Body Dressing (QC): 3 (Mod A overall.) On/Off Footwear (QC): 1 (to don/doff socks) Toileting Hygiene (QC): 3 (Min-Mod assist standing balance, pt able to complete all parts.) Toilet Transfer (QC): 3 (CGA-min A) Assessment/Plan Assessment and Plan Assess & Plan/Chief Complaint Assessment: s/p cerebellar CVA HTN DM Obesity Recent severe delirium requiring Precedex in ICU s/p loop recorder Plan: BP control DM management PT OT 09/25/2023: Supportive care Monitor confusion 09/26/2023: Continue supportive care Catheter DC and voiding well 09/27/2023: Monitor closely Dramatic improvement 09/28/2023: BM regimen Monitor progress 09/29/2023: No changes Dramatic improvement 09/30/2023: Monitor closely 10/01/2023: Labs stable Monitor confusion (1) Cerebellar stroke Status: Acute SALEEM KING DO Oct 01, 2023 05:04
[2023-10-01 05:43] LABS: BASOPHILS # (AUTO) 0.1 10^3/uL (0.0-0.1); BASOPHILS % (AUTO) 1 % (0-10); EOSINOPHILS # (AUTO) 0.5 10^3/uL (0.0-0.3); EOSINOPHILS % (AUTO) 8 % (0-10); HEMATOCRIT 42 % (40-54); HEMOGLOBIN 13.7 g/dL (13.3-17.7); LYMPHOCYTES % (AUTO) 18 % (12-44); MEAN CORPUSCULAR HEMOGLOBIN 31 pg (25-34); MEAN CORPUSCULAR HGB CONC 33 g/dL (32-36); MEAN CORPUSCULAR VOLUME 94 fL (80-99); MEAN PLATELET VOLUME 10.6 fL (9.0-12.2); MONOCYTES # (AUTO) 0.6 10^3/uL (0.0-1.0); MONOCYTES % (AUTO) 10 % (0-12); NEUTROPHILS # (AUTO) 3.4 10^3/uL (1.8-7.8); NEUTROPHILS % (AUTO) 62 % (42-75); PLATELET COUNT 263 10^3/uL (130-400); WHITE BLOOD COUNT 5.5 10^3/uL (4.3-11.0)
[2023-10-01 06:03] LABS: ALBUMIN 3.2 GM/DL (3.2-4.5); BILIRUBIN,TOTAL 0.6 MG/DL (0.1-1.0); CALCIUM 9.2 MG/DL (8.5-10.1); POTASSIUM 4.1 MMOL/L (3.6-5.0); TOTAL PROTEIN 6.2 GM/DL (6.4-8.2)
[2023-10-01] MEDS: inSUlin ASPART 1 UNIT/0.01 ML (PER UNIT) SC SCH ×4 (06:27→21:55)
[2023-10-01] MEDS: ASPIRIN 81 MG CHEWABLE TABLET PO SCH (07:58)
[2023-10-01] MEDS: metFORMIN 500 MG TABLET PO SCH (07:59)
[2023-10-01] MEDS: prednisoLONE 1% Ophthalmic Suspension 5 ML BTL OP SCH ×4 (07:59→20:53)
[2023-10-01] MEDS: LOSARTAN 100 MG TABLET PO SCH (07:59)
[2023-10-01] MEDS: CLOPIDOGREL 75 MG TABLET PO SCH (07:59)
[2023-10-01] MEDS: risperiDONE 0.25 MG TABLET PO SCH ×2 (07:59→20:54)
[2023-10-01] MEDS: amLODIPine 10 MG TABLET PO SCH (07:59)
[2023-10-01] MEDS: DOCUSATE SODIUM 100 MG CAPSULE PO SCH ×2 (08:00→20:54)
[2023-10-01] MEDS: MICONAZOLE 2% POWDER 90 GM TOP SCH ×2 (08:00→20:53)
[2023-10-01] MEDS: SENNA W/DOCUSATE TABLET PO SCH ×2 (08:01→21:55)
[2023-10-01 08:24] VITALS: BP 131/62
--- NOTE | 2023-10-01 08:52 | Occupational Ther Daily Note ---
OT Current Status-Daily Note Subjective Pt up in recliner, agreeable to OT tx. Mental Status/Objective Patient Orientation: Person, Confused ADL-Treatment Therapy Code Descriptions/Definitions Functional [place] Measure: 0=Not Assessed/NA 4=Minimal Assistance 1=Total Assistance 5=Supervision or Setup 2=Maximal Assistance 6=Modified [place] 3=Moderate Assistance 7=Complete IndependenceSCALE: Activities may be completed with or without assistive devices. 9-Nexdbaxtcm-gzqlpic completes the activity by him/herself with no assistance from a helper. 5-Set-up or Clean-up Assistance-helper sets up or cleans up; patient completes activity. [place] assists only prior to or following the activity. 4-Supervision or Touching Assistance-helper provides verbal cues and/or touching/steadying and/or contact guard assistance as patient completes activity. Assistance may be provided throughout the activity or intermittently. 3-Partial/Moderate Assistance-helper does LESS THAN HALF the effort. [place] lifts, holds or supports trunk or limbs, but provides less than half the effort. 2-Substantial/Maximal Assistance-helper does MORE THAN HALF the effort. [place] lifts or holds trunk or limbs and provides more than half the effort. 1-Onnhbqxqs-eitgzq does ALL the effort. Patient does none of the effort to complete the activity. Or, the assistance of 2 or more helpers is required for the patient to complete the activity. If activity was not attempted, code reason: 7-Patient Refused. 9-Not Applicable-not attempted and the patient did not perform the activity before the current illness, exacerbation or injury. 10-Not Attempted due to Environmental Limitations-(lack of equipment, weather restraints, etc.). 88-Not Attempted due to Medical Conditions or Safety Concerns. Shower/Bathe Self (QC): 4 (CGA) Upper Body Dressing (QC): 4 (SBA, min VCs for orientation of shirt) Lower Body Dressing (QC): 4 (CGA in stand) On/Off Footwear: 4 (SBA) Other Treatment Pt in recliner, sit to stand with CGA, then CGA into bathroom and onto SC using FWW. Pt doffed clothes, CGA with min VCs for safety. Pt completed shower, LH sponge provided for pt to utilize in order to wash BLEs lower legs/feet. Pt dried off (CGA in stand with VCs for safety), then donned clothes. Pt able to complete LBD without AE. Pt returned to his recliner using FWW, CGA. Post tx, pt in recliner, call light in reach and all needs met. Chair alarm activated. Education OT Patient Education: Correct positioning, Energy conservation, Modified ADL techniques, Progress toward Goal/Update tx plan, Purpose of tx/functional activities, Rehab process Teaching Recipient: Patient Teaching Methods: Discussion Response to Teaching: Verbalize Understanding, Reinforcement Needed OT Assisted Goals Fib[employer] Optics Jointer Goals Time Frame: Oct 19, 2023 Acute change in mental status: 1 Inattention: 1 Disorganized thinkin Altered level of consciousness: 0 Eating (QC): 6 Oral Hygiene (QC): 6 Toileting Hygiene (QC): 6 Shower/Bathe Self (QC): 6 Upper Body Dressing (QC): 6 Lower Body Dressing (QC): 6 On/Off Footwear (QC): 6 Additional Goals: 1-Demonstrate ADL Tasks, 2-Verbalize Understanding, 3- ImproveStrength/Joey 1=Demonstrate adherence to instructed precautions during ADL tasks. 2=Patient will verbalize/demonstrate understanding of assistive devices/modifications for ADL. 3=Patient will improve strength/tolerance for activity to enable patient to perform ADL's. OT Education/Plan Problem List/Assessment Assessment: Decreased Activ Tolerance, Decreased Safety Aware, Decreased UE Strength, Impaired Cognition, Impaired Funct Balance, Impaired I ADL's, Impaired Self-Care Skills Discharge Recommendations Plan/Recommendations: Continue POC Treatment Plan/Plan of Care Patient would benefit from OT for education, treatment and training to promote independence in ADL's, mobility, safety and/or upper extremity function for ADL's. Plan of Care: ADL Retraining, Functional Mobility, Group Exercise/Act as Ind, UE Funct Exercise/Act, UE Neuromus Re-Ed/Coord Treatment Duration: Oct 19, 2023 Frequency: At least 5 of 7 days/Wk (IRF) Estimated Hrs Per Day: Other (75 mins per day) Agreement: Yes Rehab Potential: Fair Time Start Time: 08:30 Stop Time: 09:30 DATE: Oct 01, 2023 Total Time Billed (hr/min): 60 Billed Treatment Time 1, ADL 4 LIN MORENO OT Oct 01, 2023 08:52
--- NOTE | 2023-10-01 10:28 | Cardiology Progress Note ---
Subjective Date Seen by Provider: Oct 01, 2023 Time Seen by Provider: 10:25 Subjective/Events-last exam Patient was seen at bedside, sitting comfortably, feeling better. No new complaint. Objective-Cardiology Exam Last Set of Vital Signs Vital Signs 10/01/23 10/01/23 08:24 09:43 Temp 36.0 Pulse 78 Resp 18 B/P (MAP) 131/62 (85) Pulse Ox 97 O2 Delivery Room Air I&O Intake and Output 09/30/23 23:59 Intake Total 1450 ml Balance 1450 ml Intake Oral 1450 ml # Voids 7 # Urine Diapers 1 # Bowel Movements 3 General: Alert, Oriented X3, Cooperative HEENT: Atraumatic, PERRLA Neck: Supple, No JVD, No Thyromegaly Lungs: Clear to Auscultation, Normal Air Movement Heart: Regular Rate, Normal S1, Normal S2, No Murmurs Abdomen: Normal Bowel Sounds, Soft, No Tenderness, No Hepatosplenomegaly, No Masses Extremities: No Clubbing, No Cyanosis, No Edema, Normal Pulses, No Tenderness/Swelling Skin: No Rashes, No Breakdown, No Significant Lesion Neuro: Normal Gait, Normal Speech, Strength at 5/5 X4 Ext, Normal Tone, Sensation Intact Psych/Mental Status: Mental Status NL, Mood NL Results Lab Laboratory Tests 10/01/23 05:13 A/P-Cardiology Admission Diagnosis Acute CVA Hypertension Hyperlipidemia Diabetes mellitus Assessment/Plan Status post acute CVA, 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 Continue to monitor Status post acute change in mental status with confusion and patient become combative and agitated. Acute delirium Better, back to his baseline Feeling better and reporting improvement. Continue to monitor Abnormal baseline EKG with right bundle branch block. 2D echo was reported by Dr. Davis on September 16, 2023 with normal LV size, ejection fraction 70 to 75%, grade 1 diastolic dysfunction, PA pressure 35 mmHg Hypertension, well controlled on current medication, monitor blood pressure Hyperlipidemia, monitor lipids Diabetes mellitus, managed by primary care physician SANGITA JC MD Oct 01, 2023 10:27
[2023-10-01] MEDS: ENOXAPARIN 40 MG/0.4 ML SYRINGE SQ SCH (10:59)
--- NOTE | 2023-10-01 11:28 | Speech Therapy Daily Note ---
Speech Daily Progress Note Subjective Date Seen by Provider: Oct 01, 2023 Time Seen by Provider: 10:30 Pt was sitting in bedside recliner upon MATERIAL FLOW ANALYST arrival. Pt reports that he is tired, but that he will participate in session. Objective Pt demonstrates improved cognitive abilities from 09/28. Pt completes mental manipulation tasks with 3 words and 4 words repeated in reverse order, completes with 90% accuracy (3 words) and 60% accuracy (4 words). Pt demonstrates improved ability to hold information and manipulate it. Pt completes verbal direction task with 2 units at a time, completes with 85% accuracy. Pt completes simple mathematical calculations with 70% accuracy and 85% accuracy with short-term recall of initial numbers given. Assessment Assessment Current Status: Good Progress Treatment Plan Continue Plan of Care Speech Skilled Nursing Goals Sql Developer [employer] Goals 1. The pt will be oriented to self, place, time and situation independently with 100% accuracy. 2. The pt will complete simple problem solving and safety awareness for daily tasks of living with 90% accuracy. 3. The pt will demonstrate immediate, short-term and long-term recall of functional information with 80% accuracy. Speech-Plan Treatment Plan Speech Therapy Treatment Plan: Continue Plan of Care Treatment Duration: Sep 25, 2023 Frequency: At least 5 of 7 days/Wk (IRF) Estimated Hrs Per Day: Other (45 min cog/ling tx) Rehab Potential: Good Time Speech Therapy Time In: 10:30 Speech Therapy Time Out: 11:15 DATE: Oct 01, 2023 Total Billed Time: 45 Billed Treatment Time 1 SLTS 45 min Anayeli Rowan Oct 01, 2023 11:28
--- NOTE | 2023-10-01 12:33 | Physical Therapy Daily Note ---
PT Daily Note-Current Subjective Agreeable to work with PT. States the speech therapy made him tired. Pain Section J - Health Conditions 1. Rarely or not at all 2. Occasionally 3. Frequently 4. Almost constantly 8. Unable to answer Pain Effect on Sleep: 1 Pain Interference with Therapy: 1 Pain Interference w/Day-to-Day: 1 Transfers SCALE: Activities may be completed with or without assistive devices. 2-Iunrscxosr-kikwhvv completes the activity by him/herself with no assistance from a helper. 5-Set-up or Clean-up Assistance-helper sets up or cleans up; patient completes activity. [place] assists only prior to or following the activity. 4-Supervision or Touching Assistance-helper provides verbal cues and/or touching/steadying and/or contact guard assistance as patient completes activity. Assistance may be provided throughout the activity or intermittently. 3-Partial/Moderate Assistance-helper does LESS THAN HALF the effort. [place] lifts, holds or supports trunk or limbs, but provides less than half the effort. 2-Substantial/Maximal Assistance-helper does MORE THAN HALF the effort. [place] lifts or holds trunk or limbs and provides more than half the effort. 1-Jydycyzjt-uleiez does ALL the effort. Patient does none of the effort to complete the activity. Or, the assistance of 2 or more helpers is required for the patient to complete the activity. If activity was not attempted, code reason: 7-Patient Refused. 9-Not Applicable-not attempted and the patient did not perform the activity before the current illness, exacerbation or injury. 10-Not Attempted due to Environmental Limitations-(lack of equipment, weather restraints, etc.). 88-Not Attempted due to Medical Conditions or Safety Concerns. Sit to Stand (QC): 4 (CGA from recliner, arm chair and Nustep) Chair/Nca-di-Zxbqm Xfer(QC): 3 (Min (A) /c safety cues, as patient tried to leave his walker behind and walk to chair - resulted in LOB) Weight Bearing Full Weight Bearing Full Weight Bearing Gait Training Walk 150 ft (QC): 4 (153' CGA /c FWW /c cues for direction and location of room.) Stair Training 1 Step (curb) (QC): 3 (min (A) x 4 in // bars with cues for sequence (up with (L), down with (R)).) Exercises Sitting ex /c 2# on (B) LE's: LAQ 5 x 2 with increased difficulty on (R), :03 hold. Hip flexion alternating legs x 10. Ankle DF/PF presses with feet on floor x 10. Hip isometric ball squeeze/adduction x 10. Standing ex in // bars: 2# (B), high-knee march x 10 alternating legs, ham curls x 10 (R), x 10 (L), alternating hip abduction x 10, calf presses x 10. Tap ups to 4" curb x 10 alternating feet /c 2#. Curb step in // bars x 2. NuStep Minutes: 8 NuStep Workload: 3 Assessment Current Status: Excellent Progress PT Fitter Welder Goals Fitter Welder Goals PT Fitter Welder Goals Time Frame: Oct 22, 2023 Roll Left & Right (QC): 4 Sit to Lying (QC): 4 Lying-Sitting on Side/Bed(QC): 4 Sit to Stand (QC): 3 Chair/Xbz-zs-Kelzd Xfer(QC): 3 Toilet Transfer (QC): 3 Car Transfer (QC): 3 Does the Patient Walk: Yes Walk 10 feet (QC): 3 Walk 50ft with 2 Turns (QC): 3 Walk 150 ft (QC): 3 Walking 10ft on Uneven Surface: 3 1 Step (curb) (QC): 3 4 Steps (QC): 3 12 Steps (QC): 3 Picking up an Object (QC): 3 Does the Pt use WC or Scooter?: Yes Wheel 50 feet with 2 turns (QC: 6 Type: Manual Wheel 150 feet: 6 Type: Manual PT Plan Treatment/Plan Treatment Plan: Continue Plan of Care Treatment Plan: Functional Activity Joey, Functional Strength, Gait, Safety, Transfers Treatment Duration: Sep 25, 2023 Frequency: 5 times per week Estimated Hrs Per Day: 1 hour per day Patient and/or Family Agrees t: Yes Time Time In: 1115 Time Out: 1200 DATE: Oct 01, 2023 Total Billed Treatment Time: 45 Total Billed Treatment 1, GT1, EX2 = 45' Karyn Ryan PT Oct 01, 2023 12:33
--- NOTE | 2023-10-01 14:42 | Therapy Group Daily Note ---
Therapy Daily Group Note Patient Education Topic Home Safety, Exercises Exercises LE Seated Exercise, UE Exercise Session Ratio (pt:therapist): 4:1 Goal of Session: Education on ARU Expectations, Home Safety Strategies, UE/LE Strengthing Goal Met for this Session: Yes Pt Benefit of Group: Contributions to Others, F/U Use of Strategies @Home, Increased Functional Safety, Increased Functional Strength, Improved Cognition, Recognition of Peers, Socialization Other/Notes Group completed with lCaudine Londono PTA. Pt ambulated using FWW to OT/PT group. OT/PT group consisted of introductions (name,place living, favorite Thanksgiving food), socialization, B UE/LE seated exercises and educational topic of home safety with activity. Pt introduced self appropriately and actively listened to peers. Pt able to complete B UE/LE seated exercises with minimal cues. Pt demonstrated understanding of educational topic by voicing personal experiences and using information gathered during discussion. After therapy, pt requested to use toilet. Pt transferred to toilet and call light in hand. Nrsg aware of Pt's position. All needs met. Start Time: 13:00 Stop Time: 14:15 Total Billed Treatment Time: 75 Total Billed Treatment 1-JOHN GUERRIER Oct 01, 2023 14:42
[2023-10-01] MEDS: ACETAMINOPHEN 325 MG TABLET PO PRN (20:54)
[2023-10-01 20:55] VITALS: BP 122/69
[2023-10-02] MEDS: inSUlin ASPART 1 UNIT/0.01 ML (PER UNIT) SC SCH ×4 (05:34→20:26)
--- NOTE | 2023-10-02 07:00 | PM&R Progress Note ---
Subjective HPI/CC On Admission Date Seen by Provider: Oct 02, 2023 Time Seen by Provider: 12:00 Subjective/Events-last exam 10/02/2023: Doing well Much improved overall Confusion improved DC scopalmine patch 10/01/2023: Doing well Had some confusion this morning but has cleared No falls No pain 09/30/2023: Doing well Multiple visitors every day No pain reported Confusion resolved 09/29/2023: Dramatic improvement Family visiting No falls Improved ambulation 09/28/2023: Doing very well Improving every day No falls Pain controlled BM regimen maintained for constipation 09/27/2023: Patient doing a lot better Denies any new issues Walking 200 feet today Family at bedside 09/26/2023: No major issues No pain reported Improved confusion Family at bedside Family concerned about ability to manage at home alone 09/25/2023: Patient had confusion last night Much more alert today Family at bedside Eating lunch Pringle catheter will be discontinued tomorrow Pain is controlled Review of Systems General: Fatigue, Malaise Objective Exam Vital Signs Vital Signs Date Time Temp Pulse Resp B/P (MAP) Pulse Ox O2 Delivery O2 Flow Rate FiO2 10/02/23 08:58 Room Air 10/02/23 08:00 35.8 70 19 151/70 (97) 98 Capillary Refill : General Appearance: No Apparent Distress, WD/WN, Chronically ill, Obese, Other (lethargic) HEENT: PERRL/EOMI, Normal ENT Inspection, Pharynx Normal Neck: Full Range of Motion, Normal Inspection, Non Tender, Supple, Carotid Bruit Respiratory: Chest Non Tender, Lungs Clear, Normal Breath Sounds, No Accessory Muscle Use, No Respiratory Distress Cardiovascular: Regular Rate, Rhythm, No Edema, No Gallop, No JVD, No Murmur, Normal Peripheral Pulses Gastrointestinal: Normal Bowel Sounds, No Organomegaly, No Pulsatile Mass, Non Tender, Soft Back: Normal Inspection, No CVA Tenderness, No Vertebral Tenderness Extremity: Normal Capillary Refill, Normal Inspection, Normal Range of Motion, Non Tender, No Calf Tenderness, No Pedal Edema Neurologic/Psychiatric: Alert, editor managing 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 FIM Transfers Therapy Code Descriptions/Definitions Functional [place] Measure: 0=Not Assessed/NA 4=Minimal Assistance 1=Total Assistance 5=Supervision or Setup 2=Maximal Assistance 6=Modified [place] 3=Moderate Assistance 7=Complete IndependenceSCALE: Activities may be completed with or without assistive devices. 7-Ugqgakpspm-pngmipf completes the activity by him/herself with no assistance from a helper. 5-Set-up or Clean-up Assistance-helper sets up or cleans up; patient completes activity. [place] assists only prior to or following the activity. 4-Supervision or Touching Assistance-helper provides verbal cues and/or touching/steadying and/or contact guard assistance as patient completes activity. Assistance may be provided throughout the activity or intermittently. 3-Partial/Moderate Assistance-helper does LESS THAN HALF the effort. [place] lifts, holds or supports trunk or limbs, but provides less than half the effort. 2-Substantial/Maximal Assistance-helper does MORE THAN HALF the effort. [place] lifts or holds trunk or limbs and provides more than half the effort. 6-Ozsawadic-mhnwdm does ALL the effort. Patient does none of the effort to complete the activity. Or, the assistance of 2 or more helpers is required for the patient to complete the activity. If activity was not attempted, code reason: 7-Patient Refused. 9-Not Applicable-not attempted and the patient did not perform the activity before the current illness, exacerbation or injury. 10-Not Attempted due to Environmental Limitations-(lack of equipment, weather restraints, etc.). 88-Not Attempted due to Medical Conditions or Safety Concerns. Roll Left to Right (QC): 1 Sit to Lying (QC): 3 (Min A) Sit to Stand (QC): 4 (CGA from recliner, arm chair and Nustep) Chair/Pmi-qd-Wqdjl Xfer(QC): 3 (Min (A) /c safety cues, as patient tried to leave his walker behind and walk to chair - resulted in LOB) Car Transfer (QC): 88 Gait Training Does the Patient Walk?: Yes Distance: 192' x 2, 60' x 2 Walk 10 feet (QC): 4 (CGA) Walk 50 ft with 2 Turns(QC): 4 (CGA /c FWW) Walk 150 ft (QC): 4 (153' CGA /c FWW /c cues for direction and location of room.) Walking 10ft/uneven surface-QC: 88 Gait Assistive Device: FWW Wheelchair Training Does the Pt Use a Wheelchair?: Yes Distance: 3' Wheel 50 ft with 2 turns (QC): 4 Wheel 150 ft (QC): 4 Type of Wheelchair: Manual Stair Training #of Steps: 3 1 Step (curb) (QC): 3 (min (A) x 4 in // bars with cues for sequence (up with (L), down with (R)).) 4 Steps (QC): 88 12 Steps (QC): 88 Balance Picking up an Object (QC): 88 ADL-Treatment Eating (QC): 4 (cue to use spoon after he opened ice cream.) Oral Hygiene (QC): 4 (SBA seated at sink, min VCs for sequencing) Shower/Bathe Self (QC): 4 (CGA) Upper Body Dressing (QC): 4 (SBA, min VCs for orientation of shirt) Lower Body Dressing (QC): 4 (CGA in stand) On/Off Footwear (QC): 4 (SBA) Toileting Hygiene (QC): 3 (Min-Mod assist standing balance, pt able to complete all parts.) Toilet Transfer (QC): 3 (CGA-min A) Assessment/Plan Assessment and Plan Assess & Plan/Chief Complaint Assessment: s/p cerebellar CVA HTN DM Obesity Recent severe delirium requiring Precedex in ICU s/p loop recorder Plan: BP control DM management PT OT 09/25/2023: Supportive care Monitor confusion 09/26/2023: Continue supportive care Catheter DC and voiding well 09/27/2023: Monitor closely Dramatic improvement 09/28/2023: BM regimen Monitor progress 09/29/2023: No changes Dramatic improvement 09/30/2023: Monitor closely 10/01/2023: Labs stable Monitor confusion 10/02/2023: Improved overall DC Scopalmine (1) Cerebellar stroke Status: Acute SALEEM KING DO Oct 02, 2023 07:00
[2023-10-02 08:00] VITALS: BP 151/70
[2023-10-02] MEDS: LOSARTAN 100 MG TABLET PO SCH (08:45)
[2023-10-02] MEDS: risperiDONE 0.25 MG TABLET PO SCH ×2 (08:45→20:01)
[2023-10-02] MEDS: ASPIRIN 81 MG CHEWABLE TABLET PO SCH (08:46)
[2023-10-02] MEDS: CLOPIDOGREL 75 MG TABLET PO SCH (08:46)
[2023-10-02] MEDS: metFORMIN 500 MG TABLET PO SCH (08:46)
[2023-10-02] MEDS: amLODIPine 10 MG TABLET PO SCH (08:46)
[2023-10-02] MEDS: prednisoLONE 1% Ophthalmic Suspension 5 ML BTL OP SCH ×4 (09:00→20:02)
[2023-10-02] MEDS: SENNA W/DOCUSATE TABLET PO SCH ×2 (09:09→19:56)
[2023-10-02] MEDS: DOCUSATE SODIUM 100 MG CAPSULE PO SCH ×2 (09:09→19:56)
[2023-10-02] MEDS: MICONAZOLE 2% POWDER 90 GM TOP SCH ×2 (09:10→21:12)
--- NOTE | 2023-10-02 09:16 | Occupational Ther Daily Note ---
OT Current Status-Daily Note Subjective Pt agreeable to OT tx, denies pain. Mental Status/Objective Patient Orientation: Person, Place, Time, Situation ADL-Treatment Therapy Code Descriptions/Definitions Functional [place] Measure: 0=Not Assessed/NA 4=Minimal Assistance 1=Total Assistance 5=Supervision or Setup 2=Maximal Assistance 6=Modified [place] 3=Moderate Assistance 7=Complete IndependenceSCALE: Activities may be completed with or without assistive devices. 4-Eauwfhcmyy-tmtjyxw completes the activity by him/herself with no assistance from a helper. 5-Set-up or Clean-up Assistance-helper sets up or cleans up; patient completes activity. [place] assists only prior to or following the activity. 4-Supervision or Touching Assistance-helper provides verbal cues and/or touching/steadying and/or contact guard assistance as patient completes activity. Assistance may be provided throughout the activity or intermittently. 3-Partial/Moderate Assistance-helper does LESS THAN HALF the effort. [place] lifts, holds or supports trunk or limbs, but provides less than half the effort. 2-Substantial/Maximal Assistance-helper does MORE THAN HALF the effort. [place] lifts or holds trunk or limbs and provides more than half the effort. 5-Tfyqjlily-eyizew does ALL the effort. Patient does none of the effort to complete the activity. Or, the assistance of 2 or more helpers is required for the patient to complete the activity. If activity was not attempted, code reason: 7-Patient Refused. 9-Not Applicable-not attempted and the patient did not perform the activity before the current illness, exacerbation or injury. 10-Not Attempted due to Environmental Limitations-(lack of equipment, weather restraints, etc.). 88-Not Attempted due to Medical Conditions or Safety Concerns. Toileting Hygiene (QC): 4 (CGA, min VCs for sequencing) Toilet Transfer (QC): 4 (CGA) Other Treatment Pt in recliner, sit to stand with CGA, CGA using FWW to transfer into bathroom and onto toilet. Pt completed toileting, CGA, min VCs for sequencing. Pt then stood at sink to use electric razor and wash hands, SBA. Pt sat in chair for rest break, took medications provided by RN, IND. Pt used FWW to perform functional mobility to therapy gym, CGA. OT tx focused on increasing BUE strength and activity tolerance. Pt completed arm bike 20 Watt resistance, x18 mins, no rest breaks. Pt completed UE reaching task, 1lb wrist weights b/l. Pt completed nut/bolt block following verbal instructions from therapist. Pt removed/manipulated and placed nuts/bolt/washers onto wooden block. Pt completed 3/15 correctly after initial instructions. After instructions were repeated, and moderate verbal cues given throughout task, pt able to complete 15/15. Pt returned to room using FWW, 1 VC required to locate correct room. Pt transferred to recliner, call light in reach and all needs met, chair alarm activated. Education OT Patient Education: Correct positioning, Energy conservation, Modified ADL techniques, Progress toward Goal/Update tx plan, Purpose of tx/functional activities, Rehab process Teaching Recipient: Patient Teaching Methods: Discussion Response to Teaching: Verbalize Understanding OT Winder Tender Goals Winder Tender Goals Time Frame: Oct 19, 2023 Acute change in mental status: 1 Inattention: 1 Disorganized thinkin Altered level of consciousness: 0 Eating (QC): 6 Oral Hygiene (QC): 6 Toileting Hygiene (QC): 6 Shower/Bathe Self (QC): 6 Upper Body Dressing (QC): 6 Lower Body Dressing (QC): 6 On/Off Footwear (QC): 6 Additional Goals: 1-Demonstrate ADL Tasks, 2-Verbalize Understanding, 3- ImproveStrength/Joey 1=Demonstrate adherence to instructed precautions during ADL tasks. 2=Patient will verbalize/demonstrate understanding of assistive devices/modifications for ADL. 3=Patient will improve strength/tolerance for activity to enable patient to perform ADL's. OT Education/Plan Problem List/Assessment Assessment: Decreased Activ Tolerance, Decreased UE Strength, Impaired Cognition, Impaired Funct Balance, Impaired I ADL's, Impaired Self-Care Skills Discharge Recommendations Plan/Recommendations: Continue POC Treatment Plan/Plan of Care Patient would benefit from OT for education, treatment and training to promote independence in ADL's, mobility, safety and/or upper extremity function for ADL's. Plan of Care: ADL Retraining, Functional Mobility, Group Exercise/Act as Ind, UE Funct Exercise/Act, UE Neuromus Re-Ed/Coord Treatment Duration: Oct 19, 2023 Frequency: At least 5 of 7 days/Wk (IRF) Estimated Hrs Per Day: Other (75 mins per day) Agreement: Yes Rehab Potential: Good Time Start Time: 08:45 Stop Time: 09:15 DATE: Oct 02, 2023 Total Time Billed (hr/min): 90 Billed Treatment Time 1, ADL 2 (30'), EX (20'), FA 3 (40') LIN MORENO OT Oct 02, 2023 09:16
[2023-10-02] MEDS: ENOXAPARIN 40 MG/0.4 ML SYRINGE SQ SCH (11:24)
--- NOTE | 2023-10-02 12:20 | Physical Therapy Daily Note ---
PT Daily Note-Current Subjective Patient states he had triple vision last night. Also states he could not figure out how to fill out a check today, so he is frustrated. Pain Section J - Health Conditions 1. Rarely or not at all 2. Occasionally 3. Frequently 4. Almost constantly 8. Unable to answer Pain Effect on Sleep: 1 Pain Interference with Therapy: 1 Pain Interference w/Day-to-Day: 1 Transfers SCALE: Activities may be completed with or without assistive devices. 9-Qtbsfbwnjq-ygftmbr completes the activity by him/herself with no assistance from a helper. 5-Set-up or Clean-up Assistance-helper sets up or cleans up; patient completes activity. [place] assists only prior to or following the activity. 4-Supervision or Touching Assistance-helper provides verbal cues and/or touching/steadying and/or contact guard assistance as patient completes activity. Assistance may be provided throughout the activity or intermittently. 3-Partial/Moderate Assistance-helper does LESS THAN HALF the effort. [place] lifts, holds or supports trunk or limbs, but provides less than half the effort. 2-Substantial/Maximal Assistance-helper does MORE THAN HALF the effort. [place] lifts or holds trunk or limbs and provides more than half the effort. 8-Deiuhoxkd-hosmtj does ALL the effort. Patient does none of the effort to complete the activity. Or, the assistance of 2 or more helpers is required for the patient to complete the activity. If activity was not attempted, code reason: 7-Patient Refused. 9-Not Applicable-not attempted and the patient did not perform the activity before the current illness, exacerbation or injury. 10-Not Attempted due to Environmental Limitations-(lack of equipment, weather restraints, etc.). 88-Not Attempted due to Medical Conditions or Safety Concerns. Weight Bearing Full Weight Bearing Full Weight Bearing Gait Training Walk 10 feet (QC): 4 Walk 50 ft with 2 Turns(QC): 4 Walk 150 ft (QC): 4 (153' CGA-SBA /c cues for direction) Stair Training 1 Step (curb) (QC): 3 (min (A) /c walker) 4 Steps (QC): 3 (min (A) /c (B) hand rails and v.c. ) Exercises Standing tap ups to colored [place] bags on 4" step with random color and laterality x 20 (B) WARE SERVER, x 20 1 WARE SERVER - SBA. Standing ex at steps /c (B) WARE SERVER: heels/toes up x 10, hi knee march x 10 (B), alt hip abduction x 10 (R), x 10 (L); ham curls x 10 (B). Sitting rest. hip extension x 10 (B). Reviewed sitting HEP in room with patient and re- demonstrated all exercises so that patient can perform in room on weekends, after hours, etc. Assessment Current Status: Good Progress PT Lithopone Mill Worker Goals Lithopone Mill Worker Goals PT Alf Goals Time Frame: Oct 22, 2023 Roll Left & Right (QC): 4 Sit to Lying (QC): 4 Lying-Sitting on Side/Bed(QC): 4 Sit to Stand (QC): 3 Chair/Nbl-ae-Jwyqk Xfer(QC): 3 Toilet Transfer (QC): 3 Car Transfer (QC): 3 Does the Patient Walk: Yes Walk 10 feet (QC): 3 Walk 50ft with 2 Turns (QC): 3 Walk 150 ft (QC): 3 Walking 10ft on Uneven Surface: 3 1 Step (curb) (QC): 3 4 Steps (QC): 3 12 Steps (QC): 3 Picking up an Object (QC): 3 Does the Pt use WC or Scooter?: Yes Wheel 50 feet with 2 turns (QC: 6 Type: Manual Wheel 150 feet: 6 Type: Manual PT Plan Treatment/Plan Treatment Plan: Continue Plan of Care Treatment Plan: Functional Activity Joey, Functional Strength, Gait, Safety, Transfers Treatment Duration: Sep 25, 2023 Frequency: 5 times per week Estimated Hrs Per Day: 1 hour per day Patient and/or Family Agrees t: Yes Time Time In: 1115 Time Out: 1200 DATE: Oct 02, 2023 Total Billed Treatment Time: 45 Total Billed Treatment 1ex, 1fa, 1 gt Karyn Ryan PT Oct 02, 2023 12:20
--- NOTE | 2023-10-02 15:05 | Speech Therapy Daily Note ---
Speech Daily Progress Note Subjective Date Seen by Provider: Oct 02, 2023 Time Seen by Provider: 10:30 Pt was agreeable to session and was sitting in bedside chair upon SALES INCENTIVE ANALYST arrival. Objective Pt completes simple problem solving task (balancing a checkbook) with 70% accuracy and requires mod verbal cues to complete. Pt transfers 2 checkbook entries onto "checks" and completes with 80% accuracy and mod verbal cues to fill in missing information. Pt continues to demonstrate improvement of mental status, however, pt is unable to complete simple problem solving tasks and recall information without cues from SALES INCENTIVE ANALYST. Speech Change Over Goals Fdc Goals 1. The pt will be oriented to self, place, time and situation independently with 100% accuracy. 2. The pt will complete simple problem solving and safety awareness for daily tasks of living with 90% accuracy. 3. The pt will demonstrate immediate, short-term and long-term recall of functional information with 80% accuracy. Speech-Plan Treatment Plan Speech Therapy Treatment Plan: Continue Plan of Care Treatment Duration: Sep 25, 2023 Frequency: At least 5 of 7 days/Wk (IRF) Estimated Hrs Per Day: Other (45 min cog/ling tx) Rehab Potential: Good Time Speech Therapy Time In: 10:30 Speech Therapy Time Out: 11:15 DATE: Oct 02, 2023 Total Billed Time: 45 Billed Treatment Time 1 SLTS 45 min Anayeli Rowan Oct 02, 2023 15:05
--- NOTE | 2023-10-02 15:34 | Physical Therapy Daily Note ---
PT Daily Note-Current Subjective Patient pleasant and agreeable to p.m. therapy. Pain Section J - Health Conditions 1. Rarely or not at all 2. Occasionally 3. Frequently 4. Almost constantly 8. Unable to answer Pain Effect on Sleep: 1 Pain Interference with Therapy: 1 Pain Interference w/Day-to-Day: 1 Transfers SCALE: Activities may be completed with or without assistive devices. 9-Hicteaqkit-imasiir completes the activity by him/herself with no assistance from a helper. 5-Set-up or Clean-up Assistance-helper sets up or cleans up; patient completes activity. [place] assists only prior to or following the activity. 4-Supervision or Touching Assistance-helper provides verbal cues and/or touching/steadying and/or contact guard assistance as patient completes activity. Assistance may be provided throughout the activity or intermittently. 3-Partial/Moderate Assistance-helper does LESS THAN HALF the effort. [place] lifts, holds or supports trunk or limbs, but provides less than half the effort. 2-Substantial/Maximal Assistance-helper does MORE THAN HALF the effort. [place] lifts or holds trunk or limbs and provides more than half the effort. 4-Olapkvkhr-fpwxta does ALL the effort. Patient does none of the effort to complete the activity. Or, the assistance of 2 or more helpers is required for the patient to complete the activity. If activity was not attempted, code reason: 7-Patient Refused. 9-Not Applicable-not attempted and the patient did not perform the activity before the current illness, exacerbation or injury. 10-Not Attempted due to Environmental Limitations-(lack of equipment, weather restraints, etc.). 88-Not Attempted due to Medical Conditions or Safety Concerns. Sit to Stand (QC): 4 (CGA-SBA from recliner, 1x hand placement cue) Chair/Khz-vs-Nycre Xfer(QC): 4 (CGA-SBA /c FWW) Weight Bearing Full Weight Bearing Full Weight Bearing Gait Training Distance: 221' /a Nustep, 88' /p Nustep Walk 10 feet (QC): 4 Walk 50 ft with 2 Turns(QC): 4 Walk 150 ft (QC): 4 (/c FWW, prn cues for direction) Exercises NuStep Minutes: 12 (O2 sats remained 94-98% while riding Nustep.) NuStep Workload: 3 Assessment Current Status: Excellent Progress PT Paper Handler Goals Senior Care Goals PT Paper Handler Goals Time Frame: Oct 22, 2023 Roll Left & Right (QC): 4 Sit to Lying (QC): 4 Lying-Sitting on Side/Bed(QC): 4 Sit to Stand (QC): 3 Chair/Qln-nz-Mlwtf Xfer(QC): 3 Toilet Transfer (QC): 3 Car Transfer (QC): 3 Does the Patient Walk: Yes Walk 10 feet (QC): 3 Walk 50ft with 2 Turns (QC): 3 Walk 150 ft (QC): 3 Walking 10ft on Uneven Surface: 3 1 Step (curb) (QC): 3 4 Steps (QC): 3 12 Steps (QC): 3 Picking up an Object (QC): 3 Does the Pt use WC or Scooter?: Yes Wheel 50 feet with 2 turns (QC: 6 Type: Manual Wheel 150 feet: 6 Type: Manual PT Plan Treatment/Plan Treatment Plan: Continue Plan of Care Treatment Plan: Functional Activity Joey, Functional Strength, Gait, Safety, Transfers Treatment Duration: Sep 25, 2023 Frequency: 5 times per week Estimated Hrs Per Day: 1 hour per day Patient and/or Family Agrees t: Yes Time Time In: 1300 Time Out: 1330 DATE: Oct 02, 2023 Total Billed Treatment Time: 30 Total Billed Treatment 1, GT, EX Karyn Ryan PT Oct 02, 2023 15:34
[2023-10-02 20:13] VITALS: BP 146/82
--- NOTE | 2023-10-03 04:53 | PM&R Progress Note ---
Subjective HPI/CC On Admission Date Seen by Provider: Oct 03, 2023 Time Seen by Provider: 13:00 Subjective/Events-last exam 10/03/2023: Patient doing well His cognition is a concern about returning home alone May very well need skilled care Reviewed everything in team conference 10/02/2023: Doing well Much improved overall Confusion improved DC scopalmine patch 10/01/2023: Doing well Had some confusion this morning but has cleared No falls No pain 09/30/2023: Doing well Multiple visitors every day No pain reported Confusion resolved 09/29/2023: Dramatic improvement Family visiting No falls Improved ambulation 09/28/2023: Doing very well Improving every day No falls Pain controlled BM regimen maintained for constipation 09/27/2023: Patient doing a lot better Denies any new issues Walking 200 feet today Family at bedside 09/26/2023: No major issues No pain reported Improved confusion Family at bedside Family concerned about ability to manage at home alone 09/25/2023: Patient had confusion last night Much more alert today Family at bedside Eating lunch Pringle catheter will be discontinued tomorrow Pain is controlled Review of Systems General: Fatigue, Malaise Objective Exam Vital Signs Vital Signs Date Time Temp Pulse Resp B/P (MAP) Pulse Ox O2 Delivery O2 Flow Rate FiO2 10/03/23 09:36 Room Air 10/03/23 09:02 35.9 86 18 98 10/03/23 08:23 113/59 (77) Capillary Refill : General Appearance: No Apparent Distress, WD/WN, Chronically ill, Obese, Other (lethargic) HEENT: PERRL/EOMI, Normal ENT Inspection, Pharynx Normal Neck: Full Range of Motion, Normal Inspection, Non Tender, Supple, Carotid Bruit Respiratory: Chest Non Tender, Lungs Clear, Normal Breath Sounds, No Accessory Muscle Use, No Respiratory Distress Cardiovascular: Regular Rate, Rhythm, No Edema, No Gallop, No JVD, No Murmur, Normal Peripheral Pulses Gastrointestinal: Normal Bowel Sounds, No Organomegaly, No Pulsatile Mass, Non Tender, Soft Back: Normal Inspection, No CVA Tenderness, No Vertebral Tenderness Extremity: Normal Capillary Refill, Normal Inspection, Normal Range of Motion, Non Tender, No Calf Tenderness, No Pedal Edema Neurologic/Psychiatric: Alert, 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 FIM Transfers Therapy Code Descriptions/Definitions Functional [place] Measure: 0=Not Assessed/NA 4=Minimal Assistance 1=Total Assistance 5=Supervision or Setup 2=Maximal Assistance 6=Modified [place] 3=Moderate Assistance 7=Complete IndependenceSCALE: Activities may be completed with or without assistive devices. 4-Blttfcxsdt-bttgkxv completes the activity by him/herself with no assistance from a helper. 5-Set-up or Clean-up Assistance-helper sets up or cleans up; patient completes activity. [place] assists only prior to or following the activity. 4-Supervision or Touching Assistance-helper provides verbal cues and/or touching/steadying and/or contact guard assistance as patient completes activity. Assistance may be provided throughout the activity or intermittently. 3-Partial/Moderate Assistance-helper does LESS THAN HALF the effort. [place] lifts, holds or supports trunk or limbs, but provides less than half the effort. 2-Substantial/Maximal Assistance-helper does MORE THAN HALF the effort. [place] lifts or holds trunk or limbs and provides more than half the effort. 9-Nxndoctrw-ruakci does ALL the effort. Patient does none of the effort to complete the activity. Or, the assistance of 2 or more helpers is required for the patient to complete the activity. If activity was not attempted, code reason: 7-Patient Refused. 9-Not Applicable-not attempted and the patient did not perform the activity before the current illness, exacerbation or injury. 10-Not Attempted due to Environmental Limitations-(lack of equipment, weather restraints, etc.). 88-Not Attempted due to Medical Conditions or Safety Concerns. Roll Left to Right (QC): 1 Sit to Lying (QC): 3 (Min A) Sit to Stand (QC): 4 (CGA-SBA from recliner, 1x hand placement cue) Chair/Bpg-tb-Yhkba Xfer(QC): 4 (CGA-SBA /c FWW) Car Transfer (QC): 88 Gait Training Does the Patient Walk?: Yes Distance: 221' /a Nustep, 88' /p Nustep Walk 10 feet (QC): 4 Walk 50 ft with 2 Turns(QC): 4 Walk 150 ft (QC): 4 (/c FWW, prn cues for direction) Walking 10ft/uneven surface-QC: 88 Gait Assistive Device: FWW Wheelchair Training Does the Pt Use a Wheelchair?: Yes Distance: 3' Wheel 50 ft with 2 turns (QC): 4 Wheel 150 ft (QC): 4 Type of Wheelchair: Manual Stair Training #of Steps: 3 1 Step (curb) (QC): 3 (min (A) /c walker) 4 Steps (QC): 3 (min (A) /c (B) hand rails and v.c. ) 12 Steps (QC): 88 Balance Picking up an Object (QC): 88 ADL-Treatment Eating (QC): 4 (cue to use spoon after he opened ice cream.) Oral Hygiene (QC): 4 (SBA seated at sink, min VCs for sequencing) Shower/Bathe Self (QC): 4 (CGA) Upper Body Dressing (QC): 4 (SBA, min VCs for orientation of shirt) Lower Body Dressing (QC): 4 (CGA in stand) On/Off Footwear (QC): 4 (SBA) Toileting Hygiene (QC): 4 (CGA, min VCs for sequencing) Toilet Transfer (QC): 4 (CGA) Assessment/Plan Assessment and Plan Assess & Plan/Chief Complaint Assessment: s/p cerebellar CVA HTN DM Obesity Recent severe delirium requiring Precedex in ICU s/p loop recorder Plan: BP control DM management PT OT 09/25/2023: Supportive care Monitor confusion 09/26/2023: Continue supportive care Catheter DC and voiding well 09/27/2023: Monitor closely Dramatic improvement 09/28/2023: BM regimen Monitor progress 09/29/2023: No changes Dramatic improvement 09/30/2023: Monitor closely 10/01/2023: Labs stable Monitor confusion 10/02/2023: Improved overall DC Scopalmine 10/03/2023: Doing fair with cognition Ultimately may require skilled (1) Cerebellar stroke Status: Acute SALEEM KING DO Oct 03, 2023 04:53
[2023-10-03] MEDS: inSUlin ASPART 1 UNIT/0.01 ML (PER UNIT) SC SCH ×4 (05:44→20:47)
[2023-10-03 07:30] VITALS: BP 99/68
--- NOTE | 2023-10-03 08:04 | Occupational Ther Daily Note ---
OT Current Status-Daily Note Subjective Pt agreeable to OT Tx. Mental Status/Objective Patient Orientation: Person, Place, Time, Situation ADL-Treatment Therapy Code Descriptions/Definitions Functional [place] Measure: 0=Not Assessed/NA 4=Minimal Assistance 1=Total Assistance 5=Supervision or Setup 2=Maximal Assistance 6=Modified [place] 3=Moderate Assistance 7=Complete IndependenceSCALE: Activities may be completed with or without assistive devices. 8-Hiprqmbmbs-uifibey completes the activity by him/herself with no assistance from a helper. 5-Set-up or Clean-up Assistance-helper sets up or cleans up; patient completes activity. [place] assists only prior to or following the activity. 4-Supervision or Touching Assistance-helper provides verbal cues and/or touching/steadying and/or contact guard assistance as patient completes activity. Assistance may be provided throughout the activity or intermittently. 3-Partial/Moderate Assistance-helper does LESS THAN HALF the effort. [place] lifts, holds or supports trunk or limbs, but provides less than half the effort. 2-Substantial/Maximal Assistance-helper does MORE THAN HALF the effort. [place] lifts or holds trunk or limbs and provides more than half the effort. 9-Ntcmvbrhl-okxxhf does ALL the effort. Patient does none of the effort to complete the activity. Or, the assistance of 2 or more helpers is required for the patient to complete the activity. If activity was not attempted, code reason: 7-Patient Refused. 9-Not Applicable-not attempted and the patient did not perform the activity before the current illness, exacerbation or injury. 10-Not Attempted due to Environmental Limitations-(lack of equipment, weather restraints, etc.). 88-Not Attempted due to Medical Conditions or Safety Concerns. Eating (QC): 6 (IND drinking ensure. Pt declined food this AM) On/Off Footwear: 5 Toileting Hygiene (QC): 4 (SBA) Toilet Transfer (QC): 4 (SBA) Other Treatment Pt in recliner, stood with SBA, then transferred into bathroom and onto BSC over toilet, SBA. Pt completed toileting, then stood at sink to wash hands and use electric razor, SBA. Pt used FWW to perform functional mobility to therapy gym. Pt donned slip on shoes using a shoe horn after set up. In order to increase BUE Strength and activity tolerance, pt completed arm bike x20 watt resistance x20 mins, no rest breaks. Pt used FWW to return to his room, transferring to recliner, SBA-CGA. Post tx, pt in recliner, call light in reach and all needs met. Chair alarm activated. Education OT Patient Education: Correct positioning, Energy conservation, Exercise progr am, Modified ADL techniques, Progress toward Goal/Update tx plan, Purpose of tx/functional activities, Rehab process, Safety issues, Transfer techniques Teaching Recipient: Patient Teaching Methods: Discussion Response to Teaching: Verbalize Understanding OT Rn Call Center Goals Rn Call Center Goals Time Frame: Oct 19, 2023 Acute change in mental status: 1 Inattention: 1 Disorganized thinkin Altered level of consciousness: 0 Eating (QC): 6 Oral Hygiene (QC): 6 Toileting Hygiene (QC): 6 Shower/Bathe Self (QC): 6 Upper Body Dressing (QC): 6 Lower Body Dressing (QC): 6 On/Off Footwear (QC): 6 Additional Goals: 1-Demonstrate ADL Tasks, 2-Verbalize Understanding, 3- ImproveStrength/Joey 1=Demonstrate adherence to instructed precautions during ADL tasks. 2=Patient will verbalize/demonstrate understanding of assistive devices/modifications for ADL. 3=Patient will improve strength/tolerance for activity to enable patient to perform ADL's. OT Education/Plan Problem List/Assessment Assessment: Decreased Activ Tolerance, Decreased UE Strength, Impaired Funct Balance, Impaired I ADL's, Impaired Self-Care Skills Discharge Recommendations Plan/Recommendations: Continue POC Treatment Plan/Plan of Care Patient would benefit from OT for education, treatment and training to promote independence in ADL's, mobility, safety and/or upper extremity function for ADL's. Plan of Care: ADL Retraining, Functional Mobility, Group Exercise/Act as Ind, UE Funct Exercise/Act, UE Neuromus Re-Ed/Coord Treatment Duration: Oct 19, 2023 Frequency: At least 5 of 7 days/Wk (IRF) Estimated Hrs Per Day: Other (75 mins per day) Agreement: Yes Rehab Potential: Good Time Start Time: 07:30 Stop Time: 08:30 DATE: Oct 03, 2023 Total Time Billed (hr/min): 60 Billed Treatment Time 1, ADL 2 (35'), EX (25') LIN MORENO OT Oct 03, 2023 08:04
[2023-10-03 08:23] VITALS: BP 113/59
[2023-10-03] MEDS: LOSARTAN 100 MG TABLET PO SCH (08:28)
[2023-10-03] MEDS: CLOPIDOGREL 75 MG TABLET PO SCH (08:28)
[2023-10-03] MEDS: risperiDONE 0.25 MG TABLET PO SCH ×2 (08:28→20:46)
[2023-10-03] MEDS: ASPIRIN 81 MG CHEWABLE TABLET PO SCH (08:28)
[2023-10-03] MEDS: SENNA W/DOCUSATE TABLET PO SCH ×2 (08:28→20:48)
[2023-10-03] MEDS: amLODIPine 10 MG TABLET PO SCH (08:28)
--- NOTE | 2023-10-03 08:28 | Cardiology Progress Note ---
Subjective Date Seen by Provider: Oct 03, 2023 Time Seen by Provider: 08:27 Subjective/Events-last exam Patient sitting up in chair, no new complaints. Denies any chest pain Objective-Cardiology Exam Last Set of Vital Signs Vital Signs 10/03/23 10/03/23 10/03/23 08:23 09:02 09:36 Temp 35.9 Pulse 86 Resp 18 B/P (MAP) 113/59 (77) Pulse Ox 98 O2 Delivery Room Air I&O Intake and Output 10/02/23 23:59 Intake Total 1545 ml Balance 1545 ml Intake Oral 1545 ml # Voids 6 General: Alert, Oriented X3, Cooperative HEENT: Atraumatic, PERRLA Neck: Supple, No JVD, No Thyromegaly Lungs: Clear to Auscultation, Normal Air Movement Heart: Regular Rate, Normal S1, Normal S2, No Murmurs Abdomen: Normal Bowel Sounds, Soft, No Tenderness, No Hepatosplenomegaly, No Masses Extremities: No Clubbing, No Cyanosis, No Edema, Normal Pulses, No Tenderness/Swelling Skin: No Rashes, No Breakdown, No Significant Lesion Neuro: Normal Gait, Normal Speech, Strength at 5/5 X4 Ext, Normal Tone, Sensation Intact Psych/Mental Status: Mental Status NL, Mood NL A/P-Cardiology Admission Diagnosis Acute CVA Hypertension Hyperlipidemia Diabetes mellitus Assessment/Plan Status post acute CVA, 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 Continue to monitor Status post acute change in mental status with confusion and patient become combative and agitated. Acute delirium Better, back to his baseline Feeling better and reporting improvement. Continue to monitor Abnormal baseline EKG with right bundle branch block. 2D echo was reported by Dr. Davis on September 16, 2023 with normal LV size, ejection fraction 70 to 75%, grade 1 diastolic dysfunction, PA pressure 35 mmHg Hypertension, well controlled on current medication, monitor blood pressure Hyperlipidemia, monitor lipids Diabetes mellitus, managed by primary care physician Supervisory-Addendum Brief Supervisory Addendum Participated in pt care: history, MDM, physical Personally performed: exam, history, MDM Care discussed with: PETROS Results interpretation: Verified all documentation Notes: Patient was seen and evaluated with Brendan, examination performed, management plan was discussed, agree with the current scribed note, I made few changes to the note using Italic font Patient was seen at bedside, sitting comfortably, feeling better Reporting improvement in his vision Continue on current medication, continue physical therapy Monitor heart rate and blood pressure BRENDAN WALLIS PA-C Oct 03, 2023 08:27 SANGITA JC MD Oct 03, 2023 15:53
[2023-10-03] MEDS: prednisoLONE 1% Ophthalmic Suspension 5 ML BTL OP SCH ×4 (08:29→20:47)
[2023-10-03] MEDS: DOCUSATE SODIUM 100 MG CAPSULE PO SCH ×2 (08:29→20:47)
[2023-10-03] MEDS: metFORMIN 500 MG TABLET PO SCH (08:29)
[2023-10-03] MEDS: MICONAZOLE 2% POWDER 90 GM TOP SCH ×2 (08:31→20:47)
[2023-10-03] MEDS: ENOXAPARIN 40 MG/0.4 ML SYRINGE SQ SCH (10:45)
--- NOTE | 2023-10-03 11:26 | Physical Therapy Daily Note ---
PT Daily Note-Current Subjective Agreeable to PT. States he slept well last night. Pain Section J - Health Conditions 1. Rarely or not at all 2. Occasionally 3. Frequently 4. Almost constantly 8. Unable to answer Pain Effect on Sleep: 1 Pain Interference with Therapy: 1 Pain Interference w/Day-to-Day: 1 Transfers SCALE: Activities may be completed with or without assistive devices. 9-Jrhmlyjcfv-ikoirmc completes the activity by him/herself with no assistance from a helper. 5-Set-up or Clean-up Assistance-helper sets up or cleans up; patient completes activity. [place] assists only prior to or following the activity. 4-Supervision or Touching Assistance-helper provides verbal cues and/or touching/steadying and/or contact guard assistance as patient completes activity. Assistance may be provided throughout the activity or intermittently. 3-Partial/Moderate Assistance-helper does LESS THAN HALF the effort. [place] lifts, holds or supports trunk or limbs, but provides less than half the effort. 2-Substantial/Maximal Assistance-helper does MORE THAN HALF the effort. [place] lifts or holds trunk or limbs and provides more than half the effort. 9-Ulaueijaq-kcqlnt does ALL the effort. Patient does none of the effort to complete the activity. Or, the assistance of 2 or more helpers is required for the patient to complete the activity. If activity was not attempted, code reason: 7-Patient Refused. 9-Not Applicable-not attempted and the patient did not perform the activity before the current illness, exacerbation or injury. 10-Not Attempted due to Environmental Limitations-(lack of equipment, weather restraints, etc.). 88-Not Attempted due to Medical Conditions or Safety Concerns. Roll Left & Right (QC): 6 Sit to Lying (QC): 6 Lying to Sitting/Side of Bed(Q: 5 (setup to lift bed rail for patient use.) Sit to Stand (QC): 4 (CGA-SBA, v.c. for hand placement each rep) Chair/Fyd-wx-Chzou Xfer(QC): 4 (CGA-SBA /c FWW) Weight Bearing Full Weight Bearing Full Weight Bearing Gait Training Distance: 221' Walk 150 ft (QC): 4 (CGA/SBA /c direction cues) Walking 10ft/uneven surface-QC: 4 (CGA /c FWW) Gait Assistive Device: FWW Stair Training 1 Step (curb) (QC): 3 (x 2 / FWW and cues for 1st rep) 4 Steps (QC): 4 (CGA /c (B) rails) 12 Steps (QC): 4 (CGA /c (B) rails) Exercises Standing endurance /c map interpretation task x 8' /c FWW Good endurance. Min cues for map interpretation. NuStep Minutes: 12 NuStep Workload: 3 (Min (A) to get on/off Nustep.) Assessment Current Status: Excellent Progress Memory/cognition/safety = main limiting factor. PT Correction Goals Sales Clerk Supervisor Goals PT Sales Clerk Supervisor Goals Time Frame: Oct 22, 2023 Roll Left & Right (QC): 4 Sit to Lying (QC): 4 Lying-Sitting on Side/Bed(QC): 4 Sit to Stand (QC): 3 Chair/Gpr-zo-Ofrqi Xfer(QC): 3 Toilet Transfer (QC): 3 Car Transfer (QC): 3 Does the Patient Walk: Yes Walk 10 feet (QC): 3 Walk 50ft with 2 Turns (QC): 3 Walk 150 ft (QC): 3 Walking 10ft on Uneven Surface: 3 1 Step (curb) (QC): 3 4 Steps (QC): 3 12 Steps (QC): 3 Picking up an Object (QC): 3 Does the Pt use WC or Scooter?: Yes Wheel 50 feet with 2 turns (QC: 6 Type: Manual Wheel 150 feet: 6 Type: Manual PT Plan Treatment/Plan Treatment Plan: Continue Plan of Care Treatment Plan: Functional Activity Joey, Functional Strength, Gait, Safety, Transfers Treatment Duration: Sep 25, 2023 Frequency: 5 times per week Estimated Hrs Per Day: 1 hour per day Patient and/or Family Agrees t: Yes Time Time In: 945 Time Out: 1030 DATE: Oct 03, 2023 Total Billed Treatment Time: 45 Total Billed Treatment 1, GT, FA, EX Karyn Ryan PT Oct 03, 2023 11:25
--- NOTE | 2023-10-03 13:52 | Speech Therapy Daily Note ---
Speech Daily Progress Note Subjective Date Seen by Provider: Oct 03, 2023 Time Seen by Provider: 10:30 Pt was sitting in bedside chair with daughter and friend present during session. Objective Pt completes problem solving task, basic medication safety questionnaire, pt requires mod verbal and visual cues to complete with 70% accuracy. Pt reports poor vision and having trouble reading print. Pt demonstrates difficulty with immediate and short term recall of information, verbal and print. Speech Developer Automatic Goals Developer Automatic Goals 1. The pt will be oriented to self, place, time and situation independently with 100% accuracy. 2. The pt will complete simple problem solving and safety awareness for daily tasks of living with 90% accuracy. 3. The pt will demonstrate immediate, short-term and long-term recall of functional information with 80% accuracy. Speech-Plan Treatment Plan Speech Therapy Treatment Plan: Continue Plan of Care Treatment Duration: Sep 25, 2023 Frequency: At least 5 of 7 days/Wk (IRF) Estimated Hrs Per Day: Other (45 min cog/ling tx) Rehab Potential: Good Time Speech Therapy Time In: 10:30 Speech Therapy Time Out: 11:15 DATE: Oct 03, 2023 Total Billed Time: 45 Billed Treatment Time 1 SLSIVA 45 min Anayeli Rowan Oct 03, 2023 13:52
--- NOTE | 2023-10-03 15:54 | Occupational Ther Daily Note ---
OT Current Status-Daily Note Subjective Pt agreeable to therapy cotreat with focus on family training ADL-Treatment Therapy Code Descriptions/Definitions Functional [place] Measure: 0=Not Assessed/NA 4=Minimal Assistance 1=Total Assistance 5=Supervision or Setup 2=Maximal Assistance 6=Modified [place] 3=Moderate Assistance 7=Complete IndependenceSCALE: Activities may be completed with or without assistive devices. 3-Xityzxilym-szgmgfm completes the activity by him/herself with no assistance from a helper. 5-Set-up or Clean-up Assistance-helper sets up or cleans up; patient completes activity. [place] assists only prior to or following the activity. 4-Supervision or Touching Assistance-helper provides verbal cues and/or touchin g/steadying and/or contact guard assistance as patient completes activity. Assistance may be provided throughout the activity or intermittently. 3-Partial/Moderate Assistance-helper does LESS THAN HALF the effort. [place] lifts, holds or supports trunk or limbs, but provides less than half the effort. 2-Substantial/Maximal Assistance-helper does MORE THAN HALF the effort. [place] lifts or holds trunk or limbs and provides more than half the effort. 4-Ozvuiryba-wcqfec does ALL the effort. Patient does none of the effort to complete the activity. Or, the assistance of 2 or more helpers is required for the patient to complete the activity. If activity was not attempted, code reason: 7-Patient Refused. 9-Not Applicable-not attempted and the patient did not perform the activity before the current illness, exacerbation or injury. 10-Not Attempted due to Environmental Limitations-(lack of equipment, weather restraints, etc.). 88-Not Attempted due to Medical Conditions or Safety Concerns. Other Treatment OT/PT cotreat due to skill of 2 clinicians required which a cardiac rehabilitation specialist could not perform in order to coordinate UE/LEs, decrease fall risk, focus on higher level balance, tasks, and for family education. PT focused on LE placement, gross overall movement, transfers/mobility, OT focused on UE placement, cues for sequencing and safety and ADLS. Pt's daughter present for family education. OT provided education on pt's assistance level required with ADLS at this time, with recommendations for tub transfer bench. Pt performed functional mobility/transfers using FWW, including even surface, steps, tub transfer, bed mobility. Please refer to PT note for QC scores associated with mobility/transfers. Pt and daughter state no further questions at this time. Post tx, pt in recliner, call light in reach and all needs met. Education OT Patient Education: Correct positioning, Energy conservation, Modified ADL techniques, Progress toward Goal/Update tx plan, Purpose of tx/functional activities, Rehab process Teaching Recipient: Patient, Family Teaching Methods: Demonstration, Discussion Response to Teaching: Verbalize Understanding OT [place] Ticket Taker Goals Jail Goals Time Frame: Oct 19, 2023 Acute change in mental status: 1 Inattention: 1 Disorganized thinkin Altered level of consciousness: 0 Eating (QC): 6 Oral Hygiene (QC): 6 Toileting Hygiene (QC): 6 Shower/Bathe Self (QC): 6 Upper Body Dressing (QC): 6 Lower Body Dressing (QC): 6 On/Off Footwear (QC): 6 Additional Goals: 1-Demonstrate ADL Tasks, 2-Verbalize Understanding, 3- ImproveStrength/Joey 1=Demonstrate adherence to instructed precautions during ADL tasks. 2=Patient will verbalize/demonstrate understanding of assistive devices/modifications for ADL. 3=Patient will improve strength/tolerance for activity to enable patient to perform ADL's. OT Education/Plan Problem List/Assessment Assessment: Decreased Activ Tolerance, Decreased UE Strength, Impaired Funct Balance, Impaired I ADL's, Impaired Self-Care Skills Discharge Recommendations Plan/Recommendations: Continue POC Equpiment Recommendations-D/C: Extended Bath Bench Treatment Plan/Plan of Care Patient would benefit from OT for education, treatment and training to promote independence in ADL's, mobility, safety and/or upper extremity function for ADL's. Plan of Care: ADL Retraining, Functional Mobility, Group Exercise/Act as Ind, UE Funct Exercise/Act, UE Neuromus Re-Ed/Coord Treatment Duration: Oct 19, 2023 Frequency: At least 5 of 7 days/Wk (IRF) Estimated Hrs Per Day: Other (75 mins per day) Agreement: Yes Rehab Potential: Good Time Start Time: 12:50 Stop Time: 13:15 DATE: Oct 03, 2023 Total Time Billed (hr/min): 25 Billed Treatment Time cotreat x25' 1, FA 2 LIN MORENO OT Oct 03, 2023 15:54
--- NOTE | 2023-10-03 15:56 | Physical Therapy Daily Note ---
PT Daily Note-Current Subjective Family training completed with patient and his daughter. Demonstrated that patient is (I) with bed mobility without a rail, is SBA-CGA for sit>stand, is SBA for gait, is CGA for steps. All concerns discussed with daughter and questions answered re DME. It is recommended that patient have a FWW due to his mobility/balance limitation that impairs his ability to safely ambulate and perform upright ADL activities. Patient is at a heightened risk for falls without the use of a front wheeled walker. He has demonstrated the ability to use a walker safely. The use of a walker resolves his mobility deficit, and a cane does not meet this patient's needs. Patient needs prn cues for hand placement for safe sit<>stand. Pain Section J - Health Conditions 1. Rarely or not at all 2. Occasionally 3. Frequently 4. Almost constantly 8. Unable to answer Pain Effect on Sleep: 1 Pain Interference with Therapy: 1 Pain Interference w/Day-to-Day: 1 Transfers SCALE: Activities may be completed with or without assistive devices. 6-Wewgibfklp-hjencxu completes the activity by him/herself with no assistance from a helper. 5-Set-up or Clean-up Assistance-helper sets up or cleans up; patient completes activity. [place] assists only prior to or following the activity. 4-Supervision or Touching Assistance-helper provides verbal cues and/or touchin g/steadying and/or contact guard assistance as patient completes activity. Assistance may be provided throughout the activity or intermittently. 3-Partial/Moderate Assistance-helper does LESS THAN HALF the effort. [place] lifts, holds or supports trunk or limbs, but provides less than half the effort. 2-Substantial/Maximal Assistance-helper does MORE THAN HALF the effort. [place] lifts or holds trunk or limbs and provides more than half the effort. 8-Fqpwvgdfv-posibp does ALL the effort. Patient does none of the effort to complete the activity. Or, the assistance of 2 or more helpers is required for the patient to complete the activity. If activity was not attempted, code reason: 7-Patient Refused. 9-Not Applicable-not attempted and the patient did not perform the activity before the current illness, exacerbation or injury. 10-Not Attempted due to Environmental Limitations-(lack of equipment, weather restraints, etc.). 88-Not Attempted due to Medical Conditions or Safety Concerns. Sit to Lying (QC): 6 Lying to Sitting/Side of Bed(Q: 6 Sit to Stand (QC): 4 (SBA /c hand placement cues.) Chair/Hyg-ix-Xsxhk Xfer(QC): 4 (CGA-SBA /c FWW) Weight Bearing Full Weight Bearing Full Weight Bearing Gait Training Does the Patient Walk?: Yes Walk 150 ft (QC): 4 (SBA-CGA /c FWW with cues for direction.) Gait Assistive Device: FWW Stair Training 4 Steps (QC): 4 (CGA /c (B) handrails) PT Professor Of Biological Sciences Goals Assisted Goals PT Professor Of Biological Sciences Goals Time Frame: Oct 22, 2023 Roll Left & Right (QC): 4 Sit to Lying (QC): 4 Lying-Sitting on Side/Bed(QC): 4 Sit to Stand (QC): 3 Chair/Dec-fn-Iauzl Xfer(QC): 3 Toilet Transfer (QC): 3 Car Transfer (QC): 3 Does the Patient Walk: Yes Walk 10 feet (QC): 3 Walk 50ft with 2 Turns (QC): 3 Walk 150 ft (QC): 3 Walking 10ft on Uneven Surface: 3 1 Step (curb) (QC): 3 4 Steps (QC): 3 12 Steps (QC): 3 Picking up an Object (QC): 3 Does the Pt use WC or Scooter?: Yes Wheel 50 feet with 2 turns (QC: 6 Type: Manual Wheel 150 feet: 6 Type: Manual PT Plan Treatment/Plan Treatment Plan: Continue Plan of Care Treatment Plan: Education, Functional Activity Joey, Functional Strength, Gait, Safety, Therapeutic Exercise, Transfers Treatment Duration: Sep 25, 2023 Frequency: 5 times per week Estimated Hrs Per Day: 1 hour per day Patient and/or Family Agrees t: Yes Time Time In: 1250 Time Out: 1315 DATE: Oct 03, 2023 Total Billed Treatment Time: 25 Total Billed Treatment 1, FA, GT Karyn Ryan PT Oct 03, 2023 15:56
[2023-10-03] MEDS: TRULICITY 0.75 MG/0.5 ML PO SCH (16:55)
[2023-10-03 19:42] VITALS: BP 142/63
[2023-10-04] MEDS: inSUlin ASPART 1 UNIT/0.01 ML (PER UNIT) SC SCH ×4 (06:00→21:19)
[2023-10-04 08:00] VITALS: BP 125/59
--- NOTE | 2023-10-04 08:18 | Cardiology Progress Note ---
Subjective Date Seen by Provider: Oct 04, 2023 Time Seen by Provider: 08:17 Subjective/Events-last exam Patient is sitting up in chair, no new complaints. Denies any chest pain or dyspnea. Objective-Cardiology Exam Last Set of Vital Signs Vital Signs 10/04/23 08:00 Temp 35.6 Pulse 92 Resp 18 B/P (MAP) 125/59 (81) Pulse Ox 98 O2 Delivery Room Air I&O Intake and Output 10/03/23 23:59 Intake Total 1647 ml Balance 1647 ml Intake Oral 1647 ml # Voids 5 General: Alert, Oriented X3, Cooperative HEENT: Atraumatic, PERRLA Neck: Supple, No JVD, No Thyromegaly Lungs: Clear to Auscultation, Normal Air Movement Heart: Regular Rate, Normal S1, Normal S2, No Murmurs Abdomen: Normal Bowel Sounds, Soft, No Tenderness, No Hepatosplenomegaly, No Masses Extremities: No Clubbing, No Cyanosis, No Edema, Normal Pulses, No Tenderness/Swelling Skin: No Rashes, No Breakdown, No Significant Lesion Neuro: Normal Gait, Normal Speech, Strength at 5/5 X4 Ext, Normal Tone, Sensation Intact Psych/Mental Status: Mental Status NL, Mood NL A/P-Cardiology Admission Diagnosis Acute CVA Hypertension Hyperlipidemia Diabetes mellitus Assessment/Plan Status post acute CVA, 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 Continue to monitor Status post acute change in mental status with confusion and patient become combative and agitated. Acute delirium Better, back to his baseline Feeling better and reporting improvement. Continue to monitor Abnormal baseline EKG with right bundle branch block. 2D echo was reported by Dr. Davis on September 16, 2023 with normal LV size, ejection fraction 70 to 75%, grade 1 diastolic dysfunction, PA pressure 35 mmHg Hypertension, well controlled on current medication, monitor blood pressure Hyperlipidemia, monitor lipids Diabetes mellitus, managed by primary care physician Supervisory-Addendum Brief Supervisory Addendum Participated in pt care: history, MDM, physical Personally performed: exam, history, MDM Care discussed with: PETROS Results interpretation: Verified all documentation Notes: Patient was seen and evaluated with Brendan, examination performed, management plan was discussed, agree with the current scribed note, I made few changes to the note using Italic font Patient was having a shower this morning Continue to monitor blood pressure, no changes are recommended BRENDAN WALLIS PA-C Oct 04, 2023 08:17 SANGITA JC MD Oct 04, 2023 09:38
--- NOTE | 2023-10-04 08:32 | PM&R Progress Note ---
Subjective HPI/CC On Admission Date Seen by Provider: Oct 04, 2023 Time Seen by Provider: 12:00 Subjective/Events-last exam 10/04/2023: Patient doing a lot better Cognition is an issue May require skilled care for cognition deficits No pain 10/03/2023: Patient doing well His cognition is a concern about returning home alone May very well need skilled care Reviewed everything in team conference 10/02/2023: Doing well Much improved overall Confusion improved DC scopalmine patch 10/01/2023: Doing well Had some confusion this morning but has cleared No falls No pain 09/30/2023: Doing well Multiple visitors every day No pain reported Confusion resolved 09/29/2023: Dramatic improvement Family visiting No falls Improved ambulation 09/28/2023: Doing very well Improving every day No falls Pain controlled BM regimen maintained for constipation 09/27/2023: Patient doing a lot better Denies any new issues Walking 200 feet today Family at bedside 09/26/2023: No major issues No pain reported Improved confusion Family at bedside Family concerned about ability to manage at home alone 09/25/2023: Patient had confusion last night Much more alert today Family at bedside Eating lunch Pringle catheter will be discontinued tomorrow Pain is controlled Review of Systems General: Fatigue, Malaise Neurological: Weakness, Confusion Objective Exam Vital Signs Vital Signs Date Time Temp Pulse Resp B/P (MAP) Pulse Ox O2 Delivery O2 Flow Rate FiO2 10/04/23 20:20 Room Air 10/04/23 19:51 35.6 79 18 135/60 (85) 98 Capillary Refill : General Appearance: No Apparent Distress, WD/WN, Chronically ill, Obese, Other (lethargic) HEENT: PERRL/EOMI, Normal ENT Inspection, Pharynx Normal Neck: Full Range of Motion, Normal Inspection, Non Tender, Supple, Carotid Bruit Respiratory: Chest Non Tender, Lungs Clear, Normal Breath Sounds, No Accessory Muscle Use, No Respiratory Distress Cardiovascular: Regular Rate, Rhythm, No Edema, No Gallop, No JVD, No Murmur, Normal Peripheral Pulses Gastrointestinal: Normal Bowel Sounds, No Organomegaly, No Pulsatile Mass, Non Tender, Soft Back: Normal Inspection, No CVA Tenderness, No Vertebral Tenderness Extremity: Normal Capillary Refill, Normal Inspection, Normal Range of Motion, Non Tender, No Calf Tenderness, No Pedal Edema Neurologic/Psychiatric: 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 FIM Transfers Therapy Code Descriptions/Definitions Functional [place] Measure: 0=Not Assessed/NA 4=Minimal Assistance 1=Total Assistance 5=Supervision or Setup 2=Maximal Assistance 6=Modified [place] 3=Moderate Assistance 7=Complete IndependenceSCALE: Activities may be completed with or without assistive devices. 7-Cjdrjahqna-jqtwrnr completes the activity by him/herself with no assistance from a helper. 5-Set-up or Clean-up Assistance-helper sets up or cleans up; patient completes activity. [place] assists only prior to or following the activity. 4-Supervision or Touching Assistance-helper provides verbal cues and/or touching/steadying and/or contact guard assistance as patient completes activity. Assistance may be provided throughout the activity or intermittently. 3-Partial/Moderate Assistance-helper does LESS THAN HALF the effort. [place] lifts, holds or supports trunk or limbs, but provides less than half the effort. 2-Substantial/Maximal Assistance-helper does MORE THAN HALF the effort. [place] lifts or holds trunk or limbs and provides more than half the effort. 7-Ydfyyjksi-sstapa does ALL the effort. Patient does none of the effort to complete the activity. Or, the assistance of 2 or more helpers is required for the patient to complete the activity. If activity was not attempted, code reason: 7-Patient Refused. 9-Not Applicable-not attempted and the patient did not perform the activity before the current illness, exacerbation or injury. 10-Not Attempted due to Environmental Limitations-(lack of equipment, weather restraints, etc.). 88-Not Attempted due to Medical Conditions or Safety Concerns. Roll Left to Right (QC): 6 Sit to Lying (QC): 6 Sit to Stand (QC): 4 (SBA /c hand placement cues.) Chair/Vft-pq-Ffqhb Xfer(QC): 4 (CGA-SBA /c FWW) Car Transfer (QC): 88 Gait Training Does the Patient Walk?: Yes Distance: 221' Walk 10 feet (QC): 4 Walk 50 ft with 2 Turns(QC): 4 Walk 150 ft (QC): 4 (SBA-CGA /c FWW with cues for direction.) Walking 10ft/uneven surface-QC: 4 (CGA /c FWW) Gait Assistive Device: FWW Wheelchair Training Does the Pt Use a Wheelchair?: Yes Distance: 3' Wheel 50 ft with 2 turns (QC): 4 Wheel 150 ft (QC): 4 Type of Wheelchair: Manual Stair Training #of Steps: 3 1 Step (curb) (QC): 3 (x 2 / FWW and cues for 1st rep) 4 Steps (QC): 4 (CGA /c (B) handrails) 12 Steps (QC): 4 (CGA /c (B) rails) Balance Picking up an Object (QC): 88 ADL-Treatment Eating (QC): 6 (IND drinking ensure. Pt declined food this AM) Oral Hygiene (QC): 4 (SBA seated at sink, min VCs for sequencing) Shower/Bathe Self (QC): 4 (CGA) Upper Body Dressing (QC): 4 (SBA, min VCs for orientation of shirt) Lower Body Dressing (QC): 4 (CGA in stand) On/Off Footwear (QC): 5 Toileting Hygiene (QC): 4 (SBA) Toilet Transfer (QC): 4 (SBA) Assessment/Plan Assessment and Plan Assess & Plan/Chief Complaint Assessment: s/p cerebellar CVA HTN DM Obesity Recent severe delirium requiring Precedex in ICU s/p loop recorder Plan: BP control DM management PT OT 09/25/2023: Supportive care Monitor confusion 09/26/2023: Continue supportive care Catheter DC and voiding well 09/27/2023: Monitor closely Dramatic improvement 09/28/2023: BM regimen Monitor progress 09/29/2023: No changes Dramatic improvement 09/30/2023: Monitor closely 10/01/2023: Labs stable Monitor confusion 10/02/2023: Improved overall DC Scopalmine 10/03/2023: Doing fair with cognition Ultimately may require skilled 10/04/2023: Supportive care will continue (1) Cerebellar stroke Status: Acute SALEEM KING DO Oct 04, 2023 08:32
[2023-10-04] MEDS: ASPIRIN 81 MG CHEWABLE TABLET PO SCH (08:36)
[2023-10-04] MEDS: LOSARTAN 100 MG TABLET PO SCH (08:36)
[2023-10-04] MEDS: ACETAMINOPHEN 325 MG TABLET PO PRN ×2 (08:36→15:40)
[2023-10-04] MEDS: SENNA W/DOCUSATE TABLET PO SCH ×2 (08:36→20:38)
[2023-10-04] MEDS: DOCUSATE SODIUM 100 MG CAPSULE PO SCH ×2 (08:37→20:38)
[2023-10-04] MEDS: metFORMIN 500 MG TABLET PO SCH (08:37)
[2023-10-04] MEDS: amLODIPine 10 MG TABLET PO SCH (08:37)
[2023-10-04] MEDS: CLOPIDOGREL 75 MG TABLET PO SCH (08:37)
[2023-10-04] MEDS: risperiDONE 0.25 MG TABLET PO SCH ×2 (08:37→20:38)
[2023-10-04] MEDS: prednisoLONE 1% Ophthalmic Suspension 5 ML BTL OP SCH ×4 (08:39→20:39)
[2023-10-04] MEDS: MICONAZOLE 2% POWDER 90 GM TOP SCH ×2 (08:39→20:41)
--- NOTE | 2023-10-04 09:32 | Occupational Ther Daily Note ---
OT Current Status-Daily Note Subjective Pt. alert sitting in recliner. No c/o pain. Pt. agreed to therapy. Mental Status/Objective Patient Orientation: Person, Place, Time, Situation ADL-Treatment Pt. agreed to shower. SBA for ambulation from recliner to bathroom using FWW. After session, pt in recliner with call light and phone in reach and all needs met. Chair alarm activated Therapy Code Descriptions/Definitions Functional [place] Measure: 0=Not Assessed/NA 4=Minimal Assistance 1=Total Assistance 5=Supervision or Setup 2=Maximal Assistance 6=Modified [place] 3=Moderate Assistance 7=Complete IndependenceSCALE: Activities may be completed with or without assistive devices. 5-Fmprnchmng-vdyhqez completes the activity by him/herself with no assistance from a helper. 5-Set-up or Clean-up Assistance-helper sets up or cleans up; patient completes activity. [place] assists only prior to or following the activity. 4-Supervision or Touching Assistance-helper provides verbal cues and/or touching/steadying and/or contact guard assistance as patient completes activity. Assistance may be provided throughout the activity or intermittently. 3-Partial/Moderate Assistance-helper does LESS THAN HALF the effort. [place] lifts, holds or supports trunk or limbs, but provides less than half the effort. 2-Substantial/Maximal Assistance-helper does MORE THAN HALF the effort. [place] lifts or holds trunk or limbs and provides more than half the effort. 3-Wgnzdpscq-aaoxtn does ALL the effort. Patient does none of the effort to complete the activity. Or, the assistance of 2 or more helpers is required for the patient to complete the activity. If activity was not attempted, code reason: 7-Patient Refused. 9-Not Applicable-not attempted and the patient did not perform the activity before the current illness, exacerbation or injury. 10-Not Attempted due to Environmental Limitations-(lack of equipment, weather restraints, etc.). 88-Not Attempted due to Medical Conditions or Safety Concerns. Oral Hygiene (QC): 6 (Pt. able to complete grooming/oral hygiene while sitting at sink. ) Bathing Location: L Arm, R Arm, L Upper Leg, R Upper Leg, L Lower Leg (including foot), R Lower Leg (including foot), Chest, Abdomen, Buttocks, Perineal Area Shower/Bathe Self (QC): 4 (Pt. able to bathe all areas while sitting 100% of the time on shower bench using LH sponge, HH shower, and grabbars. SBA for safety) Upper Body Dressing (QC): 5 (Pt. able to don/doff UB clothing by self. ) Lower Body Dressing (QC): 5 (Pt. able to don/doff LB clothing by self using FWW and grabbars. ) On/Off Footwear: 5 (Pt. able to don/doff socks.) Toileting Hygiene (QC): 4 (Pt. able to complete clothing manipulation with v/c for sequencing then is able to cleanse all areas by self. ) Toilet Transfer (QC): 4 (SBA Pt. able to complete toilet transfers using grabbars and FWW.) Other Treatment Pt. completed B UE exercises using medium resistances 6 exercises 1 set of 10 reps. Skilled techniques and modifications to increase UE strength for daily task as needed. OT Vibratory Pile Driver Goals Prison Goals Time Frame: Oct 19, 2023 Acute change in mental status: 1 Inattention: 1 Disorganized thinkin Altered level of consciousness: 0 Eating (QC): 6 Oral Hygiene (QC): 6 Toileting Hygiene (QC): 6 Shower/Bathe Self (QC): 6 Upper Body Dressing (QC): 6 Lower Body Dressing (QC): 6 On/Off Footwear (QC): 6 Additional Goals: 1-Demonstrate ADL Tasks, 2-Verbalize Understanding, 3- ImproveStrength/Joey 1=Demonstrate adherence to instructed precautions during ADL tasks. 2=Patient will verbalize/demonstrate understanding of assistive devices/modifications for ADL. 3=Patient will improve strength/tolerance for activity to enable patient to perform ADL's. OT Education/Plan Problem List/Assessment Assessment: Decreased UE Strength, Impaired Funct Balance, Impaired Self-Care Skills Discharge Recommendations Plan/Recommendations: Continue POC Treatment Plan/Plan of Care Patient would benefit from OT for education, treatment and training to promote independence in ADL's, mobility, safety and/or upper extremity function for ADL's. Plan of Care: ADL Retraining, Functional Mobility, Group Exercise/Act as Ind, UE Funct Exercise/Act, UE Neuromus Re-Ed/Coord Treatment Duration: Oct 19, 2023 Frequency: At least 5 of 7 days/Wk (IRF) Estimated Hrs Per Day: Other (75 mins per day) Agreement: Yes Rehab Potential: Good Time Start Time: 08:15 Stop Time: 09:30 DATE: Oct 04, 2023 Total Time Billed (hr/min): 75 Billed Treatment Time 1 visit- ADL 4 (60 mins) EX 1 (15 mins) LIN MORENO OT Oct 04, 2023 09:32
[2023-10-04] MEDS: ENOXAPARIN 40 MG/0.4 ML SYRINGE SQ SCH (11:14)
--- NOTE | 2023-10-04 12:37 | Physical Therapy Daily Note ---
PT Daily Note-Current Subjective States he slept well. States he is in an argument(/c family)about where he is going when he leaves. Family not present during this session. Discussed options and home safety with patient. Tita(friend) arrived and states patient's son wants to take him home with him. Pain Numeric Pain Scale: 0-No Pain Section J - Health Conditions 1. Rarely or not at all 2. Occasionally 3. Frequently 4. Almost constantly 8. Unable to answer Pain Effect on Sleep: 1 Pain Interference with Therapy: 1 Pain Interference w/Day-to-Day: 1 Transfers SCALE: Activities may be completed with or without assistive devices. 8-Bfgkawmhly-wnjcana completes the activity by him/herself with no assistance f rom a helper. 5-Set-up or Clean-up Assistance-helper sets up or cleans up; patient completes activity. [place] assists only prior to or following the activity. 4-Supervision or Touching Assistance-helper provides verbal cues and/or touching/steadying and/or contact guard assistance as patient completes activity. Assistance may be provided throughout the activity or intermittently. 3-Partial/Moderate Assistance-helper does LESS THAN HALF the effort. [place] lifts, holds or supports trunk or limbs, but provides less than half the effort. 2-Substantial/Maximal Assistance-helper does MORE THAN HALF the effort. [place] lifts or holds trunk or limbs and provides more than half the effort. 2-Tjcertlns-zaonzl does ALL the effort. Patient does none of the effort to complete the activity. Or, the assistance of 2 or more helpers is required for the patient to complete the activity. If activity was not attempted, code reason: 7-Patient Refused. 9-Not Applicable-not attempted and the patient did not perform the activity before the current illness, exacerbation or injury. 10-Not Attempted due to Environmental Limitations-(lack of equipment, weather restraints, etc.). 88-Not Attempted due to Medical Conditions or Safety Concerns. Sit to Stand (QC): 5 (to retrieve walker - no cues needed today for hand placement (following armchair push ups x 10).) Chair/Huc-gx-Wkhgp Xfer(QC): 4 (SBA /c walker) Car Transfer (QC): 4 (CGA and retrieval of "steering wheel" in car for patient to hold onto when swinging legs in.) Weight Bearing Full Weight Bearing Full Weight Bearing Gait Training Walk 150 ft (QC): 4 (SBA /c FWW 150' x 2) Gait Assistive Device: FWW Stair Training 4 Steps (QC): 4 (CGA /c (B) rails x 2) Exercises Seated ex: 2# (B) for LAQ 10 x :05, hip flexion x 10 (B)(also with RTB resistance). Ankle PF/calf presses x 10 /c feet on floor. RTB hip abduction x 10. Pillow squeeze for adduction x 10. RTB ham curls x 10. Ankle PF x 10 RTB. Ankle circles /c sustained LAQ x 10 CW and CCW. RTB hip extension x 10. Armchair push ups x 10. HEP reviewed with patient and Tita for weekend/home completion. Standing ex: stair taps with random laterality and color /c 1 ELECTROPLATING SALES REPRESENTATIVE on rail x 20 - no LOB. PT Mcfp Goals Mcfp Goals PT Marketing Communications Assistant Goals Time Frame: Oct 22, 2023 Roll Left & Right (QC): 4 Sit to Lying (QC): 4 Lying-Sitting on Side/Bed(QC): 4 Sit to Stand (QC): 3 Chair/Mod-oz-Grhyl Xfer(QC): 3 Toilet Transfer (QC): 3 Car Transfer (QC): 3 Does the Patient Walk: Yes Walk 10 feet (QC): 3 Walk 50ft with 2 Turns (QC): 3 Walk 150 ft (QC): 3 Walking 10ft on Uneven Surface: 3 1 Step (curb) (QC): 3 4 Steps (QC): 3 12 Steps (QC): 3 Picking up an Object (QC): 3 Does the Pt use WC or Scooter?: Yes Wheel 50 feet with 2 turns (QC: 6 Type: Manual Wheel 150 feet: 6 Type: Manual PT Plan Treatment/Plan Treatment Plan: Continue Plan of Care Treatment Plan: Education, Functional Activity Joey, Functional Strength, Gait, Safety, Therapeutic Exercise, Transfers Treatment Duration: Sep 25, 2023 Frequency: 5 times per week Estimated Hrs Per Day: 1 hour per day Patient and/or Family Agrees t: Yes Time Time In: 1115 Time Out: 1215 DATE: Oct 04, 2023 Total Billed Treatment Time: 60 Total Billed Treatment 1, 2EX. 1 FA. 1 GT Karyn Ryan PT Oct 04, 2023 12:37
--- NOTE | 2023-10-04 13:59 | Speech Therapy Daily Note ---
Speech Daily Progress Note Subjective Date Seen by Provider: Oct 04, 2023 Time Seen by Provider: 10:30 Pt was sitting in bedside chair and was agreeable to session. Objective Pt completes several sections from Functional Language Assessment. Pt participates in counting money task. Pt able to complete simple calculations, but is unable to complete complex calculations. Such as, calculating change back from a purchase. Pt demonstrates difficulty holding onto more than 1 unit of information at a time and perseverates on previous numbers. Pt participates in reading a medication label, answering questions, and completing simple pill sorting task. Pt completes with 40% accuracy and requires mod cues to complete. Speech Process Improvement Specialist Goals Process Improvement Specialist Goals 1. The pt will be oriented to self, place, time and situation independently with 100% accuracy. 2. The pt will complete simple problem solving and safety awareness for daily tasks of living with 90% accuracy. 3. The pt will demonstrate immediate, short-term and long-term recall of functional information with 80% accuracy. Speech-Plan Treatment Plan Speech Therapy Treatment Plan: Continue Plan of Care Treatment Duration: Sep 25, 2023 Frequency: At least 5 of 7 days/Wk (IRF) Estimated Hrs Per Day: Other (45 min cog/ling tx) Rehab Potential: Fair Time Speech Therapy Time In: 10:30 Speech Therapy Time Out: 11:15 DATE: Oct 04, 2023 Total Billed Time: 45 Billed Treatment Time 1 YUMIKO 45 min Anayeli Rowan Oct 04, 2023 13:59
[2023-10-04 19:51] VITALS: BP 135/60
--- NOTE | 2023-10-05 05:23 | PM&R Progress Note ---
Subjective HPI/CC On Admission Date Seen by Provider: Oct 05, 2023 Time Seen by Provider: 12:00 Subjective/Events-last exam 10/05/2023: Patient doing well Participation is good Cognition continues to be an issue Poor immediate recall is concerning 10/04/2023: Patient doing a lot better Cognition is an issue May require skilled care for cognition deficits No pain 10/03/2023: Patient doing well His cognition is a concern about returning home alone May very well need skilled care Reviewed everything in team conference 10/02/2023: Doing well Much improved overall Confusion improved DC scopalmine patch 10/01/2023: Doing well Had some confusion this morning but has cleared No falls No pain 09/30/2023: Doing well Multiple visitors every day No pain reported Confusion resolved 09/29/2023: Dramatic improvement Family visiting No falls Improved ambulation 09/28/2023: Doing very well Improving every day No falls Pain controlled BM regimen maintained for constipation 09/27/2023: Patient doing a lot better Denies any new issues Walking 200 feet today Family at bedside 09/26/2023: No major issues No pain reported Improved confusion Family at bedside Family concerned about ability to manage at home alone 09/25/2023: Patient had confusion last night Much more alert today Family at bedside Eating lunch Pringle catheter will be discontinued tomorrow Pain is controlled Review of Systems General: Fatigue, Malaise Objective Exam Vital Signs Vital Signs Date Time Temp Pulse Resp B/P (MAP) Pulse Ox O2 Delivery O2 Flow Rate FiO2 10/05/23 21:15 98 Room Air 10/05/23 20:36 35.8 85 20 132/61 (84) Capillary Refill : General Appearance: No Apparent Distress, WD/WN, Chronically ill, Obese, Other (lethargic) HEENT: PERRL/EOMI, Normal ENT Inspection, Pharynx Normal Neck: Full Range of Motion, Normal Inspection, Non Tender, Supple, Carotid Bruit Respiratory: Chest Non Tender, Lungs Clear, Normal Breath Sounds, No Accessory Muscle Use, No Respiratory Distress Cardiovascular: Regular Rate, Rhythm, No Edema, No Gallop, No JVD, No Murmur, Normal Peripheral Pulses Gastrointestinal: Normal Bowel Sounds, No Organomegaly, No Pulsatile Mass, Non Tender, Soft Back: Normal Inspection, No CVA Tenderness, No Vertebral Tenderness Extremity: Normal Capillary Refill, Normal Inspection, Normal Range of Motion, Non Tender, No Calf Tenderness, No Pedal Edema Neurologic/Psychiatric: Alert, 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 FIM Transfers Therapy Code Descriptions/Definitions Functional [place] Measure: 0=Not Assessed/NA 4=Minimal Assistance 1=Total Assistance 5=Supervision or Setup 2=Maximal Assistance 6=Modified [place] 3=Moderate Assistance 7=Complete IndependenceSCALE: Activities may be completed with or without assistive devices. 2-Ovdqqvnfhh-dmnxqem completes the activity by him/herself with no assistance from a helper. 5-Set-up or Clean-up Assistance-helper sets up or cleans up; patient completes activity. [place] assists only prior to or following the activity. 4-Supervision or Touching Assistance-helper provides verbal cues and/or touching/steadying and/or contact guard assistance as patient completes activity. Assistance may be provided throughout the activity or intermittently. 3-Partial/Moderate Assistance-helper does LESS THAN HALF the effort. [place] lifts, holds or supports trunk or limbs, but provides less than half the effort. 2-Substantial/Maximal Assistance-helper does MORE THAN HALF the effort. [place] lifts or holds trunk or limbs and provides more than half the effort. 7-[place]hle-pcpwis does ALL the effort. Patient does none of the effort to complete the activity. Or, the assistance of 2 or more helpers is required for the patient to complete the activity. If activity was not attempted, code reason: 7-Patient Refused. 9-Not Applicable-not attempted and the patient did not perform the activity before the current illness, exacerbation or injury. 10-Not Attempted due to Environmental Limitations-(lack of equipment, weather restraints, etc.). 88-Not Attempted due to Medical Conditions or Safety Concerns. Roll Left to Right (QC): 6 Sit to Lying (QC): 6 Sit to Stand (QC): 5 (to retrieve walker - no cues needed today for hand placement (following armchair push ups x 10).) Chair/Bst-sj-Qgkrs Xfer(QC): 4 (SBA /c walker) Car Transfer (QC): 4 (CGA and retrieval of "steering wheel" in car for patient to hold onto when swinging legs in.) Gait Training Does the Patient Walk?: Yes Distance: 221' Walk 10 feet (QC): 4 Walk 50 ft with 2 Turns(QC): 4 Walk 150 ft (QC): 4 (SBA /c FWW 150' x 2) Walking 10ft/uneven surface-QC: 4 (CGA /c FWW) Gait Assistive Device: FWW Wheelchair Training Does the Pt Use a Wheelchair?: Yes Distance: 3' Wheel 50 ft with 2 turns (QC): 4 Wheel 150 ft (QC): 4 Type of Wheelchair: Manual Stair Training #of Steps: 3 1 Step (curb) (QC): 3 (x 2 / FWW and cues for 1st rep) 4 Steps (QC): 4 (CGA /c (B) rails x 2) 12 Steps (QC): 4 (CGA /c (B) rails) Balance Picking up an Object (QC): 88 ADL-Treatment Eating (QC): 6 (IND drinking ensure. Pt declined food this AM) Oral Hygiene (QC): 6 (Pt. able to complete grooming/oral hygiene while sitting at sink. ) Bathing Location: L Arm, R Arm, L Upper Leg, R Upper Leg, L Lower Leg (including foot), R Lower Leg (including foot), Chest, Abdomen, Buttocks, Perineal Area Shower/Bathe Self (QC): 4 (Pt. able to bathe all areas while sitting 100% of the time on shower bench using LH sponge, HH shower, and grabbars. SBA for safety) Upper Body Dressing (QC): 5 (Pt. able to don/doff UB clothing by self. ) Lower Body Dressing (QC): 5 (Pt. able to don/doff LB clothing by self using FWW and grabbars. ) On/Off Footwear (QC): 5 (Pt. able to don/doff socks.) Toileting Hygiene (QC): 4 (Pt. able to complete clothing manipulation with v/c for sequencing then is able to cleanse all areas by self. ) Toilet Transfer (QC): 4 (SBA Pt. able to complete toilet transfers using grabbars and FWW.) Assessment/Plan Assessment and Plan Assess & Plan/Chief Complaint Assessment: s/p cerebellar CVA HTN DM Obesity Recent severe delirium requiring Precedex in ICU s/p loop recorder Plan: BP control DM management PT OT 09/25/2023: Supportive care Monitor confusion 09/26/2023: Continue supportive care Catheter DC and voiding well 09/27/2023: Monitor closely Dramatic improvement 09/28/2023: BM regimen Monitor progress 09/29/2023: No changes Dramatic improvement 09/30/2023: Monitor closely 10/01/2023: Labs stable Monitor confusion 10/02/2023: Improved overall DC Scopalmine 10/03/2023: Doing fair with cognition Ultimately may require skilled 10/04/2023: Supportive care will continue 10/05/2023: Continue aggressive speech therapy for cognition Continue aggressive rehab (1) Cerebellar stroke Status: Acute SALEEM KING DO Oct 05, 2023 05:23
[2023-10-05] MEDS: inSUlin ASPART 1 UNIT/0.01 ML (PER UNIT) SC SCH ×4 (06:18→21:15)
[2023-10-05 08:00] VITALS: BP 125/57
[2023-10-05] MEDS: CLOPIDOGREL 75 MG TABLET PO SCH (08:59)
[2023-10-05] MEDS: risperiDONE 0.25 MG TABLET PO SCH ×2 (08:59→21:16)
[2023-10-05] MEDS: DOCUSATE SODIUM 100 MG CAPSULE PO SCH ×2 (08:59→21:15)
[2023-10-05] MEDS: prednisoLONE 1% Ophthalmic Suspension 5 ML BTL OP SCH ×4 (08:59→21:16)
[2023-10-05] MEDS: metFORMIN 500 MG TABLET PO SCH (08:59)
[2023-10-05] MEDS: amLODIPine 10 MG TABLET PO SCH (08:59)
[2023-10-05] MEDS: LOSARTAN 100 MG TABLET PO SCH (08:59)
[2023-10-05] MEDS: ASPIRIN 81 MG CHEWABLE TABLET PO SCH (09:00)
[2023-10-05] MEDS: SENNA W/DOCUSATE TABLET PO SCH ×2 (09:00→21:15)
[2023-10-05] MEDS: MICONAZOLE 2% POWDER 90 GM TOP SCH ×2 (09:01→21:15)
--- NOTE | 2023-10-05 09:02 | Occupational Ther Daily Note ---
OT Current Status-Daily Note Subjective Pt. alert sitting in recliner, No c/o pain, Pt. agreed to therapy. Mental Status/Objective Patient Orientation: Person, Place, Time, Situation ADL-Treatment Therapy Code Descriptions/Definitions Functional [place] Measure: 0=Not Assessed/NA 4=Minimal Assistance 1=Total Assistance 5=Supervision or Setup 2=Maximal Assistance 6=Modified [place] 3=Moderate Assistance 7=Complete IndependenceSCALE: Activities may be completed with or without assistive devices. 1-Fvgpufxdhf-gqkbent completes the activity by him/herself with no assistance fr om a helper. 5-Set-up or Clean-up Assistance-helper sets up or cleans up; patient completes activity. [place] assists only prior to or following the activity. 4-Supervision or Touching Assistance-helper provides verbal cues and/or touching/steadying and/or contact guard assistance as patient completes activity. Assistance may be provided throughout the activity or intermittently. 3-Partial/Moderate Assistance-helper does LESS THAN HALF the effort. [place] lifts, holds or supports trunk or limbs, but provides less than half the effort. 2-Substantial/Maximal Assistance-helper does MORE THAN HALF the effort. [place] lifts or holds trunk or limbs and provides more than half the effort. 6-Rogsscubf-wwarii does ALL the effort. Patient does none of the effort to complete the activity. Or, the assistance of 2 or more helpers is required for the patient to complete the activity. If activity was not attempted, code reason: 7-Patient Refused. 9-Not Applicable-not attempted and the patient did not perform the activity before the current illness, exacerbation or injury. 10-Not Attempted due to Environmental Limitations-(lack of equipment, weather restraints, etc.). 88-Not Attempted due to Medical Conditions or Safety Concerns. Upper Body Dressing (QC): 5 (Pt. able to don/doff UB clothing by self.) Lower Body Dressing (QC): 5 (Pt. able to don/doff LB clothing by self using grabbars and FWW.) On/Off Footwear: 5 (Pt. able to don/doff socks and shoes using shoe horn.) Toileting Hygiene (QC): 4 (Pt. able to complete clothing manipulation and cleanses all areas by self. SBA) Toilet Transfer (QC): 4 (Pt. able to complete toilet transfers using grabbars and FWW.) Other Treatment Pt. able to ambulate from room to therapy gym SBA using FWW. Pt. completed B UE exercises using medium resistance theraband 6 exercises 1 set of 10 reps. Skilled techniques and modifications to increase UE strength for daily task as needed. Pt performed functional mobility around ARU using FWW with SBA walking back to room from gym. After session, pt in recliner with call light and phone in reach and all needs met. OT Fpc Goals Fpc Goals Time Frame: Oct 19, 2023 Acute change in mental status: 1 Inattention: 1 Disorganized thinkin Altered level of consciousness: 0 Eating (QC): 6 Oral Hygiene (QC): 6 Toileting Hygiene (QC): 6 Shower/Bathe Self (QC): 6 Upper Body Dressing (QC): 6 Lower Body Dressing (QC): 6 On/Off Footwear (QC): 6 Additional Goals: 1-Demonstrate ADL Tasks, 2-Verbalize Understanding, 3- ImproveStrength/Joey 1=Demonstrate adherence to instructed precautions during ADL tasks. 2=Patient will verbalize/demonstrate understanding of assistive devices/modifications for ADL. 3=Patient will improve strength/tolerance for activity to enable patient to perform ADL's. OT Education/Plan Problem List/Assessment Assessment: Decreased Safety Aware, Decreased UE Strength, Impaired Cognition, Impaired Funct Balance, Impaired Self-Care Skills Discharge Recommendations Plan/Recommendations: Continue POC Treatment Plan/Plan of Care Patient would benefit from OT for education, treatment and training to promote independence in ADL's, mobility, safety and/or upper extremity function for ADL's. Plan of Care: ADL Retraining, Functional Mobility, Group Exercise/Act as Ind, UE Funct Exercise/Act, UE Neuromus Re-Ed/Coord Treatment Duration: Oct 19, 2023 Frequency: At least 5 of 7 days/Wk (IRF) Estimated Hrs Per Day: Other (75 mins per day) Agreement: Yes Rehab Potential: Fair Time Start Time: 08:00 Stop Time: 09:00 DATE: Oct 05, 2023 Total Time Billed (hr/min): 60 Billed Treatment Time 1 visit- ADL 3 (30 mins) EX 1 (15 mins) FA 1 (15 mins) LIN MORENO OT Oct 05, 2023 09:02
[2023-10-05] MEDS: ENOXAPARIN 40 MG/0.4 ML SYRINGE SQ SCH (09:43)
--- NOTE | 2023-10-05 13:07 | Speech Therapy Daily Note ---
Speech Daily Progress Note Subjective Date Seen by Provider: Oct 05, 2023 Time Seen by Provider: 10:30 Pt was agreeable to session. Objective Pt completes an "understanding medicine label" activity. Pt continues to demonstrate difficulty with pill sorting and locating information on a medicatio n label. Even with verbal and visual cues, pt is unable to complete independently and requires assistance. Pt continues to demonstrate difficulty with holding units of information, in order to complete a task with the information. After an estimated 10 seconds, pt can no longer recall the information. Pt is able to complete simple "calendar activities," such as locating a date on a calendar, however, if given information and being asked to find a date, pt does not recall the initial information. For example, writing down a dinner plan for 7 on February 04, pt is able to locate the date, but has no recall of what he is supposed to do next. Assessment Assessment Current Status: Fair Progress Treatment Plan Continue Plan of Care Speech Milled Rubber Tender Goals [facility] Goals 1. The pt will be oriented to self, place, time and situation independently with 100% accuracy. 2. The pt will complete simple problem solving and safety awareness for daily tasks of living with 90% accuracy. 3. The pt will demonstrate immediate, short-term and long-term recall of functional information with 80% accuracy. Speech-Plan Treatment Plan Speech Therapy Treatment Plan: Continue Plan of Care Treatment Duration: Sep 25, 2023 Frequency: At least 5 of 7 days/Wk (IRF) Estimated Hrs Per Day: Other (45 min cog/ling tx) Rehab Potential: Fair Time Speech Therapy Time In: 10:30 Speech Therapy Time Out: 11:15 DATE: Oct 05, 2023 Total Billed Time: 45 Billed Treatment Time 1 SLTS 45 min Anayeli Rowan Oct 05, 2023 13:07
--- NOTE | 2023-10-05 13:28 | Physical Therapy Daily Note ---
PT Daily Note-Current Subjective Patient has no new c/o. Had [employer] for lunch brought to him by a friend. Pain Section J - Health Conditions 1. Rarely or not at all 2. Occasionally 3. Frequently 4. Almost constantly 8. Unable to answer Pain Effect on Sleep: 1 Pain Interference with Therapy: 1 Pain Interference w/Day-to-Day: 1 Transfers SCALE: Activities may be completed with or without assistive devices. 3-Hzznersfzy-pqviuwp completes the activity by him/herself with no assistance from a helper. 5-Set-up or Clean-up Assistance-helper sets up or cleans up; patient completes activity. [place] assists only prior to or following the activity. 4-Supervision or Touching Assistance-helper provides verbal cues and/or touching/steadying and/or contact guard assistance as patient completes activity. Assistance may be provided throughout the activity or intermittently. 3-Partial/Moderate Assistance-helper does LESS THAN HALF the effort. [place] lifts, holds or supports trunk or limbs, but provides less than half the effort. 2-Substantial/Maximal Assistance-helper does MORE THAN HALF the effort. [place] lifts or holds trunk or limbs and provides more than half the effort. 8-Ftjcfbnhy-gyfokw does ALL the effort. Patient does none of the effort to complete the activity. Or, the assistance of 2 or more helpers is required for the patient to complete the activity. If activity was not attempted, code reason: 7-Patient Refused. 9-Not Applicable-not attempted and the patient did not perform the activity before the current illness, exacerbation or injury. 10-Not Attempted due to Environmental Limitations-(lack of equipment, weather restraints, etc.). 88-Not Attempted due to Medical Conditions or Safety Concerns. Sit to Stand (QC): 4 (SBA) Chair/Vmg-kh-Wfdtk Xfer(QC): 4 (SBA /c FWW) Toilet Transfer (QC): 5 (set up with 3-in-1 commode, using FWW. Able to manage toilet hygiene (I). Able to manage clothing (I)) Weight Bearing Full Weight Bearing Full Weight Bearing Gait Training Distance: 250, 75' Walk 150 ft (QC): 4 (SBA /c FWW for 250' without rest. ) Balance Picking up an Object (QC): 4 (SBA to remove pants from floor after toileting) Exercises NuStep Minutes: 8 NuStep Workload: 4 (Increased work load today without issue. Patient's O2 sats 97-100% throughout treatment.) Treatments Standing exercise in //bars: on blue foam -- heels/toes up x 20, hi-knee january x 10 (B), ham curls x 10 (B), 4" lateral step ups x 10. Assessment Current Status: Excellent Progress PT Mcfp Goals Mcfp Goals PT Audit Machine Operator Goals Time Frame: Oct 22, 2023 Roll Left & Right (QC): 4 Sit to Lying (QC): 4 Lying-Sitting on Side/Bed(QC): 4 Sit to Stand (QC): 3 Chair/Zjg-fu-Pdgkw Xfer(QC): 3 Toilet Transfer (QC): 3 Car Transfer (QC): 3 Does the Patient Walk: Yes Walk 10 feet (QC): 3 Walk 50ft with 2 Turns (QC): 3 Walk 150 ft (QC): 3 Walking 10ft on Uneven Surface: 3 1 Step (curb) (QC): 3 4 Steps (QC): 3 12 Steps (QC): 3 Picking up an Object (QC): 3 Does the Pt use WC or Scooter?: Yes Wheel 50 feet with 2 turns (QC: 6 Type: Manual Wheel 150 feet: 6 Type: Manual PT Plan Treatment/Plan Treatment Plan: Continue Plan of Care Treatment Plan: Education, Functional Activity Joey, Functional Strength, Gait, Safety, Therapeutic Exercise, Transfers Treatment Duration: Sep 25, 2023 Frequency: 5 times per week Estimated Hrs Per Day: 1 hour per day Patient and/or Family Agrees t: Yes Time Time In: 1230 Time Out: 1300 DATE: Oct 05, 2023 Total Billed Treatment Time: 30 Total Billed Treatment 1, GT, EX Karyn Ryan PT Oct 05, 2023 13:28
--- NOTE | 2023-10-05 14:59 | Therapy Group Daily Note ---
Therapy Daily Group Note Patient Education Topic Energy Cons, Exercises Exercises UE Exercise Session Ratio (pt:therapist): 4:1 Goal of Session: Energy Conservation Tech., UE/LE Strengthing Goal Met for this Session: Yes Pt Benefit of Group: Contributions to Others, Increased Functional Strength, Recognition of Peers, Socialization Other/Notes OT group consisted of introductions (name, place living, favorite holiday), socialization, BUE dowel exercises seated, and education on benefits of exercises. Pt introduced self appropriately and actively listened to peers. Pt able to complete BUE dowel exercises, 2x10 reps with minimal cues. Pt then able to use dowel harry in UEs to "bat" balloons and balls around the group, and used BLEs to "kick" balls around group. Pt demonstrated understanding of educational topic. After therapy, pt up in recliner, call light in reach and all needs met. Chair alarm activated. Start Time: 13:00 Stop Time: 14:00 Total Billed Treatment Time: 60 Total Billed Treatment 1, GRP LIN MORENO OT Oct 05, 2023 14:59
[2023-10-05 20:36] VITALS: BP 132/61
[2023-10-06] MEDS: inSUlin ASPART 1 UNIT/0.01 ML (PER UNIT) SC SCH ×4 (06:06→20:50)
--- NOTE | 2023-10-06 06:23 | PM&R Progress Note ---
Subjective HPI/CC On Admission Date Seen by Provider: Oct 06, 2023 Time Seen by Provider: 12:00 Subjective/Events-last exam 10/06/2023: No major issues Awaiting placement No falls Confusion improved 10/05/2023: Patient doing well Participation is good Cognition continues to be an issue Poor immediate recall is concerning 10/04/2023: Patient doing a lot better Cognition is an issue May require skilled care for cognition deficits No pain 10/03/2023: Patient doing well His cognition is a concern about returning home alone May very well need skilled care Reviewed everything in team conference 10/02/2023: Doing well Much improved overall Confusion improved DC scopalmine patch 10/01/2023: Doing well Had some confusion this morning but has cleared No falls No pain 09/30/2023: Doing well Multiple visitors every day No pain reported Confusion resolved 09/29/2023: Dramatic improvement Family visiting No falls Improved ambulation 09/28/2023: Doing very well Improving every day No falls Pain controlled BM regimen maintained for constipation 09/27/2023: Patient doing a lot better Denies any new issues Walking 200 feet today Family at bedside 09/26/2023: No major issues No pain reported Improved confusion Family at bedside Family concerned about ability to manage at home alone 09/25/2023: Patient had confusion last night Much more alert today Family at bedside Eating lunch Pringle catheter will be discontinued tomorrow Pain is controlled Review of Systems General: Fatigue, Malaise Objective Exam Vital Signs Vital Signs Date Time Temp Pulse Resp B/P (MAP) Pulse Ox O2 Delivery O2 Flow Rate FiO2 10/06/23 09:59 Room Air 10/06/23 08:00 35.7 87 18 131/71 (91) 99 Capillary Refill : General Appearance: No Apparent Distress, WD/WN, Chronically ill, Obese, Other (lethargic) HEENT: PERRL/EOMI, Normal ENT Inspection, Pharynx Normal Neck: Full Range of Motion, Normal Inspection, Non Tender, Supple, Carotid Bruit Respiratory: Chest Non Tender, Lungs Clear, Normal Breath Sounds, No Accessory Muscle Use, No Respiratory Distress Cardiovascular: Regular Rate, Rhythm, No Edema, No Gallop, No JVD, No Murmur, Normal Peripheral Pulses Gastrointestinal: Normal Bowel Sounds, No Organomegaly, No Pulsatile Mass, Non Tender, Soft Back: Normal Inspection, No CVA Tenderness, No Vertebral Tenderness Extremity: Normal Capillary Refill, Normal Inspection, Normal Range of Motion, Non Tender, No Calf Tenderness, No Pedal Edema Neurologic/Psychiatric: Alert, nitrating acid mixer II-XII Norm as Tested, Abnormal Gait, Depressed Affect, Disoriented (subtle confusion), Motor Weakness (generalized) Skin: Normal Color, Warm/Dry Lymphatic: No Adenopathy Results/Procedures Lab Patient resulted labs reviewed. FIM Transfers Therapy Code Descriptions/Definitions Functional [place] Measure: 0=Not Assessed/NA 4=Minimal Assistance 1=Total Assistance 5=Supervision or Setup 2=Maximal Assistance 6=Modified [place] 3=Moderate Assistance 7=Complete IndependenceSCALE: Activities may be completed with or without assistive devices. 6-Ffpgqwvgzy-pvfatix completes the activity by him/herself with no assistance from a helper. 5-Set-up or Clean-up Assistance-helper sets up or cleans up; patient completes activity. [place] assists only prior to or following the activity. 4-Supervision or Touching Assistance-helper provides verbal cues and/or touching/steadying and/or contact guard assistance as patient completes activity. Assistance may be provided throughout the activity or intermittently. 3-Partial/Moderate Assistance-helper does LESS THAN HALF the effort. [place] lifts, holds or supports trunk or limbs, but provides less than half the effort. 2-Substantial/Maximal Assistance-helper does MORE THAN HALF the effort. [place] lifts or holds trunk or limbs and provides more than half the effort. 3-Fujvbpgam-qjuelf does ALL the effort. Patient does none of the effort to complete the activity. Or, the assistance of 2 or more helpers is required for the patient to complete the activity. If activity was not attempted, code reason: 7-Patient Refused. 9-Not Applicable-not attempted and the patient did not perform the activity before the current illness, exacerbation or injury. 10-Not Attempted due to Environmental Limitations-(lack of equipment, weather restraints, etc.). 88-Not Attempted due to Medical Conditions or Safety Concerns. Roll Left to Right (QC): 6 Sit to Lying (QC): 6 Sit to Stand (QC): 4 (SBA) Chair/Kds-un-Fdzyp Xfer(QC): 4 (SBA /c FWW) Car Transfer (QC): 4 (CGA and retrieval of "steering wheel" in car for patient to hold onto when swinging legs in.) Gait Training Does the Patient Walk?: Yes Distance: 250, 75' Walk 10 feet (QC): 4 Walk 50 ft with 2 Turns(QC): 4 Walk 150 ft (QC): 4 (SBA /c FWW for 250' without rest. ) Walking 10ft/uneven surface-QC: 4 (CGA /c FWW) Gait Assistive Device: FWW Wheelchair Training Does the Pt Use a Wheelchair?: Yes Distance: 3' Wheel 50 ft with 2 turns (QC): 4 Wheel 150 ft (QC): 4 Type of Wheelchair: Manual Stair Training #of Steps: 3 1 Step (curb) (QC): 3 (x 2 / FWW and cues for 1st rep) 4 Steps (QC): 4 (CGA /c (B) rails x 2) 12 Steps (QC): 4 (CGA /c (B) rails) Balance Picking up an Object (QC): 4 (SBA to remove pants from floor after toileting) ADL-Treatment Eating (QC): 6 (IND drinking ensure. Pt declined food this AM) Oral Hygiene (QC): 6 (Pt. able to complete grooming/oral hygiene while sitting at sink. ) Bathing Location: L Arm, R Arm, L Upper Leg, R Upper Leg, L Lower Leg (including foot), R Lower Leg (including foot), Chest, Abdomen, Buttocks, Perineal Area Shower/Bathe Self (QC): 4 (Pt. able to bathe all areas while sitting 100% of the time on shower bench using LH sponge, HH shower, and grabbars. SBA for safety) Upper Body Dressing (QC): 5 (Pt. able to don/doff UB clothing by self.) Lower Body Dressing (QC): 5 (Pt. able to don/doff LB clothing by self using grabbars and FWW.) On/Off Footwear (QC): 5 (Pt. able to don/doff socks and shoes using shoe horn.) Toileting Hygiene (QC): 4 (Pt. able to complete clothing manipulation and cleanses all areas by self. SBA) Toilet Transfer (QC): 4 (Pt. able to complete toilet transfers using grabbars and FWW.) Assessment/Plan Assessment and Plan Assess & Plan/Chief Complaint Assessment: s/p cerebellar CVA HTN DM Obesity Recent severe delirium requiring Precedex in ICU s/p loop recorder Plan: BP control DM management PT OT 09/25/2023: Supportive care Monitor confusion 09/26/2023: Continue supportive care Catheter DC and voiding well 09/27/2023: Monitor closely Dramatic improvement 09/28/2023: BM regimen Monitor progress 09/29/2023: No changes Dramatic improvement 09/30/2023: Monitor closely 10/01/2023: Labs stable Monitor confusion 10/02/2023: Improved overall DC Scopalmine 10/03/2023: Doing fair with cognition Ultimately may require skilled 10/04/2023: Supportive care will continue 10/05/2023: Continue aggressive speech therapy for cognition Continue aggressive rehab 10/06/2023: Continue treatment Confusion improved (1) Cerebellar stroke Status: Acute SALEEM KING DO Oct 06, 2023 06:23
[2023-10-06 08:00] VITALS: BP 131/71
[2023-10-06] MEDS: CLOPIDOGREL 75 MG TABLET PO SCH (08:07)
[2023-10-06] MEDS: metFORMIN 500 MG TABLET PO SCH (08:07)
[2023-10-06] MEDS: risperiDONE 0.25 MG TABLET PO SCH ×2 (08:07→20:52)
[2023-10-06] MEDS: ASPIRIN 81 MG CHEWABLE TABLET PO SCH (08:07)
[2023-10-06] MEDS: amLODIPine 10 MG TABLET PO SCH (08:07)
[2023-10-06] MEDS: LOSARTAN 100 MG TABLET PO SCH (08:07)
[2023-10-06] MEDS: prednisoLONE 1% Ophthalmic Suspension 5 ML BTL OP SCH ×4 (08:08→20:52)
[2023-10-06] MEDS: DOCUSATE SODIUM 100 MG CAPSULE PO SCH ×2 (08:09→20:50)
[2023-10-06] MEDS: MICONAZOLE 2% POWDER 90 GM TOP SCH ×2 (08:09→20:53)
[2023-10-06] MEDS: SENNA W/DOCUSATE TABLET PO SCH ×2 (08:09→20:50)
[2023-10-06] MEDS: ENOXAPARIN 40 MG/0.4 ML SYRINGE SQ SCH (10:45)
[2023-10-06 20:46] VITALS: BP 153/63
[2023-10-06] MEDS: ACETAMINOPHEN 325 MG TABLET PO PRN (20:52)
[2023-10-07] MEDS: inSUlin ASPART 1 UNIT/0.01 ML (PER UNIT) SC SCH ×4 (05:37→21:19)
[2023-10-07] MEDS: CLOPIDOGREL 75 MG TABLET PO SCH (07:57)
[2023-10-07] MEDS: amLODIPine 10 MG TABLET PO SCH (07:57)
[2023-10-07] MEDS: LOSARTAN 100 MG TABLET PO SCH (07:57)
[2023-10-07] MEDS: metFORMIN 500 MG TABLET PO SCH (07:57)
[2023-10-07] MEDS: ASPIRIN 81 MG CHEWABLE TABLET PO SCH (07:57)
[2023-10-07] MEDS: risperiDONE 0.25 MG TABLET PO SCH ×2 (07:57→21:18)
[2023-10-07] MEDS: prednisoLONE 1% Ophthalmic Suspension 5 ML BTL OP SCH ×4 (07:58→21:18)
[2023-10-07] MEDS: MICONAZOLE 2% POWDER 90 GM TOP SCH ×2 (07:58→21:18)
[2023-10-07] MEDS: SENNA W/DOCUSATE TABLET PO SCH ×2 (07:59→21:19)
[2023-10-07] MEDS: DOCUSATE SODIUM 100 MG CAPSULE PO SCH ×2 (07:59→21:18)
[2023-10-07 08:31] VITALS: BP 142/63
[2023-10-07] MEDS: ENOXAPARIN 40 MG/0.4 ML SYRINGE SQ SCH (08:51)
--- NOTE | 2023-10-07 13:36 | PM&R Progress Note ---
Subjective HPI/CC On Admission Date Seen by Provider: Oct 07, 2023 Time Seen by Provider: 08:15 Subjective/Events-last exam 10/07/2023: Patient doing well Labs will be obtained tomorrow Denies any pain 10/06/2023: No major issues Awaiting placement No falls Confusion improved 10/05/2023: Patient doing well Participation is good Cognition continues to be an issue Poor immediate recall is concerning 10/04/2023: Patient doing a lot better Cognition is an issue May require skilled care for cognition deficits No pain 10/03/2023: Patient doing well His cognition is a concern about returning home alone May very well need skilled care Reviewed everything in team conference 10/02/2023: Doing well Much improved overall Confusion improved DC scopalmine patch 10/01/2023: Doing well Had some confusion this morning but has cleared No falls No pain 09/30/2023: Doing well Multiple visitors every day No pain reported Confusion resolved 09/29/2023: Dramatic improvement Family visiting No falls Improved ambulation 09/28/2023: Doing very well Improving every day No falls Pain controlled BM regimen maintained for constipation 09/27/2023: Patient doing a lot better Denies any new issues Walking 200 feet today Family at bedside 09/26/2023: No major issues No pain reported Improved confusion Family at bedside Family concerned about ability to manage at home alone 09/25/2023: Patient had confusion last night Much more alert today Family at bedside Eating lunch Pringle catheter will be discontinued tomorrow Pain is controlled Review of Systems General: Fatigue, Malaise Objective Exam Vital Signs Vital Signs Date Time Temp Pulse Resp B/P (MAP) Pulse Ox O2 Delivery O2 Flow Rate FiO2 10/07/23 09:59 Room Air 10/07/23 08:31 35.7 79 18 142/63 (89) 97 Capillary Refill : General Appearance: No Apparent Distress, WD/WN, Chronically ill, Obese, Other (lethargic) HEENT: PERRL/EOMI, Normal ENT Inspection, Pharynx Normal Neck: Full Range of Motion, Normal Inspection, Non Tender, Supple, Carotid Bruit Respiratory: Chest Non Tender, Lungs Clear, Normal Breath Sounds, No Accessory Muscle Use, No Respiratory Distress Cardiovascular: Regular Rate, Rhythm, No Edema, No Gallop, No JVD, No Murmur, Normal Peripheral Pulses Gastrointestinal: Normal Bowel Sounds, No Organomegaly, No Pulsatile Mass, Non Tender, Soft Back: Normal Inspection, No CVA Tenderness, No Vertebral Tenderness Extremity: Normal Capillary Refill, Normal Inspection, Normal Range of Motion, Non Tender, No Calf Tenderness, No Pedal Edema Neurologic/Psychiatric: Alert, patient support representative II-XII Norm as Tested, Abnormal Gait, Depressed Affect, Disoriented (subtle confusion), Motor Weakness (generalized) Skin: Normal Color, Warm/Dry Lymphatic: No Adenopathy Results/Procedures Lab Patient resulted labs reviewed. FIM Transfers Therapy Code Descriptions/Definitions Functional [place] Measure: 0=Not Assessed/NA 4=Minimal Assistance 1=Total Assistance 5=Supervision or Setup 2=Maximal Assistance 6=Modified [place] 3=Moderate Assistance 7=Complete IndependenceSCALE: Activities may be completed with or without assistive devices. 9-Nzcjlcitgt-geatgmi completes the activity by him/herself with no assistance from a helper. 5-Set-up or Clean-up Assistance-helper sets up or cleans up; patient completes activity. [place] assists only prior to or following the activity. 4-Supervision or Touching Assistance-helper provides verbal cues and/or touching/steadying and/or contact guard assistance as patient completes activity. Assistance may be provided throughout the activity or intermittently. 3-Partial/Moderate Assistance-helper does LESS THAN HALF the effort. [place] lifts, holds or supports trunk or limbs, but provides less than half the effort. 2-Substantial/Maximal Assistance-helper does MORE THAN HALF the effort. [place] lifts or holds trunk or limbs and provides more than half the effort. 0-Ljenwvszw-kayznf does ALL the effort. Patient does none of the effort to complete the activity. Or, the assistance of 2 or more helpers is required for the patient to complete the activity. If activity was not attempted, code reason: 7-Patient Refused. 9-Not Applicable-not attempted and the patient did not perform the activity before the current illness, exacerbation or injury. 10-Not Attempted due to Environmental Limitations-(lack of equipment, weather restraints, etc.). 88-Not Attempted due to Medical Conditions or Safety Concerns. Roll Left to Right (QC): 6 Sit to Lying (QC): 6 Sit to Stand (QC): 4 (SBA) Chair/Gmt-vu-Jpepq Xfer(QC): 4 (SBA /c FWW) Car Transfer (QC): 4 (CGA and retrieval of "steering wheel" in car for patient to hold onto when swinging legs in.) Gait Training Does the Patient Walk?: Yes Distance: 250, 75' Walk 10 feet (QC): 4 Walk 50 ft with 2 Turns(QC): 4 Walk 150 ft (QC): 4 (SBA /c FWW for 250' without rest. ) Walking 10ft/uneven surface-QC: 4 (CGA /c FWW) Gait Assistive Device: FWW Wheelchair Training Does the Pt Use a Wheelchair?: Yes Distance: 3' Wheel 50 ft with 2 turns (QC): 4 Wheel 150 ft (QC): 4 Type of Wheelchair: Manual Stair Training #of Steps: 3 1 Step (curb) (QC): 3 (x 2 / FWW and cues for 1st rep) 4 Steps (QC): 4 (CGA /c (B) rails x 2) 12 Steps (QC): 4 (CGA /c (B) rails) Balance Picking up an Object (QC): 4 (SBA to remove pants from floor after toileting) ADL-Treatment Eating (QC): 6 (IND drinking ensure. Pt declined food this AM) Oral Hygiene (QC): 6 (Pt. able to complete grooming/oral hygiene while sitting at sink. ) Bathing Location: L Arm, R Arm, L Upper Leg, R Upper Leg, L Lower Leg (including foot), R Lower Leg (including foot), Chest, Abdomen, Buttocks, Perineal Area Shower/Bathe Self (QC): 4 (Pt. able to bathe all areas while sitting 100% of the time on shower bench using LH sponge, HH shower, and grabbars. SBA for safety) Upper Body Dressing (QC): 5 (Pt. able to don/doff UB clothing by self.) Lower Body Dressing (QC): 5 (Pt. able to don/doff LB clothing by self using grabbars and FWW.) On/Off Footwear (QC): 5 (Pt. able to don/doff socks and shoes using shoe horn.) Toileting Hygiene (QC): 4 (Pt. able to complete clothing manipulation and cleanses all areas by self. SBA) Toilet Transfer (QC): 4 (Pt. able to complete toilet transfers using grabbars and FWW.) Assessment/Plan Assessment and Plan Assess & Plan/Chief Complaint Assessment: s/p cerebellar CVA HTN DM Obesity Recent severe delirium requiring Precedex in ICU s/p loop recorder Plan: BP control DM management PT OT 09/25/2023: Supportive care Monitor confusion 09/26/2023: Continue supportive care Catheter DC and voiding well 09/27/2023: Monitor closely Dramatic improvement 09/28/2023: BM regimen Monitor progress 09/29/2023: No changes Dramatic improvement 09/30/2023: Monitor closely 10/01/2023: Labs stable Monitor confusion 10/02/2023: Improved overall DC Scopalmine 10/03/2023: Doing fair with cognition Ultimately may require skilled 10/04/2023: Supportive care will continue 10/05/2023: Continue aggressive speech therapy for cognition Continue aggressive rehab 10/06/2023: Continue treatment Confusion improved 10/07/2023: Continue aggressive speech therapy for cognition (1) Cerebellar stroke Status: Acute SALEEM KING DO Oct 07, 2023 13:35
[2023-10-07 19:28] VITALS: BP 131/62
--- NOTE | 2023-10-08 05:13 | PM&R Progress Note ---
Subjective HPI/CC On Admission Date Seen by Provider: Oct 08, 2023 Time Seen by Provider: 09:00 Subjective/Events-last exam 10/08/2023: Doing well No issues ST focus now Ambulating well Labs stable 10/07/2023: Patient doing well Labs will be obtained tomorrow Denies any pain 10/06/2023: No major issues Awaiting placement No falls Confusion improved 10/05/2023: Patient doing well Participation is good Cognition continues to be an issue Poor immediate recall is concerning 10/04/2023: Patient doing a lot better Cognition is an issue May require skilled care for cognition deficits No pain 10/03/2023: Patient doing well His cognition is a concern about returning home alone May very well need skilled care Reviewed everything in team conference 10/02/2023: Doing well Much improved overall Confusion improved DC scopalmine patch 10/01/2023: Doing well Had some confusion this morning but has cleared No falls No pain 09/30/2023: Doing well Multiple visitors every day No pain reported Confusion resolved 09/29/2023: Dramatic improvement Family visiting No falls Improved ambulation 09/28/2023: Doing very well Improving every day No falls Pain controlled BM regimen maintained for constipation 09/27/2023: Patient doing a lot better Denies any new issues Walking 200 feet today Family at bedside 09/26/2023: No major issues No pain reported Improved confusion Family at bedside Family concerned about ability to manage at home alone 09/25/2023: Patient had confusion last night Much more alert today Family at bedside Eating lunch Pringle catheter will be discontinued tomorrow Pain is controlled Review of Systems General: Fatigue, Malaise Objective Exam Vital Signs Vital Signs Date Time Temp Pulse Resp B/P (MAP) Pulse Ox O2 Delivery O2 Flow Rate FiO2 10/08/23 21:10 98 Room Air 10/08/23 20:25 36.0 93 16 99/50 (66) Capillary Refill : General Appearance: No Apparent Distress, WD/WN, Chronically ill, Obese, Other (lethargic) HEENT: PERRL/EOMI, Normal ENT Inspection, Pharynx Normal Neck: Full Range of Motion, Normal Inspection, Non Tender, Supple, Carotid Bruit Respiratory: Chest Non Tender, Lungs Clear, Normal Breath Sounds, No Accessory Muscle Use, No Respiratory Distress Cardiovascular: Regular Rate, Rhythm, No Edema, No Gallop, No JVD, No Murmur, Normal Peripheral Pulses Gastrointestinal: Normal Bowel Sounds, No Organomegaly, No Pulsatile Mass, Non Tender, Soft Back: Normal Inspection, No CVA Tenderness, No Vertebral Tenderness Extremity: Normal Capillary Refill, Normal Inspection, Normal Range of Motion, Non Tender, No Calf Tenderness, No Pedal Edema Neurologic/Psychiatric: Alert, vessel operator II-XII Norm as Tested, Abnormal Gait, Depressed Affect, Disoriented (subtle confusion), Motor Weakness (generalized) Skin: Normal Color, Warm/Dry Lymphatic: No Adenopathy Results/Procedures Lab Laboratory Tests 10/08/23 05:27 Patient resulted labs reviewed. FIM Transfers Therapy Code Descriptions/Definitions Functional [place] Measure: 0=Not Assessed/NA 4=Minimal Assistance 1=Total Assistance 5=Supervision or Setup 2=Maximal Assistance 6=Modified [place] 3=Moderate Assistance 7=Complete IndependenceSCALE: Activities may be completed with or without assistive devices. 2-Syzzrtvxov-hregkab completes the activity by him/herself with no assistance from a helper. 5-Set-up or Clean-up Assistance-helper sets up or cleans up; patient completes activity. [place] assists only prior to or following the activity. 4-Supervision or Touching Assistance-helper provides verbal cues and/or touching/steadying and/or contact guard assistance as patient completes activity. Assistance may be provided throughout the activity or intermittently. 3-Partial/Moderate Assistance-helper does LESS THAN HALF the effort. [place] lifts, holds or supports trunk or limbs, but provides less than half the effort. 2-Substantial/Maximal Assistance-helper does MORE THAN HALF the effort. [place] lifts or holds trunk or limbs and provides more than half the effort. 8-Ctmhlvjgk-gpbbai does ALL the effort. Patient does none of the effort to complete the activity. Or, the assistance of 2 or more helpers is required for the patient to complete the activity. If activity was not attempted, code reason: 7-Patient Refused. 9-Not Applicable-not attempted and the patient did not perform the activity before the current illness, exacerbation or injury. 10-Not Attempted due to Environmental Limitations-(lack of equipment, weather restraints, etc.). 88-Not Attempted due to Medical Conditions or Safety Concerns. Roll Left to Right (QC): 6 Sit to Lying (QC): 6 Sit to Stand (QC): 4 (SBA) Chair/Dfj-gq-Yvkqw Xfer(QC): 4 (SBA /c FWW) Car Transfer (QC): 4 (CGA and retrieval of "steering wheel" in car for patient to hold onto when swinging legs in.) Gait Training Does the Patient Walk?: Yes Distance: 250, 75' Walk 10 feet (QC): 4 Walk 50 ft with 2 Turns(QC): 4 Walk 150 ft (QC): 4 (SBA /c FWW for 250' without rest. ) Walking 10ft/uneven surface-QC: 4 (CGA /c FWW) Gait Assistive Device: FWW Wheelchair Training Does the Pt Use a Wheelchair?: Yes Distance: 3' Wheel 50 ft with 2 turns (QC): 4 Wheel 150 ft (QC): 4 Type of Wheelchair: Manual Stair Training #of Steps: 3 1 Step (curb) (QC): 3 (x 2 / FWW and cues for 1st rep) 4 Steps (QC): 4 (CGA /c (B) rails x 2) 12 Steps (QC): 4 (CGA /c (B) rails) Balance Picking up an Object (QC): 4 (SBA to remove pants from floor after toileting) ADL-Treatment Eating (QC): 6 (IND drinking ensure. Pt declined food this AM) Oral Hygiene (QC): 6 (Pt. able to complete grooming/oral hygiene while sitting at sink. ) Bathing Location: L Arm, R Arm, L Upper Leg, R Upper Leg, L Lower Leg (including foot), R Lower Leg (including foot), Chest, Abdomen, Buttocks, Perineal Area Shower/Bathe Self (QC): 4 (Pt. able to bathe all areas while sitting 100% of the time on shower bench using LH sponge, HH shower, and grabbars. SBA for safety) Upper Body Dressing (QC): 5 (Pt. able to don/doff UB clothing by self.) Lower Body Dressing (QC): 5 (Pt. able to don/doff LB clothing by self using grabbars and FWW.) On/Off Footwear (QC): 5 (Pt. able to don/doff socks and shoes using shoe horn.) Toileting Hygiene (QC): 4 (Pt. able to complete clothing manipulation and cleanses all areas by self. SBA) Toilet Transfer (QC): 4 (Pt. able to complete toilet transfers using grabbars and FWW.) Assessment/Plan Assessment and Plan Assess & Plan/Chief Complaint Assessment: s/p cerebellar CVA HTN DM Obesity Recent severe delirium requiring Precedex in ICU s/p loop recorder Plan: BP control DM management PT OT 09/25/2023: Supportive care Monitor confusion 09/26/2023: Continue supportive care Catheter DC and voiding well 09/27/2023: Monitor closely Dramatic improvement 09/28/2023: BM regimen Monitor progress 09/29/2023: No changes Dramatic improvement 09/30/2023: Monitor closely 10/01/2023: Labs stable Monitor confusion 10/02/2023: Improved overall DC Scopalmine 10/03/2023: Doing fair with cognition Ultimately may require skilled 10/04/2023: Supportive care will continue 10/05/2023: Continue aggressive speech therapy for cognition Continue aggressive rehab 10/06/2023: Continue treatment Confusion improved 10/07/2023: Continue aggressive speech therapy for cognition 10/08/2023: Continue aggressive ST Monitor BP (1) Cerebellar stroke Status: Acute SALEEM KING DO Oct 08, 2023 05:13
[2023-10-08 06:05] LABS: BASOPHILS # (AUTO) 0.1 10^3/uL (0.0-0.1); BASOPHILS % (AUTO) 2 % (0-10); EOSINOPHILS # (AUTO) 0.5 10^3/uL (0.0-0.3); EOSINOPHILS % (AUTO) 11 % (0-10); HEMATOCRIT 42 % (40-54); HEMOGLOBIN 13.7 g/dL (13.3-17.7); LYMPHOCYTES # (AUTO) 1.1 10^3/uL (1.0-4.0); LYMPHOCYTES % (AUTO) 24 % (12-44); MEAN CORPUSCULAR HEMOGLOBIN 31 pg (25-34); MEAN CORPUSCULAR HGB CONC 33 g/dL (32-36); MEAN CORPUSCULAR VOLUME 95 fL (80-99); MEAN PLATELET VOLUME 11.2 fL (9.0-12.2); MONOCYTES # (AUTO) 0.6 10^3/uL (0.0-1.0); MONOCYTES % (AUTO) 12 % (0-12); NEUTROPHILS # (AUTO) 2.4 10^3/uL (1.8-7.8); NEUTROPHILS % (AUTO) 52 % (42-75); PLATELET COUNT 253 10^3/uL (130-400); WHITE BLOOD COUNT 4.6 10^3/uL (4.3-11.0)
[2023-10-08 06:29] LABS: ALBUMIN 3.3 GM/DL (3.2-4.5)
[2023-10-08 06:30] LABS: CALCIUM 9.2 MG/DL (8.5-10.1)
[2023-10-08 06:32] LABS: TOTAL PROTEIN 6.2 GM/DL (6.4-8.2)
[2023-10-08 06:33] LABS: BILIRUBIN,TOTAL 0.6 MG/DL (0.1-1.0)
[2023-10-08] MEDS: inSUlin ASPART 1 UNIT/0.01 ML (PER UNIT) SC SCH ×4 (06:34→20:37)
[2023-10-08 06:35] LABS: CREATININE SERUM 1.1 MG/DL (0.60-1.30)
[2023-10-08 08:00] VITALS: BP 137/67
[2023-10-08] MEDS: ASPIRIN 81 MG CHEWABLE TABLET PO SCH (08:31)
[2023-10-08] MEDS: LOSARTAN 100 MG TABLET PO SCH (08:32)
[2023-10-08] MEDS: risperiDONE 0.25 MG TABLET PO SCH ×2 (08:32→20:57)
[2023-10-08] MEDS: CLOPIDOGREL 75 MG TABLET PO SCH (08:32)
[2023-10-08] MEDS: metFORMIN 500 MG TABLET PO SCH (08:32)
[2023-10-08] MEDS: amLODIPine 10 MG TABLET PO SCH (08:32)
[2023-10-08] MEDS: ACETAMINOPHEN 325 MG TABLET PO PRN (08:32)
[2023-10-08] MEDS: ENOXAPARIN 40 MG/0.4 ML SYRINGE SQ SCH (08:34)
[2023-10-08] MEDS: MICONAZOLE 2% POWDER 90 GM TOP SCH ×2 (08:35→20:57)
[2023-10-08] MEDS: prednisoLONE 1% Ophthalmic Suspension 5 ML BTL OP SCH ×4 (08:36→20:57)
--- NOTE | 2023-10-08 08:38 | Occupational Ther Daily Note ---
OT Current Status-Daily Note Subjective Pt agreeable to OT Tx. Pt slightly confused, thinking he was in [place]. Mental Status/Objective Patient Orientation: Person, Confused, Time, Situation ADL-Treatment Therapy Code Descriptions/Definitions Functional [place] Measure: 0=Not Assessed/NA 4=Minimal Assistance 1=Total Assistance 5=Supervision or Setup 2=Maximal Assistance 6=Modified [place] 3=Moderate Assistance 7=Complete IndependenceSCALE: Activities may be completed with or without assistive devices. 0-Avskknqbeq-qkzetel completes the activity by him/herself with no assistance from a helper. 5-Set-up or Clean-up Assistance-helper sets up or cleans up; patient completes activity. [place] assists only prior to or following the activity. 4-Supervision or Touching Assistance-helper provides verbal cues and/or touchi ng/steadying and/or contact guard assistance as patient completes activity. Assistance may be provided throughout the activity or intermittently. 3-Partial/Moderate Assistance-helper does LESS THAN HALF the effort. [place] lifts, holds or supports trunk or limbs, but provides less than half the effort. 2-Substantial/Maximal Assistance-helper does MORE THAN HALF the effort. [place] lifts or holds trunk or limbs and provides more than half the effort. 6-Lneqrqaqn-jxhenz does ALL the effort. Patient does none of the effort to complete the activity. Or, the assistance of 2 or more helpers is required for the patient to complete the activity. If activity was not attempted, code reason: 7-Patient Refused. 9-Not Applicable-not attempted and the patient did not perform the activity before the current illness, exacerbation or injury. 10-Not Attempted due to Environmental Limitations-(lack of equipment, weather restraints, etc.). 88-Not Attempted due to Medical Conditions or Safety Concerns. Shower/Bathe Self (QC): 5 Upper Body Dressing (QC): 5 Lower Body Dressing (QC): 5 On/Off Footwear: 5 Toileting Hygiene (QC): 6 Toilet Transfer (QC): 6 (on/off BSC over toilet.) Other Treatment Pt stood from [facility]. He used FWW to transfer into bathroom and onto BSC over toilet, IND. Pt completed toileting, IND, doffed clothes, then transferred to VT. Pt completed shower, then donned clothes. Pt used FWW to transfer to therapy gym, SBA. In order to increase BUE strength and activity tolerance, pt completed arm bike, 15-20 Watt resistance, 20 mins, no rest breaks. Pt returned to his room using FWW, SBA, transferring to recliner. Post tx, pt in recliner, call light in reach and all needs met, chair alarm activated. Education OT Patient Education: Correct positioning, Energy conservation, Modified ADL techniques, Progress toward Goal/Update tx plan, Purpose of tx/functional activities, Rehab process Teaching Recipient: Patient Teaching Methods: Discussion Response to Teaching: Verbalize Understanding OT Ways Operator Goals Ways Operator Goals Time Frame: Oct 19, 2023 Acute change in mental status: 1 Inattention: 1 Disorganized thinkin Altered level of consciousness: 0 Eating (QC): 6 Oral Hygiene (QC): 6 Toileting Hygiene (QC): 6 Shower/Bathe Self (QC): 6 Upper Body Dressing (QC): 6 Lower Body Dressing (QC): 6 On/Off Footwear (QC): 6 Additional Goals: 1-Demonstrate ADL Tasks, 2-Verbalize Understanding, 3- ImproveStrength/Joey 1=Demonstrate adherence to instructed precautions during ADL tasks. 2=Patient will verbalize/demonstrate understanding of assistive devices/modifications for ADL. 3=Patient will improve strength/tolerance for activity to enable patient to perform ADL's. OT Education/Plan Problem List/Assessment Assessment: Decreased Activ Tolerance, Decreased UE Strength, Impaired I ADL's Discharge Recommendations Plan/Recommendations: Continue POC Treatment Plan/Plan of Care Patient would benefit from OT for education, treatment and training to promote independence in ADL's, mobility, safety and/or upper extremity function for ADL's. Plan of Care: ADL Retraining, Functional Mobility, Group Exercise/Act as Ind, UE Funct Exercise/Act, UE Neuromus Re-Ed/Coord Treatment Duration: Oct 19, 2023 Frequency: At least 5 of 7 days/Wk (IRF) Estimated Hrs Per Day: Other (75 mins per day) Agreement: Yes Rehab Potential: Fair Time Start Time: 07:30 Stop Time: 08:45 DATE: Oct 08, 2023 Total Time Billed (hr/min): 75 Billed Treatment Time 1, ADL 4 (55'), EX (20') LIN MORENO OT Oct 08, 2023 08:38
--- NOTE | 2023-10-08 11:07 | Speech Therapy Daily Note ---
Speech Daily Progress Note Subjective Date Seen by Provider: Oct 08, 2023 Time Seen by Provider: 09:45 Pt was agreeable to session. Pt's daughter was present. Objective Pt responded to a verbal category exclusion task of 4 units and completes with 86% accuracy (13/15) and 6 verbal repetitions of information required. Pt brainstormed 4 items required to complete functional tasks and completes with 100% accuracy and requires occasional verbal cues to complete 4th item on each task. Pt answered simple word problems about money, completes with 60% accuracy and requires visual cues to complete. Pt places simple checking information in the appropriate column in order to organize information, pt completes with 50% accuracy and requires mod verbal and visual cues. Assessment Assessment Current Status: Good Progress Treatment Plan Continue Plan of Care Speech Senior Living Goals Clinical Nurse Specialist Goals 1. The pt will be oriented to self, place, time and situation independently with 100% accuracy. 2. The pt will complete simple problem solving and safety awareness for daily tasks of living with 90% accuracy. 3. The pt will demonstrate immediate, short-term and long-term recall of functional information with 80% accuracy. Speech-Plan Treatment Plan Speech Therapy Treatment Plan: Continue Plan of Care Treatment Duration: Sep 25, 2023 Frequency: At least 5 of 7 days/Wk (IRF) Estimated Hrs Per Day: Other (45 min cog/ling tx) Rehab Potential: Fair Time Speech Therapy Time In: 09:45 Speech Therapy Time Out: 10:30 DATE: Oct 08, 2023 Total Billed Time: 45 Billed Treatment Time 1 SLTS 45 min Anayeli Rowan Oct 08, 2023 11:07
[2023-10-08] MEDS: DOCUSATE SODIUM 100 MG CAPSULE PO SCH ×2 (11:22→20:57)
[2023-10-08] MEDS: SENNA W/DOCUSATE TABLET PO SCH ×2 (11:22→20:58)
--- NOTE | 2023-10-08 16:35 | Physical Therapy Daily Note ---
PT Daily Note-Current Subjective Pt presents sitting in recliner with daughter present in room. Pt denies pain and is agreeable to PT tx. Pt reports his bottom is still sore, and nursing is monitoring. Pain Section J - Health Conditions 1. Rarely or not at all 2. Occasionally 3. Frequently 4. Almost constantly 8. Unable to answer Pain Effect on Sleep: 1 Pain Interference with Therapy: 1 Pain Interference w/Day-to-Day: 1 Mental Status Patient Orientation: Person, Place, Time, Situation Transfers SCALE: Activities may be completed with or without assistive devices. 8-Tuohpmupmb-qobcjyx completes the activity by him/herself with no assistance from a helper. 5-Set-up or Clean-up Assistance-helper sets up or cleans up; patient completes activity. [place] assists only prior to or following the activity. 4-Supervision or Touching Assistance-helper provides verbal cues and/or touching/steadying and/or contact guard assistance as patient completes activ ity. Assistance may be provided throughout the activity or intermittently. 3-Partial/Moderate Assistance-helper does LESS THAN HALF the effort. [place] lifts, holds or supports trunk or limbs, but provides less than half the effort. 2-Substantial/Maximal Assistance-helper does MORE THAN HALF the effort. [place] lifts or holds trunk or limbs and provides more than half the effort. 8-Vzpskryos-xfxkxv does ALL the effort. Patient does none of the effort to complete the activity. Or, the assistance of 2 or more helpers is required for the patient to complete the activity. If activity was not attempted, code reason: 7-Patient Refused. 9-Not Applicable-not attempted and the patient did not perform the activity before the current illness, exacerbation or injury. 10-Not Attempted due to Environmental Limitations-(lack of equipment, weather restraints, etc.). 88-Not Attempted due to Medical Conditions or Safety Concerns. Sit to Stand (QC): 4 Chair/Smm-ck-Dqecn Xfer(QC): 4 Weight Bearing Full Weight Bearing Full Weight Bearing Gait Training Does the Patient Walk?: Yes Walk 10 feet (QC): 4 Walk 50 ft with 2 Turns(QC): 4 Walk 150 ft (QC): 4 Gait Assistive Device: FWW Pt amb 60' + 150' with FWW, CGA for steadying and vc's for hand placement. Wheelchair Training Does the Pt Use a Wheelchair?: No Stair Training Stair Training: Handrails/: 2 handrails 1 Step (curb) (QC): 4 4 Steps (QC): 4 12 Steps (QC): 4 Stairs: Pattern: Step to Pt ascended/descended 4 stairs x 4 with B hand rails, CGA, to mock daughters 14 steps at home. Exercises THER EX: Seated B LE x 10 reps and Red ther band: HS curls, ankle PF, ankle DF. Standing B LE x 10 reps: Hip ABD (Stance on R LE (CGA) more balanced than L LE. (L) LE required Gio), Hip Extension, Heel/Toe raises. NuStep Minutes: 15 NuStep Workload: 3 Treatments Pt amb from room to PT gym /c FWW, CGA. Pt conducted B UE/LE exercise on NuStep x 15m. Pt conducted seated and standing ther ex. Pt amb back to room and sat in recliner. Post tx with pt in recliner, call light within reach and all needs met. Assessment Current Status: Good Progress Pt conducted amb with no SOB and no LOB. Pt had only 1 LOB with quick recovery during standing ther ex hip abd. PT Auto Body Painter Goals Auto Body Painter Goals PT Group Home Goals Time Frame: Oct 22, 2023 Roll Left & Right (QC): 4 Sit to Lying (QC): 4 Lying-Sitting on Side/Bed(QC): 4 Sit to Stand (QC): 3 Chair/Aqx-qt-Uwjbm Xfer(QC): 3 Toilet Transfer (QC): 3 Car Transfer (QC): 3 Does the Patient Walk: Yes Walk 10 feet (QC): 3 Walk 50ft with 2 Turns (QC): 3 Walk 150 ft (QC): 3 Walking 10ft on Uneven Surface: 3 1 Step (curb) (QC): 3 4 Steps (QC): 3 12 Steps (QC): 3 Picking up an Object (QC): 3 Does the Pt use WC or Scooter?: Yes Wheel 50 feet with 2 turns (QC: 6 Type: Manual Wheel 150 feet: 6 Type: Manual PT Plan Problem List Problem List: Activity Tolerance, Functional Strength, Safety Treatment/Plan Treatment Plan: Continue Plan of Care Treatment Plan: Education, Functional Activity Joey, Functional Strength, Gait, Safety, Therapeutic Exercise, Transfers Treatment Duration: Sep 25, 2023 Frequency: 5 times per week Estimated Hrs Per Day: 1 hour per day Patient and/or Family Agrees t: Yes Safety Risks/Education Patient Education: Correct Positioning, Safety Issues Teaching Recipient: Patient Teaching Methods: Demonstration, Discussion Response to Teaching: Verbalize Understanding, Return Demonstration Discharge Recommendations Plan Continue with tx per pt POC. Time Time In: 1345 Time Out: 1445 DATE: Oct 08, 2023 Total Billed Treatment Time: 60 Total Billed Treatment 1, EX2 (30m), FA2 (30m) LUCIE MCKNIGHT REVERSER Oct 08, 2023 16:34
[2023-10-08 20:25] VITALS: BP 99/50
[2023-10-09] MEDS: inSUlin ASPART 1 UNIT/0.01 ML (PER UNIT) SC SCH ×4 (06:06→21:25)
[2023-10-09] MEDS: metFORMIN 500 MG TABLET PO SCH (07:48)
[2023-10-09] MEDS: SENNA W/DOCUSATE TABLET PO SCH ×2 (07:48→21:49)
[2023-10-09] MEDS: risperiDONE 0.25 MG TABLET PO SCH ×2 (07:48→21:49)
[2023-10-09] MEDS: ASPIRIN 81 MG CHEWABLE TABLET PO SCH (07:48)
[2023-10-09] MEDS: LOSARTAN 100 MG TABLET PO SCH (07:48)
[2023-10-09] MEDS: CLOPIDOGREL 75 MG TABLET PO SCH (07:48)
[2023-10-09] MEDS: amLODIPine 10 MG TABLET PO SCH (07:48)
[2023-10-09] MEDS: DOCUSATE SODIUM 100 MG CAPSULE PO SCH ×2 (07:48→21:49)
[2023-10-09] MEDS: MICONAZOLE 2% POWDER 90 GM TOP SCH ×2 (07:49→21:49)
[2023-10-09] MEDS: prednisoLONE 1% Ophthalmic Suspension 5 ML BTL OP SCH ×4 (07:51→21:48)
[2023-10-09 08:00] VITALS: BP 122/57
--- NOTE | 2023-10-09 08:00 | Occupational Ther Daily Note ---
OT Current Status-Daily Note Subjective Pt agreeable to OT Tx. ADL-Treatment Therapy Code Descriptions/Definitions Functional [place] Measure: 0=Not Assessed/NA 4=Minimal Assistance 1=Total Assistance 5=Supervision or Setup 2=Maximal Assistance 6=Modified [place] 3=Moderate Assistance 7=Complete IndependenceSCALE: Activities may be completed with or without assistive devices. 8-Jykerrehxe-nmcufcq completes the activity by him/herself with no assistance from a helper. 5-Set-up or Clean-up Assistance-helper sets up or cleans up; patient completes activity. [place] assists only prior to or following the activity. 4-Supervision or Touching Assistance-helper provides verbal cues and/or touching/steadying and/or contact guard assistance as patient completes activity. Assistance may be provided throughout the activity or intermittently. 3-Partial/Moderate Assistance-helper does LESS THAN HALF the effort. [place] lifts, holds or supports trunk or limbs, but provides less than half the effort. 2-Substantial/Maximal Assistance-helper does MORE THAN HALF the effort. [place] lifts or holds trunk or limbs and provides more than half the effort. 8-Irpsklkjo-jideya does ALL the effort. Patient does none of the effort to complete the activity. Or, the assistance of 2 or more helpers is required for the patient to complete the activity. If activity was not attempted, code reason: 7-Patient Refused. 9-Not Applicable-not attempted and the patient did not perform the activity before the current illness, exacerbation or injury. 10-Not Attempted due to Environmental Limitations-(lack of equipment, weather restraints, etc.). 88-Not Attempted due to Medical Conditions or Safety Concerns. Eating (QC): 6 Other Treatment Pt in [facility], ate breakfast independently. Pt took medications provided by RN, IND. [facility], [facility] OT tx focused on increasing BUE Strength and activity tolerance. Pt completed UE reaching task, 2lb wrist weights BUEs, pt placed/removed 1" pegs from foam pegboard, alternating hands. 1 VC for instruction with task. Pt then removed beads from heavy resistance therputty, 2lb wrist weights BUEs. Pt able to locate all beads and remove without cues. Pt returned to his room using FWW, SBA, transferring to [facility]. Post tx, pt in recliner, call light in reach and all needs met. Education OT Patient Education: Correct positioning, Energy conservation, Modified ADL techniques, Progress toward Goal/Update tx plan, Purpose of tx/functional activities, Rehab process Teaching Recipient: Patient Teaching Methods: Discussion Response to Teaching: Verbalize Understanding OT Phytopathology Teacher Goals Phytopathology Teacher Goals Time Frame: Oct 19, 2023 Acute change in mental status: 1 Inattention: 1 Disorganized thinkin Altered level of consciousness: 0 Eating (QC): 6 Oral Hygiene (QC): 6 Toileting Hygiene (QC): 6 Shower/Bathe Self (QC): 6 Upper Body Dressing (QC): 6 Lower Body Dressing (QC): 6 On/Off Footwear (QC): 6 Additional Goals: 1-Demonstrate ADL Tasks, 2-Verbalize Understanding, 3-ImproveStrength/Joey 1=Demonstrate adherence to instructed precautions during ADL tasks. 2=Patient will verbalize/demonstrate understanding of assistive devices/modifications for ADL. 3=Patient will improve strength/tolerance for activity to enable patient to perform ADL's. OT Education/Plan Problem List/Assessment Assessment: Decreased Activ Tolerance, Decreased UE Strength, Impaired I ADL's Discharge Recommendations Plan/Recommendations: Continue POC Treatment Plan/Plan of Care Patient would benefit from OT for education, treatment and training to promote independence in ADL's, mobility, safety and/or upper extremity function for ADL's. Plan of Care: ADL Retraining, Functional Mobility, Group Exercise/Act as Ind, UE Funct Exercise/Act, UE Neuromus Re-Ed/Coord Treatment Duration: Oct 19, 2023 Frequency: At least 5 of 7 days/Wk (IRF) Estimated Hrs Per Day: Other (75 mins per day) Agreement: Yes Rehab Potential: Fair Time Start Time: 07:15 Stop Time: 08:30 DATE: Oct 09, 2023 Total Time Billed (hr/min): 75 Billed Treatment Time 1, ADL 2 (30'), FA 3 (45') LIN MORENO OT Oct 09, 2023 08:00
--- NOTE | 2023-10-09 08:07 | PM&R Progress Note ---
Subjective HPI/CC On Admission Date Seen by Provider: Oct 09, 2023 Time Seen by Provider: 12:00 Subjective/Events-last exam 10/09/2023: Patient doing well Denies any new issues Cognition is improving Possible disposition in [place] close to his daughter 10/08/2023: Doing well No issues ST focus now Ambulating well Labs stable 10/07/2023: Patient doing well Labs will be obtained tomorrow Denies any pain 10/06/2023: No major issues Awaiting placement No falls Confusion improved 10/05/2023: Patient doing well Participation is good Cognition continues to be an issue Poor immediate recall is concerning 10/04/2023: Patient doing a lot better Cognition is an issue May require skilled care for cognition deficits No pain 10/03/2023: Patient doing well His cognition is a concern about returning home alone May very well need skilled care Reviewed everything in team conference 10/02/2023: Doing well Much improved overall Confusion improved DC scopalmine patch 10/01/2023: Doing well Had some confusion this morning but has cleared No falls No pain 09/30/2023: Doing well Multiple visitors every day No pain reported Confusion resolved 09/29/2023: Dramatic improvement Family visiting No falls Improved ambulation 09/28/2023: Doing very well Improving every day No falls Pain controlled BM regimen maintained for constipation 09/27/2023: Patient doing a lot better Denies any new issues Walking 200 feet today Family at bedside 09/26/2023: No major issues No pain reported Improved confusion Family at bedside Family concerned about ability to manage at home alone 09/25/2023: Patient had confusion last night Much more alert today Family at bedside Eating lunch Pringle catheter will be discontinued tomorrow Pain is controlled Review of Systems General: Fatigue, Malaise Neurological: Confusion Objective Exam Vital Signs Vital Signs Date Time Temp Pulse Resp B/P (MAP) Pulse Ox O2 Delivery O2 Flow Rate FiO2 10/09/23 21:40 99 Room Air 10/09/23 20:13 36.1 95 16 122/55 (77) Capillary Refill : General Appearance: No Apparent Distress, WD/WN, Chronically ill, Obese, Other (lethargic) HEENT: PERRL/EOMI, Normal ENT Inspection, Pharynx Normal Neck: Full Range of Motion, Normal Inspection, Non Tender, Supple, Carotid Bruit Respiratory: Chest Non Tender, Lungs Clear, Normal Breath Sounds, No Accessory Muscle Use, No Respiratory Distress Cardiovascular: Regular Rate, Rhythm, No Edema, No Gallop, No JVD, No Murmur, Normal Peripheral Pulses Gastrointestinal: Normal Bowel Sounds, No Organomegaly, No Pulsatile Mass, Non Tender, Soft Back: Normal Inspection, No CVA Tenderness, No Vertebral Tenderness Extremity: Normal Capillary Refill, Normal Inspection, Normal Range of Motion, Non Tender, No Calf Tenderness, No Pedal Edema Neurologic/Psychiatric: Alert, lace roller operator II-XII Norm as Tested, Abnormal Gait, Depressed Affect, Disoriented (subtle confusion), Motor Weakness (generalized) Skin: Normal Color, Warm/Dry Lymphatic: No Adenopathy Results/Procedures Lab Patient resulted labs reviewed. FIM Transfers Therapy Code Descriptions/Definitions Functional [place] Measure: 0=Not Assessed/NA 4=Minimal Assistance 1=Total Assistance 5=Supervision or Setup 2=Maximal Assistance 6=Modified [place] 3=Moderate Assistance 7=Complete IndependenceSCALE: Activities may be completed with or without assistive devices. 6-Nuduypdppa-nbohpqn completes the activity by him/herself with no assistance from a helper. 5-Set-up or Clean-up Assistance-helper sets up or cleans up; patient completes activity. [place] assists only prior to or following the activity. 4-Supervision or Touching Assistance-helper provides verbal cues and/or touching/steadying and/or contact guard assistance as patient completes activity. Assistance may be provided throughout the activity or intermittently. 3-Partial/Moderate Assistance-helper does LESS THAN HALF the effort. [place] lifts, holds or supports trunk or limbs, but provides less than half the effort. 2-Substantial/Maximal Assistance-helper does MORE THAN HALF the effort. [place] lifts or holds trunk or limbs and provides more than half the effort. 9-Rdgzoemux-mgtgwp does ALL the effort. Patient does none of the effort to complete the activity. Or, the assistance of 2 or more helpers is required for the patient to complete the activity. If activity was not attempted, code reason: 7-Patient Refused. 9-Not Applicable-not attempted and the patient did not perform the activity before the current illness, exacerbation or injury. 10-Not Attempted due to Environmental Limitations-(lack of equipment, weather restraints, etc.). 88-Not Attempted due to Medical Conditions or Safety Concerns. Roll Left to Right (QC): 6 Sit to Lying (QC): 6 Sit to Stand (QC): 4 Chair/Eag-gs-Szdgc Xfer(QC): 4 Car Transfer (QC): 4 (CGA and retrieval of "steering wheel" in car for patient to hold onto when swinging legs in.) Gait Training Does the Patient Walk?: Yes Distance: 250, 75' Walk 10 feet (QC): 4 Walk 50 ft with 2 Turns(QC): 4 Walk 150 ft (QC): 4 Walking 10ft/uneven surface-QC: 4 (CGA /c FWW) Gait Assistive Device: FWW Wheelchair Training Does the Pt Use a Wheelchair?: No Distance: 3' Wheel 50 ft with 2 turns (QC): 4 Wheel 150 ft (QC): 4 Type of Wheelchair: Manual Stair Training Stair Training: Handrails/: 2 handrails #of Steps: 3 1 Step (curb) (QC): 4 4 Steps (QC): 4 12 Steps (QC): 4 Stairs: Pattern: Step to Balance Picking up an Object (QC): 4 (SBA to remove pants from floor after toileting) ADL-Treatment Eating (QC): 6 (IND drinking ensure. Pt declined food this AM) Oral Hygiene (QC): 6 (Pt. able to complete grooming/oral hygiene while sitting at sink. ) Bathing Location: L Arm, R Arm, L Upper Leg, R Upper Leg, L Lower Leg (including foot), R Lower Leg (including foot), Chest, Abdomen, Buttocks, Perineal Area Shower/Bathe Self (QC): 5 Upper Body Dressing (QC): 5 Lower Body Dressing (QC): 5 On/Off Footwear (QC): 5 Toileting Hygiene (QC): 6 Toilet Transfer (QC): 6 (on/off BSC over toilet.) Assessment/Plan Assessment and Plan Assess & Plan/Chief Complaint Assessment: s/p cerebellar CVA HTN DM Obesity Recent severe delirium requiring Precedex in ICU s/p loop recorder Plan: BP control DM management PT OT 09/25/2023: Supportive care Monitor confusion 09/26/2023: Continue supportive care Catheter DC and voiding well 09/27/2023: Monitor closely Dramatic improvement 09/28/2023: BM regimen Monitor progress 09/29/2023: No changes Dramatic improvement 09/30/2023: Monitor closely 10/01/2023: Labs stable Monitor confusion 10/02/2023: Improved overall DC Scopal[place] 10/03/2023: Doing fair with cognition Ultimately may require skilled 10/04/2023: Supportive care will continue 10/05/2023: Continue aggressive speech therapy for cognition Continue aggressive rehab 10/06/2023: Continue treatment Confusion improved 10/07/2023: Continue aggressive speech therapy for cognition 10/08/2023: Continue aggressive ST Monitor BP 10/09/2023: Supportive care Monitor closely DC Accu-Cheks and insulin (1) Cerebellar stroke Status: Acute SALEEM KING DO Oct 09, 2023 08:07
[2023-10-09] MEDS: ENOXAPARIN 40 MG/0.4 ML SYRINGE SQ SCH (09:04)
--- NOTE | 2023-10-09 11:42 | Speech Therapy Daily Note ---
Speech Daily Progress Note Subjective Date Seen by Provider: Oct 09, 2023 Time Seen by Provider: 09:45 Pt was sitting in bedside chair. Pt reports fatigue, but agrees to session. Objective Pt completes sentence manipulation task with 3 words, 4 words, and 5 words, with 86% accuracy and required 4 repetitions. Pt completes reverse order manipulation task with 3 words and 4 words, with 73% (11/15) and 4 repetitions. The last 5 problems were discontinued due to pt's increasing wrong answers. Pt completes ranking mental manipulation of 3 words, completes with 66% accuracy and 6 repetitions. Pt completes word problems involving time, completes with 66% accuracy and requires 1 repetition. Assessment Assessment Current Status: Fair Progress Pt demonstrates fatigue and increase in confusion during session. Treatment Plan Continue Plan of Care Speech Supervisor Net Making Goals Assisted Goals 1. The pt will be oriented to self, place, time and situation independently with 100% accuracy. 2. The pt will complete simple problem solving and safety awareness for daily tasks of living with 90% accuracy. 3. The pt will demonstrate immediate, short-term and long-term recall of functional information with 80% accuracy. Speech-Plan Treatment Plan Speech Therapy Treatment Plan: Continue Plan of Care Treatment Duration: Sep 25, 2023 Frequency: At least 5 of 7 days/Wk (IRF) Estimated Hrs Per Day: Other (45 min cog/ling tx) Rehab Potential: Fair Time Speech Therapy Time In: 09:45 Speech Therapy Time Out: 10:30 DATE: Oct 09, 2023 Total Billed Time: 45 Billed Treatment Time 1 SLTS 45 min Anayeli Rowan Oct 09, 2023 11:41
--- NOTE | 2023-10-09 15:25 | Physical Therapy Daily Note ---
PT Daily Note-Current Subjective Pt presents sitting in recliner with B feet on floor. Pt states his "bottom" is still sore (nursing is monitoring). Pt is agreeable to PT tx. Pain Section J - Health Conditions 1. Rarely or not at all 2. Occasionally 3. Frequently 4. Almost constantly 8. Unable to answer Pain Effect on Sleep: 1 Pain Interference with Therapy: 1 Pain Interference w/Day-to-Day: 1 Transfers SCALE: Activities may be completed with or without assistive devices. 0-Yrsaceyuht-qetzsrr completes the activity by him/herself with no assistance from a helper. 5-Set-up or Clean-up Assistance-helper sets up or cleans up; patient completes activity. [place] assists only prior to or following the activity. 4-Supervision or Touching Assistance-helper provides verbal cues and/or touching/steadying and/or contact guard assistance as patient completes acti vity. Assistance may be provided throughout the activity or intermittently. 3-Partial/Moderate Assistance-helper does LESS THAN HALF the effort. [place] lifts, holds or supports trunk or limbs, but provides less than half the effort. 2-Substantial/Maximal Assistance-helper does MORE THAN HALF the effort. [place] lifts or holds trunk or limbs and provides more than half the effort. 7-Rknwimhbr-ypadex does ALL the effort. Patient does none of the effort to complete the activity. Or, the assistance of 2 or more helpers is required for the patient to complete the activity. If activity was not attempted, code reason: 7-Patient Refused. 9-Not Applicable-not attempted and the patient did not perform the activity before the current illness, exacerbation or injury. 10-Not Attempted due to Environmental Limitations-(lack of equipment, weather restraints, etc.). 88-Not Attempted due to Medical Conditions or Safety Concerns. Sit to Stand (QC): 4 (Vc's for hand placement) Toilet Transfer (QC): 4 (Gio with LBD.) Weight Bearing Full Weight Bearing Full Weight Bearing Gait Training Does the Patient Walk?: Yes Walk 10 feet (QC): 4 Walk 50 ft with 2 Turns(QC): 4 Walk 150 ft (QC): 4 Gait Assistive Device: FWW Pt amb 150' x 2 with FWW, SBA for vc's for safety and posture. Exercises THER EX: Standing, with (B) UE support on FWW, x 10reps x 2sets: Toe raises, Heel raises, Hip Ext, for LE strengthening. Standing, with (B) UE support on window sill, (B) LE Side-Stepping x 15 steps each, for hip/glute strengthening. NuStep Minutes: 20 NuStep Workload: 3 Treatments Pt amb from room, around ARU ~150' x 2 with FWW, SBA. Pt conducted standing ther ex for LE strengthening and endurance, at end of hallway. Pt amb to PT gym and demonstrated UE & LE synchronicity, strength and endurance with NuStep for 20 min. Pt amb from PT gym back to room and utilized restroom, SBA. Pt required Gio for LBD, and then amb to recliner. Post tx with pt in recliner, call light within reach and all needs met. Assessment Current Status: Excellent Progress Pt demonstrating strength and sturdiness in (B) LE during amb and functional mobility activities. PT Retirement Goals Tool Drawing Checker Goals PT Tool Drawing Checker Goals Time Frame: Oct 22, 2023 Roll Left & Right (QC): 4 Sit to Lying (QC): 4 Lying-Sitting on Side/Bed(QC): 4 Sit to Stand (QC): 3 Chair/Zwi-fd-[place] Xfer(QC): 3 Toilet Transfer (QC): 3 Car Transfer (QC): 3 Does the Patient Walk: Yes Walk 10 feet (QC): 3 Walk 50ft with 2 Turns (QC): 3 Walk 150 ft (QC): 3 Walking 10ft on Uneven Surface: 3 1 Step (curb) (QC): 3 4 Steps (QC): 3 12 Steps (QC): 3 Picking up an Object (QC): 3 Does the Pt use WC or Scooter?: Yes Wheel 50 feet with 2 turns (QC: 6 Type: Manual Wheel 150 feet: 6 Type: Manual PT Plan Problem List Problem List: Safety Treatment/Plan Treatment Plan: Continue Plan of Care Treatment Plan: Education, Functional Activity Joey, Functional Strength, Gait, Safety, Therapeutic Exercise, Transfers Treatment Duration: Sep 25, 2023 Frequency: 5 times per week Estimated Hrs Per Day: 1 hour per day Patient and/or Family Agrees t: Yes Safety Risks/Education Safety Risk Comments: Hand placement during xfers Patient Education: Safety Issues Teaching Recipient: Patient Teaching Methods: Discussion Response to Teaching: Verbalize Understanding, Return Demonstration Discharge Recommendations Plan Continue with tx per pt POC. Time Time In: 1330 Time Out: 1430 DATE: Oct 09, 2023 Total Billed Treatment Time: 60 Total Billed Treatment 1, GT (15m), EX2 (25m), FA (20m) LUCIE MCKNIGHT HERB GROWER Oct 09, 2023 15:24
[2023-10-09 20:13] VITALS: BP 122/55
--- NOTE | 2023-10-10 05:33 | PM&R Progress Note ---
Subjective HPI/CC On Admission Date Seen by Provider: Oct 10, 2023 Time Seen by Provider: 13:00 Subjective/Events-last exam 10/10/2023: Patient doing well Ambulating well Discharge to [place] Sunday No major concerns Reviewed meds and labs 10/09/2023: Patient doing well Denies any new issues Cognition is improving Possible disposition in [place] close to his daughter 10/08/2023: Doing well No issues ST focus now Ambulating well Labs stable 10/07/2023: Patient doing well Labs will be obtained tomorrow Denies any pain 10/06/2023: No major issues Awaiting placement No falls Confusion improved 10/05/2023: Patient doing well Participation is good Cognition continues to be an issue Poor immediate recall is concerning 10/04/2023: Patient doing a lot better Cognition is an issue May require skilled care for cognition deficits No pain 10/03/2023: Patient doing well His cognition is a concern about returning home alone May very well need skilled care Reviewed everything in team conference 10/02/2023: Doing well Much improved overall Confusion improved DC scopalmine patch 10/01/2023: Doing well Had some confusion this morning but has cleared No falls No pain 09/30/2023: Doing well Multiple visitors every day No pain reported Confusion resolved 09/29/2023: Dramatic improvement Family visiting No falls Improved ambulation 09/28/2023: Doing very well Improving every day No falls Pain controlled BM regimen maintained for constipation 09/27/2023: Patient doing a lot better Denies any new issues Walking 200 feet today Family at bedside 09/26/2023: No major issues No pain reported Improved confusion Family at bedside Family concerned about ability to manage at home alone 09/25/2023: Patient had confusion last night Much more alert today Family at bedside Eating lunch Pringle catheter will be discontinued tomorrow Pain is controlled Review of Systems General: Fatigue, Malaise Neurological: Confusion Objective Exam Vital Signs Vital Signs Date Time Temp Pulse Resp B/P (MAP) Pulse Ox O2 Delivery O2 Flow Rate FiO2 10/10/23 09:24 Room Air 10/10/23 08:00 36.1 90 19 135/63 (87) 98 Capillary Refill : General Appearance: No Apparent Distress, WD/WN, Chronically ill, Obese, Other (lethargic) HEENT: PERRL/EOMI, Normal ENT Inspection, Pharynx Normal Neck: Full Range of Motion, Normal Inspection, Non Tender, Supple, Carotid Bruit Respiratory: Chest Non Tender, Lungs Clear, Normal Breath Sounds, No Accessory Muscle Use, No Respiratory Distress Cardiovascular: Regular Rate, Rhythm, No Edema, No Gallop, No JVD, No Murmur, Normal Peripheral Pulses Gastrointestinal: Normal Bowel Sounds, No Organomegaly, No Pulsatile Mass, Non Tender, Soft Back: Normal Inspection, No CVA Tenderness, No Vertebral Tenderness Extremity: Normal Capillary Refill, Normal Inspection, Normal Range of Motion, Non Tender, No Calf Tenderness, No Pedal Edema Neurologic/Psychiatric: Alert, epic director II-XII Norm as Tested, Abnormal Gait, Depressed Affect, Disoriented (subtle confusion), Motor Weakness (generalized) Skin: Normal Color, Warm/Dry Lymphatic: No Adenopathy Results/Procedures Lab Patient resulted labs reviewed. FIM Transfers Therapy Code Descriptions/Definitions Functional [place] Measure: 0=Not Assessed/NA 4=Minimal Assistance 1=Total Assistance 5=Supervision or Setup 2=Maximal Assistance 6=Modified [place] 3=Moderate Assistance 7=Complete IndependenceSCALE: Activities may be completed with or without assistive devices. 4-Wrgvebjanf-vfizvrf completes the activity by him/herself with no assistance from a helper. 5-Set-up or Clean-up Assistance-helper sets up or cleans up; patient completes activity. [place] assists only prior to or following the activity. 4-Supervision or Touching Assistance-helper provides verbal cues and/or touching/steadying and/or contact guard assistance as patient completes activit y. Assistance may be provided throughout the activity or intermittently. 3-Partial/Moderate Assistance-helper does LESS THAN HALF the effort. [place] lifts, holds or supports trunk or limbs, but provides less than half the effort. 2-Substantial/Maximal Assistance-helper does MORE THAN HALF the effort. [place] lifts or holds trunk or limbs and provides more than half the effort. 8-Tlgtlgpev-dozrwa does ALL the effort. Patient does none of the effort to complete the activity. Or, the assistance of 2 or more helpers is required for the patient to complete the activity. If activity was not attempted, code reason: 7-Patient Refused. 9-Not Applicable-not attempted and the patient did not perform the activity before the current illness, exacerbation or injury. 10-Not Attempted due to Environmental Limitations-(lack of equipment, weather restraints, etc.). 88-Not Attempted due to Medical Conditions or Safety Concerns. Roll Left to Right (QC): 6 Sit to Lying (QC): 6 Sit to Stand (QC): 4 (Vc's for hand placement) Chair/Vse-gk-Pasww Xfer(QC): 4 Car Transfer (QC): 4 (CGA and retrieval of "steering wheel" in car for patient to hold onto when swinging legs in.) Gait Training Does the Patient Walk?: Yes Distance: 250, 75' Walk 10 feet (QC): 4 Walk 50 ft with 2 Turns(QC): 4 Walk 150 ft (QC): 4 Walking 10ft/uneven surface-QC: 4 (CGA /c FWW) Gait Assistive Device: FWW Wheelchair Training Does the Pt Use a Wheelchair?: No Distance: 3' Wheel 50 ft with 2 turns (QC): 4 Wheel 150 ft (QC): 4 Type of Wheelchair: Manual Stair Training Stair Training: Handrails/: 2 handrails #of Steps: 3 1 Step (curb) (QC): 4 4 Steps (QC): 4 12 Steps (QC): 4 Stairs: Pattern: Step to Balance Picking up an Object (QC): 4 (SBA to remove pants from floor after toileting) ADL-Treatment Eating (QC): 6 Oral Hygiene (QC): 6 (Pt. able to complete grooming/oral hygiene while sitting at sink. ) Bathing Location: L Arm, R Arm, L Upper Leg, R Upper Leg, L Lower Leg (including foot), R Lower Leg (including foot), Chest, Abdomen, Buttocks, Per ineal Area Shower/Bathe Self (QC): 5 Upper Body Dressing (QC): 5 Lower Body Dressing (QC): 5 On/Off Footwear (QC): 5 Toileting Hygiene (QC): 6 Toilet Transfer (QC): 6 (on/off BSC over toilet.) Assessment/Plan Assessment and Plan Assess & Plan/Chief Complaint Assessment: s/p cerebellar CVA HTN DM Obesity Recent severe delirium requiring Precedex in ICU s/p loop recorder Plan: BP control DM management PT OT 09/25/2023: Supportive care Monitor confusion 09/26/2023: Continue supportive care Catheter DC and voiding well 09/27/2023: Monitor closely Dramatic improvement 09/28/2023: BM regimen Monitor progress 09/29/2023: No changes Dramatic improvement 09/30/2023: Monitor closely 10/01/2023: Labs stable Monitor confusion 10/02/2023: Improved overall DC Scopal[place] 10/03/2023: Doing fair with cognition Ultimately may require skilled 10/04/2023: Supportive care will continue 10/05/2023: Continue aggressive speech therapy for cognition Continue aggressive rehab 10/06/2023: Continue treatment Confusion improved 10/07/2023: Continue aggressive speech therapy for cognition 10/08/2023: Continue aggressive ST Monitor BP 10/09/2023: Supportive care Monitor closely DC Accu-Cheks and insulin 10/10/2023: Monitor closely Discharge plan this weekend (1) Cerebellar stroke Status: Acute SALEEM KING DO Oct 10, 2023 05:32
--- NOTE | 2023-10-10 07:33 | Occupational Ther Daily Note ---
OT Current Status-Daily Note Subjective Pt up in recliner, agreeable to OT Tx. Mental Status/Objective Patient Orientation: Person, Place, Situation ADL-Treatment Therapy Code Descriptions/Definitions Functional [place] Measure: 0=Not Assessed/NA 4=Minimal Assistance 1=Total Assistance 5=Supervision or Setup 2=Maximal Assistance 6=Modified [place] 3=Moderate Assistance 7=Complete IndependenceSCALE: Activities may be completed with or without assistive devices. 9-Kkcdqrwjfe-bpumokk completes the activity by him/herself with no assistance from a helper. 5-Set-up or Clean-up Assistance-helper sets up or cleans up; patient completes activity. [place] assists only prior to or following the activity. 4-Supervision or Touching Assistance-helper provides verbal cues and/or touching/steadying and/or contact guard assistance as patient completes activity. Assistance may be provided throughout the activity or intermittently. 3-Partial/Moderate Assistance-helper does LESS THAN HALF the effort. [place] lifts, holds or supports trunk or limbs, but provides less than half the effort. 2-Substantial/Maximal Assistance-helper does MORE THAN HALF the effort. [place] lifts or holds trunk or limbs and provides more than half the effort. 2-Aiodbsyhf-xfnals does ALL the effort. Patient does none of the effort to complete the activity. Or, the assistance of 2 or more helpers is required for the patient to complete the activity. If activity was not attempted, code reason: 7-Patient Refused. 9-Not Applicable-not attempted and the patient did not perform the activity before the current illness, exacerbation or injury. 10-Not Attempted due to Environmental Limitations-(lack of equipment, weather restraints, etc.). 88-Not Attempted due to Medical Conditions or Safety Concerns. Eating (QC): 6 Oral Hygiene (QC): 6 Shower/Bathe Self (QC): 6 Upper Body Dressing (QC): 6 Lower Body Dressing (QC): 6 On/Off Footwear: 6 Toileting Hygiene (QC): 6 Toilet Transfer (QC): 6 Other Treatment Pt in recliner, finished breakfast independently. Pt used FWW to gather clothes from closet, then transferred into bathroom. Pt completed ADLs as outlined above, then returned to recliner using FWW. Post tx, pt in recliner, call light in reach and all needs met. Education OT Patient Education: Correct positioning, Energy conservation, Modified ADL techniques, Progress toward Goal/Update tx plan, Purpose of tx/functional activities, Rehab process Teaching Recipient: Patient Teaching Methods: Discussion Response to Teaching: Verbalize Understanding OT Manager Of Internal Goals Halfway Goals Time Frame: Oct 19, 2023 Acute change in mental status: 1 Inattention: 1 Disorganized thinkin Altered level of consciousness: 0 Eating (QC): 6 Oral Hygiene (QC): 6 Toileting Hygiene (QC): 6 Shower/Bathe Self (QC): 6 Upper Body Dressing (QC): 6 Lower Body Dressing (QC): 6 On/Off Footwear (QC): 6 Additional Goals: 1-Demonstrate ADL Tasks, 2-Verbalize Understanding, 3- ImproveStrength/Joey 1=Demonstrate adherence to instructed precautions during ADL tasks. 2=Patient will verbalize/demonstrate understanding of assistive devices/modifications for ADL. 3=Patient will improve strength/tolerance for activity to enable patient to perform ADL's. OT Education/Plan Problem List/Assessment Assessment: Decreased Activ Tolerance, Decreased UE Strength, Impaired I ADL's Discharge Recommendations Plan/Recommendations: Continue POC Treatment Plan/Plan of Care Patient would benefit from OT for education, treatment and training to promote independence in ADL's, mobility, safety and/or upper extremity function for ADL's. Plan of Care: ADL Retraining, Functional Mobility, Group Exercise/Act as Ind, UE Funct Exercise/Act, UE Neuromus Re-Ed/Coord Treatment Duration: Oct 19, 2023 Frequency: At least 5 of 7 days/Wk (IRF) Estimated Hrs Per Day: Other (75 mins per day) Agreement: Yes Rehab Potential: Fair Time Start Time: 07:15 Stop Time: 08:30 DATE: Oct 10, 2023 Total Time Billed (hr/min): 75 Billed Treatment Time 1, ADL 5 LIN MORENO OT Oct 10, 2023 07:33
[2023-10-10] MEDS: ASPIRIN 81 MG CHEWABLE TABLET PO SCH (07:40)
[2023-10-10] MEDS: metFORMIN 500 MG TABLET PO SCH (07:41)
[2023-10-10] MEDS: risperiDONE 0.25 MG TABLET PO SCH ×2 (07:41→20:23)
[2023-10-10] MEDS: CLOPIDOGREL 75 MG TABLET PO SCH (07:41)
[2023-10-10] MEDS: amLODIPine 10 MG TABLET PO SCH (07:41)
[2023-10-10] MEDS: prednisoLONE 1% Ophthalmic Suspension 5 ML BTL OP SCH ×4 (07:41→20:23)
[2023-10-10] MEDS: LOSARTAN 100 MG TABLET PO SCH (07:41)
[2023-10-10] MEDS: DOCUSATE SODIUM 100 MG CAPSULE PO SCH ×2 (07:42→20:23)
[2023-10-10] MEDS: MICONAZOLE 2% POWDER 90 GM TOP SCH ×2 (07:43→20:23)
[2023-10-10] MEDS: SENNA W/DOCUSATE TABLET PO SCH ×2 (07:43→20:23)
[2023-10-10 08:00] VITALS: BP 135/63
[2023-10-10] MEDS: ENOXAPARIN 40 MG/0.4 ML SYRINGE SQ SCH (10:34)
--- NOTE | 2023-10-10 11:22 | Occupational Ther Daily Note ---
OT Current Status-Daily Note Subjective Pt alert sitting in recliner, alert and cooperative. No pain mentioned. ADL-Treatment Pt completed BUE exercises with red theraband, skilled instruction required for correct technique. Pt, completed 10-13 reps 2 set of exercises to address strengthening BUE. Multiple rest breaks required. Pt required multiple VC for redirection and how to complete each exercise. Pt was educated on HEP and how to use when discharged and importance of keeping body active while staying safe at home. After treatment pt was left sitting in recliner with call light and phone within reach, all needs met at this time. Therapy Code Descriptions/Definitions Functional [place] Measure: 0=Not Assessed/NA 4=Minimal Assistance 1=Total Assistance 5=Supervision or Setup 2=Maximal Assistance 6=Modified [place] 3=Moderate Assistance 7=Complete IndependenceSCALE: Activities may be completed with or without assistive devices. 6-Lgqdnifjpv-yoqsvok completes the activity by him/herself with no assistance from a helper. 5-Set-up or Clean-up Assistance-helper sets up or cleans up; patient completes activity. [place] assists only prior to or following the activity. 4-Supervision or Touching Assistance-helper provides verbal cues and/or touching/steadying and/or contact guard assistance as patient completes activity. Assistance may be provided throughout the activity or intermittently. 3-Partial/Moderate Assistance-helper does LESS THAN HALF the effort. [place] lifts, holds or supports trunk or limbs, but provides less than half the effort. 2-Substantial/Maximal Assistance-helper does MORE THAN HALF the effort. [place] lifts or holds trunk or limbs and provides more than half the effort. 7-Wvgtshnst-eqwdrd does ALL the effort. Patient does none of the effort to complete the activity. Or, the assistance of 2 or more helpers is required for the patient to complete the activity. If activity was not attempted, code reason: 7-Patient Refused. 9-Not Applicable-not attempted and the patient did not perform the activity before the current illness, exacerbation or injury. 10-Not Attempted due to Environmental Limitations-(lack of equipment, weather restraints, etc.). 88-Not Attempted due to Medical Conditions or Safety Concerns. Education OT Patient Education: Energy conservation, Exercise program, Home exercise pro gram, Progress toward Goal/Update tx plan, Purpose of tx/functional activities Teaching Recipient: Patient Teaching Methods: Demonstration, Handout, Discussion Response to Teaching: Verbalize Understanding, Return Demonstration OT Halfway Goals Relationship Executive Goals Time Frame: Oct 19, 2023 Acute change in mental status: 1 Inattention: 1 Disorganized thinkin Altered level of consciousness: 0 Eating (QC): 6 Oral Hygiene (QC): 6 Toileting Hygiene (QC): 6 Shower/Bathe Self (QC): 6 Upper Body Dressing (QC): 6 Lower Body Dressing (QC): 6 On/Off Footwear (QC): 6 Additional Goals: 1-Demonstrate ADL Tasks, 2-Verbalize Understanding, 3-ImproveStrength/[place] 1=Demonstrate adherence to instructed precautions during ADL tasks. 2=Patient will verbalize/demonstrate understanding of assistive devices/modifications for ADL. 3=Patient will improve strength/tolerance for activity to enable patient to perform ADL's. OT Education/Plan Problem List/Assessment Assessment: Decreased Activ Tolerance, Decreased Safety Aware, Decreased UE Strength Discharge Recommendations Plan/Recommendations: Continue POC Treatment Plan/Plan of Care Patient would benefit from OT for education, treatment and training to promote independence in ADL's, mobility, safety and/or upper extremity function for ADL's. Plan of Care: ADL Retraining, Functional Mobility, Group Exercise/Act as Ind, UE Funct Exercise/Act, UE Neuromus Re-Ed/Coord Treatment Duration: Oct 19, 2023 Frequency: At least 5 of 7 days/Wk (IRF) Estimated Hrs Per Day: Other (75 mins per day) Agreement: Yes Rehab Potential: Fair Time Start Time: 10:50 Stop Time: 11:20 DATE: Oct 10, 2023 Total Time Billed (hr/min): 30 Billed Treatment Time 1 visit Ex 2 (30 min) Tomasa Mandujano COTA Oct 10, 2023 11:22
--- NOTE | 2023-10-10 14:15 | Physical Therapy Daily Note ---
PT Daily Note-Current Subjective Pt presents sitting in recliner with B feet on floor. Pt states (L) knee is stiff. Pt agreeable to PT tx. Pain Section J - Health Conditions 1. Rarely or not at all 2. Occasionally 3. Frequently 4. Almost constantly 8. Unable to answer Pain Effect on Sleep: 1 Pain Interference with Therapy: 1 Pain Interference w/Day-to-Day: 1 Mental Status Patient Orientation: Person, Place, Time, Situation Transfers SCALE: Activities may be completed with or without assistive devices. 7-Cosdlkhflu-wymbohr completes the activity by him/herself with no assistance from a helper. 5-Set-up or Clean-up Assistance-helper sets up or cleans up; patient completes activity. [place] assists only prior to or following the activity. 4-Supervision or Touching Assistance-helper provides verbal cues and/or touching/steadying and/or contact guard assistance as patient completes activity. Assistance may be provided throughout the activity or intermittently. 3-Partial/Moderate Assistance-helper does LESS THAN HALF the effort. [place] lifts, holds or supports trunk or limbs, but provides less than half the effort. 2-Substantial/Maximal Assistance-helper does MORE THAN HALF the effort. [place] l ifts or holds trunk or limbs and provides more than half the effort. 2-Paaktxtfa-uzvkdj does ALL the effort. Patient does none of the effort to complete the activity. Or, the assistance of 2 or more helpers is required for the patient to complete the activity. If activity was not attempted, code reason: 7-Patient Refused. 9-Not Applicable-not attempted and the patient did not perform the activity before the current illness, exacerbation or injury. 10-Not Attempted due to Environmental Limitations-(lack of equipment, weather restraints, etc.). 88-Not Attempted due to Medical Conditions or Safety Concerns. Sit to Stand (QC): 6 (Provide pt time to achieve.) Weight Bearing Full Weight Bearing Full Weight Bearing Gait Training Does the Patient Walk?: Yes Walk 10 feet (QC): 6 Walk 50 ft with 2 Turns(QC): 4 Walk 150 ft (QC): 4 Gait Assistive Device: FWW Pt amb from room, around AKU, ~300' with FWW, SBA for safety. Wheelchair Training Does the Pt Use a Wheelchair?: No Exercises Standing: Hip Abduction, Marching Treatments Pt amb around ARU and down to end of hallway with SBA for safety. Pt conducted standing ther ex with (B) UE support on FWW. Pt amb back to room from end of hallway. Post tx with pt in recliner, call light within reach and all needs met. Assessment Current Status: Good Progress Pt improved ambulation distance without LOB or SOB, before requiring a RB. PT Restaurant Hourly Manager Goals Group Home Goals PT Group Home Goals Time Frame: Oct 22, 2023 Roll Left & Right (QC): 4 Sit to Lying (QC): 4 Lying-Sitting on Side/Bed(QC): 4 Sit to Stand (QC): 3 Chair/Bds-cf-Vxpsm Xfer(QC): 3 Toilet Transfer (QC): 3 Car Transfer (QC): 3 Does the Patient Walk: Yes Walk 10 feet (QC): 3 Walk 50ft with 2 Turns (QC): 3 Walk 150 ft (QC): 3 Walking 10ft on Uneven Surface: 3 1 Step (curb) (QC): 3 4 Steps (QC): 3 12 Steps (QC): 3 Picking up an Object (QC): 3 Does the Pt use WC or Scooter?: Yes Wheel 50 feet with 2 turns (QC: 6 Type: Manual Wheel 150 feet: 6 Type: Manual PT Plan Problem List Problem List: Functional Strength, Safety Treatment/Plan Treatment Plan: Continue Plan of Care Treatment Plan: Education, Functional Activity Joey, Functional Strength, Gait, Safety, Therapeutic Exercise, Transfers Treatment Duration: Sep 25, 2023 Frequency: 5 times per week Estimated Hrs Per Day: 1 hour per day Patient and/or Family Agrees t: Yes Safety Risks/Education Patient Education: Safety Issues Teaching Recipient: Patient Teaching Methods: Discussion Response to Teaching: Verbalize Understanding Discharge Recommendations Plan Continue with tx per pt POC. Time Time In: 1345 Time Out: 1415 DATE: Oct 10, 2023 Total Billed Treatment Time: 30 Total Billed Treatment 1, GT (15m), EX (15m) LUCIE MCKNIGHT MISSION MANAGER Oct 10, 2023 14:15
--- NOTE | 2023-10-10 15:56 | Speech Therapy Daily Note ---
Speech Daily Progress Note Subjective Date Seen by Provider: Oct 10, 2023 Time Seen by Provider: 09:45 Pt agreeable to session Objective Pt completes simple problem solving tasks, locating pertinent information and writing information on a fake check, with 100% (15/15) accuracy and requires occ verbal cues. Assessment Assessment Current Status: Good Progress Treatment Plan Continue Plan of Care Speech Development Intern Goals Alf Goals 1. The pt will be oriented to self, place, time and situation independently with 100% accuracy. 2. The pt will complete simple problem solving and safety awareness for daily tasks of living with 90% accuracy. 3. The pt will demonstrate immediate, short-term and long-term recall of functional information with 80% accuracy. Speech-Plan Treatment Plan Speech Therapy Treatment Plan: Continue Plan of Care Treatment Duration: Sep 25, 2023 Frequency: At least 5 of 7 days/Wk (IRF) Estimated Hrs Per Day: Other (45 min cog/ling tx) Rehab Potential: Fair Time Speech Therapy Time In: 09:45 Speech Therapy Time Out: 10:15 DATE: Oct 10, 2023 Total Billed Time: 30 Billed Treatment Time 1 SLTS 30 min Anayeli Rowan Oct 10, 2023 15:56
--- NOTE | 2023-10-10 15:58 | Speech Therapy Daily Note ---
Speech Daily Progress Note Subjective Date Seen by Provider: Oct 10, 2023 Time Seen by Provider: 15:20 Pt agreeable to session Objective Pt completes problem solving task with recall of 2 units of information over a 15 minute interval. Pt completes with 80% accuracy and min to mod verbal cues of units. Assessment Assessment Current Status: Good Progress Treatment Plan Continue Plan of Care Speech Fci Goals Tube Builder Airplane Goals 1. The pt will be oriented to self, place, time and situation independently with 100% accuracy. 2. The pt will complete simple problem solving and safety awareness for daily tasks of living with 90% accuracy. 3. The pt will demonstrate immediate, short-term and long-term recall of fun ctional information with 80% accuracy. Speech-Plan Treatment Plan Speech Therapy Treatment Plan: Continue Plan of Care Treatment Duration: Sep 25, 2023 Frequency: At least 5 of 7 days/Wk (IRF) Estimated Hrs Per Day: Other (45 min cog/ling tx) Rehab Potential: Fair Time Speech Therapy Time In: 15:20 Speech Therapy Time Out: 15:35 DATE: Oct 10, 2023 Total Billed Time: 15 Billed Treatment Time 1 SLTS 15min Anayeli Rowan Oct 10, 2023 15:58
[2023-10-10] MEDS: TRULICITY 0.75 MG/0.5 ML PO SCH (17:07)
[2023-10-10 19:33] VITALS: BP 125/59
--- NOTE | 2023-10-11 05:29 | PM&R Progress Note ---
Subjective HPI/CC On Admission Date Seen by Provider: Oct 11, 2023 Time Seen by Provider: 10:00 Subjective/Events-last exam 10/11/2023: Improved overall Walking well No pain Cognition improved 10/10/2023: Patient doing well Ambulating well Discharge to [place] Sunday No major concerns Reviewed meds and labs 10/09/2023: Patient doing well Denies any new issues Cognition is improving Possible disposition in [place] close to his daughter 10/08/2023: Doing well No issues ST focus now Ambulating well Labs stable 10/07/2023: Patient doing well Labs will be obtained tomorrow Denies any pain 10/06/2023: No major issues Awaiting placement No falls Confusion improved 10/05/2023: Patient doing well Participation is good Cognition continues to be an issue Poor immediate recall is concerning 10/04/2023: Patient doing a lot better Cognition is an issue May require skilled care for cognition deficits No pain 10/03/2023: Patient doing well His cognition is a concern about returning home alone May very well need skilled care Reviewed everything in team conference 10/02/2023: Doing well Much improved overall Confusion improved DC scopalmine patch 10/01/2023: Doing well Had some confusion this morning but has cleared No falls No pain 09/30/2023: Doing well Multiple visitors every day No pain reported Confusion resolved 09/29/2023: Dramatic improvement Family visiting No falls Improved ambulation 09/28/2023: Doing very well Improving every day No falls Pain controlled BM regimen maintained for constipation 09/27/2023: Patient doing a lot better Denies any new issues Walking 200 feet today Family at bedside 09/26/2023: No major issues No pain reported Improved confusion Family at bedside Family concerned about ability to manage at home alone 09/25/2023: Patient had confusion last night Much more alert today Family at bedside Eating lunch Pringle catheter will be discontinued tomorrow Pain is controlled Review of Systems General: Fatigue, Malaise Objective Exam Vital Signs Vital Signs Date Time Temp Pulse Resp B/P (MAP) Pulse Ox O2 Delivery O2 Flow Rate FiO2 10/11/23 07:48 36.1 86 16 137/66 (89) 97 Room Air Capillary Refill : General Appearance: No Apparent Distress, WD/WN, Chronically ill, Obese, Other (lethargic) HEENT: PERRL/EOMI, Normal ENT Inspection, Pharynx Normal Neck: Full Range of Motion, Normal Inspection, Non Tender, Supple, Carotid Bruit Respiratory: Chest Non Tender, Lungs Clear, Normal Breath Sounds, No Accessory Muscle Use, No Respiratory Distress Cardiovascular: Regular Rate, Rhythm, No Edema, No Gallop, No JVD, No Murmur, Normal Peripheral Pulses Gastrointestinal: Normal Bowel Sounds, No Organomegaly, No Pulsatile Mass, Non Tender, Soft Back: Normal Inspection, No CVA Tenderness, No Vertebral Tenderness Extremity: Normal Capillary Refill, Normal Inspection, Normal Range of Motion, Non Tender, No Calf Tenderness, No Pedal Edema Neurologic/Psychiatric: Alert, talent rep II-XII Norm as Tested, Abnormal Gait, Depressed Affect, Disoriented (subtle confusion), Motor Weakness (generalized) Skin: Normal Color, Warm/Dry Lymphatic: No Adenopathy Results/Procedures Lab Patient resulted labs reviewed. FIM Transfers Therapy Code Descriptions/Definitions Functional [place] Measure: 0=Not Assessed/NA 4=Minimal Assistance 1=Total Assistance 5=Supervision or Setup 2=Maximal Assistance 6=Modified [place] 3=Moderate Assistance 7=Complete IndependenceSCALE: Activities may be completed with or without assistive devices. 7-Tylpgvuqwl-lvlwlfj completes the activity by him/herself with no assistance from a helper. 5-Set-up or Clean-up Assistance-helper sets up or cleans up; patient completes activity. [place] assists only prior to or following the activity. 4-Supervision or Touching Assistance-helper provides verbal cues and/or touching/steadying and/or contact guard assistance as patient completes activit y. Assistance may be provided throughout the activity or intermittently. 3-Partial/Moderate Assistance-helper does LESS THAN HALF the effort. [place] lifts, holds or supports trunk or limbs, but provides less than half the effort. 2-Substantial/Maximal Assistance-helper does MORE THAN HALF the effort. [place] lifts or holds trunk or limbs and provides more than half the effort. 6-Ltoxydsoy-hlbyuf does ALL the effort. Patient does none of the effort to complete the activity. Or, the assistance of 2 or more helpers is required for the patient to complete the activity. If activity was not attempted, code reason: 7-Patient Refused. 9-Not Applicable-not attempted and the patient did not perform the activity before the current illness, exacerbation or injury. 10-Not Attempted due to Environmental Limitations-(lack of equipment, weather restraints, etc.). 88-Not Attempted due to Medical Conditions or Safety Concerns. Roll Left to Right (QC): 6 Sit to Lying (QC): 6 Sit to Stand (QC): 6 (Provide pt time to achieve.) Chair/Rak-ry-Mqmtw Xfer(QC): 4 Car Transfer (QC): 4 (CGA and retrieval of "steering wheel" in car for patient to hold onto when swinging legs in.) Gait Training Does the Patient Walk?: Yes Distance: 250, 75' Walk 10 feet (QC): 6 Walk 50 ft with 2 Turns(QC): 4 Walk 150 ft (QC): 4 Walking 10ft/uneven surface-QC: 4 (CGA /c FWW) Gait Assistive Device: FWW Wheelchair Training Does the Pt Use a Wheelchair?: No Distance: 3' Wheel 50 ft with 2 turns (QC): 4 Wheel 150 ft (QC): 4 Type of Wheelchair: Manual Stair Training Stair Training: Handrails/: 2 handrails #of Steps: 3 1 Step (curb) (QC): 4 4 Steps (QC): 4 12 Steps (QC): 4 Stairs: Pattern: Step to Balance Picking up an Object (QC): 4 (SBA to remove pants from floor after toileting) ADL-Treatment Eating (QC): 6 Oral Hygiene (QC): 6 Bathing Location: L Arm, R Arm, L Upper Leg, R Upper Leg, L Lower Leg (including foot), R Lower Leg (including foot), Chest, Abdomen, Buttocks, Perineal Area Shower/Bathe Self (QC): 6 Upper Body Dressing (QC): 6 Lower Body Dressing (QC): 6 On/Off Footwear (QC): 6 Toileting Hygiene (QC): 6 Toilet Transfer (QC): 6 Assessment/Plan Assessment and Plan Assess & Plan/Chief Complaint Assessment: s/p cerebellar CVA HTN DM Obesity Recent severe delirium requiring Precedex in ICU s/p loop recorder Plan: BP control DM management PT OT 09/25/2023: Supportive care Monitor confusion 09/26/2023: Continue supportive care Catheter DC and voiding well 09/27/2023: Monitor closely Dramatic improvement 09/28/2023: BM regimen Monitor progress 09/29/2023: No changes Dramatic improvement 09/30/2023: Monitor closely 10/01/2023: Labs stable Monitor confusion 10/02/2023: Improved overall DC Scopalmine 10/03/2023: Doing fair with cognition Ultimately may require skilled 10/04/2023: Supportive care will continue 10/05/2023: Continue aggressive speech therapy for cognition Continue aggressive rehab 10/06/2023: Continue treatment Confusion improved 10/07/2023: Continue aggressive speech therapy for cognition 10/08/2023: Continue aggressive ST Monitor BP 10/09/2023: Supportive care Monitor closely DC Accu-Cheks and insulin 10/10/2023: Monitor closely Discharge plan this 10/11/2023: Improved overall (1) Cerebellar stroke Status: Acute SALEEM KING DO Oct 11, 2023 05:29
[2023-10-11 07:48] VITALS: BP 137/66
[2023-10-11] MEDS: ENOXAPARIN 40 MG/0.4 ML SYRINGE SQ SCH (09:50)
[2023-10-11] MEDS: LOSARTAN 100 MG TABLET PO SCH (09:50)
[2023-10-11] MEDS: ASPIRIN 81 MG CHEWABLE TABLET PO SCH (09:50)
[2023-10-11] MEDS: risperiDONE 0.25 MG TABLET PO SCH ×2 (09:50→21:16)
[2023-10-11] MEDS: CLOPIDOGREL 75 MG TABLET PO SCH (09:50)
[2023-10-11] MEDS: amLODIPine 10 MG TABLET PO SCH (09:50)
[2023-10-11] MEDS: MICONAZOLE 2% POWDER 90 GM TOP SCH ×2 (09:51→21:16)
--- NOTE | 2023-10-11 09:51 | Speech Therapy Daily Note ---
Speech Daily Progress Note Subjective Date Seen by Provider: Oct 11, 2023 Time Seen by Provider: 08:00 Pt sitting in recliner when FOOTBALL SCOUT enters the room. Pt talks to FOOTBALL SCOUT about pictures of family and dog on the windowsill. Pt pleasant and cooperative throughout session. Pain Location: No Pain Reported Objective Pt completes moderate problem solving/sequencing tasks with 70% accuracy with min-mod verbal cues. Pt is able to recall information following a short delay in 50% of opportunities. Assessment Assessment Current Status: Fair Progress Treatment Plan Continue Plan of Care Speech Senior Living Goals Senior Living Goals 1. The pt will be oriented to self, place, time and situation independently with 100% accuracy. 2. The pt will complete simple problem solving and safety awareness for daily tasks of living with 90% accuracy. 3. The pt will demonstrate immediate, short-term and long-term recall of functional information with 80% accuracy. Speech-Plan Patient/Family Goals Patient/Family Goals: Unknown at this time. Treatment Plan Speech Therapy Treatment Plan: Continue Plan of Care Treatment Duration: Sep 25, 2023 Frequency: At least 5 of 7 days/Wk (IRF) Estimated Hrs Per Day: Other (45 min cog/ling tx) Rehab Potential: Fair Pt/Family Agrees to Plan: Yes Safety Risks/Education Teaching Recipient: Patient Response to Teaching: Verbalize Understanding, Reinforcement Needed Education Topics Provided: Pt educated on purpose of therapy tasks. Pt receptive and verbalized understanding, but will likely require reinforcement. Time Speech Therapy Time In: 08:00 Speech Therapy Time Out: 08:30 DATE: Oct 11, 2023 Total Billed Time: 30 Billed Treatment Time S/L Manohar Lewis Speech Therapy Oct 11, 2023 09:51
[2023-10-11] MEDS: prednisoLONE 1% Ophthalmic Suspension 5 ML BTL OP SCH ×4 (09:52→21:16)
[2023-10-11] MEDS: metFORMIN 500 MG TABLET PO SCH (09:54)
--- NOTE | 2023-10-11 11:40 | Therapy Group Daily Note ---
Therapy Daily Group Note Patient Education Topic Exercises Exercises UE Exercise Session Ratio (pt:therapist): 3:1 Goal of Session: UE/LE Strengthing Goal Met for this Session: Yes Pt Benefit of Group: Contributions to Others, Increased Functional Strength, Recognition of Peers, Socialization Other/Notes Pt ambulated to group using FWW. Group consisted of introductions, socialization, Thanksgiving trivia and B UE exercises for gross/fine motor strengthening and coordination. Pt introduced self appropriately and actively listened to peers. Pt participated in multiple B UE exercises with skilled instruction for correct technique and modifications when needed. Pt participated in trivia for dual task with exercises and was able to answer questions and converse with peers throughout appropriately. After session, pt left in care of PT. All needs met. Start Time: 09:30 Stop Time: 10:30 Total Billed Treatment Time: 60 Total Billed Treatment 1-GRP JOHN FARLEY Oct 11, 2023 11:40
--- NOTE | 2023-10-11 11:57 | Therapy Group Daily Note ---
Therapy Daily Group Note Patient Education Topic Exercises, Other List Below Exercises LE Seated Exercise, Stretching, Gross Motor, UE Exercise Session Ratio (pt:therapist): 3:1 Goal of Session: Memory Strategies, UE/LE Strengthing Goal Met for this Session: Yes Pt Benefit of Group: Contributions to Others, Increased Functional Strength, Improved Cognition, Recognition of Peers, Socialization Other/Notes Pt amb /c FWW, CGA to PT group in therapy gym. Group consisted of introductions (name, place living, Thanksgiving family traditions), socialization, (B) UE/LE seated exercises, education and activities on memory strategies. Pt introduced self appropriately and actively listened to peers. Pt able to complete (B) UE/LE seated exercises with minimal difficulty for (B) LE strengthening secondary to fatigue. Pt participated in activities and demonstrated understanding of memory education by vocalizing own strategies and ideas. Post therapy tx, pt in recliner, call light/phone within reach. All needs met. Start Time: 10:30 Stop Time: 11:30 Total Billed Treatment Time: 60 Total Billed Treatment 1, GRP LUCIE MCKNIGHT ENTERTAINMENT & MEDIA CORRESPONDENT Oct 11, 2023 11:57
--- NOTE | 2023-10-11 12:21 | Physical Therapy Daily Note ---
PT Daily Note-Current Subjective Pt found seated in recliner upon entry. Agreed to PT. States that he is not having any pain today. Pain Section J - Health Conditions 1. Rarely or not at all 2. Occasionally 3. Frequently 4. Almost constantly 8. Unable to answer Pain Effect on Sleep: 1 Pain Interference with Therapy: 1 Pain Interference w/Day-to-Day: 1 Mental Status Patient Orientation: Person, Place Transfers SCALE: Activities may be completed with or without assistive devices. 8-Fgskmzxsno-nzlqzfh completes the activity by him/herself with no assistance from a helper. 5-Set-up or Clean-up Assistance-helper sets up or cleans up; patient completes activity. [place] assists only prior to or following the activity. 4-Supervision or Touching Assistance-helper provides verbal cues and/or touching/steadying and/or contact guard assistance as patient completes activity. Assistance may be provided throughout the activity or intermittently. 3-Partial/Moderate Assistance-helper does LESS THAN HALF the effort. [place] lifts, holds or supports trunk or limbs, but provides less than half the effort. 2-Substantial/Maximal Assistance-helper does MORE THAN HALF the effort. [place] lifts or holds trunk or limbs and provides more than half the effort. 3-Zlwunhrvi-nxmzbw does ALL the effort. Patient does none of the effort to complete the activity. Or, the assistance of 2 or more helpers is required for the patient to complete the activity. If activity was not attempted, code reason: 7-Patient Refused. 9-Not Applicable-not attempted and the patient did not perform the activity be fore the current illness, exacerbation or injury. 10-Not Attempted due to Environmental Limitations-(lack of equipment, weather restraints, etc.). 88-Not Attempted due to Medical Conditions or Safety Concerns. Sit to Stand (QC): 6 Weight Bearing Full Weight Bearing Full Weight Bearing Gait Training Does the Patient Walk?: Yes Distance: 600 Walk 10 feet (QC): 6 Walk 50 ft with 2 Turns(QC): 6 Walk 150 ft (QC): 6 Gait Persons Needed: 1 Gait Assistive Device: FWW Assessment Current Status: Good Progress Pt performs sit to stand transfer from recliner independently /c use of B armrests for push off. Ambulated 600 feet /c use of a FWW before returning to room. Pt ambulates independently and displays no sign of loss of balance throughout. Displays steady gait speed and good step lengths. Required two abbreviated rest breaks to complete. Pt returned to recliner /c call light in place and all needs met post-treatment. Continue to progress pt per POC. PT Snf Goals Cutting Inspector Goals PT Cutting Inspector Goals Time Frame: Oct 22, 2023 Roll Left & Right (QC): 4 Sit to Lying (QC): 4 Lying-Sitting on Side/Bed(QC): 4 Sit to Stand (QC): 3 Chair/Yvi-wd-Jamdi Xfer(QC): 3 Toilet Transfer (QC): 3 Car Transfer (QC): 3 Does the Patient Walk: Yes Walk 10 feet (QC): 3 Walk 50ft with 2 Turns (QC): 3 Walk 150 ft (QC): 3 Walking 10ft on Uneven Surface: 3 1 Step (curb) (QC): 3 4 Steps (QC): 3 12 Steps (QC): 3 Picking up an Object (QC): 3 Does the Pt use WC or Scooter?: Yes Wheel 50 feet with 2 turns (QC: 6 Type: Manual Wheel 150 feet: 6 Type: Manual PT Plan Treatment/Plan Treatment Plan: Continue Plan of Care Treatment Plan: Education, Functional Activity Joey, Functional Strength, Gait, Safety, Therapeutic Exercise, Transfers Treatment Duration: Sep 25, 2023 Frequency: 5 times per week Estimated Hrs Per Day: 1 hour per day Patient and/or Family Agrees t: Yes Time Time In: 0900 Time Out: 0930 DATE: Oct 11, 2023 Total Billed Treatment Time: 30 Total Billed Treatment 1 visit GT x 2 JERAD AGUILLON PUMP OILER Oct 11, 2023 12:21
[2023-10-11] MEDS: DOCUSATE SODIUM 100 MG CAPSULE PO SCH ×2 (18:07→21:16)
[2023-10-11] MEDS: SENNA W/DOCUSATE TABLET PO SCH ×2 (18:07→21:16)
[2023-10-11 19:51] VITALS: BP 133/61
--- NOTE | 2023-10-12 06:50 | PM&R Progress Note ---
Subjective HPI/CC On Admission Date Seen by Provider: Oct 12, 2023 Time Seen by Provider: 12:30 Subjective/Events-last exam 10/12/2023: Patient doing well Labs stable Family visiting Discharge plan to [place] on Sunday Four-wheel walker arrived 10/11/2023: Improved overall Walking well No pain Cognition improved 10/10/2023: Patient doing well Ambulating well Discharge to [place] Sunday No major concerns Reviewed meds and labs 10/09/2023: Patient doing well Denies any new issues Cognition is improving Possible disposition in [place] close to his daughter 10/08/2023: Doing well No issues ST focus now Ambulating well Labs stable 10/07/2023: Patient doing well Labs will be obtained tomorrow Denies any pain 10/06/2023: No major issues Awaiting placement No falls Confusion improved 10/05/2023: Patient doing well Participation is good Cognition continues to be an issue Poor immediate recall is concerning 10/04/2023: Patient doing a lot better Cognition is an issue May require skilled care for cognition deficits No pain 10/03/2023: Patient doing well His cognition is a concern about returning home alone May very well need skilled care Reviewed everything in team conference 10/02/2023: Doing well Much improved overall Confusion improved DC scopalmine patch 10/01/2023: Doing well Had some confusion this morning but has cleared No falls No pain 09/30/2023: Doing well Multiple visitors every day No pain reported Confusion resolved 09/29/2023: Dramatic improvement Family visiting No falls Improved ambulation 09/28/2023: Doing very well Improving every day No falls Pain controlled BM regimen maintained for constipation 09/27/2023: Patient doing a lot better Denies any new issues Walking 200 feet today Family at bedside 09/26/2023: No major issues No pain reported Improved confusion Family at bedside Family concerned about ability to manage at home alone 09/25/2023: Patient had confusion last night Much more alert today Family at bedside Eating lunch Pringle catheter will be discontinued tomorrow Pain is controlled Review of Systems General: Fatigue, Malaise Objective Exam Vital Signs Vital Signs Date Time Temp Pulse Resp B/P (MAP) Pulse Ox O2 Delivery O2 Flow Rate FiO2 10/12/23 08:41 Room Air 10/12/23 08:00 35.3 85 17 120/65 (83) 95 Capillary Refill : General Appearance: No Apparent Distress, WD/WN, Chronically ill, Obese, Other (lethargic) HEENT: PERRL/EOMI, Normal ENT Inspection, Pharynx Normal Neck: Full Range of Motion, Normal Inspection, Non Tender, Supple, Carotid Bruit Respiratory: Chest Non Tender, Lungs Clear, Normal Breath Sounds, No Accessory Muscle Use, No Respiratory Distress Cardiovascular: Regular Rate, Rhythm, No Edema, No Gallop, No JVD, No Murmur, Normal Peripheral Pulses Gastrointestinal: Normal Bowel Sounds, No Organomegaly, No Pulsatile Mass, Non Tender, Soft Back: Normal Inspection, No CVA Tenderness, No Vertebral Tenderness Extremity: Normal Capillary Refill, Normal Inspection, Normal Range of Motion, Non Tender, No Calf Tenderness, No Pedal Edema Neurologic/Psychiatric: Alert, film spooler II-XII Norm as Tested, Abnormal Gait, Depressed Affect, Disoriented (subtle confusion), Motor Weakness (generalized) Skin: Normal Color, Warm/Dry Lymphatic: No Adenopathy Results/Procedures Lab Laboratory Tests 10/12/23 07:16 Patient resulted labs reviewed. FIM Transfers Therapy Code Descriptions/Definitions Functional [place] Measure: 0=Not Assessed/NA 4=Minimal Assistance 1=Total Assistance 5=Supervision or Setup 2=Maximal Assistance 6=Modified [place] 3=Moderate Assistance 7=Complete IndependenceSCALE: Activities may be completed with or without assistive devices. 1-Difdqonpuc-knlwbpn completes the activity by him/herself with no assistance from a helper. 5-Set-up or Clean-up Assistance-helper sets up or cleans up; patient completes activity. [place] assists only prior to or following the activity. 4-Supervision or Touching Assistance-helper provides verbal cues and/or alysa myla/steadying and/or contact guard assistance as patient completes activity. Assistance may be provided throughout the activity or intermittently. 3-Partial/Moderate Assistance-helper does LESS THAN HALF the effort. [place] lifts, holds or supports trunk or limbs, but provides less than half the effort. 2-Substantial/Maximal Assistance-helper does MORE THAN HALF the effort. [place] lifts or holds trunk or limbs and provides more than half the effort. 3-Uxdqowmkp-czygrn does ALL the effort. Patient does none of the effort to complete the activity. Or, the assistance of 2 or more helpers is required for the patient to complete the activity. If activity was not attempted, code reason: 7-Patient Refused. 9-Not Applicable-not attempted and the patient did not perform the activity b efore the current illness, exacerbation or injury. 10-Not Attempted due to Environmental Limitations-(lack of equipment, weather restraints, etc.). 88-Not Attempted due to Medical Conditions or Safety Concerns. Roll Left to Right (QC): 6 Sit to Lying (QC): 6 Sit to Stand (QC): 6 Chair/Hfs-di-Aqevb Xfer(QC): 4 Car Transfer (QC): 4 (CGA and retrieval of "steering wheel" in car for patient to hold onto when swinging legs in.) Gait Training Does the Patient Walk?: Yes Distance: 600 Walk 10 feet (QC): 6 Walk 50 ft with 2 Turns(QC): 6 Walk 150 ft (QC): 6 Walking 10ft/uneven surface-QC: 4 (CGA /c FWW) Gait Persons Needed: 1 Gait Assistive Device: FWW Wheelchair Training Does the Pt Use a Wheelchair?: No Distance: 3' Wheel 50 ft with 2 turns (QC): 4 Wheel 150 ft (QC): 4 Type of Wheelchair: Manual Stair Training Stair Training: Handrails/: 2 handrails #of Steps: 3 1 Step (curb) (QC): 4 4 Steps (QC): 4 12 Steps (QC): 4 Stairs: Pattern: Step to Balance Picking up an Object (QC): 4 (SBA to remove pants from floor after toileting) ADL-Treatment Eating (QC): 6 Oral Hygiene (QC): 6 Bathing Location: L Arm, R Arm, L Upper Leg, R Upper Leg, L Lower Leg (including foot), R Lower Leg (including foot), Chest, Abdomen, Buttocks, Perineal Area Shower/Bathe Self (QC): 6 Upper Body Dressing (QC): 6 Lower Body Dressing (QC): 6 On/Off Footwear (QC): 6 Toileting Hygiene (QC): 6 Toilet Transfer (QC): 6 Assessment/Plan Assessment and Plan Assess & Plan/Chief Complaint Assessment: s/p cerebellar CVA HTN DM Obesity Recent severe delirium requiring Precedex in ICU s/p loop recorder Plan: BP control DM management PT OT 09/25/2023: Supportive care Monitor confusion 09/26/2023: Continue supportive care Catheter DC and voiding well 09/27/2023: Monitor closely Dramatic improvement 09/28/2023: BM regimen Monitor progress 09/29/2023: No changes Dramatic improvement 09/30/2023: Monitor closely 10/01/2023: Labs stable Monitor confusion 10/02/2023: Improved overall DC Scopalmine 10/03/2023: Doing fair with cognition Ultimately may require skilled 10/04/2023: Supportive care will continue 10/05/2023: Continue aggressive speech therapy for cognition Continue aggressive rehab 10/06/2023: Continue treatment Confusion improved 10/07/2023: Continue aggressive speech therapy for cognition 10/08/2023: Continue aggressive ST Monitor BP 10/09/2023: Supportive care Monitor closely DC Accu-Cheks and insulin 10/10/2023: Monitor closely Discharge plan this weekend 10/11/2023: Improved overall 10/12/2023: Supportive care Monitor closely (1) Cerebellar stroke Status: Acute SALEEM KING DO Oct 12, 2023 06:50
--- NOTE | 2023-10-12 07:21 | Occupational Ther Daily Note ---
OT Current Status-Daily Note Subjective Pt alert, sitting in recliner. Pt agrees to therapy. No c/o pain. QC's gathered this date. Mental Status/Objective Patient Orientation: Person, Place, Time, Situation ADL-Treatment Pt independent with eating. Pt agrees to therapy. Pt able to gather clothing using FWW, independently. Using shower bench, grabbars, LH sponge and HH shower pt completes shower independently. Pt able to stand at sink to complete oral care and grooming independently. Toileting and toilet transfer independent. Pt able to bend over and pick items off floor independent while stabilizing with surface. Independent with UBD, LBD and footwear. Therapy Code Descriptions/Definitions Functional [place] Measure: 0=Not Assessed/NA 4=Minimal Assistance 1=Total Assistance 5=Supervision or Setup 2=Maximal Assistance 6=Modified [place] 3=Moderate Assistance 7=Complete IndependenceSCALE: Activities may be completed with or without assistive devices. 2-Vyszknscqk-suweldj completes the activity by him/herself with no assistance from a helper. 5-Set-up or Clean-up Assistance-helper sets up or cleans up; patient completes activity. [place] assists only prior to or following the activity. 4-Supervision or Touching Assistance-helper provides verbal cues and/or touching/steadying and/or contact guard assistance as patient completes activity. Assistance may be provided throughout the activity or intermittently. 3-Partial/Moderate Assistance-helper does LESS THAN HALF the effort. [place] lifts, holds or supports trunk or limbs, but provides less than half the effort. 2-Substantial/Maximal Assistance-helper does MORE THAN HALF the effort. [place] lifts or holds trunk or limbs and provides more than half the effort. 5-Jmytkvsry-cxogou does ALL the effort. Patient does none of the effort to complete the activity. Or, the assistance of 2 or more helpers is required for the patient to complete the activity. If activity was not attempted, code reason: 7-Patient Refused. 9-Not Applicable-not attempted and the patient did not perform the activity before the current illness, exacerbation or injury. 10-Not Attempted due to Environmental Limitations-(lack of equipment, weather restraints, etc.). 88-Not Attempted due to Medical Conditions or Safety Concerns. Eating (QC): 6 Oral Hygiene (QC): 6 Shower/Bathe Self (QC): 6 Upper Body Dressing (QC): 6 Lower Body Dressing (QC): 6 On/Off Footwear: 6 Toileting Hygiene (QC): 6 Toilet Transfer (QC): 6 BIMS CAM BIMS Expression of Ideas and Wants: Without Difficulty Understanding Verbal Content: Usually Understands Brief Interview/Mental Status: Yes IRF BLAYNE BIMS: IRF [place] BIMS Response (Comments) Value Repitition of Three Words Three 3 Recalls Socks Yes, After Cueing (Wear) 1 Recalls Blue Yes, After Cueing (Color) 1 Recalls Bed Yes, No Cue Required 2 Year Correct 3 Month Accurate Within 5 Days 2 Day Correct 1 Total 13 Patient Normally Able to Recal: Current Session, Location of own room, Staff Names and faces, That he/she in a hsp Should Staff Asses. Mental St.: No CAM Mental Status Change/Baseline: 0 Inattention: 0 Disorganized thinkin Altered level of consciousness: 0 OT Shelter Goals Water Resource Manager Goals Time Frame: Oct 19, 2023 Acute change in mental status: 1 Inattention: 1 Disorganized thinkin Altered level of consciousness: 0 Eating (QC): 6 (met) Oral Hygiene (QC): 6 (met) Toileting Hygiene (QC): 6 (met) Shower/Bathe Self (QC): 6 (met) Upper Body Dressing (QC): 6 (met) Lower Body Dressing (QC): 6 (met) On/Off Footwear (QC): 6 (met) Additional Goals: 1-Demonstrate ADL Tasks, 2-Verbalize Understanding, 3-Im proveStrength/Joey 1=Demonstrate adherence to instructed precautions during ADL tasks. 2=Patient will verbalize/demonstrate understanding of assistive devices/modifications for ADL. 3=Patient will improve strength/tolerance for activity to enable patient to perform ADL's. OT Education/Plan Problem List/Assessment Assessment: Impaired Self-Care Skills Discharge Recommendations Plan/Recommendations: Continue POC Treatment Plan/Plan of Care Patient would benefit from OT for education, treatment and training to promote independence in ADL's, mobility, safety and/or upper extremity function for ADL's. Plan of Care: ADL Retraining, Functional Mobility, Group Exercise/Act as Ind, UE Funct Exercise/Act, UE Neuromus Re-Ed/Coord Treatment Duration: Oct 19, 2023 Frequency: At least 5 of 7 days/Wk (IRF) Estimated Hrs Per Day: Other (75 mins per day) Agreement: Yes Rehab Potential: Fair Time Start Time: 07:00 Stop Time: 08:15 DATE: Oct 12, 2023 Total Time Billed (hr/min): 75 Billed Treatment Time 1 visit-ADL 5 (75 min) JOHN AFRLEY Oct 12, 2023 07:21
[2023-10-12 07:24] LABS: BASOPHILS # (AUTO) 0.1 10^3/uL (0.0-0.1); BASOPHILS % (AUTO) 1 % (0-10); EOSINOPHILS # (AUTO) 0.6 10^3/uL (0.0-0.3); EOSINOPHILS % (AUTO) 10 % (0-10); HEMATOCRIT 44 % (40-54); HEMOGLOBIN 14.8 g/dL (13.3-17.7); LYMPHOCYTES # (AUTO) 1.2 10^3/uL (1.0-4.0); LYMPHOCYTES % (AUTO) 20 % (12-44); MEAN CORPUSCULAR HEMOGLOBIN 32 pg (25-34); MEAN CORPUSCULAR HGB CONC 33 g/dL (32-36); MEAN CORPUSCULAR VOLUME 95 fL (80-99); MONOCYTES # (AUTO) 0.6 10^3/uL (0.0-1.0); MONOCYTES % (AUTO) 10 % (0-12); NEUTROPHILS # (AUTO) 3.5 10^3/uL (1.8-7.8); NEUTROPHILS % (AUTO) 59 % (42-75); PLATELET COUNT 238 10^3/uL (130-400)
[2023-10-12 07:44] LABS: ALBUMIN 3.7 GM/DL (3.2-4.5)
[2023-10-12 07:45] LABS: POTASSIUM 4.2 MMOL/L (3.6-5.0)
[2023-10-12 07:46] LABS: CALCIUM 9.5 MG/DL (8.5-10.1)
[2023-10-12 07:47] LABS: TOTAL PROTEIN 7.1 GM/DL (6.4-8.2)
[2023-10-12 07:49] LABS: BILIRUBIN,TOTAL 0.7 MG/DL (0.1-1.0)
[2023-10-12 07:51] LABS: CREATININE SERUM 1.08 MG/DL (0.60-1.30)
[2023-10-12 08:00] VITALS: BP 120/65
[2023-10-12] MEDS: LOSARTAN 100 MG TABLET PO SCH (08:37)
[2023-10-12] MEDS: risperiDONE 0.25 MG TABLET PO SCH ×2 (08:37→20:03)
[2023-10-12] MEDS: CLOPIDOGREL 75 MG TABLET PO SCH (08:37)
[2023-10-12] MEDS: ASPIRIN 81 MG CHEWABLE TABLET PO SCH (08:37)
[2023-10-12] MEDS: amLODIPine 10 MG TABLET PO SCH (08:37)
[2023-10-12] MEDS: ENOXAPARIN 40 MG/0.4 ML SYRINGE SQ SCH (08:38)
[2023-10-12] MEDS: prednisoLONE 1% Ophthalmic Suspension 5 ML BTL OP SCH ×4 (08:39→20:03)
[2023-10-12] MEDS: metFORMIN 500 MG TABLET PO SCH (08:42)
--- NOTE | 2023-10-12 08:44 | Occupational Ther Daily Note ---
OT Current Status-Daily Note Subjective Pt alert, lying in bed. Pt states that he did not sleep at all last night and feels awful. Pt agrees to complete B UE exercises/activities in bed. Mental Status/Objective Patient Orientation: Person, Place, Time, Situation Attachments: Pringle Catheter ADL-Treatment Therapy Code Descriptions/Definitions Functional [place] Measure: 0=Not Assessed/NA 4=Minimal Assistance 1=Total Assistance 5=Supervision or Setup 2=Maximal Assistance 6=Modified [place] 3=Moderate Assistance 7=Complete IndependenceSCALE: Activities may be completed with or without assistive devices. 9-Ijdkgrmxov-blbtxht completes the activity by him/herself with no assistance from a helper. 5-Set-up or Clean-up Assistance-helper sets up or cleans up; patient completes activity. [place] assists only prior to or following the activity. 4-Supervision or Touching Assistance-helper provides verbal cues and/or touching/steadying and/or contact guard assistance as patient completes activity. Assistance may be provided throughout the activity or intermittently. 3-Partial/Moderate Assistance-helper does LESS THAN HALF the effort. [place] lifts, holds or supports trunk or limbs, but provides less than half the effort. 2-Substantial/Maximal Assistance-helper does MORE THAN HALF the effort. [place] lifts or holds trunk or limbs and provides more than half the effort. 5-Avfsshnlj-hbdwbj does ALL the effort. Patient does none of the effort to complete the activity. Or, the assistance of 2 or more helpers is required for the patient to complete the activity. If activity was not attempted, code reason: 7-Patient Refused. 9-Not Applicable-not attempted and the patient did not perform the activity before the current illness, exacerbation or injury. 10-Not Attempted due to Environmental Limitations-(lack of equipment, weather restraints, etc.). 88-Not Attempted due to Medical Conditions or Safety Concerns. Oral Hygiene (QC): 6 Other Treatment Pt completes B UE exercises/activities to increase strength for daily functional tasks. Skilled instruction for correct technique and modifications when necessary. Pt tolerated activities well while completing in supine position with HOB elevated. After therapy, pt lying in bed with call light/phone in reach. All needs met in room. Education OT Patient Education: Exercise program Teaching Recipient: Patient, Family Teaching Methods: Demonstration, Discussion Response to Teaching: Verbalize Understanding, Return Demonstration, Reinforcement Needed OT Bath Attendant Goals Bath Attendant Goals Time Frame: Oct 19, 2023 Acute change in mental status: 0 Inattention: 0 Disorganized thinkin Altered level of consciousness: 0 Eating (QC): 6 (met) Oral Hygiene (QC): 6 (met) Toileting Hygiene (QC): 6 (met) Shower/Bathe Self (QC): 6 (met) Upper Body Dressing (QC): 6 (met) Lower Body Dressing (QC): 6 (met) On/Off Footwear (QC): 6 (met) Additional Goals: 1-Demonstrate ADL Tasks, 2-Verbalize Understanding, 3- ImproveStrength/Joey 1=Demonstrate adherence to instructed precautions during ADL tasks. 2=Patient will verbalize/demonstrate understanding of assistive devices/modifications for ADL. 3=Patient will improve strength/tolerance for activity to enable patient to perform ADL's. OT Education/Plan Problem List/Assessment Assessment: Decreased Activ Tolerance, Decreased UE Strength, Impaired Self- Care Skills Discharge Recommendations Plan/Recommendations: Continue POC Treatment Plan/Plan of Care Patient would benefit from OT for education, treatment and training to promote independence in ADL's, mobility, safety and/or upper extremity function for ADL's. Plan of Care: ADL Retraining, Functional Mobility, Group Exercise/Act as Ind, UE Funct Exercise/Act, UE Neuromus Re-Ed/Coord Treatment Duration: Oct 19, 2023 Frequency: At least 5 of 7 days/Wk (IRF) Estimated Hrs Per Day: Other (75 mins per day) Agreement: Yes Rehab Potential: Fair Time Start Time: 08:15 Stop Time: 09:30 DATE: Oct 12, 2023 Total Time Billed (hr/min): 75 Billed Treatment Time 1 visit-EX 4 (65 min) ADL 1 (10 min) JOHN FARLEY Oct 12, 2023 08:44
[2023-10-12] MEDS: MICONAZOLE 2% POWDER 90 GM TOP SCH ×2 (10:18→20:04)
[2023-10-12] MEDS: SENNA W/DOCUSATE TABLET PO SCH ×2 (12:03→20:03)
[2023-10-12] MEDS: DOCUSATE SODIUM 100 MG CAPSULE PO SCH ×2 (12:03→20:03)
--- NOTE | 2023-10-12 12:50 | Speech Therapy Daily Note ---
Speech Daily Progress Note Subjective Date Seen by Provider: Oct 12, 2023 Time Seen by Provider: 08:30 Pt agreeable to session. Objective Pt continues to demonstrate poor assistant terminal manager recall of functional information, such as his discharge plan. Pt believes that he is moving to an apartment by his daughter and not that he is going to move in with his daughter for an unknown amount of time. Pt completes simple problem solving tasks with 75% accuracy and requires verbal and visual cues to complete. Assessment Assessment Current Status: Good Progress Treatment Plan Continue Plan of Care Speech Head Batcher Goals Jail Goals 1. The pt will be oriented to self, place, time and situation independently with 100% accuracy. 2. The pt will complete simple problem solving and safety awareness for daily tasks of living with 90% accuracy. 3. The pt will demonstrate immediate, short-term and long-term recall of functional information with 80% accuracy. Speech-Plan Treatment Plan Speech Therapy Treatment Plan: Continue Plan of Care Treatment Duration: Sep 25, 2023 Frequency: At least 5 of 7 days/Wk (IRF) Estimated Hrs Per Day: Other (45 min cog/ling tx) Rehab Potential: Fair Time Speech Therapy Time In: 08:30 Speech Therapy Time Out: 09:15 DATE: Oct 12, 2023 Total Billed Time: 45 Billed Treatment Time 1 YUMIKO 45 min Anayeli Rowan Oct 12, 2023 12:50
--- NOTE | 2023-10-12 14:32 | Physical Therapy Daily Note ---
PT Daily Note-Current Subjective Pt sitting in recliner upon arrival. Pt agrees to PT for QC scoring for anticipated d/c in a couple days (Sunday, the ). Pain Location: No Pain Reported Section J - Health Conditions 1. Rarely or not at all 2. Occasionally 3. Frequently 4. Almost constantly 8. Unable to answer Pain Effect on Sleep: 1 Pain Interference with Therapy: 1 Pain Interference w/Day-to-Day: 1 Mental Status Patient Orientation: Person, Place, Situation Transfers SCALE: Activities may be completed with or without assistive devices. 7-Nxkspsblzh-nnqzzcg completes the activity by him/herself with no assistance from a helper. 5-Set-up or Clean-up Assistance-helper sets up or cleans up; patient completes activity. [place] assists only prior to or following the activity. 4-Supervision or Touching Assistance-helper provides verbal cues and/or touching/steadying and/or contact guard assistance as patient completes a ctivity. Assistance may be provided throughout the activity or intermittently. 3-Partial/Moderate Assistance-helper does LESS THAN HALF the effort. [place] lifts, holds or supports trunk or limbs, but provides less than half the effort. 2-Substantial/Maximal Assistance-helper does MORE THAN HALF the effort. [place] lifts or holds trunk or limbs and provides more than half the effort. 0-Yehrdrpxl-qssnyr does ALL the effort. Patient does none of the effort to complete the activity. Or, the assistance of 2 or more helpers is required for the patient to complete the activity. If activity was not attempted, code reason: 7-Patient Refused. 9-Not Applicable-not attempted and the patient did not perform the activity before the current illness, exacerbation or injury. 10-Not Attempted due to Environmental Limitations-(lack of equipment, weather restraints, etc.). 88-Not Attempted due to Medical Conditions or Safety Concerns. Roll Left & Right (QC): 6 Sit to Lying (QC): 6 Lying to Sitting/Side of Bed(Q: 6 Sit to Stand (QC): 6 Chair/Jwz-kt-Gatlf Xfer(QC): 6 Toilet Transfer (QC): 6 Car Transfer (QC): 6 Weight Bearing Full Weight Bearing Full Weight Bearing Gait Training Does the Patient Walk?: Yes Distance: 600' Walk 10 feet (QC): 6 Walk 50 ft with 2 Turns(QC): 6 Walk 150 ft (QC): 5 Walking 10ft/uneven surface-QC: 5 Gait Assistive Device: FWW Wheelchair Training Does the Pt Use a Wheelchair?: No Stair Training Stair Training: Handrails/: 2 handrails #of Steps: 12 1 Step (curb) (QC): 5 4 Steps (QC): 5 12 Steps (QC): 4 Stairs: Pattern: Step to Balance Picking up an Object (QC): 5 Exercises NuStep Minutes: 15 NuStep Workload: 5 Treatments Pt completed QC scoring items listed above including ambulation, stairs, transfers, and car transfers as well as used NuStep before returning to room to rest in recliner at end of tx. All needs met, call light in hand. Assessment Current Status: Good Progress Pt used new FWW delivered today. Pt has gained strength, mobility and activity tolerance but still has moments of difficulty w/cognition. PT Fdc Goals Fdc Goals PT Equine Pharmacology Technician Goals Time Frame: Oct 22, 2023 Roll Left & Right (QC): 4 Sit to Lying (QC): 4 Lying-Sitting on Side/Bed(QC): 4 Sit to Stand (QC): 3 Chair/Rkc-hi-Ifrel Xfer(QC): 3 Toilet Transfer (QC): 3 Car Transfer (QC): 3 Does the Patient Walk: Yes Walk 10 feet (QC): 3 Walk 50ft with 2 Turns (QC): 3 Walk 150 ft (QC): 3 Walking 10ft on Uneven Surface: 3 1 Step (curb) (QC): 3 4 Steps (QC): 3 12 Steps (QC): 3 Picking up an Object (QC): 3 Does the Pt use WC or Scooter?: Yes Wheel 50 feet with 2 turns (QC: 6 Type: Manual Wheel 150 feet: 6 Type: Manual PT Plan Treatment/Plan Treatment Plan: Continue Plan of Care Treatment Plan: Education, Functional Activity Joey, Functional Strength, Gait, Safety, Therapeutic Exercise, Transfers Treatment Duration: Sep 25, 2023 Frequency: 5 times per week Estimated Hrs Per Day: 1 hour per day Patient and/or Family Agrees t: Yes Time Time In: 1000 Time Out: 1100 DATE: Oct 12, 2023 Total Billed Treatment Time: 60 Total Billed Treatment 1, GT x2 (30m) & EX x2 (30m) SANDRA BIGGS PIT STEWARD Oct 12, 2023 14:32
[2023-10-12] MEDS ORDERED: ASPI81TA64 PO (16:14)
[2023-10-12] MEDS ORDERED: AMLO-251 PO (16:14)
[2023-10-12] MEDS ORDERED: METF-397 PO (16:14)
[2023-10-12] MEDS ORDERED: MICO90PO TOP (16:14)
[2023-10-12] MEDS ORDERED: CLOP75TA28 PO (16:14)
[2023-10-12] MEDS ORDERED: RISP0.253 PO (16:14)
[2023-10-12] MEDS ORDERED: LOSA100T58 PO (16:14)
--- NOTE | 2023-10-12 16:15 | D/C HH Face to Face Order ---
D/C HH Face to Face Orders Reconcile Patient Problems Problems Reviewed?: Yes Instructions for Patient HH Patient Instructions/FollowUp: PCP as scheduled Physician to follow Patient: PCP Discharge Diet for Home: ADA Diet Patient Problems: CVA Patient Data-Allergies,Ht & Wt Patient Allergies: Coded Allergies: No Known Drug Allergies (Unverified , 03/08/14) Height (Feet): 5 Height (Inches): 10 Weight (Pounds): 302 Home Health Need/Face to Face Date of Face to Face: Oct 12, 2023 Clinical Findings: Generalized weakness and fatigue, Muscle weakness I have seen Pt bojw-vd-vyts: Yes Discharged To: Home Diagnosis/Conditions: cva Patient is Homebound due to: CognItive deficits, Muscle weakness Homebound Status Due to the above stated illness, injury or surgical procedure (medical condition or diagnosis) and associated clinical findings, the patient is homebound because of his/her inability to leave home except with aid of a supportive device and/or person AND leaving the home requires a considerable and taxing effort or is medically contraindicated. Pt req the following assistanc: Walker Home Health Nursing Orders Home Health Services Order: Nursing Services, Service Assistant-Evaluate & Treat, Physical Therapy-Evaluate & Treat, Speech Language-Evaluate & Treat Certify Stmt I certify that this patient is under my care and that I, a nurse practitioner or a physician; a graduate assistant athletic trainer working with me, had a face to face encounter that - meets the physician face to face encounter requirements with this patient as dated. SALEEM KING DO Oct 12, 2023 16:15
[2023-10-12 19:42] VITALS: BP 117/64
--- NOTE | 2023-10-13 06:31 | PM&R Progress Note ---
Subjective HPI/CC On Admission Date Seen by Provider: Oct 13, 2023 Time Seen by Provider: 12:30 Subjective/Events-last exam 10/13/2023: Patient doing well Denies any new pain Ready for discharge tomorrow 10/12/2023: Patient doing well Labs stable Family visiting Discharge plan to [place] on Sunday Four-wheel walker arrived 10/11/2023: Improved overall Walking well No pain Cognition improved 10/10/2023: Patient doing well Ambulating well Discharge to [place] Sunday No major concerns Reviewed meds and labs 10/09/2023: Patient doing well Denies any new issues Cognition is improving Possible disposition in [place] close to his daughter 10/08/2023: Doing well No issues ST focus now Ambulating well Labs stable 10/07/2023: Patient doing well Labs will be obtained tomorrow Denies any pain 10/06/2023: No major issues Awaiting placement No falls Confusion improved 10/05/2023: Patient doing well Participation is good Cognition continues to be an issue Poor immediate recall is concerning 10/04/2023: Patient doing a lot better Cognition is an issue May require skilled care for cognition deficits No pain 10/03/2023: Patient doing well His cognition is a concern about returning home alone May very well need skilled care Reviewed everything in team conference 10/02/2023: Doing well Much improved overall Confusion improved DC scopalmine patch 10/01/2023: Doing well Had some confusion this morning but has cleared No falls No pain 09/30/2023: Doing well Multiple visitors every day No pain reported Confusion resolved 09/29/2023: Dramatic improvement Family visiting No falls Improved ambulation 09/28/2023: Doing very well Improving every day No falls Pain controlled BM regimen maintained for constipation 09/27/2023: Patient doing a lot better Denies any new issues Walking 200 feet today Family at bedside 09/26/2023: No major issues No pain reported Improved confusion Family at bedside Family concerned about ability to manage at home alone 09/25/2023: Patient had confusion last night Much more alert today Family at bedside Eating lunch Pringle catheter will be discontinued tomorrow Pain is controlled Review of Systems General: Fatigue, Malaise Neurological: Confusion Objective Exam Vital Signs Vital Signs Date Time Temp Pulse Resp B/P (MAP) Pulse Ox O2 Delivery O2 Flow Rate FiO2 10/13/23 21:30 97 Room Air 10/13/23 19:36 35.6 100 20 142/66 (91) Capillary Refill : General Appearance: No Apparent Distress, WD/WN, Chronically ill, Obese, Other (lethargic) HEENT: PERRL/EOMI, Normal ENT Inspection, Pharynx Normal Neck: Full Range of Motion, Normal Inspection, Non Tender, Supple, Carotid Bruit Respiratory: Chest Non Tender, Lungs Clear, Normal Breath Sounds, No Accessory Muscle Use, No Respiratory Distress Cardiovascular: Regular Rate, Rhythm, No Edema, No Gallop, No JVD, No Murmur, Normal Peripheral Pulses Gastrointestinal: Normal Bowel Sounds, No Organomegaly, No Pulsatile Mass, Non Tender, Soft Back: Normal Inspection, No CVA Tenderness, No Vertebral Tenderness Extremity: Normal Capillary Refill, Normal Inspection, Normal Range of Motion, Non Tender, No Calf Tenderness, No Pedal Edema Neurologic/Psychiatric: Alert, optical advisor II-XII Norm as Tested, Abnormal Gait, Depressed Affect, Disoriented (subtle confusion), Motor Weakness (generalized) Skin: Normal Color, Warm/Dry Lymphatic: No Adenopathy Results/Procedures Lab Patient resulted labs reviewed. FIM Transfers Therapy Code Descriptions/Definitions Functional Banks Measure: 0=Not Assessed/NA 4=Minimal Assistance 1=Total Assistance 5=Supervision or Setup 2=Maximal Assistance 6=Modified Banks 3=Moderate Assistance 7=Complete IndependenceSCALE: Activities may be completed with or without assistive devices. 3-Tkwjaptcns-atxtgci completes the activity by him/herself with no assistance from a helper. 5-Set-up or Clean-up Assistance-helper sets up or cleans up; patient completes activity. [place] assists only prior to or following the activity. 4-Supervision or Touching Assistance-helper provides verbal cues and/or touching/steadying and/or contact guard assistance as patient completes activity. Assistance may be provided throughout the activity or intermittently. 3-Partial/Moderate Assistance-helper does LESS THAN HALF the effort. [place] lifts, holds or supports trunk or limbs, but provides less than half the effort. 2-Substantial/Maximal Assistance-helper does MORE THAN HALF the effort. [place] lifts or holds trunk or limbs and provides more than half the effort. 8-Osmfkdhbw-ggaldy does ALL the effort. Patient does none of the effort to complete the activity. Or, the assistance of 2 or more helpers is required for the patient to complete the activity. If activity was not attempted, code reason: 7-Patient Refused. 9-Not Applicable-not attempted and the patient did not perform the activity before the current illness, exacerbation or injury. 10-Not Attempted due to Environmental Limitations-(lack of equipment, weather restraints, etc.). 88-Not Attempted due to Medical Conditions or Safety Concerns. Roll Left to Right (QC): 6 Sit to Lying (QC): 6 Sit to Stand (QC): 6 Chair/Vyp-pf-Pfaov Xfer(QC): 6 Car Transfer (QC): 6 Gait Training Does the Patient Walk?: Yes Distance: 600' Walk 10 feet (QC): 6 Walk 50 ft with 2 Turns(QC): 6 Walk 150 ft (QC): 5 Walking 10ft/uneven surface-QC: 5 Gait Persons Needed: 1 Gait Assistive Device: FWW Wheelchair Training Does the Pt Use a Wheelchair?: No Distance: 3' Wheel 50 ft with 2 turns (QC): 4 Wheel 150 ft (QC): 4 Type of Wheelchair: Manual Stair Training Stair Training: Handrails/: 2 handrails #of Steps: 12 1 Step (curb) (QC): 5 4 Steps (QC): 5 12 Steps (QC): 4 Stairs: Pattern: Step to Balance Picking up an Object (QC): 5 ADL-Treatment Eating (QC): 6 Oral Hygiene (QC): 6 Bathing Location: L Arm, R Arm, L Upper Leg, R Upper Leg, L Lower Leg (inclu ding foot), R Lower Leg (including foot), Chest, Abdomen, Buttocks, Perineal Area Shower/Bathe Self (QC): 6 Upper Body Dressing (QC): 6 Lower Body Dressing (QC): 6 On/Off Footwear (QC): 6 Toileting Hygiene (QC): 6 Toilet Transfer (QC): 6 Assessment/Plan Assessment and Plan Assess & Plan/Chief Complaint Assessment: s/p cerebellar CVA HTN DM Obesity Recent severe delirium requiring Precedex in ICU s/p loop recorder Plan: BP control DM management PT OT 09/25/2023: Supportive care Monitor confusion 09/26/2023: Continue supportive care Catheter DC and voiding well 09/27/2023: Monitor closely Dramatic improvement 09/28/2023: BM regimen Monitor progress 09/29/2023: No changes Dramatic improvement 09/30/2023: Monitor closely 10/01/2023: Labs stable Monitor confusion 10/02/2023: Improved overall DC Scopalmine 10/03/2023: Doing fair with cognition Ultimately may require skilled 10/04/2023: Supportive care will continue 10/05/2023: Continue aggressive speech therapy for cognition Continue aggressive rehab 10/06/2023: Continue treatment Confusion improved 10/07/2023: Continue aggressive speech therapy for cognition 10/08/2023: Continue aggressive ST Monitor BP 10/09/2023: Supportive care Monitor closely DC Accu-Cheks and insulin 10/10/2023: Monitor closely Discharge plan this weekend 10/11/2023: Improved overall 10/12/2023: Supportive care Monitor closely 10/13/2023: Discharge home tomorrow with daughter (1) Cerebellar stroke Status: Acute SALEEM KING DO Oct 13, 2023 06:31
[2023-10-13 08:00] VITALS: BP 131/67
[2023-10-13] MEDS: ASPIRIN 81 MG CHEWABLE TABLET PO SCH (08:56)
[2023-10-13] MEDS: SENNA W/DOCUSATE TABLET PO SCH ×2 (08:56→21:40)
[2023-10-13] MEDS: CLOPIDOGREL 75 MG TABLET PO SCH (08:56)
[2023-10-13] MEDS: prednisoLONE 1% Ophthalmic Suspension 5 ML BTL OP SCH ×4 (08:56→21:32)
[2023-10-13] MEDS: risperiDONE 0.25 MG TABLET PO SCH ×2 (08:56→21:33)
[2023-10-13] MEDS: DOCUSATE SODIUM 100 MG CAPSULE PO SCH ×2 (08:56→21:40)
[2023-10-13] MEDS: MICONAZOLE 2% POWDER 90 GM TOP SCH ×2 (08:57→21:33)
[2023-10-13] MEDS: amLODIPine 10 MG TABLET PO SCH (08:57)
[2023-10-13] MEDS: LACTULOSE SYRUP 10GM/15ML 30ML UDC PO PRN (08:57)
[2023-10-13] MEDS: LOSARTAN 100 MG TABLET PO SCH (08:57)
[2023-10-13] MEDS: metFORMIN 500 MG TABLET PO SCH (08:57)
[2023-10-13] MEDS: ENOXAPARIN 40 MG/0.4 ML SYRINGE SQ SCH (09:00)
[2023-10-13 19:36] VITALS: BP 142/66
--- NOTE | 2023-10-14 06:42 | Discharge Summary ---
Diagnosis/Chief Complaint Date of Admission Sep 24, 2023 at 11:15 Date of Discharge Discharge Date: Oct 14, 2023 Discharge Diagnosis Assessment: s/p cerebellar CVA HTN DM Obesity Recent severe delirium requiring Precedex in ICU s/p loop recorder Plan: BP control DM management PT OT 09/25/2023: Supportive care Monitor confusion 09/26/2023: Continue supportive care Catheter DC and voiding well 09/27/2023: Monitor closely Dramatic improvement 09/28/2023: BM regimen Monitor progress 09/29/2023: No changes Dramatic improvement 09/30/2023: Monitor closely 10/01/2023: Labs stable Monitor confusion 10/02/2023: Improved overall DC Scopalmine 10/03/2023: Doing fair with cognition Ultimately may require skilled 10/04/2023: Supportive care will continue 10/05/2023: Continue aggressive speech therapy for cognition Continue aggressive rehab 10/06/2023: Continue treatment Confusion improved 10/07/2023: Continue aggressive speech therapy for cognition 10/08/2023: Continue aggressive ST Monitor BP 10/09/2023: Supportive care Monitor closely DC Accu-Cheks and insulin 10/10/2023: Monitor closely Discharge plan this weekend 10/11/2023: Improved overall 10/12/2023: Supportive care Monitor closely (1) Cerebellar stroke Status: Acute Discharge Summary Discharge Physical Examination Allergies: Coded Allergies: No Known Drug Allergies (Unverified , 03/08/14) Vitals & I&Os Vital Signs Date Time Temp Pulse Resp B/P (MAP) Pulse Ox O2 Delivery O2 Flow Rate FiO2 10/14/23 09:00 Room Air 10/14/23 08:00 36.1 92 18 121/64 (83) 99 General Appearance: Alert, Oriented X3, Cooperative Respiratory: Clear to Auscultation Cardiovascular: Regular Rate Psych/Mental Status: Mental Status NL Hospital Course Was the Problem List Reviewed?: Yes Uneventful hospital course but lengthy after CVA and cognitive deficit along with just overall weakness. Reviewed meds and labs before discharge and sent medication to [facility] in [facility]. Overall he did very well and speech therapy will need to continue working with him due to cognitive deficit and patient will ultimately discharge home in improved condition. Plavix and ASA and Lipitor sent into pharmacy Labs (last 24 hrs) Laboratory Tests 09/24/23 20:59: Glucometer 170H 09/25/23 05:35: White Blood Count 7.3, Red Blood Count 4.48, Hemoglobin 14.2, Hematocrit 42, Mean Corpuscular Volume 93, Mean Corpuscular Hemoglobin 32, Mean Corpuscular Hemoglobin Concent 34, Red Cell Distribution Width 14.2, Platelet Count 225, Mean Platelet Volume 10.8, Immature Granulocyte % (Auto) 0, Neutrophils (%) (Auto) 68, Lymphocytes (%) (Auto) 11L, Monocytes (%) (Auto) 15H, Eosinophils (%) (Auto) 4, Basophils (%) (Auto) 1, Neutrophils # (Auto) 5.0, Lymphocytes # (Auto) 0.8L, Monocytes # (Auto) 1.1H, Eosinophils # (Auto) 0.3, Basophils # (Auto) 0.1, Immature Granulocyte # (Auto) 0.0, Sodium Level 134L, Potassium Level 3.9, Chloride Level 104, Carbon Dioxide Level 20L, Anion Gap 10, Blood Urea Nitrogen 26H, Creatinine 1.11, Estimat Glomerular Filtration Rate 68, BUN/Creatinine Ratio 23, Glucose Level 162H, Calcium Level 9.1, Corrected Calcium 9.9, Total Bilirubin 1.2H, Aspartate Amino Transf (AST/SGOT) 24, Alanine Aminotransferase (ALT/SGPT) 12, Alkaline Phosphatase 68, Total Protein 6.3L, Albumin 3.0L 09/25/23 11:09: Glucometer 209H 09/25/23 16:14: Glucometer 180H 09/25/23 20:54: Glucometer 207H 09/26/23 05:28: Glucometer 137H 09/26/23 11:08: Glucometer 201H 09/26/23 15:19: Glucometer 178H 09/26/23 20:53: Glucometer 188H 09/27/23 05:29: Glucometer 125H 09/27/23 10:59: Glucometer 166H 09/27/23 15:50: Glucometer 128H 09/27/23 20:29: Glucometer 155H 09/28/23 06:07: Glucometer 113H 09/28/23 11:21: Glucometer 156H 09/28/23 15:24: Glucometer 144H 09/28/23 20:27: Glucometer 148H 09/29/23 05:32: Glucometer 104 09/29/23 11:26: Glucometer 130H 09/29/23 15:37: Glucometer 101 09/29/23 20:45: Glucometer 124H 09/30/23 06:08: Glucometer 103 09/30/23 10:27: Glucometer 132H 09/30/23 15:45: Glucometer 122H 09/30/23 20:39: Glucometer 116H 10/01/23 05:13: White Blood Count 5.5, Red Blood Count 4.45, Hemoglobin 13.7, Hematocrit 42, Mean Corpuscular Volume 94, Mean Corpuscular Hemoglobin 31, Mean Corpuscular Hemoglobin Concent 33, Red Cell Distribution Width 13.7, Platelet Count 263, Mean Platelet Volume 10.6, Immature Granulocyte % (Auto) 1, Neutrophils (%) (Auto) 62, Lymphocytes (%) (Auto) 18, Monocytes (%) (Auto) 10, Eosinophils (%) (Auto) 8, Basophils (%) (Auto) 1, Neutrophils # (Auto) 3.4, Lymphocytes # (Auto) 1.0, Monocytes # (Auto) 0.6, Eosinophils # (Auto) 0.5H, Basophils # (Auto) 0.1, Immature Granulocyte # (Auto) 0.0, Sodium Level 135, Potassium Level 4.1, Chloride Level 102, Carbon Dioxide Level 25, Anion Gap 8, Blood Urea Nitrogen 19H, Creatinine 1.00, Estimat Glomerular Filtration Rate 78, BUN/Creatinine Ratio 19, Glucose Level 107H, Calcium Level 9.2, Corrected Calcium 9.8, Total Bilirubin 0.6, Aspartate Amino Transf (AST/SGOT) 15, Alanine Aminotransferase (ALT/SGPT) 11, Alkaline Phosphatase 80, Total Protein 6.2L, Albumin 3.2 10/01/23 10:57: Glucometer 106 10/01/23 15:33: Glucometer 92 10/01/23 21:00: Glucometer 99 10/02/23 05:07: Glucometer 87 10/02/23 10:47: Glucometer 135H 10/02/23 15:45: Glucometer 120H 10/02/23 20:12: Glucometer 94 10/03/23 05:43: Glucometer 112H 10/03/23 09:44: Glucometer 145H 10/03/23 15:24: Glucometer 108 10/03/23 20:38: Glucometer 111H 10/04/23 05:48: Glucometer 97 10/04/23 11:00: Glucometer 99 10/04/23 16:00: Glucometer 97 10/04/23 21:00: Glucometer 82 10/05/23 06:15: Glucometer 98 10/05/23 10:27: Glucometer 116H 10/05/23 15:33: Glucometer 97 10/05/23 20:35: Glucometer 92 10/06/23 06:03: Glucometer 82 10/06/23 11:22: Glucometer 81 10/06/23 15:59: Glucometer 87 10/06/23 20:36: Glucometer 91 10/07/23 05:31: Glucometer 90 10/07/23 11:04: Glucometer 83 10/07/23 15:55: Glucometer 84 10/07/23 20:49: Glucometer 92 10/08/23 05:27: White Blood Count 4.6, Red Blood Count 4.37, Hemoglobin 13.7, Hematocrit 42, Mean Corpuscular Volume 95, Mean Corpuscular Hemoglobin 31, Mean Corpuscular Hemoglobin Concent 33, Red Cell Distribution Width 13.9, Platelet Count 253, Mean Platelet Volume 11.2, Immature Granulocyte % (Auto) 0, Neutrophils (%) (Auto) 52, Lymphocytes (%) (Auto) 24, Monocytes (%) (Auto) 12, Eosinophils (%) (Auto) 11H, Basophils (%) (Auto) 2, Neutrophils # (Auto) 2.4, Lymphocytes # (Aut o) 1.1, Monocytes # (Auto) 0.6, Eosinophils # (Auto) 0.5H, Basophils # (Auto) 0.1, Immature Granulocyte # (Auto) 0.0, Sodium Level 137, Potassium Level 4.0, Chloride Level 104, Carbon Dioxide Level 25, Anion Gap 8, Blood Urea Nitrogen 21H, Creatinine 1.10, Estimat Glomerular Filtration Rate 69, BUN/Creatinine Ratio 19, Glucose Level 89, Calcium Level 9.2, Corrected Calcium 9.8, Total Bilirubin 0.6, Aspartate Amino Transf (AST/SGOT) 36H, Alanine Aminotransferase (ALT/SGPT) 21, Alkaline Phosphatase 76, Total Protein 6.2L, Albumin 3.3 10/08/23 11:43: Glucometer 125H 10/08/23 15:36: Glucometer 104 10/08/23 20:24: Glucometer 130H 10/09/23 06:04: Glucometer 96 10/09/23 11:00: Glucometer 113H 10/09/23 15:42: Glucometer 107 10/09/23 20:09: Glucometer 94 10/12/23 07:16: White Blood Count 6.0, Red Blood Count 4.70, Hemoglobin 14.8, Hematocrit 44, Mean Corpuscular Volume 95, Mean Corpuscular Hemoglobin 32, Mean Corpuscular Hemoglobin Concent 33, Red Cell Distribution Width 13.9, Platelet Count 238, Mean Platelet Volume 11.0, Immature Granulocyte % (Auto) 0, Neutrophils (%) (Auto) 59, Lymphocytes (%) (Auto) 20, Monocytes (%) (Auto) 10, Eosinophils (%) (Auto) 10, Basophils (%) (Auto) 1, Neutrophils # (Auto) 3.5, Lymphocytes # (Auto) 1.2, Monocytes # (Auto) 0.6, Eosinophils # (Auto) 0.6H, Basophils # (Auto) 0.1, Immature Granulocyte # (Auto) 0.0, Sodium Level 138, Potassium Level 4.2, Chloride Level 104, Carbon Dioxide Level 26, Anion Gap 8, Blood Urea Nitrogen 16, Creatinine 1.08, Estimat Glomerular Filtration Rate 71, BUN/Creatinine Ratio 15, Glucose Level 96, Calcium Level 9.5, Corrected Calcium 9.7, Total Bilirubin 0.7, Aspartate Amino Transf (AST/SGOT) 23, Alanine Aminotransferase (ALT/SGPT) 25, Alkaline Phosphatase 91, Total Protein 7.1, Albumin 3.7 Pending Labs Laboratory Tests 09/24/23 20:59: Glucometer 170 09/25/23 05:35: White Blood Count 7.3, Red Blood Count 4.48, Hemoglobin 14.2, Hematocrit 42, Mean Corpuscular Volume 93, Mean Corpuscular Hemoglobin 32, Mean Corpuscular Hemoglobin Concent 34, Red Cell Distribution Width 14.2, Platelet Count 225, Mean Platelet Volume 10.8, Immature Granulocyte % (Auto) 0, Neutrophils (%) (A uto) 68, Lymphocytes (%) (Auto) 11, Monocytes (%) (Auto) 15, Eosinophils (%) (Auto) 4, Basophils (%) (Auto) 1, Neutrophils # (Auto) 5.0, Lymphocytes # (Auto) 0.8, Monocytes # (Auto) 1.1, Eosinophils # (Auto) 0.3, Basophils # (Auto) 0.1, Immature Granulocyte # (Auto) 0.0, Sodium Level 134, Potassium Level 3.9, Chloride Level 104, Carbon Dioxide Level 20, Anion Gap 10, Blood Urea Nitrogen 26, Creatinine 1.11, Estimat Glomerular Filtration Rate 68, BUN/Creatinine Ratio 23, Glucose Level 162, Calcium Level 9.1, Corrected Calcium 9.9, Total Bilirubin 1.2, Aspartate Amino Transf (AST/SGOT) 24, Alanine Aminotransferase (ALT/SGPT) 12, Alkaline Phosphatase 68, Total Protein 6.3, Albumin 3.0 09/25/23 11:09: Glucometer 209 09/25/23 16:14: Glucometer 180 09/25/23 20:54: Glucometer 207 09/26/23 05:28: Glucometer 137 09/26/23 11:08: Glucometer 201 09/26/23 15:19: Glucometer 178 09/26/23 20:53: Glucometer 188 09/27/23 05:29: Glucometer 125 09/27/23 10:59: Glucometer 166 09/27/23 15:50: Glucometer 128 09/27/23 20:29: Glucometer 155 09/28/23 06:07: Glucometer 113 09/28/23 11:21: Glucometer 156 09/28/23 15:24: Glucometer 144 09/28/23 20:27: Glucometer 148 09/29/23 05:32: Glucometer 104 09/29/23 11:26: Glucometer 130 09/29/23 15:37: Glucometer 101 09/29/23 20:45: Glucometer 124 09/30/23 06:08: Glucometer 103 09/30/23 10:27: Glucometer 132 09/30/23 15:45: Glucometer 122 09/30/23 20:39: Glucometer 116 10/01/23 05:13: White Blood Count 5.5, Red Blood Count 4.45, Hemoglobin 13.7, Hematocrit 42, Mean Corpuscular Volume 94, Mean Corpuscular Hemoglobin 31, Mean Corpuscular Hemoglobin Concent 33, Red Cell Distribution Width 13.7, Platelet Count 263, Mean Platelet Volume 10.6, Immature Granulocyte % (Auto) 1, Neutrophils (%) (Auto) 62, Lymphocytes (%) (Auto) 18, Monocytes (%) (Auto) 10, Eosinophils (%) (Auto) 8, Basophils (%) (Auto) 1, Neutrophils # (Auto) 3.4, Lymphocytes # (Auto) 1.0, Monocytes # (Auto) 0.6, Eosinophils # (Auto) 0.5, Basophils # (Auto) 0.1, Immature Granulocyte # (Auto) 0.0, Sodium Level 135, Potassium Level 4.1, Chloride Level 102, Carbon Dioxide Level 25, Anion Gap 8, Blood Urea Nitrogen 19, Creatinine 1.00, Estimat Glomerular Filtration Rate 78, BUN/Creatinine Ratio 19, Glucose Level 107, Calcium Level 9.2, Corrected Calcium 9.8, Total Bilirubin 0.6, Aspartate Amino Transf (AST/SGOT) 15, Alanine Aminotransferase (ALT/SGPT) 11, Alkaline Phosphatase 80, Total Protein 6.2, Albumin 3.2 10/01/23 10:57: Glucometer 106 10/01/23 15:33: Glucometer 92 10/01/23 21:00: Glucometer 99 10/02/23 05:07: Glucometer 87 10/02/23 10:47: Glucometer 135 10/02/23 15:45: Glucometer 120 10/02/23 20:12: Glucometer 94 10/03/23 05:43: Glucometer 112 10/03/23 09:44: Glucometer 145 10/03/23 15:24: Glucometer 108 10/03/23 20:38: Glucometer 111 10/04/23 05:48: Glucometer 97 10/04/23 11:00: Glucometer 99 10/04/23 16:00: Glucometer 97 10/04/23 21:00: Glucometer 82 10/05/23 06:15: Glucometer 98 10/05/23 10:27: Glucometer 116 10/05/23 15:33: Glucometer 97 10/05/23 20:35: Glucometer 92 10/06/23 06:03: Glucometer 82 10/06/23 11:22: Glucometer 81 10/06/23 15:59: Glucometer 87 10/06/23 20:36: Glucometer 91 10/07/23 05:31: Glucometer 90 10/07/23 11:04: Glucometer 83 10/07/23 15:55: Glucometer 84 10/07/23 20:49: Glucometer 92 10/08/23 05:27: White Blood Count 4.6, Red Blood Count 4.37, Hemoglobin 13.7, Hematocrit 42, Mean Corpuscular Volume 95, Mean Corpuscular Hemoglobin 31, Mean Corpuscular Hemoglobin Concent 33, Red Cell Distribution Width 13.9, Platelet Count 253, Mean Platelet Volume 11.2, Immature Granulocyte % (Auto) 0, Neutrophils (%) (Auto) 52, Lymphocytes (%) (Auto) 24, Monocytes (%) (Auto) 12, Eosinophils (%) (Auto) 11, Basophils (%) (Auto) 2, Neutrophils # (Auto) 2.4, Lymphocytes # (Auto) 1.1, Monocytes # (Auto) 0.6, Eosinophils # (Auto) 0.5, Basophils # (Auto) 0.1, Immature Granulocyte # (Auto) 0.0, Sodium Level 137, Potassium Level 4.0, Chloride Level 104, Carbon Dioxide Level 25, Anion Gap 8, Blood Urea Nitrogen 21, Creatinine 1.10, Estimat Glomerular Filtration Rate 69, BUN/Creatinine Ratio 19, Glucose Level 89, Calcium Level 9.2, Corrected Calcium 9.8, Total Bilirubin 0.6, Aspartate Amino Transf (AST/SGOT) 36, Alanine Aminotransferase (ALT/SGPT) 21, Alkaline Phosphatase 76, Total Protein 6.2, Albumin 3.3 10/08/23 11:43: Glucometer 125 10/08/23 15:36: Glucometer 104 10/08/23 20:24: Glucometer 130 10/09/23 06:04: Glucometer 96 10/09/23 11:00: Glucometer 113 10/09/23 15:42: Glucometer 107 10/09/23 20:09: Glucometer 94 10/12/23 07:16: White Blood Count 6.0, Red Blood Count 4.70, Hemoglobin 14.8, Hematocrit 44, Mean Corpuscular Volume 95, Mean Corpuscular Hemoglobin 32, Mean Corpuscular Hemoglobin Concent 33, Red Cell Distribution Width 13.9, Platelet Count 238, Mean Platelet Volume 11.0, Immature Granulocyte % (Auto) 0, Neutrophils (%) (Auto) 59, Lymphocytes (%) (Auto) 20, Monocytes (%) (Auto) 10, Eosinophils (%) (Auto) 10, Basophils (%) (Auto) 1, Neutrophils # (Auto) 3.5, Lymphocytes # (Auto) 1.2, Monocytes # (Auto) 0.6, Eosinophils # (Auto) 0.6, Basophils # (Auto) 0.1, Immature Granulocyte # (Auto) 0.0, Sodium Level 138, Potassium Level 4.2, Chloride Level 104, Carbon Dioxide Level 26, Anion Gap 8, Blood Urea Nitrogen 16, Creatinine 1.08, Estimat Glomerular Filtration Rate 71, BUN/Creatinine Ratio 15, Glucose Level 96, Calcium Level 9.5, Corrected Calcium 9.7, Total Bilirubin 0.7, Aspartate Amino Transf (AST/SGOT) 23, Alanine Aminotransferase (ALT/SGPT) 25, Alkaline Phosphatase 91, Total Protein 7.1, Albumin 3.7 Discharge Home Medications: Active Scripts Active Lotrimin AF (Miconazole Nitrate) 2 % Powder 0 Gm TOP BID twice daily Risperidone 0.25 Mg Tablet 0.25 Mg PO BID Children's Aspirin (Aspirin) 81 Mg Tab.chew 81 Mg PO DAILY@0900 Clopidogrel (Clopidogrel Bisulfate) 75 Mg Tablet 75 Mg PO DAILY Amlodipine Besylate 10 Mg Tablet 10 Mg PO DAILY Metformin HCl 500 Mg Tablet 1,000 Mg PO DAILY TAKS 2 (500MG) TABS Losartan Potassium 100 Mg Tablet 100 Mg PO DAILY Reported Tylenol Extra Strength (Acetaminophen) 500 Mg Tablet 500-1,000 Mg PO Q8H PRN Trulicity (Dulaglutide) 0.75 Mg/0.5 Ml Pen.injctr 0.75 Mg IJ SUN Prednisolone Acetate 1 % Drops.susp 1 Drop OP QID Lipitor 80mg PO daily Instructions to patient/family Please see electronic discharge instructions given to patient. Diagnosis/Problems Diagnosis/Problems (1) Cerebellar stroke Status: Acute SALEEM KING DO Oct 14, 2023 06:42
[2023-10-14 08:00] VITALS: BP 121/64
[2023-10-14] MEDS: risperiDONE 0.25 MG TABLET PO SCH (08:41)
[2023-10-14] MEDS: prednisoLONE 1% Ophthalmic Suspension 5 ML BTL OP SCH (08:41)
[2023-10-14] MEDS: CLOPIDOGREL 75 MG TABLET PO SCH (08:41)
[2023-10-14] MEDS: amLODIPine 10 MG TABLET PO SCH (08:41)
[2023-10-14] MEDS: metFORMIN 500 MG TABLET PO SCH (08:41)
[2023-10-14] MEDS: LOSARTAN 100 MG TABLET PO SCH (08:41)
[2023-10-14] MEDS: DOCUSATE SODIUM 100 MG CAPSULE PO SCH (08:41)
[2023-10-14] MEDS: ASPIRIN 81 MG CHEWABLE TABLET PO SCH (08:41)
[2023-10-14] MEDS: MICONAZOLE 2% POWDER 90 GM TOP SCH (08:42)
[2023-10-14] MEDS: SENNA W/DOCUSATE TABLET PO SCH (08:42)
[2023-10-14] MEDS: ENOXAPARIN 40 MG/0.4 ML SYRINGE SQ SCH (10:00)
[2023-10-14] MEDS ORDERED: ATOR80TA76 PO (13:25)
--- NOTE | 2023-10-15 10:41 | Therapy Team Discharge Summary ---
Therapy Discharge Summary Discharge Recommendations Date of Discharge Oct 14, 2023 at 10:45 Therapy D/C Recommendations: Occupational Therapy Home Care Physical Therapy Roll Left to Right (QC): 6 Sit to Lying (QC): 6 Lying to Sitting/Side of Bed(Q: 6 Sit to Stand (QC): 6 Chair/Hha-rn-Uhghp Xfer(QC): 6 Toilet Transfer (QC): 5 Car Transfer (QC): 6 Does the Patient Walk: Yes Mode of Locomotion: Wheelchair Anticipated Mode of Locomotion: Both Walk 10 feet (QC): 6 Walk 50 ft with 2 Turns(QC): 6 Walk 150 ft (QC): 5 Walking 10ft on uneven surface: 5 Gait Assistive Device: FWW Does the Pt Use a Wheelchair: No Wheelchair Distance: 3' Wheel 50 ft with 2 turns (QC): 4 Wheel 150 ft (QC): 4 Type of Wheelchair: Manual #of Steps: 12 1 Step (curb) (QC): 5 4 Steps (QC): 5 12 Steps (QC): 4 Balance Sitting Static: Fair Balance Sitting Dynamic: Poor Balance-Standing Static: Poor Picking up an Object (QC): 5 Occupational Therapy Pt admitted to [facility] s/p CVA. At [facility], pt was independent with ADLS and functional mobility, no AD. Upon initial evaluation, pt required supervision with eating, partial assist oral care and UBD, and total assist showering, LBD, footwear and toileting. OT tx focused on increasing BUE strength and activity tolerance, and increasing safety and independence with ADLS and functional mobility. Pt made good progress towards goals, attaining all LTGS at IND level. Pt discharged home with family support, d/c from OT. Decreased Activ Tolerance, Decreased UE Strength, Impaired Self-Care Skills Eating (QC): 6 Oral Hygiene (QC): 6 Shower/Bathe Self (QC): 6 Upper Body Dressing (QC): 6 Lower Body Dressing (QC): 6 On/Off Footwear (QC): 6 Toileting Hygiene (QC): 6 PT Skilled Nursing Goals Offset Lithographic Press Operator Goals PT Skilled Nursing Goals Time Frame: Oct 22, 2023 Roll Left to Right (QC): 4 Sit to Lying (QC): 4 Lying-Sitting on Side/Bed(QC): 4 Sit to Stand (QC): 3 Chair/Blc-zi-Zlsse Xfer(QC): 3 Toilet/Commode Transfer (QC): 3 Car Transfer (QC): 3 Does the Patient Walk: Yes Walk 10 feet (QC): 3 Walk 10ft-Uneven Surface(QC): 3 Walk 50ft with 2 Turns (QC): 3 Walk 150 ft (QC): 3 Does the Pt use WC or Scooter?: Yes Wheel 50 feet with 2 turns (QC: 6 Type: Manual Wheel 150 feet: 6 Type: Manual 1 Step (curb) (QC): 3 4 Steps (QC): 3 12 Steps (QC): 3 Picking up an Object (QC): 3 OT Skilled Nursing Goals Offset Lithographic Press Operator Goals Time Frame: Oct 19, 2023 Acute change in mental status: 0 Inattention: 0 Disorganized thinkin Altered level of consciousness: 0 Eating (QC): 6 (met) Oral Hygiene (QC): 6 (met) Toileting Hygiene (QC): 6 (met) Shower/Bathe Self (QC): 6 (met) Upper Body Dressing (QC): 6 (met) Lower Body Dressing (QC): 6 (met) On/Off Footwear (QC): 6 (met) Additional Goals: 1-Demonstrate ADL Tasks, 2-Verbalize Understanding, 3- ImproveStrength/Joey 1=Demonstrate adherence to instructed precautions during ADL tasks. 2=Patient will verbalize/demonstrate understanding of assistive devices/modifications for ADL. 3=Patient will improve strength/tolerance for activity to enable patient to perform ADL's. Speech Skilled Nursing Goals Skilled Nursing Goals 1. The pt will be oriented to self, place, time and situation independently with 100% accuracy. 2. The pt will complete simple problem solving and safety awareness for daily tasks of living with 90% accuracy. 3. The pt will demonstrate immediate, short-term and long-term recall of functional information with 80% accuracy. LIN MORENO OT Oct 15, 2023 10:41
--- NOTE | 2023-10-15 13:50 | Therapy Team Discharge Summary ---
Therapy Discharge Summary Discharge Recommendations Date of Discharge Oct 14, 2023 at 10:45 Therapy D/C Recommendations: Occupational Therapy Home Care Physical Therapy Roll Left to Right (QC): 6 Sit to Lying (QC): 6 Lying to Sitting/Side of Bed(Q: 6 Sit to Stand (QC): 6 Chair/For-yu-Svfby Xfer(QC): 6 Toilet Transfer (QC): 5 Car Transfer (QC): 6 Does the Patient Walk: Yes Mode of Locomotion: Wheelchair Anticipated Mode of Locomotion: Both Walk 10 feet (QC): 6 Walk 50 ft with 2 Turns(QC): 6 Walk 150 ft (QC): 5 Walking 10ft on uneven surface: 5 Gait Assistive Device: FWW Does the Pt Use a Wheelchair: No Wheelchair Distance: 3' Wheel 50 ft with 2 turns (QC): 4 Wheel 150 ft (QC): 4 Type of Wheelchair: Manual #of Steps: 12 1 Step (curb) (QC): 5 4 Steps (QC): 5 12 Steps (QC): 4 Balance Sitting Static: Fair Balance Sitting Dynamic: Poor Balance-Standing Static: Poor Picking up an Object (QC): 5 Occupational Therapy Decreased Activ Tolerance, Decreased UE Strength, Impaired Self-Care Skills Eating (QC): 6 Oral Hygiene (QC): 6 Shower/Bathe Self (QC): 6 Upper Body Dressing (QC): 6 Lower Body Dressing (QC): 6 On/Off Footwear (QC): 6 Toileting Hygiene (QC): 6 Speech-Language Pathology Pt admitted to [facility] s/p CVA. At [facility], pt reports independence with all ADLs. Upon evaluation, several cognitive deficits were identified, including poor orientation, simple problem solving and safety awareness, and immediate, short- term, and long-term recall of functional information. ST focused on these deficits in order to improve independence with ADLs. Pt made good progress regarding goals, however, continued to demonstrate poor recall into cognitive deficits. Pt discharged home with family support. PT Date Night Caregiver Goals Date Night Caregiver Goals PT Date Night Caregiver Goals Time Frame: Oct 22, 2023 Roll Left to Right (QC): 4 Sit to Lying (QC): 4 Lying-Sitting on Side/Bed(QC): 4 Sit to Stand (QC): 3 Chair/Qcb-ki-Zbooj Xfer(QC): 3 Toilet/Commode Transfer (QC): 3 Car Transfer (QC): 3 Does the Patient Walk: Yes Walk 10 feet (QC): 3 Walk 10ft-Uneven Surface(QC): 3 Walk 50ft with 2 Turns (QC): 3 Walk 150 ft (QC): 3 Does the Pt use WC or Scooter?: Yes Wheel 50 feet with 2 turns (QC: 6 Type: Manual Wheel 150 feet: 6 Type: Manual 1 Step (curb) (QC): 3 4 Steps (QC): 3 12 Steps (QC): 3 Picking up an Object (QC): 3 OT Retirement Goals Retirement Goals Time Frame: Oct 19, 2023 Acute change in mental status: 0 Inattention: 0 Disorganized thinkin Altered level of consciousness: 0 Eating (QC): 6 (met) Oral Hygiene (QC): 6 (met) Toileting Hygiene (QC): 6 (met) Shower/Bathe Self (QC): 6 (met) Upper Body Dressing (QC): 6 (met) Lower Body Dressing (QC): 6 (met) On/Off Footwear (QC): 6 (met) Additional Goals: 1-Demonstrate ADL Tasks, 2-Verbalize Understanding, 3- ImproveStrength/Joey 1=Demonstrate adherence to instructed precautions during ADL tasks. 2=Patient will verbalize/demonstrate understanding of assistive dev ices/modifications for ADL. 3=Patient will improve strength/tolerance for activity to enable patient to perform ADL's. Speech Retirement Goals Retirement Goals 1. The pt will be oriented to self, place, time and situation independently with 100% accuracy. 2. The pt will complete simple problem solving and safety awareness for daily tasks of living with 90% accuracy. 3. The pt will demonstrate immediate, short-term and long-term recall of functional information with 80% accuracy. Anayeli Rowan Oct 15, 2023 13:50
--- NOTE | 2023-10-15 15:13 | Therapy Team Discharge Summary ---
Therapy Discharge Summary Discharge Recommendations Date of Discharge Oct 14, 2023 at 10:45 Therapy D/C Recommendations: Occupational Therapy Home Care Physical Therapy Patient was admitted to the ARU 09/24/23 for a CVA. He made excellent functional gains while on the ARU, progressing from dependent for transfers and gait, to (I) with the use of a FWW. At the time of discharge he was (I) with gait for distances up to 600' on level surfaces.. He was (I) with all mobility and functional transfers with the use of a FWW. He was able to negotiate a curb step /c the FWW and 12 steps /c railings at a setup level per DEHYDRATOR TENDER. He was also setup-assist to case picker an object from the floor when given a tetryl nitrator operator per DEHYDRATOR TENDER, but was able to pick his pants up off the floor independently after toileting in the bathroom last week with PT. At the time of discharge, he was ambulating 600' and no longer needed a w/c for mobility. He discharged home /c family supervision. Roll Left to Right (QC): 6 Sit to Lying (QC): 6 Lying to Sitting/Side of Bed(Q: 6 Sit to Stand (QC): 6 Chair/Qoc-af-Yxlaz Xfer(QC): 6 Toilet Transfer (QC): 5 Car Transfer (QC): 6 Does the Patient Walk: Yes Mode of Locomotion: Wheelchair Anticipated Mode of Locomotion: Both Walk 10 feet (QC): 6 Walk 50 ft with 2 Turns(QC): 6 Walk 150 ft (QC): 6 Walking 10ft on uneven surface: 5 Gait Assistive Device: FWW Does the Pt Use a Wheelchair: No Wheel 50 ft with 2 turns (QC): 9 Wheel 150 ft (QC): 9 Type of Wheelchair: Manual #of Steps: 12 1 Step (curb) (QC): 5 4 Steps (QC): 5 12 Steps (QC): 5 Walking Assistive Device: Walker Balance Sitting Static: Fair Balance Sitting Dynamic: Poor Balance-Standing Static: Poor Picking up an Object (QC): 5 Occupational Therapy Decreased Activ Tolerance, Decreased UE Strength, Impaired Self-Care Skills Eating (QC): 6 Oral Hygiene (QC): 6 Shower/Bathe Self (QC): 6 Upper Body Dressing (QC): 6 Lower Body Dressing (QC): 6 On/Off Footwear (QC): 6 Toileting Hygiene (QC): 6 PT Relocation Services Specialist Goals Halfway Goals PT Halfway Goals Time Frame: Oct 22, 2023 Roll Left to Right (QC): 4 Sit to Lying (QC): 4 Lying-Sitting on Side/Bed(QC): 4 Sit to Stand (QC): 3 Chair/Ufy-gg-Otelz Xfer(QC): 3 Toilet/Commode Transfer (QC): 3 Car Transfer (QC): 3 Does the Patient Walk: Yes Walk 10 feet (QC): 3 Walk 10ft-Uneven Surface(QC): 3 Walk 50ft with 2 Turns (QC): 3 Walk 150 ft (QC): 3 Does the Pt use WC or Scooter?: Yes Wheel 50 feet with 2 turns (QC: 6 Type: Manual Wheel 150 feet: 6 Type: Manual 1 Step (curb) (QC): 3 4 Steps (QC): 3 12 Steps (QC): 3 Picking up an Object (QC): 3 OT Halfway Goals Relocation Services Specialist Goals Time Frame: Oct 19, 2023 Acute change in mental status: 0 Inattention: 0 Disorganized thinkin Altered level of consciousness: 0 Eating (QC): 6 (met) Oral Hygiene (QC): 6 (met) Toileting Hygiene (QC): 6 (met) Shower/Bathe Self (QC): 6 (met) Upper Body Dressing (QC): 6 (met) Lower Body Dressing (QC): 6 (met) On/Off Footwear (QC): 6 (met) Additional Goals: 1-Demonstrate ADL Tasks, 2-Verbalize Understanding, 3- ImproveStrength/Joey 1=Demonstrate adherence to instructed precautions during ADL tasks. 2=Patient will verbalize/demonstrate understanding of assistive devices/modifications for ADL. 3=Patient will improve strength/tolerance for activity to enable patient to perform ADL's. Speech Relocation Services Specialist Goals Halfway Goals 1. The pt will be oriented to self, place, time and situation independently with 100% accuracy. 2. The pt will complete simple problem solving and safety awareness for daily tasks of living with 90% accuracy. 3. The pt will demonstrate immediate, short-term and long-term recall of functional information with 80% accuracy. Karyn Ryan PT Oct 15, 2023 15:13
== END 2023-10-14 10:45 | disposition home health service (06) | DRG 57 ==
PROVIDERS: ADMIT Internal Medicine; ATTEND Internal Medicine
DX: I69.390 Apraxia following cerebral infarction (principal); I69.311 Memory deficit following cerebral infarction; I10 Essential (primary) hypertension; E11.9 Type 2 diabetes mellitus without complications; E66.9 Obesity, unspecified; R41.0 Disorientation, unspecified; E78.5 Hyperlipidemia, unspecified; F17.210 Nicotine dependence, cigarettes, uncomplicated; K59.00 Constipation, unspecified; F41.9 Anxiety disorder, unspecified; F32.A Depression, unspecified; Z68.36 Body mass index [BMI] 36.0-36.9, adult; Z85.46 Personal history of malignant neoplasm of prostate; Z90.79 Acquired absence of other genital organ(s); Z79.899 Other long term (current) drug therapy; Z79.85 Long-term (current) use of injectable non-insulin antidiabetic drugs; Z79.84 Long term (current) use of oral hypoglycemic drugs; Z79.52 Long term (current) use of systemic steroids
CPT/HCPCS: 36415; 80053; 82947; 85025